=== PATIENT | female | born 1960 | race Caucasian/White ===

== ENCOUNTER 2023-07-22 13:17 | Emergency (ER) | payer BC, SELFPAY ==
[2023-07-22 13:34] VITALS: BP 126/83; PULSE 81; RESP 18; TEMP 36.8; O2SAT 94; BMI 33.7
--- NOTE | 2023-07-22 16:31 | ED.GENADULT ---
HPI - General Adult General Date Seen: 07/22/23 Chief complaint: Extremity Pain/Injury, Lower Stated complaint: L foot swollen Time Seen by Provider: 07/22/23 16:31 History of Present Illness HPI narrative: 62-year-old female with a history of rheumatoid arthritis, autoimmune disease, but no history of DVT or PE, who presents to the ER today for redness and swelling of her left foot as well as swelling and pain involving her left renner, calf, and popliteal fossa. She was helping her mother, who lives with her and is on hospice, get into her bed last week. Sounds like she bent over awkwardly and injured her back. She has been having some pain in her midback since then and some radiation of pain down her left leg. It sounds like she has pre-existing back problems and is actually set up to start physical therapy for her back this coming , in 3 days. Around that same time, about 7 or 8 days ago, she started developed redness and swelling of her left foot. It feels warm to the touch. Since then she has also developed swelling without redness affecting her left ankle, renner, calf, and behind her knee. She has had some pain and swab discomfort in her left calf. No fevers or chills. She recalls that she had some swollen joints in her wrists few months ago that required steroid shots by her ear pull machine operator (who she sees through [facility]). She has also apparently had a half of a a lab workup through her ear pull machine operator that showed lower uric acid but she is waiting on some of the other test results. With the increasing pain and swelling in her left lower extremity she is worried about possibly a DVT. She came to the ER to get an ultrasound. Related Data Home Medications Medication Instructions Recorded Confirmed ibuprofen .ROUTE 07/22/23 Previous Rx's Medication Instructions Recorded cephalexin 500 mg capsule 500 mg PO QID #20 caps 07/22/23 Allergies Allergy/AdvReac Type Severity Reaction Status Date / Time bee pollen Allergy Severe Anaphylaxis Verified 07/22/23 13:41 Latex, Natural Rubber Allergy Severe Anaphylaxis Verified 07/22/23 13:41 Penicillins Allergy Mild Rash Verified 07/22/23 13:41 [facility] PFS Social History Smoking Status: Never smoker Do you use any of these nicotine containing products: None Second hand tobacco smoke exposure: No How often do you have a drink containing alcohol: 4 or more times a week How many standard drinks containing alcohol do you have on a typical day: 1 or 2 AUDIT-C Alcohol total score: 4 Non-prescribed substance use: marijuana (any form) Exam Narrative: Exam Narrative: Constitutional: Appears well-developed and well-nourished. Alert. Conversant and polite. Non toxic. HENT: Head: Atraumatic. Nose: Nose normal. Mouth/Throat: Oral mucosa is clear and moist. no trismus. Pharynx normal. Tonsils symmetric. No tonsillar enlargement, erythema, or exudate. Eyes: Conjunctivae normal. EOM normal. Pupils equal, round, and reactive to light. No scleral icterus. Neck: Normal range of motion. Neck supple. No tracheal deviation present. Cardiovascular: Normal rate, regular rhythm. No gallop. No friction rub. No murmur heard. Symmetric PT artery pulses Pulmonary/Chest: Effort normal. No stridor. No respiratory distress. No wheezes. No rales. No rhonchi . No tenderness. Abdominal: Soft.No distension. No mass. No tenderness. No rebound. No guarding. Musculoskeletal: RUE: Normal range of motion. No tenderness. No deformity LUE: Normal range of motion. No tenderness. No deformity RLE: Normal range of motion. No edema. No tenderness. No deformity LLE: Normal range of motion her hip and knee. Healed anterior knee incision from recent total knee replacement (done last August) incision looks good. There is no redness or warmth or swelling of the knee joint. No palpable effusion. She has mild tenderness in the popliteal fossa. She has edema affecting her calf, renner, ankle. She does have redness of the medial aspect of her foot and swelling there. No redness of the renner or calf. No ascending lymphangitis. No bony tenderness of her foot. Normal range of motion in the MTP, and IP joints of all of her toes. Neurological: Alert and oriented to person, place, and time. Normal strength. CN II-VII intact. No sensory deficit. GCS eye subscore is 4. GCS verbal subscore is 5. GCS motor subscore is 6. Normal coordination Skin: Skin is warm and dry. No rash noted. No pallor. Normal capillary refill. Psychiatric: Normal mood. Normal affect. Const: Vital Signs, click to edit/add: Vital Signs - 24 hr 07/22/23 13:34 Temperature 98.3 F Pulse Rate [Pulse Oximeter] 81 Respiratory Rate 18 Blood Pressure [Ri ght Upper Arm] 126/83 Pulse Oximetry 94 Oxygen Delivery Me thod Room Air Course Vital Signs Vital signs: Initial Vital Signs Temperature 98.3 F 07/22/23 13:34 Temperature Source Temporal Artery Scan 07/22/23 13:34 Pulse Rate 81 07/22/23 13:34 Respiratory Rate 18 07/22/23 13:34 Blood Pressure 126/83 07/22/23 13:34 Blood Pressure Mean 97 07/22/23 13:34 Blood Pressure Position Sitting 07/22/23 13:34 Pulse Oximetry 94 07/22/23 13:34 Oxygen Delivery Method Room Air 07/22/23 13:34 Vital Signs Temperature 98.3 F 07/22/23 13:34 Pulse Rate 81 07/22/23 13:34 Respiratory Rate 18 07/22/23 13:34 Blood Pressure 126/83 07/22/23 13:34 Pulse Oximetry 94 07/22/23 13:34 Oxygen Delivery Method Room Air 07/22/23 13:34 Temperature 98.3 F 07/22/23 13:34 Pulse Rate 81 07/22/23 13:34 Respiratory Rate 18 07/22/23 13:34 Blood Pressure 126/83 07/22/23 13:34 Pulse Oximetry 94 07/22/23 13:34 Oxygen Delivery Method Room Air 07/22/23 13:34 Medical Decision Making MDM Narrative Medical decision making narrative: This is a pleasant 62-year-old female with a history of rheumatoid arthritis presenting to the ER today for redness and swelling affecting the medial aspect of her right foot in particular around the 1st MTP joint but also on the dorsal medial foot as well as swelling without redness affecting her left calf and left posterior knee. Initial concern with the left lower extremity swelling would be possible DVT. Ultrasound is obtained and preliminary report is normal. Formal ultrasound report pending at the time of this dictation. there is no symptoms of PE for this patient. Differential for the swelling and redness especially around the 1st MTP joint in the foot would be possible gout. Patient doubts that it is gout given absence of significant pain there and she says she recently had lab sister her ear pull machine operator that showed a low uric acid level. Discussed that gout can still flare even despite low serum levels. Close however doubt gout since the redness is a little bit more diffuse of the dorsum of the foot and is not centered over the 1st MTP joint only. Differential would also include possible cellulitis. At this point she is not febrile. I do not think laboratory workup would be helpful here since white count may be normal or elevated in the setting of cellulitis. Will try her on empiric course of cephalexin. She will follow-up with primary care within the next 3-5 days for recheck. Get follow-up ultrasound if swelling still present and not improving to rule out possibility for occult DVT. Precautions for return to the ER reviewed Discharge Plan Discharge Clinical Impression: Edema of left lower extremity, Cellulitis of foot, left Patient Disposition: Home, Self-Care Condition: Stable Instructions: Cellulitis (ED), Leg Edema (ED) Additional Instructions: As we discussed, please follow-up with her doctor to get a repeat ultrasound of the swelling in your leg is not getting better within the next 5-7 days. If you have increasing redness or worsening pain in your foot or if you develop any fever, or if you develop chest pain or trouble breathing, please see your doctor immediately or come back to the ER right away to be rechecked. Prescriptions: New cephalexin 500 mg capsule 500 mg PO QID Qty: 20 0RF No Action ibuprofen [Advil Liqui-Gel] .ROUTE Follow Up/Referrals: Provider,Not a Local [Primary Care Provider] - Stand Alone Forms: MyHealth Info Instructions
--- NOTE | 2023-07-22 16:47 | CRLHL7_ITS ---
For Patients: As a result of the Century Cures Act, medical imaging exams and procedure reports are released immediately into your electronic medical record. You may view this report before your referring provider. If you have questions, please contact your health care provider. INDICATION: Leg pain and swelling. TECHNIQUE: Ultrasound venous duplex lower left extremity. Compression venous exam was performed using klein-scale, color Doppler, and spectral Doppler analysis. COMPARISON: None. FINDINGS: Deep veins: Sonographic imaging demonstrates the left common femoral, deep femoral, superficial femoral, popliteal, posterior tibial and the contralateral right common femoral veins to be fully compressible with normal color Doppler blood flow. Superficial veins: Greater saphenous vein is fully compressible. No popliteal cyst. IMPRESSION: Normal left lower extremity venous ultrasound, no sign of deep venous thrombosis. Dictated by Devin Mccracken MD @ 07/22/2023 6:15:38 PM (Electronically Signed)
--- OUTSIDE RECORDS SUMMARY | 2023-07-22 17:04 | XMS_ITS | Clinical Summary ---
Author Name Unknown Organization [place] Address [facility] [place] [address] Care Team Providers Care Editor Dictionary Name Role Phone Kelly Medina PA-C Unavailable Kelly Medina PA-C Primary Care Pr ovider Allergies Active Allergy Reactions Criticality Noted Date Comments Bees 06/28/2005 Codeine Low 08/08/2022 Makes me hyper Contrast Dye 09/03/2002 Coma. Pt is ok with isovue 370 (ct contrast dye) 08/08/13. Iodinated Contrast Media Anaphylaxis High 08/08/2022 Iodine Anaphylaxis High 09/03/2002 anaphylaxis Latex Anaphylaxis High 09/23/2002 Malt Hives 04/23/2014 Penicillins Rash Low 09/03/2002 rash Estradiol Rash Low 04/16/2018 Medications Medication Sig Dispensed Refills Start Date End Date Status VITAMIN D, CHOLECALCIFEROL, PO Take 400 Units by mouth daily 0 Active Magnesium Chloride (MAGNESIUM DR PO) Take 450 mg by mouth 2 times daily 0 Active albuterol (PROAIR HFA/PROVENTIL HFA/VENTOLIN HFA) 108 (90 Base) MCG/ACT inhalerIndications:I ntermittent asthma, uncomplicated Inhale 1-2 puffs into the lungs every 4 hours as needed for shortness of breath / dyspnea 16 g 1 12/21/2020 Active multivitamin w/minerals (THERA-VIT-M) tablet Take 1 tablet by mouth daily 0 Active aspirin (ASA) 325 MG EC tabletIndications:S/ P TKR (total knee replacement), left Take 1 tablet (325 mg) by mouth daily 30 tablet 0 09/03/2022 Active bisacodyl (DULCOLAX) 5 MG EC tabletIndications:Sp ecial screening for malignant neoplasms, colon Take 2 tablets at 3 pm the day before your procedure. If your procedure is before 11 am, take 2 additional tablets at 11 pm. If your procedure is after 11 am, take 2 additional tablets at 6 am. For additional instructions refer to your colonoscopy prep instructions. 4 tablet 0 06/06/2023 Active polyethylene glycol (GOLYTELY) 236 g suspensionIndication s:Special screening for malignant neoplasms, colon The night before the exam at 6 pm drink an 8-ounce glass every 15 minutes until the jug is half empty. If you arrive before 11 AM: Drink the other half of the Golytely jug at 11 PM night before procedure. If you arrive after 11 AM: Drink the other half of the Golytely jug at 6 AM day of procedure. For additional instructions refer to your colonoscopy prep instructions. 4000 mL 0 06/06/2023 Active PREDNISONE, JANICE, PO Take 10 mg by mouth daily Prednisone dose pack 0 Active Active Problems Patient Care Coordination No te Formatting of this note migh t be different from the original. [email or web address] Problem Noted Date Diagnosed Date Anxiety 09/27/2017 Autoimmune disease (H24) 09/27/2017 Hip pain, left 09/13/2015 Degenerative arthritis of hip 05/18/2014 Abdominal pain, unspecified abdominal location 0 12/07/2010 Overview: Problem list name updated by automated process. 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 Provider to review Autoimmune disease, not elsewhere classified Overview: sees dr mast at [facility] Problem list name updated by automated process. Provider to review and confirm Resolved Problems Problem Noted Date Diagnosed Date Resolved Date Morbid obesity 12/05/2017 12/03/2018 Left hip pain 09/20/2015 10/05/2015 Aftercare following hip join t replacement surgery 09/20/2015 10/05/2015 Thoracic or lumbosacral neur itis or radiculitis, unspecified 12/09/2013 04/19/2014 Cervical pain 03/19/2012 05/06/2012 Lumbar pain 03/19/2012 05/06/2012 Mild intermittent asthma Encounters Date Type Department Care Team Description 06/18/2023 12:00 PM ACADEMIC DEAN - 06/18/2023 12:30 PM ACADEMIC DEAN Surgery [facility] [address] [place] [address] Melba Houser MD Colonoscopy (FV) 06/18/2023 10:57 AM ACADEMIC DEAN - 06/18/2023 1:05 PM ACADEMIC DEAN Hospital Encounter [facility] [address] [place] [address] Melba Houser MD Special screening for malignant neoplasms, colon (Primary Dx) Discharge Disposition: Home or Self Care 06/18/2023 Travel 04/22/2023 [facility] Medical Advice [address] [phone] [facility] from Last 3 Months Immunizations Name Administration Dates Next Due COVID-19 MONOVALENT 12+ (Pfizer) 07/13/2021,10/16,10/18/2020 DTaP, Unspecified 03/20/2012 Influenza (H1N1) 05/20/2009 Influenza (IIV3) PF 04/17/2013, 3,03/20/2012,2010,03/30/2010 Influenza Vaccine, 6+MO IM (QUADRIVALENT W/PRESERVATIVES) 03/21/2021 TD,PF 7+ (Tenivac) 02/16/2004 TDAP (Adacel,Boostrix) 04/17/2013,03/20/2012 TDAP Vaccine (Adacel) 04/16/2018 Zoster recombinant adjuvante d (SHINGRIX) 03/25/2019,12/03/2018 Family History Medical History Relation Comments Family History Negative Brother 3 2 brothe rs healthy Cancer Father Hypertension Father Breast Cancer Maternal Aunt Cancer - colorectal Maternal Grandfather Breast Cancer Maternal Grandmother Colon Polyps Mother Family History Negative Mother Cancer Paternal Grandfather Cancer Paternal Grandmother Relation Status Comments Brother 1 Alive Brother 2 Alive Brother 3 Father Maternal Aunt Maternal Grandfather Maternal Grandmother Mother Alive Paternal Grandfather Paternal Grandmother Social History Tobacco Use Types Packs/Day Years Used Date Smoking Tobacco: Never Smokeless Tobacco: Never Tobacco Cessation:Counseling Given: Not Answered Alcohol Use Standard Drinks/Week Comments Yes 0 (1 standard drink = 0.6 oz pur e alcohol) 4 weekends Social Connection and Isolat ion Panel [NHANES] Answer Date Recorded In a typical week, how many times do you talk on the phone with family, friends, or neighbors? More than three times a week 08/24/2022 Frequency of Social Gatherin gs with Friends and Family Not on file 08/24/2022 How often do you attend chur ch or yazidism services? More than 4 times per year 08/24/2022 Do you belong to any clubs o r organizations such as faith groups, unions, fraternal or athletic groups, or school groups? Yes 08/24/2022 Attends Club or Organization Meetings Not on yasemin e 08/24/2022 Are you , , di vorced, , never , or living with a partner? 08/24/2022 AUDIT-C Answer Date Recorded Q1: How often do you have a drink containing alc ohol? 2-3 times a week 08/24/2022 Q2: How many drinks containi ng alcohol do you have on a typical day when you are drinking? 1 or 2 08/24/2022 Q3: How often do you have si x or more drinks on one occasion? Never 08/24/2022 Overall Financial Resource Strain (CARDIA) Answe r Date Recorded How hard is it for you to pa y for the very basics like food, housing, medical care, and heating? Not hard at all 08/24/2022 PHQ-2 Answer Date Recorded PHQ-2 Score 0 01/17/2023 [facility] - Occupational Stress Questionnaire Answer Date Recorded Do you feel stress - tense, restless, nervous, or anxious, or unable to sleep at night because your mind is troubled all the time - these days? Not at all 08/24/2022 Exercise Vital Sign Answer Date Recorde d On average, how many days pe r week do you engage in moderate to strenuous exercise (like a brisk walk)? 0 days 08/24/2022 On average, how many minutes do you engage in exercise at this level? 0 min 08/24/2022 Hunger Vital Sign Answer Date Recorded Within the past 12 months, y ou worried that your food would run out before you got the money to buy more. Never true 08/25/19 23 Within the past 12 months, t he food you bought just didn't last and you didn't have money to get more. Never true 08/24/2022 PRAPARE - Transportation Answer Date Re corded In the past 12 months, has l ack of transportation kept you from medical appointments or from getting medications? No 08/15 In the past 12 months, has l ack of transportation kept you from meetings, work, or from getting things needed for daily living? No 08/24/2022 Housing Stability Vital Sign Answer Yonathan e Recorded In the last 12 months, was t here a time when you were not able to pay the mortgage or rent on time? No 08/24/2022 In the last 12 months, how many places have you lived? 1 08/24/2022 In the last 12 months, was t here a time when you did not have a steady place to sleep or slept in a long-term (including now)? No 08/24/2022 Adolescent Education Answer Date Record ed Getting School Help Needed Not on file 03/08 Sex and Gender Information Value Date Recorded Sex Assigned at Not on file Gender Identity Not on file Sexual Orientation Not on file Last Filed Vital Signs Vital Sign Reading Time Taken Comments Blood Pressure 116/68 06/18/2023 12:50 PM ACADEMIC DEAN Pulse 63 06/18/2023 12:50 PM ACADEMIC DEAN Temperature 36.4 ??C (97.5 ??F) 06/18/2023 11:[address] Respiratory Rate 16 06/18/2023 12:50 PM ACADEMIC DEAN Oxygen Saturation 95% 06/18/2023 12:50 PM ACADEMIC DEAN Inhaled Oxygen Concentration - - Weight 86.2 kg (190 lb) 06/18/2023 11:15 AM ACADEMIC DEAN Height 158.8 cm (5' 2.5) 06/18/2023 11:15 AM CS T Body Mass Index 34.2 06/18/2023 11:15 AM ACADEMIC DEAN Plan of Treatment Upcoming Encounters Date Type Department Care Team (Late st Contact Info) Description 2023 1:30 PM ACADEMIC DEAN Office Visit [facility] [address] [place] [address] Anamaria Nevarez MD [address] [place] [address] Health Maintenance Due Date Last Done Comments CT COLONOGRAPHY 1960 FIT 1960 FLEX SIG 1960 sDNA (Cologuard) 1960 ASTHMA ACTION PLAN 07/10/2014 07/10/2013, 0 09/15/2012, 03/13/2012, Additional history exists YEARLY PREVENTIVE VISIT 07/13/2020 07/13/19 20, 03/17/2018, 09/17/2016, Additional history exists RSV VACCINE ( & 60+) (1 - 1-dose 60+ series) 2022 ADVANCE CARE PLANNING 12/05/2022 12/05/2017 COVID-19 Vaccine ( season) 2023 07/13/2021, 11/08/2020, 10/18/2020 INFLUENZA VACCINE (#1) 2023 , 03/17/2018 (Declined), 04/17/2013, Additional history exists ASTHMA CONTROL TEST 02/24/2023 08/24/2022, 12/05/2021, 12/21/2020, Additional history exists PHQ-2 (once per calendar year) 2023 01/17/2023, 08/24/2022, 12/05/2021, Additional history exists ANNUAL REVIEW OF HM ORDERS 01/18/202401/17, 12/05/2021, 12/21/2020 MAMMO SCREENING 02/07/2024 02/06/2023, 0 01/2022, 07/23/2019, Additional history exists GLUCOSE 01/17/2026 01/17/2023, 08/16, 09/04/2022, Additional history exists LIPID 01/18/2028 01/17/2023, 10/2016, 09/15/2012, Additional history exists DTAP/TDAP/TD IMMUNIZATION (5 - Td or Tdap) 04/16/2028 04/16/2018, 04/17/2013, 03/20/2012, Additional history exists COLONOSCOPY 06/18/2028 06/18/2023, 07/2023, 10/01/2017, Additional history exists COLORECTAL CANCER SCREENING 06/18/2028 PAP Discontinued 09/15/2012, 11/16, 02/03/2007, Additional history exists ZOSTER IMMUNIZATION Completed 03/25/2019, 9 HEPATITIS C SCREENING Completed 01/17/2023 HIV SCREENING Discontinued HPV IMMUNIZATION Aged Out No longer e ligible based on patient's age to complete this topic IPV IMMUNIZATION Aged Out No longer e ligible based on patient's age to complete this topic MENINGITIS IMMUNIZATION Aged Out No l onger eligible based on patient's age to complete this topic Pneumococcal Vaccine: Pediatrics (0 to 5 Years) and At-Risk Patients (6 to 64 Years) Aged Out No longer eligible based on patient's age to complete this topic RSV MONOCLONAL ANTIBODY Aged Out No l onger eligible based on patient's age to complete this topic Medical Devices Implanted Type Area Dials Supervisor Device Identifier Shelf Expiration Date Model / Serial / Lot Bone Cement Simplex Full Dose 6191-1-001 - [id number] Implanted:Qt y: 1 on 09/03/2022 by Darshan Young MD at [facility] Cement, Bone Left: Knee [employer] 11/14/2024 6191-1-001 / / [id number] Insert Tibial Asf Cr 11mm Ve L 6-7 - [id number] Implanted:Qt y: 1 on 09/03/2022 by Darshan Young MD at [facility] Total Joint Componen t/Insert Left: Knee [employer] [id number] 11/17/2025 [id number] / / [id number] Accolade Ii 132deg Neck Angle Hip Stem Implanted:Qt y: 1 on 05/18/2014 by Bobby Tapia MD at [facility] Left: Hip [employer] 09/14/2017 [id number] / / [id number] Imp Head Femoral Strk Biolox Delta Ceramic 36mm +2.5mm Implanted:Qt y: 1 on 09/13/2015 by Bobby Tapia MD at [facility] Left: Hip [employer] 07/10/2020 [id number] / / [id number] Explanted Type Area Dials Supervisor Device Identifier Shelf Expiration Date Model / Serial / Lot Imp Scr Bone Strk Torx 6.5x20mm Can [id number] Implanted:Qty: 1 on 05/18/2014 by Bobby Tapia MD at [facility] Explanted:Qty: 1 on 09/13/2015 at [facility] Left: Hip [employer] 02/14/[id number] / / [id number] Procedures Procedure Name Priority Date/Time Associated Diagnosis Comments COLONOSCOPY 06/18/2023 11:33 AM ACADEMIC DEAN Special screening for malignant neoplasms, colon Special Needs Standard [employer] e-scribed to [address] 06/06 . COLONOSCOPY Routine 06/18/2023 11:20 AM ACADEMIC DEAN from Last 3 Months Results * COLONOSCOPY (06/18/2023 11:20 AM ACADEMIC DEAN) COLONOSCOPY [facility] Patient Name: Nidia Mtz ? Procedure Date: 06/18/2023 11:20 AM ? Date of : 1960 ?Admit Type: Outpatient Age: 62 ? Gender: Female Attending MD: MELBA HOUSER MD, ??Total Sedation Time: 21_minutes continuous bedside 1:1 Instrument Name: 225 - Adult Colonoscope Procedure: ?Colonoscopy Indications: ?High risk colon cancer surveillance: Personal ?history of colonic polyps Providers: ?MELBA HOUSER MD (Doctor) Referring MD: ? RON LOPEZ (Referring MD) Medicines: ?Midazolam 3 mg IV, Fentanyl 150 micrograms IV Complications: ?No immediate complications. Procedure: ?Pre-Anesthesia Assessment: ?- Prior to the procedure, a History and Physical ?was performed, and patient medications and ?allergies were reviewed. The patient is competent. ?The risks and benefits of the procedure and the ?sedation options and risks were discussed with the ?patient. All questions were answered and informed ?consent was obtained. Patient identification and ?proposed procedure were verified by the physician ?in the procedure room. Mental Status Examination: ?alert and oriented. Airway Examination: normal ?oropharyngeal airway and neck mobility. Respiratory ?Examination: clear to auscultation. CV Examination: ?normal. Prophylactic Antibiotics: The patient does ?not require prophylactic antibiotics. Prior ?Anticoagulants: The patient has taken no ?anticoagulant or antiplatelet agents. ASA Grade ?Assessment: II - A patient with mild systemic ?disease. After reviewing the risks and benefits, ?the patient was deemed in satisfactory condition to ?undergo the procedure. The anesthesia plan was to ?use moderate sedation / analgesia (conscious ?sedation). Immediately prior to administration of ?medications, the patient was re-assessed for ?adequacy to receive sedatives. The heart rate, ?respiratory rate, oxygen saturations, blood ?pressure, adequacy of pulmonary ventilation, and ?response to care were monitored throughout the ?procedure. The physical status of the patient was ?re-assessed after the procedure. ?After obtaining informed consent, the colonoscope ?was passed under direct vision. Throughout the ?procedure, the patient's blood pressure, pulse, and ?oxygen saturations were monitored continuously. The ?[employer] Adult Colonoscope, Model # [id number], ?Censitrac # [id number] was introduced through the ?anus and advanced to the cecum, identified by ?appendiceal orifice and ileocecal valve. The ?colonoscopy was performed without difficulty. The ?patient tolerated the procedure well. The quality ?of the bowel preparation was good. The ileocecal ?valve, appendiceal orifice, and rectum were ?photographed. ? Findings: ? Hemorrhoids were found on perianal exam. ? The exam was otherwise without abnormality on direct and retroflexion ? views. ? Impression: ? - Hemorrhoids found on perianal exam. ?- The examination was otherwise normal on direct ?and retroflexion views. ?- No specimens collected. Recommendation: ? - Repeat colonoscopy in 5 years for surveillance. ?- Refer to a colo-rectal surgeon at the next ?available appointment. ? Procedure Code(s): ? --- Professional --- ? G0105, Colorectal cancer screening; colonoscopy on individual at high ? risk CPT copyright 2021 [employer]. All rights reserved. The codes documented in this report are preliminary and upon medical records field technician review may be revised to meet current compliance requirements. Electronically signed by Melba Houser MD __ MELBA HOUSER MD 06/18/2023 12:22:47 PM I was physically present for the entire viewing portion of the exam. MELBA HOUSER MD Number of Addenda: 0 Note Initiated On: 06/18/2023 11:20 AM MRN: ?[id number] Procedure Date: ? 06/18/2023 11:20:59 AM Scope Withdrawal Time: 0 hours 6 minutes 21 seconds Total Procedure Duration: 0 hours 20 minutes 29 seconds Estimated Blood Loss: ? Scope In: 11:56:07 AM Scope Out: 12:16:36 PM RADIOLOGY RESULTS 06/18/2023 11:2 0 AM ACADEMIC DEAN Kelly GOMEZ ES RADIOLOGY RESULTS from Last 3 Months Advance Directives For more information, please contact: [phone] Latest Code Status on File Code Status Date Activated Date Inactivated Comments Full Code 09/03/2022 3:55 PM 09/05/2022 12:40 PM All basic and advanced life-sustaining interventions are performed as appropriate Question Answer Comments Code status determined by: Unable to discuss and no AD/POLST on file; continue PREVIOUSLY ORDERED code status Code Status History Code Status Date Activated Date Inactivated Comments Full Code 09/13/2015 7:04 PM 09/16/2015 2:43 PM Full Code 05/18/2014 8:48 PM 05/21/2014 5:50 PM Care Teams Editor Dictionary Relationship Specialty Start Date End Date Kelly Medina PA-C [address] [place] [address] PCP - General Family Medicine 08/07/22 Kelly Medina PA-C [address] [place] [address] Assigned PCP 06/30/22
--- OUTSIDE RECORDS SUMMARY | 2023-07-22 17:04 | XMS_ITS | Encounter Summary ---
Author Name Unknown Organization [place] Address [facility] [place] [address] Care Team Providers Care Laminating Machine Operator Helper Name Role Phone Tevin Marshall PA-C Unavailable [phone] Kelly Medina PA-C Unavailable Kelly Medina PA-C Primary Care Pr ovider Encounter Details Date Type Department Care Team (Late st Contact Info) Description 04/22/2023 [facility] Medical Advice [address] [address] [facility] Social History Tobacco Use Types Packs/Day Years Used Date Smoking Tobacco: Never Smokeless Tobacco: Never Alcohol Use Standard Drinks/Week Comments Yes 0 [...] often do you attend chur ch or pentecostal services? More than 4 times per year 08/24/2022 Do you belong to any clubs o r organizations such as shinto groups, unions, fraternal or athletic groups, or [...] Answer Date Recorded PHQ-2 Score 0 01/17/2023 [facility] - Occupational Stress [...] place to sleep or slept in a usp (including now)? No 08/24/2022 Adolescent Education Answer Date Record ed Getting School Help Needed Not on file 03/08 Sex and Gender Information Value Date Recorded Sex Assigned at Not on file Gender Identity Not on file Sexual Orientation Not on file documented as of this encounter Plan of Treatment Upcoming Encounters Date Type Department Care Team (Late st Contact Info) Description 2023 1:30 PM INSPECTOR SUBASSEMBLIES Office Visit [facility] [address] [place] [phone] Anamaria Nevarez MD [address], [facility] [address] [place] [address] documented as of this encounter Visit Diagnoses Not on filedocumented in this encounter Additional Health Concerns Assessment Noted Time PHQ-9 Depression Total Score: 4 12/04/19 19 3:50 PM CDT documented as of this encounter Care Teams Laminating Machine Operator Helper Relationship Specialty Start Date End Date Kelly Medina PA-C [address] [place] [address] PCP - General Family Medicine 08/07/22 Tevin Marshall PA-C [address] [facility] [address] [place] [address] Assigned Musculoskeletal Provider 12/16/21 07/10/23 Kelly Medina PA-C [address] [place] [address] Assigned PCP 06/30/22 documented as of this encounter
--- OUTSIDE RECORDS SUMMARY | 2023-07-22 17:04 | XMS_ITS | Encounter Summary ---
Author Name Unknown Organization [place] Address [address] [facility] [place] [address] Care Team Providers Care Creel Operator Name Role Phone Tevin Marshall PA-C Unavailable [phone] Kelly Medina PA-C Unavailable Kelly Medina PA-C Primary Care Pr ovider Reason for Visit * Auth/Cert (Routine) Specialty Diagnoses / Procedures Referred By Mando johnson Referred To Contact Gastroenterology Diagnoses Special screening for malignant neoplasms, colon Special screening for malignant neoplasms, colon [Z12.11] Procedures CA COLONOSCOPY W/WO BRUSH/WASH Colonoscopy (FV) Endoscopy [address] [place] [address] Referral ID Status Reason Start Date Expiration Date Visits Re quested Visits Authorized [id number] 1 1 Encounter Details Date Type Department Care Team (Latest Contact Info) Description 06/18/2023 10:57 AM DAIRY WORKER - 06/18/2023 1:05 PM DAIRY WORKER Hospital Encounter [facility] [place] [address] [place] [address] Melba Houser MD [facility] GASTROINTESTINAL [id number] [place] [address] Special screening for malignant neoplasms, colon (Primary Dx) Discharge Disposition: Home or Self Care Social History Tobacco Use Types Packs/Day Years [...] often do you attend chur ch or scientologist services? More than 4 times per year [...] Answer Date Recorded PHQ-2 Score 0 01/17/2023 [facility] - Occupational Stress [...] place to sleep or slept in a penitentiary (including now)? No 08/24/2022 Adolescent Education Answer Date Record ed Getting School Help Needed Not on file 03/08 Sex and Gender Information Value Date Recorded Sex Assigned at Not on file Gender Identity Not on file Sexual Orientation Not on file COVID-19 Exposure Response Date Recorded In the last 10 days, have yo u been in contact with someone who was confirmed or suspected to have Coronavirus/COVID-19? No / Unsure 03/20/2023 9:36 AM CDT documented as of this encounter Last Filed Vital Signs Vital Sign Reading Time Taken Comments Blood Pressure 116/68 06/18/2023 12:50 PM DAIRY WORKER Pulse 63 06/18/2023 12:50 PM DAIRY WORKER Temperature 36.4 ??C (97.5 ??F) 06/18/2023 11:[address] Respiratory Rate 16 06/18/2023 12:50 PM DAIRY WORKER Oxygen Saturation 95% 06/18/2023 12:50 PM DAIRY WORKER Inhaled Oxygen Concentration - - Weight 86.2 kg (190 lb) 06/18/2023 11:15 AM DAIRY WORKER Height 158.8 cm (5' 2.5) 06/18/2023 11:15 AM CS T Body Mass Index 34.2 06/18/2023 11:15 AM DAIRY WORKER documented in this encounter Discharge Instructions * Discharge Instructions* Jl Santos RN - 06/18/2023 1:04 PM DAIRY WORKER The patient has received a copy of the Provation report the doctor has written and discharge instructions have been discussed with the patient and responsible adult. All questions were addressed and answered prior to patient discharge. Y WORKER documented in this encounter Medications at Time of Discharge Medication Sig Dispensed Refills Start Date End Date albuterol (PROAIR HFA/PROVENTIL HFA/VENTOLIN HFA) 108 (90 Base) MCG/ACT inhalerIndications:Inte rmittent asthma, uncomplicated Inhale 1-2 puffs into the lungs every 4 hours as needed for shortness of breath / dyspnea 16 g 1 12/21/2020 aspirin (ASA) 325 MG EC tabletIndications:S/P TKR (total knee replacement), left Take 1 tablet (325 mg) by mouth daily 30 tablet 0 09/03/2022 bisacodyl (DULCOLAX) 5 MG EC tabletIndications:Speci al screening for malignant neoplasms, colon Take 2 tablets at 3 pm the day before your procedure. If your procedure is before 11 am, take 2 additional tablets at 11 pm. If your procedure is after 11 am, take 2 additional tablets at 6 am. For additional instructions refer to your colonoscopy prep instructions. 4 tablet 0 06/06/2023 Magnesium Chloride (MAGNESIUM DR PO) Take 450 mg by mouth 2 times daily 0 multivitamin w/minerals (THERA-VIT-M) tablet Take 1 tablet by mouth daily 0 polyethylene glycol (GOLYTELY) 236 g suspensionIndications:S pecial screening for malignant neoplasms, colon The night [...] colonoscopy prep instructions. 4000 mL 0 06/06/2023 PREDNISONE, JANICE, PO Take 10 mg by mouth daily Prednisone dose pack 0 VITAMIN D, CHOLECALCIFEROL, PO Take 400 Units by mouth daily 0 documented as of this encounter H&P Notes * Melba Houser MD - 06/18/2023 11:51 AM CST Pre-Endoscopy History and Physical Nidia Mtz Date of : 1960 Age: [age] year old Date of Procedure: 06/18/2023 Primary care provider: Kelly Medina Type of Endoscopy: Colonoscopy with possible biopsy, possible polypectomy Reason for Procedure: polyp Type of Anesthesia Anticipated: Conscious Sedation HPI: Nidia is a 62 year old female who will be undergoing the above procedure. A history and physical has been performed. The patient's medications and allergies have been reviewed. The risks and benefits of the procedure and the sedation options and risks were discussed with the patient. All questions were answered and informed consent was obtained. She denies a personal or family history of anesthesia complications or bleeding disorders. 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) Temporomandibular joint disorder Autoimmune disease, not elsewhere classified Intermittent asthma Stiff person syndrome CARDIOVASCULAR SCREENING; LDL GOAL LESS THAN 160 Pulmonary nodule, left Abdominal pain, unspecified abdominal location Degenerative arthritis of hip Hip pain, left Anxiety Autoimmune disease (H24) Past Medical History: Diagnosis Date Arthritis Autoimmune disease NEC sees dr mast [facility] Autoimmune disease, not elsewhere classified Chronic infection MRSA Complication of anesthesia Blood pressure and sats drop (ended up in ICU postop) Fibromyalgia Mild intermittent asthma Numbness and tingling bilateral hands and feet Temporomandibular joint disorders, unspecified not had issues for a while now-02/03/07 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 XR FOOT SURGERY JOSE RIGHT [facility] NONSPECIFIC PROCEDURE 12/07/1997 excision of neuroma 2nd toe (R) [facility] NONSPECIFIC PROCEDURE neck injury [facility] NONSPECIFIC PROCEDURE left knee surgery ZZ[facility] NONSPECIFIC PROCEDURE tubal ligation Social History Tobacco Use Smoking status: Never Smokeless tobacco: Never Substance Use Topics Alcohol use: Yes Comment: 4 weekends Family History Problem Relation Age of Onset Family History Negative Mother Colon Polyps Mother Hypertension Father Cancer Father Breast Cancer Maternal Grandmother Cancer - colorectal Maternal Grandfather Cancer Paternal Grandmother Cancer Paternal Grandfather Family History Negative Brother 2 brothers healthy Breast Cancer Maternal Aunt Prior to Admission medications Medication Sig Start Date End Date Taking? Authorizing Provider albuterol (PROAIR HFA/PROVENTIL HFA/VENTOLIN HFA) 108 (90 Base) MCG/ACT inhaler Inhale 1-2 puffs into the lungs every 4 hours as needed for shortness of breath / dyspnea 12/21/20 Yes Elton Harmon PA-C aspirin (ASA) 325 MG EC tablet Take 1 tablet (325 mg) by mouth daily 09/03/22 Yes Jeaneth Craft PA-C bisacodyl (DULCOLAX) 5 MG EC tablet Take 2 tablets at 3 pm the day before your procedure. If your procedure is before 11 am, take 2 additional tablets at 11 pm. If your procedure is after 11 am, take2 additional tablets at 6 am. For additional instructions refer to your colonoscopy prep instructions. 06/06/23 Yes Melba Houser MD Magnesium Chloride (MAGNESIUM DR PO) Take 450 mg by mouth 2 times daily Yes Reported, Patient multivitamin w/minerals (THERA-VIT-M) tablet Take 1 tablet by mouth daily Yes Reported, Patient polyethylene glycol (GOLYTELY) 236 g suspension The night before the exam at 6 pm drink an 8-ounce glass every 15 minutes until the jug is half empty. If you arrive before 11 AM: Drink the other halfof the Golytely jug at 11 PM night before procedure. If you arrive after 11 AM: Drink the other half of the Golytely jug at 6 AM day of procedure. For additional instructions refer to your colonoscopy prep instructions. 06/06/23 Yes Melba Houser MD PREDNISONE, JANICE, PO Take 10 mg by mouth daily Prednisone dose pack Yes Reported, Patient VITAMIN D, CHOLECALCIFEROL, PO Take 400 Units by mouth daily Yes Reported, Patient Allergies Allergen Reactions Iodinated Contrast Media [Iodinated Contrast Media] Anaphylaxis Iodine Anaphylaxis anaphylaxis Latex Anaphylaxis Bees Contrast Dye Coma. Pt is ok with isovue 370 (ct contrast dye) 08/08/13. Malt Hives Codeine Makes me hyper Penicillins Rash rash Yuvafem [Estradiol] Rash REVIEW OF SYSTEMS: 5 point ROS negative except as noted above in HPI, including Gen., Resp., CV, GI & system review. PHYSICAL EXAM: BP 110/68 Pulse 66 Temp 97.5 ??F (36.4 ??C) (Temporal) Resp 16 Ht 1.588 m (5' 2.5) Wt 86.2 kg (190 lb) SpO2 95% BMI 34.20 kg/m?? Estimated body mass index is 34.2 kg/m?? as calculated from the following: Height as of this encounter: 1.588 m (5' 2.5). Weight as of this encounter: 86.2 kg (190 lb). GENERAL APPEARANCE: alert, and oriented MENTAL STATUS: alert AIRWAY EXAM: Mallampatti Class I (visualization of the soft palate, fauces, uvula, anterior and posterior pillars) RESP: lungs clear to auscultation - no rales, rhonchi or wheezes CV: regular rates and rhythm DIAGNOSTICS: Not indicated IMPRESSION ASA Class 2 - Mild systemic disease PLAN: Plan for Colonoscopy with possible biopsy, possible polypectomy. We discussed the risks, benefits and alternatives and the patient wished to proceed. The above has been forwarded to the consulting provider. Signed Electronically by: Melba Houser MD June 18, 2023 Y WORKER documented in this encounter Plan of Treatment Upcoming Encounters Date Type Department Care Team (Late st Contact Info) Description 2023 1:30 PM DAIRY WORKER Office Visit [facility] [address] [place] [address] Anamaria Nevarez MD [address] [place] [address] documented as of this encounter Procedures Procedure Name Priority Date/Time Associated Diagnosis Comments COLONOSCOPY 06/18/2023 11:33 AM DAIRY WORKER Special screening for malignant neoplasms, colon Special Needs Standard [facility] [address] 06/06 . COLONOSCOPY Routine 06/18/2023 11:20 AM DAIRY WORKER documented in this encounter Results * COLONOSCOPY (06/18/2023 11:20 AM DAIRY WORKER) COLONOSCOPY [facility] Patient Name: Nidia Mtz ? Procedure [...] and ?oxygen saturations were monitored continuously. The ?Olympus Adult Colonoscope, Model # CF-HP373Y, ?Censitrac # [id number] was introduced through the ?anus and advanced [...] at high ? risk CPT copyright 2021 [employer]. All rights reserved. The codes documented in this report are preliminary and upon powder compounder review may be revised to meet current compliance requirements. Electronically signed by Melba Houser MD __ MELBA HOUSER MD 06/18/2023 12:22:47 PM I was physically present for the entire viewing portion of the exam. MELBA HOUSER MD Number of Addenda: 0 Note Initiated On: 06/18/2023 11:20 AM MRN: ?[id number] Procedure Date: ? 06/18/2023 11:20:59 AM Scope Withdrawal Time: 0 hours 6 minutes 21 seconds Total Procedure Duration: 0 hours 20 minutes 29 seconds Estimated Blood Loss: ? Scope In: 11:56:07 AM Scope Out: 12:16:36 PM RADIOLOGY RESULTS 06/18/2023 11:2 0 AM DAIRY WORKER Kelly Medina PA-C PROCEDUR ES RADIOLOGY RESULTS documented in this encounter Visit Diagnoses Diagnosis Special screening for malignant neoplasms, colon- Primary documented in this encounter Administered Medications Inactive Administered Medications - up to 3 most recent administrations Medication Order MAR Action Action Date Dose Rate Site atropine injection 1 mg 1 mg, Intravenous, ONCE PRN, other, Bradycardia, Starting on Sat06/18/23 at 1150, For 1 dose, Intra-procedure benzocaine 20% (HURRICAINE/TOPEX) 20 % spray 0.5 mL 0.5 mL (1 spray), Mouth/Throat, ONCE PRN, sore throat, Starting on Sat06/18/23 at 1150, For 1 dose, [place] throat with 1 spray 5 minutes prior to procedure., Intra-procedure diphenhydrAMINE (BENADRYL) injection 25-50 mg 25-50 mg, Intravenous, ONCE PRN, other, for sedations, dose per provider direction., Administer over 1-2 Minutes, Starting on Sat06/18/23 at 1150, For 1 dose, Protect from light., Intra-procedure EPINEPHrine (Anaphylaxis) (ADRENALIN) injection (vial) 0.1 mg 0.1 mg, Submucosal, ONCE PRN, bleeding, Starting on Sat06/18/23 at 1150, For 1 dose, RN to dilute 1 mL (1 mg) of EPINEPHrine with 9 mL of 0.9% sodium chloride to equal a 0.1 mg/mL concentration. Inject 1 mL (0.1 mg) into submucosa via a sclerotherapy injection needle. Not for direct undiluted intravenous injection (1mg/ml = 1:1000). Protect from light., Intra-procedure fentaNYL (PF) (SUBLIMAZE) injection 50-100 mcg 50-100 mcg, Intravenous, EVERY 5 MIN PRN, severe pain, If inadequate response may repeat every 3 min PRN severe pain; when verbally requested by provider., Starting on Sat06/18/23 at 1150, Doses can be exceeded under direct oversight of patient by physician., Intra-procedure $Given 06/18/2023 12:02 PM DAIRY WORKER 50 mcg $Given 06/18/2023 11:58 AM DAIRY WORKER 50 mcg $Given 06/18/2023 11:55 AM DAIRY WORKER 50 mcg flumazenil (ROMAZICON) injection 0.2 mg 0.2 mg, Intravenous, EVERY 1 MIN PRN, benzodiazepine reversal, If inadequate response after 45 seconds, may repeat 0.2 mg IV every 1 minute PRN over sedation., Administer over 1 Minutes, Starting on Sat06/18/23 at 1150, Give over 15 seconds. Maximum total dose of 1 mg. Continue monitoring until discharge criteria met for a minimum of 2 hours. Irritant. Use with caution in patients on benzodiazepine therapy., Intra-procedure flumazenil (ROMAZICON) injection 0.2 mg 0.2 mg, Intravenous, EVERY 1 MIN PRN, benzodiazepine reversal, over sedation, Administer over 1 Minutes, Starting on Sat06/18/23 at 1303, For 12 hours, Give over 15 seconds. If inadequate response after 45 seconds, may repeat up to a MAX total dose of 1 mg. Continue monitoring until discharge criteria are met for a minimum of 2 hours Irritant. Use with caution in patients on benzodiazepine therapy. glucagon injection 0.5 mg 0.5 mg, Intravenous, ONCE PRN, other, gi motility, Starting on Sat06/18/23 at 1150, For 1 dose, Intra-procedure lidocaine (LMX4) cream Topical, EVERY 1 HOUR PRN, pain, with VAD insertion, Starting on Sat06/18/23 at 1213, Apply at least 30 minutes prior to VAD insertion in divided doses as needed for size of site for insertion. MAX Dose: 2.5 g (?? of 5 g tube) Do NOT give if patient has a history of allergy to any local anesthetic or any dennis product. Do NOT use both lidocaine intradermal/subcutaneous injection and the lidocaine cream on the same site., Pre-procedure lidocaine 1 % 0.1-1 mL 0.1-1 mL, Other, EVERY 1 HOUR PRN, mild pain with VAD insertion, Starting on Sat06/18/23 at 1213, MAX dose 1 mL subcutaneous OR intradermal along the side of the vein in divided doses as needed for VAD insertion. Do NOT give if patient has a history of allergy to any local anesthetic or any dennis product. Do NOT use both lidocaine intradermal/subcutaneous injection and the lidocaine cream on the same site., Pre-procedure midazolam (VERSED) injection 0.5-2 mg 0.5-2 mg, Intravenous, EVERY 4 MIN PRN, sedation, If inadequate response may repeat every 4 minutes PRN sedation until desired response; when verbally requested by provider., Starting on Sat06/18/23 at 1150, Doses can be exceeded under direct oversight of patient by physician. This drug may cause significant respiratory depression. Monitor respiratory status and vital signs carefully for 1 hour after each dose., Intra-procedure $Given 06/18/2023 12:0 2 PM DAIRY WORKER 1 mg $Given 06/18/2023 11:58 AM DAIRY WORKER 1 mg $Given 06/18/2023 11:55 AM DAIRY WORKER 1 mg naloxone (NARCAN) injection 0.2 mg 0.2 mg, Intravenous, EVERY 2 MIN PRN, opioid reversal, Starting on Sat06/18/23 at 1150, Administer intravenous route when available and notify provider when administered. For unintended sedation or respiratory depression if all of the below criteria are met: ~ respiratory rate LESS than or EQUAL to 8. ~SaO2 less than 92% and or/end-tidal CO2 is greater than 50. ~ the patient is receiving an opioid, has unintended sedations assessed as RASS (-3), and is currently not on mechanical ventilation. RASS scale moderate (-3) is movement or eye opening to voice but no eye contact. Patient Monitoring Once the patient has demonstrated a response to the naloxone, continue to monitor respiratory rate, depth, oxygen saturation and end-tidal CO2 (if available) every 15 minutes x 2, then every 30 minutes x 2, then every 1 hour x 1 after each naloxone dose. Consider transfer to ICU if patient respiratory parameters have not improved after 4 naloxone doses., Intra-procedure naloxone (NARCAN) injection 0.2 mg 0.2 mg, Intramuscular, EVERY 2 MIN PRN, opioid reversal, Starting on Sat06/18/23 at 1150, Administer intramuscular if an intravenous route is not available and notify provider when administered. For unintended sedation or respiratory depression if all of the below criteria are met: ~ respiratory rate LESS than or EQUAL to 8. ~SaO2 less than 92% and or/end-tidal CO2 is greater than 50. ~ the patient is receiving an opioid, has unintended sedations assessed as RASS (-3), and is currently not on mechanical ventilation. RASS scale moderate (-3) is movement or eye opening to voice but no eye contact. Patient Monitoring Once the patient has demonstrated a response to the naloxone, continue to monitor respiratory rate, depth, oxygen saturation and end-tidal CO2 (if available) every 15 minutes x 2, then every 30 minutes x 2, then every 1 hour x 1 after each naloxone dose. Consider transfer to ICU if patient respiratory parameters have not improved after 4 naloxone doses., Intra-procedure naloxone (NARCAN) injection 0.4 mg 0.4 mg, Intravenous, EVERY 2 MIN PRN, opioid reversal, Starting on Sat06/18/23 at 1150, Administer intravenous route when available and notify provider when administered. For unintended sedation or respiratory depression if all of the below criteria are met: ~ respiratory rate LESS than or EQUAL to 8. ~ SaO2 less than 92% and or/end-tidal CO2 is greater than 50. ~ the patient is receiving an opioid, has unintended sedation assessed as RASS (-4) or (-5) and patient is currently not on mechanical ventilation. RASS scale (-4) is deep sedation with no response to voice but movement or eye opening to physical stimulation. RASS scale (-5) is unarousable. Patient Monitoring Once the patient has demonstrated a response to the naloxone, continue to monitor respiratory rate, depth, oxygen saturation and end-tidal CO2 (if available) every 15 minutes x 2, then every 30 minutes x 2, then every 1 hour x 1 after each naloxone dose. Consider transfer to ICU if patient respiratory parameters have not improved after 4 naloxone doses., Intra-procedure naloxone (NARCAN) injection 0.4 mg 0.4 mg, Intramuscular, EVERY 2 MIN PRN, opioid reversal, Starting on Sat06/18/23 at 1150, Administer intramuscular if an intravenous route is not available and notify provider when administered. For unintended sedation or respiratory depression if all of the below criteria are met: ~ respiratory rate LESS than or EQUAL to 8. ~ SaO2 less than 92% and or/end-tidal CO2 is greater than 50. ~ the patient is receiving an opioid, has unintended sedation assessed as RASS (-4) or (-5) and patient is currently not on mechanical ventilation. RASS scale (-4) is deep sedation with no response to voice but movement or eye opening to physical stimulation. RASS scale (-5) is unarousable. Patient Monitoring Once the patient has demonstrated a response to the naloxone, continue to monitor respiratory rate, depth, oxygen saturation and end-tidal CO2 (if available) every 15 minutes x 2, then every 30 minutes x 2, then every 1 hour x 1 after each naloxone dose. Consider transfer to ICU if patient respiratory parameters have not improved after 4 naloxone doses., Intra-procedure ondansetron (ZOFRAN ODT) ODT tab 4 mg 4 mg, Oral, EVERY 6 HOURS PRN, nausea, vomiting, Starting on Sat06/18/23 at 1303, This is Step 1 of nausea and vomiting management. If nausea not resolved in 15 minutes, go to Step 2 prochlorperazine (COMPAZINE). Do not push through foil backing. Peel back foil and gently remove. Place on tongue immediately. Administration with liquid unnecessary With dry hands, peel back foil backing and gently remove tablet. Do not push oral disintegrating tablet through foil backing. Administer immediately on tongue and oral disintegrating tablet dissolves in seconds, then swallow with saliva. Liquid not required. ondansetron (ZOFRAN) injection 4 mg 4 mg, Intravenous, ONCE PRN, nausea, vomiting, Administer over 2-5 Minutes, Starting on Sat06/18/23 at 1213, For 1 dose, Give in ENDO pre procedure prep area. Irritant., Pre-procedure $Given 06/18/2023 11:33 AM DAIRY WORKER 4 mg ondansetron (ZOFRAN) injection 4 mg 4 mg, Intravenous, EVERY 6 HOURS PRN, nausea, vomiting, Administer over 2-5 Minutes, Starting on Sat06/18/23 at 1303, This is Step 1 of nausea and vomiting management. If nausea not resolved in 15 minutes, go to Step 2 prochlorperazine (COMPAZINE). Irritant. simethicone (MYLICON) suspension 133 mg 133 mg, Oral, ONCE PRN, other, gas bubbles, Starting on Sat06/18/23 at 1150, For 1 dose, Give via endoscope, Intra-procedure sodium chloride (PF) 0.9% PF flush 3 mL 3 mL, Intracatheter, EVERY 8 HOURS, First dose on Sat06/18/23 at 1230, to lock peripheral IV dormant line, Pre-procedure sodium chloride (PF) 0.9% PF flush 3 mL 3 mL, Intracatheter, EVERY 1 MIN PRN, line flush, other, to ensure patency or to lock dormant line, Starting on Sat06/18/23 at 1213, Pre-procedure sodium chloride (PF) 0.9% PF flush 3 mL 3 mL, Intravenous, EVERY 1 MIN PRN, line flush, Starting on Sat06/18/23 at 1150, Indications: for Peripheral IV flush post IV meds, Intra-procedure sodium chloride 0.9% BOLUS 500 mL Intravenous, 500 mL, ONCE PRN, at 500 mL/hr, Administer over 1 Hours, other, hypotension, Starting on Sat06/18/23 at 1150, For 1 dose, Intra-procedure $New Bag 06/18/2023 11:33 AM DAIRY WORKER 500 mLs 500 mL/hr documented in this encounter Active and Recently Administered Medications Times are shown in DAIRY WORKER. Scheduled Medication Order 06/16/2023 06/17/2023 06/18/2023 sodium chloride (PF) 0.9% PF flush 3 mL 3 mL, Intracatheter, EVERY 8 HOURS, First dose on Sat06/18/23 at 1230, to lock peripheral IV dormant line, Pre-procedure 1230 (Canceled Entry - Provider: Orders Generic Provider - Comment: Automatically canceled at discontinue of medication order) PRN Medication Order 06/16/2023 06/17/2023 06/18/2023 atropine injection 1 mg 1 mg, Intravenous, ONCE PRN, other, Bradycardia, Starting on Sat06/18/23 at 1150, For 1 dose, Intra-procedure benzocaine 20% (HURRICAINE/TOPEX) 20 % spray 0.5 mL 0.5 mL (1 spray), Mouth/Throat, ONCE PRN, sore throat, Starting on Sat06/18/23 at 1150, For 1 dose, [place] throat with 1 spray 5 minutes prior to procedure., Intra-procedure diphenhydrAMINE (BENADRYL) injection 25-50 mg 25-50 mg, Intravenous, ONCE PRN, other, for sedations, dose per provider direction., Administer over 1-2 Minutes, Starting on Sat06/18/23 at 1150, For 1 dose, Protect from light., Intra-procedure EPINEPHrine (Anaphylaxis) (ADRENALIN) injection (vial) 0.1 mg 0.1 mg, Submucosal, ONCE PRN, bleeding, Starting on Sat06/18/23 at 1150, For 1 dose, RN to dilute 1 mL (1 mg) of EPINEPHrine with 9 mL of 0.9% sodium chloride to equal a 0.1 mg/mL concentration. Inject 1 mL (0.1 mg) into submucosa via a sclerotherapy injection needle. Not for direct undiluted intravenous injection (1mg/ml = 1:1000). Protect from light., Intra-procedure fentaNYL (PF) (SUBLIMAZE) injection 50-100 mcg 50-100 mcg, Intravenous, EVERY 5 MIN PRN, severe pain, If inadequate response may repeat every 3 min PRN severe pain; when verbally requested by provider., Starting on Sat06/18/23 at 1150, Doses can be exceeded under direct oversight of patient by physician., Intra-procedure 1155 ($Given - Provi lokesh: Danni Jacobs RN)1158 ($Given - Provider: Danni Jacobs RN)1202 ($Given - Provider: Danni Jacobs RN) flumazenil (ROMAZICON) injection 0.2 mg 0.2 mg, Intravenous, EVERY 1 MIN PRN, benzodiazepine reversal, If inadequate response after 45 seconds, may repeat 0.2 mg IV every 1 minute PRN over sedation., Administer over 1 Minutes, Starting on Sat06/18/23 at 1150, Give over 15 seconds. Maximum total dose of 1 mg. Continue monitoring until discharge criteria met for a minimum of 2 hours. Irritant. Use with caution in patients on benzodiazepine therapy., Intra-procedure flumazenil (ROMAZICON) injection 0.2 mg 0.2 mg, Intravenous, EVERY 1 MIN PRN, benzodiazepine reversal, over sedation, Administer over 1 Minutes, Starting on Sat06/18/23 at 1303, For 12 hours, Give over 15 seconds. If inadequate response after 45 seconds, may repeat up to a MAX total dose of 1 mg. Continue monitoring until discharge criteria are met for a minimum of 2 hours Irritant. Use with caution in patients on benzodiazepine therapy. glucagon injection 0.5 mg 0.5 mg, Intravenous, ONCE PRN, other, gi motility, Starting on Sat06/18/23 at 1150, For 1 dose, Intra-procedure lidocaine (LMX4) cream Topical, EVERY 1 HOUR PRN, pain, with VAD insertion, Starting on Sat06/18/23 at 1213, Apply at least 30 minutes prior to VAD insertion in divided doses as needed for size of site for insertion. MAX Dose: 2.5 g (?? of 5 g tube) Do NOT give if patient has a history of allergy to any local anesthetic or any dennis product. Do NOT use both lidocaine intradermal/subcutaneous injection and the lidocaine cream on the same site., Pre-procedure lidocaine 1 % 0.1-1 mL 0.1-1 mL, Other, EVERY 1 HOUR PRN, mild pain with VAD insertion, Starting on Sat06/18/23 at 1213, MAX dose 1 mL subcutaneous OR intradermal along the side of the vein in divided doses as needed for VAD insertion. Do NOT give if patient has a history of allergy to any local anesthetic or any dennis product. Do NOT use both lidocaine intradermal/subcutaneous injection and the lidocaine cream on the same site., Pre-procedure midazolam (VERSED) injection 0.5-2 mg 0.5-2 mg, Intravenous, EVERY 4 MIN PRN, sedation, If inadequate response may repeat every 4 minutes PRN sedation until desired response; when verbally requested by provider., Starting on Sat06/18/23 at 1150, Doses can be exceeded under direct oversight of patient by physician. This drug may cause significant respiratory depression. Monitor respiratory status and vital signs carefully for 1 hour after each dose., Intra-procedure 1155 ($Given - Provi lokesh: Danni Jacobs RN)1158 ($Given - Provider: Danni Jacobs RN)1202 ($Given - Provider: Danni Jacobs RN) naloxone (NARCAN) injection 0.2 mg(Linked Group 1) 0.2 mg, Intravenous, EVERY 2 MIN PRN, opioid reversal, Starting on Sat06/18/23 at 1150, Administer intravenous route when available and notify provider when administered. For unintended sedation or respiratory depression if all of the below criteria are met: ~ respiratory rate LESS than or EQUAL to 8. ~SaO2 less than 92% and or/end-tidal CO2 is greater than 50. ~ the patient is receiving an opioid, has unintended sedations assessed as RASS (-3), and is currently not on mechanical ventilation. RASS scale moderate (-3) is movement or eye opening to voice but no eye contact. Patient Monitoring Once the patient has demonstrated a response to the naloxone, continue to monitor respiratory rate, depth, oxygen saturation and end-tidal CO2 (if available) every 15 minutes x 2, then every 30 minutes x 2, then every 1 hour x 1 after each naloxone dose. Consider transfer to ICU if patient respiratory parameters have not improved after 4 naloxone doses., Intra-procedure naloxone (NARCAN) injection 0.2 mg(Linked Group 1) 0.2 mg, Intramuscular, EVERY 2 MIN PRN, opioid reversal, Starting on Sat06/18/23 at 1150, Administer intramuscular if an intravenous route is not available and notify provider when administered. For unintended sedation or respiratory depression if all of the below criteria are met: ~ respiratory rate LESS than or EQUAL to 8. ~SaO2 less than 92% and or/end-tidal CO2 is greater than 50. ~ the patient is receiving an opioid, has unintended sedations assessed as RASS (-3), and is currently not on mechanical ventilation. RASS scale moderate (-3) is movement or eye opening to voice but no eye contact. Patient Monitoring Once the patient has demonstrated a response to the naloxone, continue to monitor respiratory rate, depth, oxygen saturation and end-tidal CO2 (if available) every 15 minutes x 2, then every 30 minutes x 2, then every 1 hour x 1 after each naloxone dose. Consider transfer to ICU if patient respiratory parameters have not improved after 4 naloxone doses., Intra-procedure naloxone (NARCAN) injection 0.4 mg(Linked Group 1) 0.4 mg, Intravenous, EVERY 2 MIN PRN, opioid reversal, Starting on Sat06/18/23 at 1150, Administer intravenous route when available and notify provider when administered. For unintended sedation or respiratory depression if all of the below criteria are met: ~ respiratory rate LESS than or EQUAL to 8. ~ SaO2 less than 92% and or/end-tidal CO2 is greater than 50. ~ the patient is receiving an opioid, has unintended sedation assessed as RASS (-4) or (-5) and patient is currently not on mechanical ventilation. RASS scale (-4) is deep sedation with no response to voice but movement or eye opening to physical stimulation. RASS scale (-5) is unarousable. Patient Monitoring Once the patient has demonstrated a response to the naloxone, continue to monitor respiratory rate, depth, oxygen saturation and end-tidal CO2 (if available) every 15 minutes x 2, then every 30 minutes x 2, then every 1 hour x 1 after each naloxone dose. Consider transfer to ICU if patient respiratory parameters have not improved after 4 naloxone doses., Intra-procedure naloxone (NARCAN) injection 0.4 mg(Linked Group 1) 0.4 mg, Intramuscular, EVERY 2 MIN PRN, opioid reversal, Starting on Sat06/18/23 at 1150, Administer intramuscular if an intravenous route is not available and notify provider when administered. For unintended sedation or respiratory depression if all of the below criteria are met: ~ respiratory rate LESS than or EQUAL to 8. ~ SaO2 less than 92% and or/end-tidal CO2 is greater than 50. ~ the patient is receiving an opioid, has unintended sedation assessed as RASS (-4) or (-5) and patient is currently not on mechanical ventilation. RASS scale (-4) is deep sedation with no response to voice but movement or eye opening to physical stimulation. RASS scale (-5) is unarousable. Patient Monitoring Once the patient has demonstrated a response to the naloxone, continue to monitor respiratory rate, depth, oxygen saturation and end-tidal CO2 (if available) every 15 minutes x 2, then every 30 minutes x 2, then every 1 hour x 1 after each naloxone dose. Consider transfer to ICU if patient respiratory parameters have not improved after 4 naloxone doses., Intra-procedure ondansetron (ZOFRAN ODT) ODT tab 4 mg(Linked Group 2) 4 mg, Oral, EVERY 6 HOURS PRN, nausea, vomiting, Starting on Sat06/18/23 at 1303, This is Step 1 of nausea and vomiting management. If nausea not resolved in 15 minutes, go to Step 2 prochlorperazine (COMPAZINE). Do not push through foil backing. Peel back foil and gently remove. Place on tongue immediately. Administration with liquid unnecessary With dry hands, peel back foil backing and gently remove tablet. Do not push oral disintegrating tablet through foil backing. Administer immediately on tongue and oral disintegrating tablet dissolves in seconds, then swallow with saliva. Liquid not required. ondansetron (ZOFRAN) injection 4 mg (COMPLETED) 4 mg, Intravenous, ONCE PRN, nausea, vomiting, Administer over 2-5 Minutes, Starting on Sat06/18/23 at 1213, For 1 dose, Give in ENDO pre procedure prep area. Irritant., Pre-procedure 1133 ($Given - Provi lokesh: Danni Jacobs RN - Comment: given at 1133) ondansetron (ZOFRAN) injection 4 mg(Linked Group 2) 4 mg, Intravenous, EVERY 6 HOURS PRN, nausea, vomiting, Administer over 2-5 Minutes, Starting on Sat06/18/23 at 1303, This is Step 1 of nausea and vomiting management. If nausea not resolved in 15 minutes, go to Step 2 prochlorperazine (COMPAZINE). Irritant. simethicone (MYLICON) suspension 133 mg 133 mg, Oral, ONCE PRN, other, gas bubbles, Starting on Sat06/18/23 at 1150, For 1 dose, Give via endoscope, Intra-procedure sodium chloride (PF) 0.9% PF flush 3 mL 3 mL, Intracatheter, EVERY 1 MIN PRN, line flush, other, to ensure patency or to lock dormant line, Starting on Sat06/18/23 at 1213, Pre-procedure sodium chloride (PF) 0.9% PF flush 3 mL 3 mL, Intravenous, EVERY 1 MIN PRN, line flush, Starting on Sat06/18/23 at 1150, Indications: for Peripheral IV flush post IV meds, Intra-procedure sodium chloride 0.9% BOLUS 500 mL (COMPLETED) Intravenous, 500 mL, ONCE PRN, at 500 mL/hr, Administer over 1 Hours, other, hypotension, Starting on Sat06/18/23 at 1150, For 1 dose, Intra-procedure 1133 ($New Bag - Pro vider: Danni Jacobs RN)1300 (Stopped - Provider: Jl Santos RN) Linked Groups Order Group 1: naloxone (NARCAN) injection 0.2 mgJump to med 0.2 mg, Intravenous, EVERY 2 MIN PRN, opioid reversal, Starting on Sat06/18/23 at 1150, Administer intravenous route when available and notify provider when administered. For unintended sedation or respiratory depression if all of the below criteria are met: ~ respiratory rate LESS than or EQUAL to 8. ~SaO2 less than 92% and or/end-tidal CO2 is greater than 50. ~ the patient is receiving an opioid, has unintended sedations assessed as RASS (-3), and is currently not on mechanical ventilation. RASS scale moderate (-3) is movement or eye opening to voice but no eye contact. Patient Monitoring Once the patient has demonstrated a response to the naloxone, continue to monitor respiratory rate, depth, oxygen saturation and end-tidal CO2 (if available) every 15 minutes x 2, then every 30 minutes x 2, then every 1 hour x 1 after each naloxone dose. Consider transfer to ICU if patient respiratory parameters have not improved after 4 naloxone doses., Intra- procedure Or naloxone (NARCAN) injection 0.4 mgJump to med 0.4 mg, Intravenous, EVERY 2 MIN PRN, opioid reversal, Starting on Sat06/18/23 at 1150, Administer intravenous route when available and notify provider when administered. For unintended sedation or respiratory depression if all of the below criteria are met: ~ respiratory rate LESS than or EQUAL to 8. ~ SaO2 less than 92% and or/end-tidal CO2 is greater than 50. ~ the patient is receiving an opioid, has unintended sedation assessed as RASS (-4) or (-5) and patient is currently not on mechanical ventilation. RASS scale (-4) is deep sedation with no response to voice but movement or eye opening to physical stimulation. RASS scale (-5) is unarousable. Patient Monitoring Once the patient has demonstrated a response to the naloxone, continue to monitor respiratory rate, depth, oxygen saturation and end-tidal CO2 (if available) every 15 minutes x 2, then every 30 minutes x 2, then every 1 hour x 1 after each naloxone dose. Consider transfer to ICU if patient respiratory parameters have not improved after 4 naloxone doses., Intra-procedure Or naloxone (NARCAN) injection 0.2 mgJump to med 0.2 mg, Intramuscular, EVERY 2 MIN PRN, opioid reversal, Starting on Sat06/18/23 at 1150, Administer intramuscular if an intravenous route is not available and notify provider when administered. For unintended sedation or respiratory depression if all of the below criteria are met: ~ respiratory rate LESS than or EQUAL to 8. ~SaO2 less than 92% and or/end-tidal CO2 is greater than 50. ~ the patient is receiving an opioid, has unintended sedations assessed as RASS (-3), and is currently not on mechanical ventilation. RASS scale moderate (-3) is movement or eye opening to voice but no eye contact. Patient Monitoring Once the patient has demonstrated a response to the naloxone, continue to monitor respiratory rate, depth, oxygen saturation and end-tidal CO2 (if available) every 15 minutes x 2, then every 30 minutes x 2, then every 1 hour x 1 after each naloxone dose. Consider transfer to ICU if patient respiratory parameters have not improved after 4 naloxone doses., Intra- procedure Or naloxone (NARCAN) injection 0.4 mgJump to med 0.4 mg, Intramuscular, EVERY 2 MIN PRN, opioid reversal, Starting on Sat06/18/23 at 1150, Administer intramuscular if an intravenous route is not available and notify provider when administered. For unintended sedation or respiratory depression if all of the below criteria are met: ~ respiratory rate LESS than or EQUAL to 8. ~ SaO2 less than 92% and or/end-tidal CO2 is greater than 50. ~ the patient is receiving an opioid, has unintended sedation assessed as RASS (-4) or (-5) and patient is currently not on mechanical ventilation. RASS scale (-4) is deep sedation with no response to voice but movement or eye opening to physical stimulation. RASS scale (-5) is unarousable. Patient Monitoring Once the patient has demonstrated a response to the naloxone, continue to monitor respiratory rate, depth, oxygen saturation and end-tidal CO2 (if available) every 15 minutes x 2, then every 30 minutes x 2, then every 1 hour x 1 after each naloxone dose. Consider transfer to ICU if patient respiratory parameters have not improved after 4 naloxone doses., Intra- procedure Group 2: ondansetron (ZOFRAN ODT) ODT tab 4 mgJump to med 4 mg, Oral, EVERY 6 HOURS PRN, nausea, vomiting, Starting on Sat06/18/23 at 1303, This is Step 1 of nausea and vomiting management. If nausea not resolved in 15 minutes, go to Step 2 prochlorperazine (COMPAZINE). Do not push through foil backing. Peel back foil and gently remove. Place on tongue immediately. Administration with liquid unnecessary With dry hands, peel back foil backing and gently remove tablet. Do not push oral disintegrating tablet through foil backing. Administer immediately on tongue and oral disintegrating tablet dissolves in seconds, then swallow with saliva. Liquid not required. Or ondansetron (ZOFRAN) injection 4 mgJump to med 4 mg, Intravenous, EVERY 6 HOURS PRN, nausea, vomiting, Administer over 2-5 Minutes, Starting on Sat06/18/23 at 1303, This is Step 1 of nausea and vomiting management. If nausea not resolved in 15 minutes, go to Step 2 prochlorperazine (COMPAZINE). Irritant. documented in this encounter Additional Health Concerns Assessment Noted Time PHQ-9 Depression Total Score: 4 12/04/19 19 3:50 PM CDT documented as of this encounter Care Teams Creel Operator Relationship Specialty Start Date End Date Kelly Medina PA-C [address] [place] [address] PCP - General Family Medicine 08/07/22 Tevin Marshall PA-C [address] [address] Assigned Musculoskeletal Provider 12/16/21 07/10/23 Kelyl Medina PA-C [address] [place] [address] Assigned PCP 06/30/22 documented as of this encounter
--- OUTSIDE RECORDS SUMMARY | 2023-07-22 17:04 | XMS_ITS | Encounter Summary ---
Author Name Unknown Organization [place] Address [address] [facility] [place] [address] Care Team Providers Care Veneer Glue Spreader Name Role Phone Tevin Marshall PA-C Unavailable [phone] Kelly Medina PA-C Unavailable Kelly Medina PA-C Primary Care Pr ovider Reason for Visit * Auth/Cert (Routine) Specialty Diagnoses / Procedures Referred By Mando johnson Referred To Contact Gastroenterology Diagnoses Special screening for malignant neoplasms, colon Special screening for malignant neoplasms, colon [Z12.11] Procedures OR COLONOSCOPY W/WO BRUSH/WASH Colonoscopy ([facility]) Endoscopy [address] [place] [address] Referral ID Status Reason Start Date Expiration Date Visits Re quested Visits Authorized [id number] 1 1 Encounter Details Date Type Department Care Team (Late st Contact Info) Description 06/18/2023 12:00 PM MACHINE OPERATOR FARMWORKER - 06/18/2023 12:30 PM MACHINE OPERATOR FARMWORKER Surgery [facility] Endoscopy [place] [address] [place] [address] Melba Houser MD [facility] [address] [address], [place] [address] Colonoscopy ([facility]) Surgery Details Date/Time Status Location OR Service Patient Class Case Class Case Type Trauma Case? 06/18/23 12:00 PM Posted GI GI B Gastroenterology Outpatient Elective Panel 1 Procedure LRB Anes Op Region Wound Class Comments Colonoscopy ([facility]) N/A Moderate Sedation Rectum I I-Clean Contaminated History of Polyps Surgeon Surgeon Role Service Panel Melba Houser MD Primary Gastroenterology 1 Special Needs Standard golytely e-scribed to [facility] [address] [facility] 06/06 ML. documented in this encounter Social History Tobacco Use Types Packs/Day Years [...] often do you attend chur ch or evangelical services? More than 4 times per year 08/24/2022 Do you belong to any clubs o r organizations such as confucianist groups, unions, fraternal or athletic groups, or [...] Answer Date Recorded PHQ-2 Score 0 01/17/2023 [employer] - Occupational Stress [...] place to sleep or slept in a care home (including now)? No 08/24/2022 Adolescent Education Answer [...] Sign Reading Time Taken Comments Blood Pressure 100/64 06/18/2023 12:30 PM MACHINE OPERATOR FARMWORKER Pulse 61 06/18/2023 12:30 PM MACHINE OPERATOR FARMWORKER Temperature 36.4 ??C (97.5 ??F) 06/18/2023 11:[address] Respiratory Rate 16 06/18/2023 12:30 PM MACHINE OPERATOR FARMWORKER Oxygen Saturation 93% 06/18/2023 12:30 PM MACHINE OPERATOR FARMWORKER Inhaled Oxygen Concentration - - Weight 86.2 kg (190 lb) 06/18/2023 11:15 AM MACHINE OPERATOR FARMWORKER Height 158.8 cm (5' 2.5) 06/18/2023 11:15 AM CS T Body Mass Index 34.2 06/18/2023 11:15 AM MACHINE OPERATOR FARMWORKER documented in this encounter Discharge Instructions * Discharge Instructions* Jl Santos RN - 06/18/2023 1:04 PM MACHINE OPERATOR FARMWORKER The patient has received a copy of the Provation report the doctor has written and discharge instructions have been discussed with the patient and responsible adult. All questions were addressed and answered prior to patient discharge. INE OPERATOR FARMWORKER documented in this encounter Medications at Time [...] Autoimmune disease NEC [facility] Autoimmune disease, not elsewhere [...] [facility] OR CARPAL TUNNEL RELEASE RT/LT Bilateral 2015 COLONOSCOPY 11/14/[address] Disla [facility] COLONOSCOPY N/A 10/01/2017 Procedure: COMBINED COLONOSCOPY, SINGLE OR MULTIPLE BIOPSY/POLYPECTOMY BY BIOPSY; COLONOSCOPY with random rectum bxs; Surgeon: Danika Blum MD; Location: [facility] EXTRACAPSULAR CATARACT EXTRATION WITH INTRAOCULAR LENS IMPLANT bilaterally HRW VEIN STRIPPER Bilateral HYSTERECTOMY, PAP NO LONGER INDICATED 2001 HYSTERECTOMY, VAGINAL left hip replaced x2 ORTHOPEDIC SURGERY left shoulder surgery VASCULAR SURGERY 2013 had some mineral resources inspector work done XR FOOT SURGERY JOSE RIGHT [...] by: Melba Houser MD June 18, 2023 INE OPERATOR FARMWORKER documented in this encounter Plan of Treatment Upcoming Encounters Date Type Department Care Team (Late st Contact Info) Description 2023 1:30 PM MACHINE OPERATOR FARMWORKER Office Visit [place] [address] [place] [address] Anamaria Nevarez MD [address] [facility], [address] [address] documented as of this encounter Procedures Procedure Name Priority Date/Time Associated Diagnosis Comments COLONOSCOPY 06/18/2023 11:33 AM MACHINE OPERATOR FARMWORKER Special screening for malignant neoplasms, colon Special Needs Standard [facility] e-scribed to [address] 06/06 . COLONOSCOPY Routine 06/18/2023 11:20 AM MACHINE OPERATOR FARMWORKER documented in this encounter Results * COLONOSCOPY (06/18/2023 11:20 AM MACHINE OPERATOR FARMWORKER) COLONOSCOPY [facility] Patient Name: Nidia Warnerashligeorge ? Procedure Date: 06/18/2023 11:20 AM ? [...] and ?oxygen saturations were monitored continuously. The ?Palm Adult Colonoscope, Model # CF-RZ807S, ?Censitrac # [id number] was introduced through the ?anus and advanced [...] individual at high ? risk CPT copyright 2022 [employer]. All rights reserved. The codes documented in this report are preliminary and upon flight engineer review may be revised to meet current compliance requirements. Electronically signed by Melba Houser MD __ MELBA HOUSER MD 06/18/2023 12:22:47 PM I was physically present for the entire viewing portion of the exam. MELBA HOUSER MD Number of Addenda: 0 Note Initiated On: 06/18/2023 11:20 AM MRN: ?[id number] Procedure Date: ? 06/18/2023 11:20:59 AM Scope Withdrawal Time: 0 hours 6 minutes 21 seconds Total Procedure Duration: 0 hours 20 minutes 29 seconds Estimated Blood Loss: ? Scope In: 11:56:07 AM Scope Out: 12:16:36 PM RADIOLOGY RESULTS 06/18/2023 11:2 0 AM MACHINE OPERATOR FARMWORKER Kelly GOMEZ ES RADIOLOGY RESULTS documented in this encounter Visit Diagnoses Diagnosis Special screening for malignant neoplasms, colon- Primary Special screening for malignant neoplasms, colon documented in this encounter Administered Medications Inactive [...] on Sat06/18/23 at 1150, For 1 dose, [place] throat with 1 spray 5 minutes prior [...] by physician., Intra-procedure $Given 06/18/2023 12:02 PM MACHINE OPERATOR FARMWORKER 50 mcg $Given 06/18/2023 11:58 AM MACHINE OPERATOR FARMWORKER 50 mcg $Given 06/18/2023 11:55 AM MACHINE OPERATOR FARMWORKER 50 mcg flumazenil (ROMAZICON) injection 0.2 mg [...] dose., Intra-procedure $Given 06/18/2023 12:0 2 PM MACHINE OPERATOR FARMWORKER 1 mg $Given 06/18/2023 11:58 AM MACHINE OPERATOR FARMWORKER 1 mg $Given 06/18/2023 11:55 AM MACHINE OPERATOR FARMWORKER 1 mg naloxone (NARCAN) injection 0.2 mg [...] area. Irritant., Pre-procedure $Given 06/18/2023 11:33 AM MACHINE OPERATOR FARMWORKER 4 mg ondansetron (ZOFRAN) injection 4 mg [...] dose, Intra-procedure $New Bag 06/18/2023 11:33 AM MACHINE OPERATOR FARMWORKER 500 mLs 500 mL/hr documented in this encounter Active and Recently Administered Medications Times are shown in MACHINE OPERATOR FARMWORKER. Scheduled Medication Order 06/16/2023 06/17/2023 06/18/2023 sodium [...] on Sat06/18/23 at 1150, For 1 dose, [place] throat with 1 spray 5 minutes prior [...] documented as of this encounter Care Teams Veneer Glue Spreader Relationship Specialty Start Date End Date Kelly Medina PA-C [address] [place] [address] PCP - General Family Medicine 08/07/22 Tevin Marshall PA-C [address] [address] Assigned Musculoskeletal Provider 12/16/21 07/10/23 Kelly Medina PA-C [address] [place] [address] Assigned PCP 06/30/22 documented as of this encounter
--- OUTSIDE RECORDS SUMMARY | 2023-07-22 17:04 | XMS_ITS | Encounter Summary ---
Author Name Unknown Organization [place] Address Critical access hospital0 [facility] [place] [address] Care Team Providers Care Wire Frame Maker Name Role Phone Tevin Marshall PA-C Unavailable [phone] Kelly Medina PA-C Unavailable Kelly Medina PA-C Primary Care Pr ovider Reason for Visit * Reason Onset Date Comments Procedure 03/28/2023 Colonoscopy 03/28/2023 Encounter Details Date Type Department Care Team (Late st Contact Info) Description 03/28/2023 Telephone [facility] [address] 4th [place] [address] Jeaneth Real Procedure; Colonoscopy Social History Tobacco Use Types Packs/Day Years [...] file 08/24/2022 How often do you attend [facility] ch or oriental orthodox services? More than 4 times per year 08/24/2022 Do you belong to any clubs o r organizations such as oriental orthodox groups, unions, fraternal or athletic groups, or [...] Answer Date Recorded PHQ-2 Score 0 01/17/2023 [facility] of Occupat ional [facility] - Occupational Stress Questionnaire Answer Date [...] place to sleep or slept in a intermediate (including now)? No 08/24/2022 Adolescent Education Answer [...] AM CDT documented as of this encounter Miscellaneous Notes * Telephone Encounter - iMrta Waller - 05/28/2023 1:29 PM CST Images from the original note were not included. Sia Bejarano, RN P Endoscopy Scheduling Pool On 06/18 there are 3 patients that are scheduled with Dr. Gruber in the later morning. She is on vacation we were now told. Can you change them to Dr Tse? I moved them into his room and made spacefor them. I just need the Dr changed. Email me at if there are any issues. Thanks! Sia Bejarano Interim Endo Engine Repairer [place] CHANGED TO [place]RINA PER BARGE PILOT. OR TECHNICAL ARCHITECT * Telephone Encounter - Jeaneth Real - 03/28/2023 11:33 AM CDT Endoscopy Scheduling Screen Have you had a positive Covid test in the last 14 days? No Are you active on MyChart? No What insurance is in the chart? Other: BCBS Ordering/Referring Provider: LORIE (If ordering provider performs procedure, schedule with ordering provider unless otherwise instructed. ) BMI: Estimated body mass index is 34.2 kg/m?? as calculated from the following: Height as of 01/17/23: 1.588 m (5' 2.5). Weight as of 03/20/23: 86.2 kg (190 lb). Sedation Ordered moderate sedation. If patient BMI > 50 do not schedule in [facility]. If patient BMI > 45 do not schedule at [facility]. Are you taking methadone or Suboxone? No Are you taking any prescription medications for pain 3 or more times per week? No Do you have a history of malignant hyperthermia or adverse reaction to anesthesia? No (Females) Are you currently ? Have you been diagnosed or told you have pulmonary hypertension? No Do you have an LVAD? No Have you been told you have moderate to severe sleep apnea? No Have you been told you have COPD, asthma, or any other lung disease? Yes What breathing problems do you have? Asthma Do you use home oxygen? No Have your breathing problems required an ED visit or hospitalization in the last year? No Do you have any heart conditions? No Have you ever had an organ transplant? No Have you ever had or are you awaiting a heart or lung transplant? No Have you had a stroke or transient ischemic attack (TIA aka mini stroke in the last 6 months? No Have you been diagnosed with or been told you have cirrhosis of the liver? No Are you currently on dialysis? No Do you need assistance transferring? No BMI: Estimated body mass index is 34.2 kg/m?? as calculated from the following: Height as of 01/17/23: 1.588 m (5' 2.5). Weight as of 03/20/23: 86.2 kg (190 lb). Is patients BMI > 40 and scheduling location [facility]? No Do you take an injectable medication for weight loss or diabetes (excluding insulin)? No Do you take the medication Naltrexone? No Do you take blood thinners? No Prep Are you currently on dialysis or do you have chronic kidney disease? No Do you have a diagnosis of diabetes? No Do you have a diagnosis of cystic fibrosis (CF)? No On a regular basis do you go 3 -5 days between bowel movements? No BMI > 40? No [facility] [place] [facility] [place] [facility] [address] [facility] [address] [facility] [address] Final Scheduling Details Colonoscopy prep sent? Standard Golytely - PER REFERRAL Procedure scheduled Colonoscopy Surgeon: ALICIA Date of procedure: 06/18/23 Pre-OP / PAC: No - Not required for this site. Location [facility] - Patient preference. Sedation Moderate Sedation - Per order. Patient Reminders: You will receive a call from a Nurse to review instructions and health history. This assessment must be completed prior to your procedure. Failure to complete the Nurse assessment may result in the procedure being cancelled. On the day of your procedure, please designate an adult(s) who can drive you home stay with you forthe next 24 hours. The medicines used in the exam will make you sleepy. You will not be able to drive. You cannot take public transportation, ride share services, or non-medical taxi service without a responsible caregiver. Medical transport services are allowed with the requirement that a responsiblecaregiver will receive you at your destination. We require that drivers and caregivers are confirmed prior to your procedure. documented in this encounter Plan of Treatment Upcoming Encounters Date Type Department Care Team (Late st Contact Info) Description 2023 1:30 PM SENIOR TECHNICAL ARCHITECT Office Visit [facility] [address] [place] [address] Anamaria Nevarez MD [address], [facility] [address] [place] [address] documented as of this encounter Visit Diagnoses Not on filedocumented in this encounter Additional Health Concerns Assessment Noted Time PHQ-9 Depression Total Score: 4 12/04/19 19 3:50 PM CDT documented as of this encounter Care Teams Wire Frame Maker Relationship Specialty Start Date End Date Kelly Medina PA-C [address] [place] [address] PCP - General Family Medicine 08/07/22 Tevin Marshall PA-C [address] [place] [address] [place] [address] Assigned Musculoskeletal Provider 12/16/21 07/10/23 Kelly Medina PA-C [address] [place] [address] Assigned PCP 06/30/22 documented as of this encounter
--- OUTSIDE RECORDS SUMMARY | 2023-07-22 17:04 | XMS_ITS | Referral Summary ---
Author Name Unknown Organization [place] Address [address] [place] [address] Care Team Providers Care Wet Process Miller Head Name Role Phone Kelly Medina PA-C Unavailable Kelly Medina PA-C Primary Care Pr ovider Encounters Date Type Department Care Team Description 06/18/2023 Travel 06/18/2023 12:00 PM HUMAN RESOURCE OFFICER - 06/18/2023 12:30 PM HUMAN RESOURCE OFFICER Surgery [facility] [place] [address] [place] [address] Melba Houser MD Colonoscopy (FV) 06/18/2023 10:57 AM HUMAN RESOURCE OFFICER - 06/18/2023 1:05 PM HUMAN RESOURCE OFFICER Hospital Encounter [facility] [place] [address] [place] [address] Melba Houser MD Special screening for malignant neoplasms, colon (Primary Dx) Discharge Disposition: Home or Self Care 04/22/2023 MyC Medical Advice [address] [address] [facility] from Last 3 Months Allergies Active Allergy Reactions Criticality Noted Date [...] migh t be different from the original. [email or web address] Problem Noted Date Diagnosed Date Anxiety 09/27/2017 [...] elsewhere classified Overview: [facility] Problem list name updated by automated process. Provider to review and confirm Resolved Problems Problem Noted Date Diagnosed Date Resolved Date Morbid obesity 12/05/2017 12/03/2018 Left hip pain 09/20/2015 10/05/2015 Aftercare following hip join t replacement surgery 09/20/2015 10/05/2015 Thoracic or lumbosacral neur itis or radiculitis, unspecified 12/09/2013 04/19/2014 Cervical pain 03/19/2012 05/06/2012 Lumbar pain 03/19/2012 05/06/2012 Mild intermittent asthma Immunizations Name Administration Dates Next Due COVID-19 MONOVALENT 12+ (Pfizer) 07/13/2021,10/16,10/18/2020 DTaP, Unspecified 03/20/2012 Influenza (H1N1) 05/20/2009 Influenza (IIV3) PF 04/17/2013, 3,03/20/2012,2010,03/30/2010 Influenza Vaccine, 6+MO IM (QUADRIVALENT W/PRESERVATIVES) 03/21/2021 TD,PF 7+ (Tenivac) 02/16/2004 TDAP (Adacel,Boostrix) 04/17/2013,03/20/2012 TDAP Vaccine (Adacel) 04/16/2018 Zoster recombinant adjuvante d (SHINGRIX) 03/25/2019,12/03/2018 Social History Tobacco Use Types Packs/Day Years [...] 08/24/2022 How often do you attend chur or judaism services? More than 4 times per year 08/24/2022 Do you belong to any clubs o r organizations such as christianity groups, unions, fraternal or athletic groups, or [...] Answer Date Recorded PHQ-2 Score 0 01/17/2023 [facility] of Occupat ional Health - Occupational Stress [...] place to sleep or slept in a senior care (including now)? No 08/24/2022 Adolescent Education Answer Date Record ed Getting School Help Needed Not on file 03/08 Sex and Gender Information Value Date Recorded Sex Assigned at Not on file Gender Identity Not on file Sexual Orientation Not on file Last Filed Vital Signs Vital Sign Reading Time Taken Comments Blood Pressure 116/68 06/18/2023 12:50 PM HUMAN RESOURCE OFFICER Pulse 63 06/18/2023 12:50 PM HUMAN RESOURCE OFFICER Temperature 36.4 ??C (97.5 ??F) 06/18/2023 11:[address] Respiratory Rate 16 06/18/2023 12:50 PM HUMAN RESOURCE OFFICER Oxygen Saturation 95% 06/18/2023 12:50 PM HUMAN RESOURCE OFFICER Inhaled Oxygen Concentration - - Weight 86.2 kg (190 lb) 06/18/2023 11:15 AM HUMAN RESOURCE OFFICER Height 158.8 cm (5' 2.5) 06/18/2023 11:15 AM CS T Body Mass Index 34.2 06/18/2023 11:15 AM HUMAN RESOURCE OFFICER Plan of Treatment Upcoming Encounters Date Type Department Care Team (Late st Contact Info) Description 2023 1:30 PM HUMAN RESOURCE OFFICER Office Visit [facility] [address] [place] [address] Anamaria Nevarez MD [address], [facility] [address] [place] [address] Medical Devices Implanted Type Area Termite Exterminator Device Identifier Shelf Expiration Date Model / Serial / Lot Bone Cement Simplex Full Dose 6191-1-001 - [id number] Implanted:Qt y: 1 on 09/03/2022 by Darshan Young MD at [facility] Cement, Bone Left: Knee [employer] 11/14/2024 [id number] / / [id number] Insert Tibial Asf Cr 11mm Ve L 6-7 - [id number] Implanted:Qt y: 1 on 09/03/2022 by Darshan Young MD at [facility] Total Joint Componen t/Insert Left: Knee [employer] [id number] 11/17/2025 [id number] / / [id number] Accolade Ii 132deg Neck Angle Hip Stem Implanted:Qt y: 1 on 05/18/2014 by Bobby Tapia MD at [facility] Left: Hip [employer] 09/14/2017 [id number] / / [id number] Imp Head Femoral Strk Biolox Delta Ceramic 36mm +2.5mm Implanted:Qt y: 1 on 09/13/2015 by Bobby Tapia MD at [facility] Left: Hip [employer] 07/10/2020 [id number] / / [id number] Explanted Type Area Termite Exterminator Device Identifier Shelf Expiration Date Model / Serial / Lot Imp Scr Bone Strk Torx 6.5x20mm Can [id number] Implanted:Qty: 1 on 05/18/2014 by Bobby Tapia MD at [facility] Explanted:Qty: 1 on 09/13/2015 at [facility] Left: Hip [employer] 02/14/2019 [id number] / / [id number] Procedures Procedure Name Priority Date/Time Associated Diagnosis Comments COLONOSCOPY 06/18/2023 11:33 AM HUMAN RESOURCE OFFICER Special screening for malignant neoplasms, colon Special Needs Standard [facility] e-scribed to [facility] Jannette [place] J[place], [address] 06/06 . COLONOSCOPY Routine 06/18/2023 11:20 AM HUMAN RESOURCE OFFICER from Last 3 Months Results * COLONOSCOPY (06/18/2023 11:20 AM HUMAN RESOURCE OFFICER) COLONOSCOPY [facility] Patient Name: Nidia Mtz ? Procedure Date: [...] continuously. The ?Olympus Adult Colonoscope, Model # CF-YM477L, ?[facility] # [id number] was introduced through the ?anus and advanced [...] at high ? risk CPT copyright 2021 [employer]. All rights reserved. The codes documented in this report are preliminary and upon data coder operator review may be revised to meet current compliance requirements. Electronically signed by Melba Houser MD __ MELBA HOUSER MD 06/18/2023 12:22:47 PM I was physically present for the entire viewing portion of the exam. MELBA HOUSER MD Number of Addenda: 0 Note Initiated On: 06/18/2023 11:20 AM MRN: ?[id number] Procedure Date: ? 06/18/2023 11:20:59 AM Scope Withdrawal Time: 0 hours 6 minutes 21 seconds Total Procedure Duration: 0 hours 20 minutes 29 seconds Estimated Blood Loss: ? Scope In: 11:56:07 AM Scope Out: 12:16:36 PM RADIOLOGY RESULTS 06/18/2023 11:2 0 AM HUMAN RESOURCE OFFICER Kelly KRAUSE RADIOLOGY RESULTS from Last 3 Months Advance Directives For more information, please contact: [phone] Latest Code Status on File Code Status [...] 8:48 PM 05/21/2014 5:50 PM Care Teams Wet Process Miller Head Relationship Specialty Start Date End Date Kelly Medina PA-C [address] [place] [address] PCP - General Family Medicine 08/07/22 Kelly Medina PA-C [address] [place] [address] Assigned PCP 06/30/22
--- OUTSIDE RECORDS SUMMARY | 2023-07-22 17:04 | XMS_ITS | Encounter Summary ---
Author Name Unknown Organization [place] Address [facility] [place] [address] Care Team Providers Care Dispatch Coordinator Name Role Phone Tevin Marshall PA-C Unavailable [phone] Kelly Medina PA-C Unavailable Kelly Medina PA-C Primary Care Pr ovider Encounter Details Date Type Department Care Team (Latest Contact Info) Description 06/18/2023 Travel Social History Tobacco Use Types Packs/Day Years [...] often do you attend chur ch or muslim services? More than 4 times per year 08/24/2022 Do you belong to any clubs o r organizations such as yarsani groups, unions, fraternal or athletic groups, or [...] Answer Date Recorded PHQ-2 Score 0 01/17/2023 [facility] of Occupat ional [facility] - Occupational Stress Questionnaire Answer Date Recorded [...] place to sleep or slept in a mcfp (including now)? No 08/24/2022 Adolescent Education Answer [...] st Contact Info) Description 2023 1:30 PM HOSPICE SOCIAL WORKER Office Visit [facility] [address] [place] [address] Anamaria Nevarez MD [address], [facility] [address] [place] [address] documented as of this encounter Visit Diagnoses Not on filedocumented in this encounter Additional Health Concerns Assessment Noted Time PHQ-9 Depression Total Score: 4 12/04/19 19 3:50 PM CDT documented as of this encounter Care Teams Dispatch Coordinator Relationship Specialty Start Date End Date Kelly Medina PA-C [address] [place] [address] PCP - General Family Medicine 08/07/22 Tevin Marshall PA-C [address] [facility] [address] [address] Assigned Musculoskeletal Provider 12/16/21 07/10/23 Kelly Medina PA-C [address] [place] [address] Assigned PCP 06/30/22 documented as of this encounter
--- OUTSIDE RECORDS SUMMARY | 2023-07-22 17:05 | XMS_ITS | Encounter Summary ---
Author Name Unknown Organization [place] Address [address] [facility] [place] [address] Care Team Providers Care Licensed Funeral Director And Embalmer Name Role Phone Tevin Marshall PA-C Unavailable [phone] Kelly Medina PA-C Unavailable Kelly Medina PA-C Primary Care Pr ovider Reason for Visit * Reason Comments Sick possible sinus infec tion, fever, cough, bodyaches, right eye pain x 2 days , much urination last night -- taking Tylenol and Benedryl -- NEG home covid test yesterday Encounter Details Date Type Department Care Team (Late st Contact Info) Description 03/20/2023 10:00 AM CDT Office Visit [facility] [place] [address] [place] [address] Renae Shore MD [facility] [place] [address] Acute cough (Primary Dx) Social History Tobacco Use Types Packs/Day Years [...] often do you attend chur ch or uatsdin services? More than 4 times per year 08/24/2022 Do you belong to any clubs o r organizations such as spiritism groups, unions, fraternal or athletic groups, or [...] Answer Date Recorded PHQ-2 Score 0 01/17/2023 [facility] of Occupat ional Health - Occupational Stress [...] Sign Reading Time Taken Comments Blood Pressure 118/72 03/20/2023 10:00 AM CDT Pulse 99 03/20/2023 10:00 AM CDT Temperature 37.5 ??C (99.5 ??F) 03/20/2023 10:00 AM C DT Respiratory Rate 14 03/20/2023 10:00 AM CDT Oxygen Saturation 96% 03/20/2023 10:00 AM CDT Inhaled Oxygen Concentration - - Weight 86.2 kg (190 lb) 03/20/2023 10:00 AM CDT Height - - Body Mass Index 34.2 01/17/2023 1:23 PM CDT documented in this encounter Patient Instructions * Patient Instructions* Renae Shore MD - 03/20/2023 10:00 AM CDT Ibuprofen 600 mg three times per day for the next few days as needed. Continue Mucinex. Be sure to drink plenty of fluids to help this medicine work most efficiently. Use [employer] perles 1-2 pills at a time up to three times per day to reduce cough. Use Chloraseptic spray as a gargle to help with the sore throat. documented in this encounter Progress Notes * Renae Shore MD - 03/20/2023 10:00 AM CDT ASSESSMENT: ICD-10-CM 1. Acute cough R05.1 Symptomatic COVID-19 Virus (Coronavirus) by PCR Nose benzonatate (TESSALON) 100 MG capsule Strongly suspect COVID despite negative home test yesterday given acute cough in setting of fever, body aches, and nasal congestion for three days. COVID PCR pending. Normal lung exam today is reassuring for absence of pneumonia. PLAN: Patient Instructions Ibuprofen 600 mg three times per day for the next few days as needed. Continue Mucinex. Be sure to drink plenty of fluids to help this medicine work most efficiently. Use Tessalon perles 1-2 pills at a time up to three times per day to reduce cough. Use Chloraseptic spray as a gargle to help with the sore throat. SUBJECTIVE: Nidia Mtz is a 62 year old female who presents to urgent care with fever, cough, body aches, and nasal congestion that started on Saturday. Fever has been as high as 103. She has tried taking Tylenol, Mucinex, and Benadryl with no improvement in symptoms. Negative home COVID test yesterday. OBJECTIVE: BP 118/72 (BP Location: Right arm, Patient Position: Chair, Cuff Size: Adult Regular) Pulse 99 Temp 99.5 ??F (37.5 ??C) (Oral) Resp 14 Wt 86.2 kg (190 lb) SpO2 96% BMI 34.20 kg/m?? Physical Exam HENT: Right Ear: Tympanic membrane normal. Left Ear: Tympanic membrane normal. Nose: Congestion and rhinorrhea present. Right Sinus: Maxillary sinus tenderness and frontal sinus tenderness present. Left Sinus: Maxillary sinus tenderness and frontal sinus tenderness present. Mouth/Throat: Pharynx: Posterior oropharyngeal erythema present. Cardiovascular: Rate and Rhythm: Normal rate and regular rhythm. Pulmonary: Effort: Pulmonary effort is normal. Breath sounds: Normal breath sounds. Lymphadenopathy: Cervical: No cervical adenopathy. Neurological: Mental Status: She is alert. documented in this encounter Plan of Treatment Upcoming Encounters Date Type Department Care Team (Late st Contact Info) Description 2023 1:30 PM BOOK CANVASSER Office [facility] [address] [place] [address] Anamaria Nevarez MD [address] [place] [address] documented as of this encounter Procedures Procedure Name Priority Date/Time Associated Diagnosis Comments COVID-19 VIRUS (CORONAVIRUS) BY PCR Routine 03/20/2023 10:05 AM CDT Acute cough documented in this encounter Results * Symptomatic COVID-19 Virus (Coronavirus) by PCR Nose (03/20/2023 10:05 AM CDT) SARS CoV2 PCR Negative Negative 03/20/2023 8:43 PM CDT [facility] Comment:NEGATIVE: SARS-CoV-2 (COVID-19) RNA not detected, presumed negative. Swab NASAL STRUCTURE / Unknown Non-blood Collection / Unknown 03/20/2023 10:05 AM CDT 03/20/2023 10:12 AM CDT Narrative [facility] - 03/20/2023 8:43 PM CDT Testing was performed using the Xpert Xpress SARS-CoV-2 Assay on the [employer]. Additional information about this Emergency Use Authorization (EUA) assay can be found via the Lab Guide. This test should be ordered for the detection of SARS-CoV-2 in individuals who meet SARS-CoV-2 clinical and/or epidemiological criteria as well as from individuals without symptoms or other reasons to suspect COVID-19. Test performance for asymptomatic patients has only been established in anterior nasal swab specimens. This test is for in vitro diagnostic use under the FDA EUA for laboratories certified under CLIA to perform high complexity testing. This test has not been FDA cleared or approved. A negative result does not rule out the presence of PCR inhibitors in the specimen or target RNA concentration below the limit of detection for the assay. The possibility of a false negative should be considered if the patient's recent exposure or clinical presentation suggests COVID-19. This test was validated by [employer]. These Laboratories are certified under the Clinical Laboratory Improvement Amendments (CLIA) as qualified to perform high complexity testing. Renae Shore MD LAB - MICRO GENERAL ORDERABLES [facility] [employer] [facility] Lab [address] [facility], [address] [place] [address], [facility] [phone] documented in this encounter Visit Diagnoses Diagnosis Acute cough- Primary documented in this encounter Additional Health Concerns Infection Onset Date Last Indicated Resolved Time Rule Out COVID-19 03/20/2023 03/20/2023 03/20/2023 8:43 PM CDT Assessment Noted Time PHQ-9 Depression Total Score: 4 12/04/19 19 3:50 PM CDT documented as of this encounter Care Teams Licensed Funeral Director And Embalmer Relationship Specialty Start Date End Date Kelly Medina PA-C [address] [place] [address] PCP - General Family Medicine 08/07/22 Tevin Marshall PA-C [address] [address] Assigned Musculoskeletal Provider 12/16/21 07/10/23 Kelly Medina PA-C [address] [place] [address] Assigned PCP 06/30/22 documented as of this encounter
--- OUTSIDE RECORDS SUMMARY | 2023-07-22 17:05 | XMS_ITS | Encounter Summary ---
Author Name Unknown Organization [place] Address [facility]0 [facility] [place] [address] Care Team Providers Care Control Room Operator Name Role Phone Tevin Marshall PA-C Unavailable [phone] Kelly Medina PA-C Unavailable Kelly Medina PA-C Primary Care Pr ovider Encounter Details Date Type Department Care Team (Latest Contact Info) Description 01/17/2023 Travel Social History Tobacco Use Types Packs/Day [...] often do you attend chur ch or mandaeism services? More than 4 times per year 08/24/2022 Do you belong to any clubs o r organizations such as catholic groups, unions, fraternal or athletic groups, or [...] Answer Date Recorded PHQ-2 Score 0 01/17/2023 [facility] Occupat [facility] - Occupational Stress Questionnaire Answer Date Recorded [...] place to sleep or slept in a longterm (including now)? No 08/24/2022 Sex and Gender Information Value Date Recorded Sex Assigned at Not on file Gender Identity Not on file Sexual Orientation Not on file COVID-19 Exposure Response Date Recorded In the last 10 days, have yo u been in contact with someone who was confirmed or suspected to have Coronavirus/COVID-19? No / Unsure 01/17/2023 1:10 PM CDT documented as of this encounter Plan of Treatment Upcoming Encounters Date Type Department Care Team (Late st Contact Info) Description 2023 1:30 PM CREW LEADER/CONTROL ROOM OPERATOR Office Visit [facility] [address] [place] [phone] Anamaria Nevarez MD [address], [facility] [address] [place] [address] documented as of this encounter Visit Diagnoses Not on filedocumented in this encounter Additional Health Concerns Assessment Noted Time PHQ-9 Depression Total Score: 4 12/04/19 19 3:50 PM CDT documented as of this encounter Care Teams Control Room Operator Relationship Specialty Start Date End Date Kelly Medina PA-C [address] [place] [address] PCP - General Family Medicine 08/07/22 Tevin Marshall PA-C [address] [facility] [address] [place] [address] Assigned Musculoskeletal Provider 12/16/21 07/10/23 Kelly Medina PA-C [address] [place] [address] Assigned PCP 06/30/22 documented as of this encounter
--- OUTSIDE RECORDS SUMMARY | 2023-07-22 17:05 | XMS_ITS | Encounter Summary ---
Author Name Unknown Organization [place] Address [facility]0 [facility] [place] [address] Care Team Providers Care Manager Pest Name Role Phone Tevin Marshall PA-C Unavailable [phone] Kelly Medina PA-C Unavailable Kelly Medina PA-C Primary Care Pr ovider Encounter Details Date Type Department Care Team (Latest Contact Info) Description 09/03/2022 Travel Social History Tobacco Use Types Packs/Day [...] any clubs o r organizations such as gnosticist groups, unions, fraternal or athletic groups, or [...] PHQ-2 Answer Date Recorded PHQ-2 Score 0 08/24/2022 [facility] Occupat ional Health - Occupational [...] place to sleep or slept in a detention (including now)? No 08/24/2022 Sex and Gender Information Value Date Recorded Sex Assigned at Not on file Gender Identity Not on file Sexual Orientation Not on file COVID-19 Exposure Response Date Recorded In the last 10 days, have yo u been in contact with someone who was confirmed or suspected to have Coronavirus/COVID-19? No / Unsure 09/03/2022 6:14 AM CDT documented as of this encounter Plan of Treatment Upcoming Encounters Date Type Department Care Team (Late st Contact Info) Description 2023 1:30 PM BLACK AND WHITE PRINTER OPERATOR Office Visit [facility] [address] [place] [phone] Anamaria Nevarez MD [address], [facility] [address] [place] [address] documented as of this encounter Visit Diagnoses Not on filedocumented in this encounter Additional Health Concerns Infection Onset Date Last Indicated Resolved Time MRSA-Contact Isolation Comment:Nares+, 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 Two negative nares PCRs on 09/05/2015 and 08/24/2022. MRSA banner removed. 04/29/2014 04/29/201408/16 9:07 AM CDT Assessment Noted Time PHQ-9 Depression Total Score: 4 12/04/19 19 3:50 PM CDT documented as of this encounter Care Teams Manager Pest Relationship Specialty Start Date End Date Kelly Medina PA-C [address] [place] [address] PCP - General Family Medicine 08/07/22 Tevin Marshall PA-C [address] [address] Assigned Musculoskeletal Provider 12/16/21 07/10/23 Kelly Medina PA-C [address] [place] [address] Assigned PCP 06/30/22 documented as of this encounter
--- OUTSIDE RECORDS SUMMARY | 2023-07-22 17:05 | XMS_ITS | Encounter Summary ---
Author Name Unknown Organization [place] Address [facility]0 [facility] [place] [address] Care Team Providers Care Art Psychotherapist Or Therapist Name Role Phone Tevin Marshall PA-C Unavailable [phone] Kelly Medina PA-C Unavailable Kelly Medina PA-C Primary Care Pr ovider Encounter Details Date Type Department Care Team (Latest Contact Info) Description 03/20/2023 Travel Social History Tobacco Use Types Packs/Day [...] often do you attend chur ch or sikhism services? More than 4 times per year 08/24/2022 Do you belong to any clubs o r organizations such as druze groups, unions, fraternal or athletic groups, or [...] Answer Date Recorded PHQ-2 Score 0 01/17/2023 [facility] Occupat ional [facility] - Occupational Stress Questionnaire Answer Date Recorded [...] place to sleep or slept in a half-way (including now)? No 08/24/2022 Adolescent Education Answer [...] st Contact Info) Description 2023 1:30 PM CHANNEL CEMENTER INSOLE MACHINE Office Visit [facility] [address] [place] [phone] Anamaria Nevarez MD [address] [facility] [address] [place] [address] documented as of this encounter Visit Diagnoses Not on filedocumented in this encounter Additional Health Concerns Infection Onset Date Last Indicated Resolved Time Rule Out COVID-19 03/20/2023 03/20/2023 03/20/2023 8:43 PM CDT Assessment Noted Time PHQ-9 Depression Total Score: 4 12/04/19 19 3:50 PM CDT documented as of this encounter Care Teams Art Psychotherapist Or Therapist Relationship Specialty Start Date End Date Kelly Medina PA-C [address] [place] [address] PCP - General Family Medicine 08/07/22 Tevin Marshall PA-C [address] [address] Assigned Musculoskeletal Provider 12/16/21 07/10/23 Kelly Medina PA-C [address] [place] [address] Assigned PCP 06/30/22 documented as of this encounter
--- OUTSIDE RECORDS SUMMARY | 2023-07-22 17:05 | XMS_ITS | Encounter Summary ---
Author Name Unknown Organization [place] Address [facility] [place] [address] Care Team Providers Care Hydrochloric Area Supervisor Name Role Phone Tevin Marshall PA-C Unavailable [phone] Kelly Medina PA-C Unavailable Kelly Medina PA-C Primary Care Pr ovider Reason for Referral * Diagnostic Imaging Mammo (Routine) - Pending Review Specialty Diagnoses / Procedures Referred By Mando johnson Referred To Contact Radiology. Diagnoses Visit for screening mammogram Procedures MA Screen Bilateral w/Tay MA SCREENING DIGITAL BILAT - Future (s+30) Kelly Medina PA-C [address] [place] [address] Referral ID Status Reason Start Date Expiration Date V isits Requested Visits Authorized [id number] Pending Review 01/17/2023 01/17/2024 1 1 Reason for Visit * Reason Comments Musculoskeletal Problem Encounter Details Date Type Department Care Team (Late st Contact Info) Description 01/17/2023 1:30 PM CDT Office Visit [facility] [id number] [place] [phone] Kelly Medina PA-C [address] [place] [address] Need for hepatitis C screening test (Primary Dx); Visit for screening mammogram; Multiple joint pain; Autoimmune disease (H); Morbid obesity (H) Social History Tobacco Use Types Packs/Day Years [...] How often do you attend chur or roman catholic services? More than 4 times per year 08/24/2022 Do you belong to any clubs o r organizations such as mu-ism groups, unions, fraternal or athletic groups, or [...] Answer Date Recorded PHQ-2 Score 0 01/17/2023 [facility] of Occupat ional Health - Occupational Stress [...] in a penitentiary (including now)? No 08/24/2022 Sex and Gender [...] PM CDT documented as of this encounter Last Filed Vital Signs Vital Sign Reading Time Taken Comments Blood Pressure 124/78 01/17/2023 1:23 PM CDT Pulse 86 01/17/2023 1:23 PM CDT Temperature 37.2 ??C (98.9 ??F) 01/17/2023 1:23 PM CD T Respiratory Rate 16 01/17/2023 1:23 PM CDT Oxygen Saturation 97% 01/17/2023 1:23 PM CDT Inhaled Oxygen Concentration - - Weight 86.5 kg (190 lb 11.2 oz) 01/17/2023 1:23 PM CDT Height 158.8 cm (5' 2.5) 01/17/2023 1:23 PM CDT Body Mass Index 34.32 01/17/2023 1:23 PM CDT documented in this encounter Progress Notes * Kelly Medina PA-C - 01/17/2023 1:30 PM CDT Assessment & Plan Need for hepatitis C screening test - Hepatitis C Screen Reflex to HCV RNA Quant and Genotype Visit for screening mammogram - MA SCREENING DIGITAL BILAT - Future (s+30) Multiple joint pain will get labs and determine plan. Nidia states she has a rheumatoid arthritis diagnosis when she wasyounger but has not seen rheumatology and tried medications. Will get the following autoimmune labsand determine plan - Lipid panel reflex to direct LDL Non-fasting - Uric acid - SSB La KATHY Antibody IgG - SSA Ro KATHY Antibody IgG - Anti Nuclear Miriam IgG by IFA with Reflex - CRP inflammation - Rheumatoid factor - Erythrocyte sedimentation rate auto - Comprehensive metabolic panel - CBC with platelets - Cyclic Citrullinated Peptide Antibody IgG - predniSONE (DELTASONE) 20 MG tablet; Take 2 tablets (40 mg) by mouth daily for 5 days BMI: Estimated body mass index is 34.32 kg/m?? as calculated from the following: Height as of this encounter: 1.588 m (5' 2.5). Weight as of this encounter: 86.5 kg (190 lb 11.2 oz). Kelly Medina PA-C [facility] Shilpi Jacob is a 62 year old, presenting for the following health issues: Musculoskeletal Problem 01/17/2023 1:15 PM Additional Questions Roomed by Catrachita Jacob states she woke up with a low grade fever and swollen and painful wrists and ankles last weekend. Had some left over prednisone and took that and symptosm are slightly better. Also has pain over flank area on left. Also left knee is swollen ab=nd she Denies fever, sore throat, cough , SOB, headache, chest pain, stomach pain, bowel or bladder changes. Jose Luis states that she was diagnosed with RA when younger but does not see a credit review officer and is nottreated for it. Chart review shows autoimmune labs done in 2010 that was negative for RA History of Present Illness Reason for visit: My joints hurt and swollen Symptom onset: 3-7 days ago She eats 2-3 servings of fruits and vegetables daily.She consumes 0 sweetened beverage(s) daily.Sheexercises with enough effort to increase her heart rate 20 to 29 minutes per day. She exercises with enough effort to increase her heart rate 3 or less days per week. She is taking medications regularly. Pain in hand joints, elbows, shoulders unable to turn neck Some edema at joint site Review of Systems Constitutional, HEENT, cardiovascular, pulmonary, GI, , musculoskeletal, neuro, skin, endocrine and psych systems are negative, except as otherwise noted. Objective BP 124/78 Pulse 86 Temp 98.9 ??F (37.2 ??C) (Tympanic) Resp 16 Ht 1.588 m (5' 2.5) Wt 86.5 kg (190 lb 11.2 oz) SpO2 97% BMI 34.32 kg/m?? Body mass index is 34.32 kg/m??. Physical Exam GENERAL: healthy, alert and no distress HENT: ear canals and TM's normal, nose and mouth without ulcers or lesions RESP: lungs clear to auscultation - no rales, rhonchi or wheezes CV: regular rate and rhythm, normal S1 S2, no S3 or S4, no murmur, click or rub, no peripheral edema and peripheral pulses strong MS: no gross musculoskeletal defects noted, no edema SKIN: no suspicious lesions or rashes documented in this encounter Plan of Treatment Upcoming Encounters Date Type Department Care Team (Late st Contact Info) Description 2023 1:30 PM SUPERVISOR TYPESETTING Office Visit [facility] [address] [place] [phone] Anamaria Nevarez MD [address], [address] [place] [address] documented as of this encounter Procedures Procedure Name Priority Date/Time Associated Diagnosis Comments MA SCREENING BILATERAL W/ TAY Routine 02/06/2023 3:04 PM CDT Visit for screening mammogram SSB LA KATHY ANTIBODY IGG Routine 01/17/2023 2:01 PM CDT Multiple joint pain SSA RO KATHY ANTIBODY IGG Routine 01/17/2023 2:01 PM CDT Multiple joint pain HEPATITIS C SCREEN REFLEX TO HCV RNA QUANT AND GENOTYPE Routine 01/17/2023 2:01 PM CDT Need for hepatitis C screening test CYCLIC CITRULLINATED PEPTIDE ANTIBODY IGG Routine 01/17/2023 2:01 PM CDT Multiple joint pain ANTI NUCLEAR MIRIAM IGG BY IFA WITH REFLEX Routine 01/17/2023 2:01 PM CDT Multiple joint pain URIC ACID Routine 01/17/2023 2:01 PM CDT Multiple joint pain RHEUMATOID FACTOR Routine 01/17/2023 2:0 1 PM CDT Multiple joint pain LIPID REFLEX TO DIRECT LDL PANEL Routine 01/17/2023 2:01 PM CDT Multiple joint pain ERYTHROCYTE SEDIMENTATION RATE AUTO Routine 01/17/2023 2:01 PM CDT Multiple joint pain CRP INFLAMMATION Routine 01/17/2023 2:01 PM CDT Multiple joint pain COMPREHENSIVE METABOLIC PANEL Routine 01/17/2023 2:01 PM CDT Multiple joint pain CBC WITH PLATELETS Routine 01/17/2023 2: 01 PM CDT Multiple joint pain documented in this encounter Results * MA Screen Bilateral w/Tay (02/06/2023 3:04 PM CDT) Anatomical Region Laterality Modality Breast Bilateral Mammography Impressions 02/07/2023 11:42 AM CDT IMPRESSION: ACR BI-RADS Category 1: Negative RECOMMENDED FOLLOW-UP: Annual routine screening mammogram The results and recommendations of this examination will be communicated to the patient. Stephan Head MD Narrative 02/07/2023 11:42 AM CDT BILATERAL FULL FIELD DIGITAL SCREENING MAMMOGRAM WITH TOMOSYNTHESIS Performed on: 02/06/23 Compared to: 12/22/2021, 07/23/2019, and 07/11/2018 Technique: ??This study was evaluated with the assistance of Computer-Aided Detection. ??Breast Tomosynthesis was used in interpretation. Findings: The breasts have scattered areas of fibroglandular density. ?? There is no radiographic evidence of malignancy. Kelly Medina PA-C IMG MAMM OGRAPHY ORDERABLES * Cyclic Citrullinated Peptide Antibody IgG (01/17/2023 2:01 PM CDT) Cyclic Citrullinated Peptide Antibody IgG 1.1 <7.0 U/mL 01/18/2023 1:40 PM CDT [facility] C[facility]/PROT/END O Comment:Negative Blood BLOOD SPECIMEN / Unknown Venipuncture / Unknown 01/17/2023 2:01 PM CDT 01/17/2023 2:01 PM CDT Kelly Medina PA-C LAB - BL OOD ORDERABLES [facility] C[facility]/PROT/ENDO [facility] Core/Prot/Endo [address] [facility] [address], [address] [phone] * CBC with platelets (01/17/2023 2:01 PM CDT) WBC Count 6.8 4.0 - 11.0 10e3/uL 01/17/2023 2:03 PM CDT [facility] RBC Count 4.62 3.80 - 5.20 10e6/uL 01/17/2023 2:03 PM CDT [facility] Hemoglobin 13.6 11.7 - 15.7 g/dL 01/17/2023 2:03 PM CDT [facility] Hematocrit 42.3 35.0 - 47.0 % 01/17/2023 2:03 PM CDT [facility] MCV 92 78 - 100 fL 01/17/2023 2:03 PM CDT [facility] MCH 29.4 26.5 - 33.0 pg 01/17/2023 2:03 PM CDT [facility] MCHC 32.2 31.5 - 36.5 g/dL 01/17/2023 2:03 PM CDT [facility] RDW 13.6 10.0 - 15.0 % 01/17/2023 2:03 PM CDT [facility] Platelet Count 270 150 - 450 10e3/uL 01/17/2023 2:03 PM CDT [facility] Blood BLOOD SPECIMEN / Unknown Venipuncture / Unknown 01/17/2023 2:01 PM CDT 01/17/2023 2:01 PM CDT Kelly Medina PA-C LAB - BL OOD ORDERABLES [facility] [address] [facility] (no room number, 1st floor of clinic) [place] [address] [phone] * (ABNORMAL) Comprehensive metabolic panel (01/17/2023 2:01 PM CDT) Sodium 139 136 - 145 mmol/L 01/17/2023 5:56 PM CDT [facility] Potassium 4.0 3.4 - 5.3 mmol/L 01/17/2023 5:56 PM CDT [facility] Chloride 101 98 - 107 mmol/L 01/17/2023 5:56 PM CDT [facility] Carbon Dioxide (CO2) 28 22 - 29 mmol/L 01/17/2023 5:56 PM CDT [facility] Anion Gap 10 7 - 15 mmol/L 01/17/2023 5:56 PM CDT [facility] Urea Nitrogen 19.8 8.0 - 23.0 mg/dL 01/17/2023 5:56 PM CDT [facility] Creatinine 0.54 0.51 - 0.95 mg/dL 01/17/2023 5:56 PM CDT [facility] Calcium 9.7 8.8 - 10.2 mg/dL 01/17/2023 5:56 PM CDT [facility] Glucose 128(H) 70 - 99 mg/dL 01/17/2023 5:56 PM CDT [facility] Alkaline Phosphatase 61 35 - 104 U/L 01/17/2023 5:56 PM CDT [facility] AST 26 0 - 45 U/L 01/17/2023 5:56 PM CDT [facility] Comment:Reference intervals for this test were updated on 11/26/2022 to more accurately reflect our healthy population. There may be differences in the flagging of prior results with similar values performed with this method. Interpretation of those prior results can be made in the context of the updated reference intervals. ALT 18 0 - 50 U/L 01/17/2023 5:56 PM CDT [facility] Comment:Reference intervals for this test were updated on 11/26/2022 to more accurately reflect our healthy population. There may be differences in the flagging of prior results with similar values performed with this method. Interpretation of those prior results can be made in the context of the updated reference intervals. Protein Total 7.3 6.4 - 8.3 g/dL 01/17/2023 5:56 PM CDT [facility] Albumin 4.6 3.5 - 5.2 g/dL 01/17/2023 5:56 PM CDT [facility] Bilirubin Total 0.2 <=1.2 mg/dL 01/17/2023 5:56 PM CDT [facility] GFR Estimate >90 >60 mL/min/1. 73m2 01/17/2023 5:56 PM CDT [facility] Blood BLOOD SPECIMEN / Unknown Venipuncture / Unknown 01/17/2023 2:01 PM CDT 01/17/2023 2:01 PM CDT Kelly Medina PA-C LAB - BL OOD ORDERABLES [facility] [address] [facility] [place] [address], [facility] [phone] * Erythrocyte sedimentation rate auto (01/17/2023 2:01 PM CDT) Pathologist [facility] Erythrocyte Sedimentation Rate 9 0 - 30 mm/hr 01/17/2023 2:37 PM CDT [facility] Blood BLOOD SPECIMEN / Unknown Venipuncture / Unknown 01/17/2023 2:01 PM CDT 01/17/2023 2:01 PM CDT Kelly Medina PA-C LAB - BL OOD ORDERABLES [facility] [address] [facility] (no room number, 1st floor of clinic) [place] [address], [facility] [phone] * Rheumatoid factor (01/17/2023 2:01 PM CDT) Pathologist [facility] Rheumatoid Factor 6 <12 IU/mL 01/18/2023 11:44 AM CDT SPECIALTY CORE/PROT/ENDO Blood BLOOD SPECIMEN / Unknown Venipuncture / Unknown 01/17/2023 2:01 PM CDT 01/17/2023 2:01 PM CDT Kelly Medina PA-C LAB - BL OOD ORDERABLES [facility]/PROT/ENDO Specialty Core/Prot/Endo [address] [facility], [address] [place] [address], [facility] [phone] * CRP inflammation (01/17/2023 2:01 PM CDT) Pathologist [facility] CRP Inflammation <3.00 <5.00 mg/L 01/18/20 5:56 PM CDT [facility] Blood BLOOD SPECIMEN / Unknown Venipuncture / Unknown 01/17/2023 2:01 PM CDT 01/17/2023 2:01 PM CDT Kelly Medina PA-C LAB - BL OOD ORDERABLES [facility] [address] [facility] [address], [address] [place] [address], [facility] [phone] * Anti Nuclear Miriam IgG by IFA with Reflex (01/17/2023 2:01 PM CDT) Pathologist [facility] KARIS interpretation Negative Negative 2022 12:13 PM CDT [facility]/PROT/EN DO Comment: Negative: ?<1:40 Borderline Positive: ?? 1:40 - 1:80 Positive: ?>1:80 Blood BLOOD SPECIMEN / Unknown Venipuncture / Unknown 01/17/2023 2:01 PM CDT 01/17/2023 2:01 PM CDT Kelly Medina PA-C LAB - BL OOD ORDERABLES [facility] CORE/PROT/ENDO Specialty Core/Prot/Endo [address] [facility] [address] [facility], [address] [place] [address], [facility] [phone] * SSA Ro KATHY Antibody IgG (01/17/2023 2:01 PM CDT) Pathologist [facility] SSA Miriam IgG Instrument Value 0.7 <7.0 U/mL 01/18/2023 1:40 PM CDT [facility]PROT/END O SSA (Ro) Antibody IgG Negative Negative 01/18/2023 1:40 PM CDT [facility]PROT/END O Blood BLOOD SPECIMEN / Unknown Venipuncture / Unknown 01/17/2023 2:01 PM CDT 01/17/2023 2:01 PM CDT Kelly Medina PA-C LAB - BL OOD ORDERABLES [facility] SPECIAL[facility] CORE/PROT/ENDO UM Specialty Core/Prot/Endo [address] [facility] [address], [address] [address], [facility] [phone] * SSB La KATHY Antibody IgG (01/17/2023 2:01 PM CDT) Pathologist [facility] SSB Miriam IgG Instrument Value <0.6 <7.0 U/mL 01/18/2023 1:40 PM CDT [facility] CORE/PROT/END O SSB (La) Antibody IgG Negative Negative 01/18/2023 1:40 PM CDT SPECIALTY CORE/PROT/END O Blood BLOOD SPECIMEN / Unknown Venipuncture / Unknown 01/17/2023 2:01 PM CDT 01/17/2023 2:01 PM CDT Kelly Medina PA-C LAB - BL OOD ORDERABLES [facility] SPECIALTY CORE/PROT/ENDO Specialty Core/Prot/Endo [address] [facility] [address] [facility], [address] [address], [facility] [phone] * Uric acid (01/17/2023 2:01 PM CDT) [facility] Uric Acid 3.2 2.4 - 5.7 mg/dL 01/17/2023 5:56 PM CDT [facility] Blood BLOOD SPECIMEN / Unknown Venipuncture / Unknown 01/17/2023 2:01 PM CDT 01/17/2023 2:01 PM CDT Kelly Medina PA-C LAB - BL OOD ORDERABLES [facility] [address] [facility] [address], [address] [address], [facility] [phone] * (ABNORMAL) Lipid panel reflex to direct LDL Non-fasting (01/17/2023 2:01 PM CDT) Cholesterol 249(H) <200 mg/dL 01/17/2023 5:56 PM CDT [facility] Triglycerides 72 <150 mg/dL 01/17/2023 5:56 PM CDT [facility] Direct Measure HDL 98 >=50 mg/dL 01/17/2023 5:56 PM CDT [facility] LDL Cholesterol Calculated 137(H) <=100 mg/dL 01/17/2023 5:56 PM CDT [facility] Non HDL Cholesterol 151(H) <130 mg/dL 01/17/2023 5:56 PM CDT [facility] Blood BLOOD SPECIMEN / Unknown Venipuncture / Unknown 01/17/2023 2:01 PM CDT 01/17/2023 2:01 PM CDT Narrative [facility] - 01/17/2023 5:56 PM CDT Cholesterol Desirable: ??<200 mg/dL Triglycerides Normal: ??Less than 150 mg/dL Borderline High: ??150-199 mg/dL High: ??200-499 mg/dL Very High: ??Greater than or equal to 500 mg/dL Direct Measure HDL Female: ??Greater than or equal to 50 mg/dL Male: ??Greater than or equal to 40 mg/dL LDL Cholesterol Desirable: ??<100mg/dL Above Desirable: ??100-129 mg/dL Borderline High: ??130-159 mg/dL High: ??160-189 mg/dL Very High: ??>= 190 mg/dL Non HDL Cholesterol Desirable: ??130 mg/dL Above Desirable: ??130-159 mg/dL Borderline High: ??160-189 mg/dL High: ??190-219 mg/dL Very High: ??Greater than or equal to 220 mg/dL Kelly Medina PA-C LAB - BL OOD ORDERABLES [facility] [address] [facility] [address] [facility], [address] [address], [facility] [phone] * Hepatitis C Screen Reflex to HCV RNA Quant and Genotype (01/17/2023 2:01 PM CDT) Hepatitis C Antibody Nonreactive Nonreactive 01/18/2023 9:51 AM CDT [facility] CORE/PROT/EN DO Blood BLOOD SPECIMEN / Unknown Venipuncture / Unknown 01/17/2023 2:01 PM CDT 01/17/2023 2:01 PM CDT Narrative SPECIALTY CORE/PROT/ENDO - 01/18/2023 9:51 AM CDT Assay performance characteristics have not been established for newborns, infants, and children. Kelly Medina PA-C LAB - BL OOD ORDERABLES [facility] CORE/PROT/ENDO Specialty Core/Prot/Endo [address] [facility], [address] [phone] documented in this encounter Visit Diagnoses Diagnosis Need for hepatitis C screening test- Primary Special screening examination for other specified viral diseases Visit for screening mammogram Other screening mammogram Multiple joint pain Pain in joint, multiple sites Autoimmune disease (H24) Autoimmune disease, not elsewhere classified Morbid obesity (H) Morbid obesity documented in this encounter Additional Health Concerns Assessment Noted Time PHQ-9 Depression Total Score: 4 12/04/19 19 3:50 PM CDT documented as of this encounter Care Teams Hydrochloric Area Supervisor Relationship Specialty Start Date End Date Kelly Medina PA-C [address] [place] [address] PCP - General Family Medicine 08/07/22 Tevin Marshall PA-C [address] [address] Assigned Musculoskeletal Provider 12/16/21 07/10/23 Kelly Medina PA-C [address] [place] [address] Assigned PCP 06/30/22 documented as of this encounter
--- OUTSIDE RECORDS SUMMARY | 2023-07-22 17:05 | XMS_ITS | Encounter Summary ---
Author Name Unknown Organization [place] Address [facility] [place] [address] Care Team Providers Care Laceworker Name Role Phone Tevin [place] PA-C Unavailable [phone] Kelly Medina PA-C Unavailable Kelly Medina PA-C Primary Care Pr ovider Encounter Details Date Type Department Care Team (Latest Contact Info) Description 02/06/2023 Travel Social History Tobacco Use Types Packs/Day [...] often do you attend chur ch or christian services? More than 4 times per year 08/24/2022 Do you belong to any clubs o r organizations such as jain groups, unions, fraternal or athletic groups, or [...] Answer Date Recorded PHQ-2 Score 0 01/17/2023 [facility] of Occupat ional [facility] - Occupational Stress Questionnaire Answer Date Recorded [...] place to sleep or slept in a fci (including now)? No 08/24/2022 Sex and Gender Information Value Date Recorded Sex Assigned at Not on file Gender Identity Not on file Sexual Orientation Not on file COVID-19 Exposure Response Date Recorded In the last 10 days, have yo u been in contact with someone who was confirmed or suspected to have Coronavirus/COVID-19? No / Unsure 02/06/2023 2:26 PM CDT documented as of this encounter Plan of Treatment Upcoming Encounters Date Type Department Care Team (Late st Contact Info) Description 2023 1:30 PM ACCOUNTING TUTOR Office Visit [facility] [address] [place] [phone] Anamaria Nevarez MD [address], [email or web address] [address] [place] [address] documented as of this encounter Visit Diagnoses Not on filedocumented in this encounter Additional Health Concerns Assessment Noted Time PHQ-9 Depression Total Score: 4 12/04/19 19 3:50 PM CDT documented as of this encounter Care Teams Laceworker Relationship Specialty Start Date End Date Kelly Medina PA-C [address] [place] [address] PCP - General Family Medicine 08/07/22 Tevin [place] PA-C [address] [facility] [address] [place] [address] Assigned Musculoskeletal Provider 12/16/21 07/10/23 Kelly Medina PA-C [address] [place] [address] Assigned PCP 06/30/22 documented as of this encounter
--- OUTSIDE RECORDS SUMMARY | 2023-07-22 17:05 | XMS_ITS | Encounter Summary ---
Author Name Unknown Organization [place] Address [address] [facility] [place] [address] Care Team Providers [employer] Name Role Phone Tevin Marshall PA-C Unavailable [phone] Kelly Medina PA-C Unavailable Kelly Medina PA-C Primary Care Pr ovider Reason for Visit * Auth/Cert (Routine) Specialty Diagnoses / Procedures Referred By Mando jonhson Referred To Contact Surgery Diagnoses Osteoarthritis Osteoarthritis [M19.90] Procedures ND TOTAL KNEE ARTHROPLASTY Left total knee arthroplasty(Spinal with adductor canal block) Periop Services [address] [place] [address] Referral ID Status Reason Start Date Expiration Date Visits Re quested Visits Authorized [id number] 1 1 Encounter Details Date Type Department Care Team (Latest Contact Info) Description 09/03/2022 6:15 AM CDT - 09/05/2022 10:40 AM CDT Hospital Encounter M [facility] Orth[facility] Spine [address] [place] [address] Darshan Young MD [facility] [address] [place] [address] S/P TKR (total knee replacement), left (Primary Dx) Discharge Disposition: Home or Self [...] often do you attend chur ch or baptist services? More than 4 times per year 08/24/2022 Do you belong to any clubs o r organizations such as hoahaoism groups, unions, fraternal or athletic groups, or [...] Answer Date Recorded PHQ-2 Score 0 08/24/2022 [facility] - Occupational [...] place to sleep or slept in a jail (including now)? No 08/24/2022 Sex and Gender [...] Sign Reading Time Taken Comments Blood Pressure 110/42 09/05/2022 7:31 AM CDT Pulse 89 09/05/2022 7:31 AM CDT Temperature 37.4 ??C (99.3 ??F) 09/05/2022 7:31 AM CD T Respiratory Rate 17 09/05/2022 7:31 AM CDT Oxygen Saturation 95% 09/05/2022 7:31 AM CDT Inhaled Oxygen Concentration - - Weight 85 kg (187 lb 4.8 oz) 09/03/2022 6:36 AM CDT Height 158.1 cm (5' 2.25) 09/03/2022 6:36 AM CD T Body Mass Index 33.98 09/03/2022 6:36 AM CDT documented in this encounter Medications at Time of Discharge Medication Sig Dispensed Refills Start Date End Date albuterol (PROAIR HFA/PROVENTIL HFA/VENTOLIN HFA) 108 (90 Base) MCG/ACT inhalerIndications:Int ermittent asthma, uncomplicated Inhale 1-2 puffs into the lungs every 4 hours as needed for shortness of breath / dyspnea 16 g 1 12/21/2020 aspirin (ASA) 325 MG EC tabletIndications:S/P TKR (total knee replacement), left Take 1 tablet (325 mg) by mouth daily 30 tablet 0 09/03/2022 Magnesium Chloride (MAGNESIUM DR PO) Take 450 mg by mouth 2 times daily 0 multivitamin w/minerals (THERA-VIT-M) tablet Take 1 tablet by mouth daily 0 VITAMIN D, CHOLECALCIFEROL, PO Take 400 Units by mouth daily 0 methocarbamol (ROBAXIN) 500 MG tabletIndications:S/P TKR (total knee replacement), left Take 1 tablet (500 mg) by mouth 4 times daily for 30 days 120 tablet 0 09/05/2022 10/05/2022 calcium carbonate (OS-ALISON 500 MG SAXMAN. CA) 500 MG tablet Take 500 mg by mouth 2 times daily. 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 Do not apply to face. 60 g 11 07/13/2019 06/11/2023 EPINEPHrine (EPIPEN 2-JANICE) 0.3 MG/0.3ML injection 2-packIndications:Bee allergy status Inject 0.3 mLs (0.3 mg) into the muscle as needed for anaphylaxis 0.6 mL 3 12/21/2020 01/17/2023 HYDROmorphone (DILAUDID) 2 MG tabletIndications:S/P TKR (total knee replacement), left Take 1-2 tablets (2-4 mg) by mouth every 4 hours as needed for moderate to severe pain or severe pain (7-10) 25 tablet 0 09/03/2022 01/17/2023 hydrOXYzine (ATARAX) 25 MG tabletIndications:S/P TKR (total knee replacement), left Take 1 tablet (25 mg) by mouth every 6 hours as needed for itching or anxiety (with pain, moderate pain) 30 tablet 0 09/03/2022 01/17/2023 polyethylene glycol (MIRALAX) 17 g packetIndications:S/P TKR (total knee replacement), left Take 17 g by mouth daily 10 packet 0 09/03/2022 01/17/2023 senna-docusate (SENOKOT-S/PERICOLACE) 8.6-50 MG tabletIndications:S/P TKR (total knee replacement), left Take 1-2 tablets by mouth 2 times daily Take while on oral narcotics to prevent or treat constipation. 30 tablet 0 09/03/2022 01/17/2023 documented as of this encounter Progress Notes * Jeaneth Craft PA-C - 09/05/2022 9:30 AM CDT Orthopedic Surgery 09/05/2022 POD 2 S: Patient voices no unexpected ortho complaints today. Denies chest pain or shortness of breath. Reports that she is much better today. Did get NICE, Ice machine. This is has been helpful. Ready to go home today. O: Blood pressure 110/42, pulse 89, temperature 99.3 ??F (37.4 ??C), temperature source Temporal, resp. rate 17, height 1.581 m (5' 2.25), weight 85 kg (187 lb 4.8 oz), SpO2 95 %, not currently . Lab Results Component Value Date HGB 11.2 09/05/2022 HGB 13.9 03/25/2019 Lab Results Component Value Date INR 0.96 03/25/2019 I/O last 3 completed shifts: In: 760 [P.O.:760] Out: - Distal extremity CMSI bilaterally. Calves are negative bilaterally, both soft and nontender. The dressing is C/D/I. A: Ms. Mtz is doing well status post Procedure(s): Left total knee arthroplasty. P: Continue physical therapy. Continue DVT pphx with ASA due to high mobility and low risk factors for DVT. Anticipate discharge to home today with . Will add Methocarbamol to discharge meds. Jeaneth Craft PA-C [phone] * Jeaneth Craft PA-C - 09/04/2022 5:02 PM CDT Ortho: Was Notified of pain control issues. Please remove duran and cast padding for more direct ability to Ice. Added Methocarbomal as option. I will see again in the am. Jeaneth Craft PA-C [phone] * Francesca Chauhan OTR - 09/04/2022 11:36 AM CDT 09/04/22 1000 Appointment Info Signing Clinician's Name / Credentials (OT) Francesca Chauhan, OTR/L Living Environment People in Home spouse Current Living Arrangements house Home Accessibility stairs to enter home Number of Stairs, Main Entrance 3 Stair Railings, Main Entrance railings safe and in good condition Number of Stairs, Within Home, Primary none Stair Railings, Within Home, Primary none Transportation Anticipated family or friend will provide Living Environment Comments walk in shower with shower chair and grab bars; toilet riser on toilet and grab bar next to toilet. Self-Care Usual Activity Tolerance good Current Activity Tolerance moderate Fall history within last six months yes Number of times patient has fallen within last six months 4 Activity/Exercise/Self-Care Comment Pt is indep with ADLs and IADLs at baseline General Information Onset of Illness/Injury or Date of Surgery 09/03/22 Referring Physician Jeaneth Craft PA-C Patient/Family Therapy Goal Statement (OT) decrease pain Additional Occupational Profile Info/Pertinent History of Current Problem LTKA POD #1 Left Lower Extremity (Weight-bearing Status) weight-bearing as tolerated (WBAT) General Observations and Info Pt has had prior hip surgery so she has AE at home for dressing Cognitive Status Examination Cognitive Status Comments no cog impairment noted Pain Assessment Patient Currently in Pain Yes, see Vital Sign flowsheet (03/26) Bed Mobility Bed Mobility supine-sit;sit-supine Supine-Sit [place] (Bed Mobility) supervision Sit-Supine [place] (Bed Mobility) moderate assist (50% patient effort) Transfers Transfers toilet transfer;sit-stand transfer;bed-chair transfer Transfer Skill: Bed to Chair/Chair to Bed Bed-Chair [place] (Transfers) minimum assist (75% patient effort) Sit-Stand Transfer Sit-Stand [place] (Transfers) contact guard Toilet Transfer [place] Level (Toilet Transfer) contact guard Activities of Daily Living BADL Assessment/Intervention toileting Toileting [place] Level (Toileting) supervision Clinical Impression Criteria for Skilled Therapeutic Interventions Met (OT) Yes, treatment indicated OT Diagnosis LTKA OT Problem List-Impairments impacting ADL activity tolerance impaired;pain;flexibility Assessment of Occupational Performance 5 or more Performance Deficits Identified Performance Deficits dressing, toileting, showering, functional mobility, and IADLs Planned Therapy Interventions (OT) ADL retraining;IADL retraining;transfer training Clinical Decision Making Complexity (OT) low complexity Risk & Benefits of therapy have been explained evaluation/treatment results reviewed;care plan/treatment goals reviewed;risks/benefits reviewed;current/potential barriers reviewed;participants voiced agreement with care plan;participants included;patient;spouse/significant other Clinical Impression Comments At this time, pt's pain is biggest barrier as it's limiting her participation with therapy and requiring increased assist. Pt also notes dizziness. BP monitored, check vitals sheet OT Total Evaluation Time OT Eval, Low Complexity Minutes (25434) 10 OT Goals Therapy Frequency (OT) Daily OT Predicted Duration/Target Date for Goal Attainment 09/05/22 OT Goals Upper Body Dressing;Lower Body Dressing;Hygiene/Grooming OT: Hygiene/Grooming supervision/stand-by assist OT: Upper Body Dressing Supervision/stand-by assist OT: Lower Body Dressing Supervision/stand-by assist Interventions Interventions Quick Adds Self-Care/Home Management Self-Care/Home Management Self-Care/Home Mgmt/ADL, Compensatory, Meal Prep Minutes (67290) 76 Treatment Detail/Skilled Intervention Upon arrival, pt is SBA with bed mobility from supine to sit.Pt is SBA with ambulation in room with 2ww. Pt is SBA with toileting. As she is toileting, pt notesshe is having increased pain. As she starts ambulating back into room, pt reports she needs to sit due to increased pain and lightheadeness. Pt rests and reports she would like to try to stand to getback to bed. Pt stands with min A x1 and 2ww and needs to instantly sit due to pain. Pt reports shedoes not feel she can transfer back to bed. OT and pt's move pt's chair next to bed so pt can perform pivot transfer. Pt is CGA with pivot tranfser to EOB. Pt is mod A with bed mobility from sit to supine with help to bring LE into bed. Pt continues to have lightheadedness; pt's BP taken (see vital sheet) and nursing notified. Pt is left in room with call light in reach and bed alarm on. Due to increased pain and BP, OT session ended at this time. Pt and concerned with pt's ability to d/c home due to pain and low BP. Pt would like OT to come back tomorrow if able. OT Discharge Planning OT Plan TB dressing; grooming/hygiene OT Discharge Recommendation (DC Rec) (defer to ortho) OT Rationale for DC Rec Anticipate once pt's pain is managed and lightheadedness resolves, pt will be able to d/c home safely with assist of and use of AE. OT Brief overview of current status SBA toileting; min A STS; mod A bed mobility; limited session due to increased pain and low BP Total Session Time Timed Code Treatment Minutes 28 Total Session Time (sum of timed and untimed services) 38 [facility] OUTPATIENT OCCUPATIONAL THERAPY EVALUATION PLAN OF TREATMENT FOR OUTPATIENT REHABILITATION (COMPLETE FOR INITIAL CLAIMS ONLY) Patient's Last Name, First Name, M.I. Date of : 1960 Nidia Mtz Provider's Name [facility] Onset Date: 09/03/22 Start of Care Date: Type: ___PT _X_OT ___SLP Medical Diagnosis: OT Diagnosis: LTKA Visits from SOC: 1 See note for plan of treatment, functional goals and certification details I CERTIFY THE NEED FOR THESE SERVICES FURNISHED UNDER THIS PLAN OF TREATMENT AND WHILE UNDER MY CARE (Physician co-signature of this document indicates review and certification of the therapy plan). Associated attestation - Jeaneth Craft PA-C - 09/10/2022 8:24 AM CDT Agree with and attest to above note. Jeaneth Craft PA-C [phone] * Jeaneth Craft PA-C - 09/04/2022 6:27 AM CDT Orthopedic Surgery 09/04/2022 POD 1 S: Patient voices no unexpected ortho complaints today. Denies chest pain or shortness of breath. Was already up in chair and had walked to bathroom at 6 am. O: Blood pressure 118/47, pulse 56, temperature 97.3 ??F (36.3 ??C), temperature source Temporal, resp. rate 14, height 1.581 m (5' 2.25), weight 85 kg (187 lb 4.8 oz), SpO2 95 %, not currently . Lab Results Component Value Date HGB 13.8 08/24/2022 HGB 13.9 03/25/2019 Lab Results Component Value Date INR 0.96 03/25/2019 I/O last 3 completed shifts: In: 2160 [P.O.:160; I.V.:2000] Out: 600 [Urine:550; Blood:50] Distal extremity CMSI bilaterally. Calves are negative bilaterally, both soft and nontender. The dressing is C/D/I. A: Ms. Mtz is doing well status post Procedure(s): Left total knee arthroplasty(Spinal with adductor canal block). P: Continue physical therapy. Continue DVT pphx with ASA due to high mobility and low risk factors for DVT. Anticipate discharge to today with . Has outpatient PT set up. Wants an Ice machine for home. Will have office print referral to filler picker for insurance reimbursement. Noted taking PO dilaudid and rx written. Jeaneth Craft PA-C [phone] * Brigitte Fernández, PT - 09/03/2022 6:19 PM CDT 09/03/22 1700 Appointment Info Signing Clinician's Name / Credentials (PT) Rita Amin, SPT Student Supervision Direct supervision provided Quick Adds Quick Adds Certification Living Environment People in Home spouse Current Living Arrangements house Home Accessibility stairs to enter home Number of Stairs, Main Entrance 3 Stair Railings, Main Entrance railings safe and in good condition Living Environment Comments Pt lives in [facility] home with 3 JC with and parents. is able to provide assist if needed. Daughter is also able to provide support when needed. Self-Care Usual Activity Tolerance good Current Activity Tolerance moderate Equipment Currently Used at Home none (Has 2WW at home) Fall history within last six months yes Number of times patient has fallen within last six months 4 Activity/Exercise/Self-Care Comment Bathroom with shower chair, grab bars near toilet and shower. IND with all cares previously. General Information Onset of Illness/Injury or Date of Surgery 09/03/22 Referring Physician Jeaneth Craft PA-C Patient/Family Therapy Goals Statement (PT) return home and PLOF Pertinent History of Current Problem (include personal factors and/or comorbidities that impact thePOC) 62 yo female s/p L TKA 09/03/2022 Existing Precautions/Restrictions fall Weight-Bearing Status - LLE weight-bearing as tolerated Cognition Affect/Mental Status (Cognition) WFL Orientation Status (Cognition) oriented x 4 Follows Commands (Cognition) WFL Pain Assessment Patient Currently in Pain Yes, see Vital Sign flowsheet (11/24 in L LE) Integumentary/Edema Integumentary/Edema Comments DURAN wrap on L LE Posture Posture Forward head position;Protracted shoulders Range of Motion (ROM) Range of Motion ROM deficits secondary to surgical procedure ROM Comment L knee flexion limited secondary to surgery. Strength (Manual Muscle Testing) Strength (Manual Muscle Testing) Able to perform R SLR Strength Comments L SLR unable to complete. Bed Mobility Comment, (Bed Mobility) modIND supine to sit. Transfers Comment, (Transfers) SBAx1 STS with 2WW Gait/Stairs (Locomotion) [place] Level (Gait) supervision Assistive Device (Gait) walker, front-wheeled Distance in Feet 5' Distance in Feet (Gait) 5+95 Comment, (Gait/Stairs) SBAx1 ambulation with 2WW and stairs Balance Balance Comments impaired dynamic balance Sensory Examination Sensory Perception patient reports no sensory changes Coordination Coordination no deficits were identified Muscle Tone Muscle Tone no deficits were identified Clinical Impression Criteria for Skilled Therapeutic Intervention Yes, treatment indicated PT Diagnosis (PT) impaired functional mobility Influenced by the following impairments weakness, pain, WB restriction Functional limitations due to impairments Impaired bed mobility, transfers, ambulation, stairs Clinical Presentation (PT Evaluation Complexity) Stable/Uncomplicated Clinical Presentation Rationale clincial rationle, social support, PMHx Clinical Decision Making (Complexity) low complexity Planned Therapy Interventions (PT) balance training;bed mobility training;gait training;home exercise program;patient/family education;stair training;strengthening;transfer training;progressive activi ty/exercise;cryotherapy;postural re-education;neuromuscular re-education;ROM (range of motion);stretching Anticipated Equipment Needs at Discharge (PT) (pt has all DME at home) Risk & Benefits of therapy have been explained evaluation/treatment results reviewed;care plan/treatment goals reviewed;risks/benefits reviewed;current/potential barriers reviewed;patient;daughter PT Total Evaluation Time PT Eval, Low Complexity Minutes (08213) 10 Plan of Care Review Plan of Care Reviewed With patient Therapy Certification Start of care date 09/03/22 Certification date from 09/03/22 Certification date to 09/04/22 Medical Diagnosis s/p L TKA Physical Therapy Goals PT Frequency Daily PT Predicted Duration/Target Date for Goal Attainment 09/04/22 PT Goals Bed Mobility;Transfers;Gait;Stairs PT: Bed Mobility Modified independent;Supine to/from sit;Rolling PT: Transfers Supervision/stand-by assist;Sit to/from stand;Bed to/from chair;Assistive device PT: Gait Supervision/stand-by assist;Assistive device;100 feet PT: Stairs Supervision/stand-by assist;3 stairs Interventions Interventions Quick Adds Gait Training;Therapeutic Activity Therapeutic Activity Therapeutic Activities: dynamic activities to improve functional performance Minutes (46693) 15 Symptoms Noted During/After Treatment Increased pain Treatment Detail/Skilled Intervention Greeted in supine, daughter entered at beginning of session. Pt modIND with bed mobility supine to sit with HOB elevated and bed rails. SBA STS 2WW with VC for safe hand placement. VC for safe hand placement for stand to sit into recliner. Able to review supineLE exercieses in handout (AP, QS, HS, GS and SLR). Able to demo all exept SLR due to pain. Discussed progression of rehab with patient and daughter. Pt was left seated in reclincer with chair alarm, call light and all needs within reach. Gait Training Gait Training Minutes (72125) 20 Symptoms Noted During/After Treatment (Gait Training) increased pain Treatment Detail/Skilled Intervention Ambulated ~100' today with SBA and 2WW. Demoed step to gait patterning, but was able to slighly improve to step through with VC. VC for erect standing posture and slight shoulder relaxation. Pt able to navigate 4 steps with bilateral railings using step to patterning. VC for proper sequencing. [place] Level (Gait Training) stand-by assist Physical Assistance Level (Gait Training) supervision Weight Bearing (Gait Training) weight-bearing as tolerated Assistive Device (Gait Training) rolling walker PT Discharge Planning PT Plan review exercies, stairs and increase ambulation distance PT Discharge Recommendation (DC Rec) (defer to ortho) PT Rationale for DC Rec Pt below functional mobility baseline. Lives in [facility] with 3 JC with and other family members. is able to provide assist as needed. Pt currently SBA with mobility and would be appropriate to dc home with assist and OP PT. will bring walker from home tomorrow morning. PT Brief overview of current status SBA with ambulation 2WW and stairs. Total Session Time Timed Code Treatment Minutes 35 Total Session Time (sum of timed and untimed services) 45 [facility] OUTPATIENT PHYSICAL THERAPY EVALUATION PLAN OF TREATMENT FOR OUTPATIENT REHABILITATION (COMPLETE FOR INITIAL CLAIMS ONLY) Patient's Last Name, First Name, M.I. Date of : 1960 Nidia Mtz Provider's Name [facility] Onset Date: 09/03/22 Start of Care Date: 09/03/22 Type: _X_PT ___OT ___SLP Medical Diagnosis: s/p L TKA PT Diagnosis: impaired functional mobility Visits from SOC: 1 See note for plan of treatment, functional goals and certification details I CERTIFY THE NEED FOR THESE SERVICES FURNISHED UNDER THIS PLAN OF TREATMENT AND WHILE UNDER MY CARE (Physician co-signature of this document indicates review and certification of the therapy plan). Associated attestation - Jeaneth Craft PA-C - 09/10/2022 8:23 AM CDT Agree with and attest to above note. Jeaneth Craft PA-C [phone] * Luciana Bustamante RN - 09/03/2022 12:51 PM CDT Pt's Bp's labile, SBP 80's-90's - otherwise patient meets criteria to transfer to her room. Patientstated her normal blood pressures are mid 90's/60's at her baseline. Discussed with [facility]- hakan for patient to transfer to room. Luciana Bustamante RN on 09/03/2022 at 12:52 PM * Luciana Bustamante RN - 09/03/2022 12:47 PM CDT Patient came out of OR with an extravasated IV in her L wrist - vancomycin had been running. Followed protocol for extravasation, and nursing forming and assembling supervisor came to take pictures. Edema/redness outlined.Within 2 hours, edema and redness had lessened (see flowsheet documentation). Will continue to monitor. Luciana Bustamante RN on 09/03/2022 at 12:49 PM * Aria Goodson Infection Prevention - 09/03/2022 9:07 AM CDTSummary: MRSA status Patient had a positive MRSA in 2013, but has had 2 subsequent negatives on 09/05/2015 and 08/24/2022.Per [facility] policy, MRSA banner removed. .09/03/2022 .Aria E Hamzah, Infection Prevention * Anne-Marie Hassan, RN - 09/03/2022 8:42 AM CDT Attempted to print Pre-block ECG strip from [facility]. Printer did not print off strip prior to block starting. Anne-Marie Hassan RN on 09/03/2022 at 8:43 AM * Romeo Hutchins - 09/03/2022 8:01 AM CDT [facility] Progress Note RH Pre-Op Saw pt Nidia Mtz per her request for machine preservative filler support before her procedure. Her spouse Sridhar was present. Nidia acknowledged feeling anxious about her surgery. She named Sridhar, her daughter, and her goddaughter as being core to her local support network. Nidia is affiliated with [employer] in [place] and asked me to contact her track surfacing machine operator. She welcomed prayer. Plan: Informed pt and her spouse how they can request further machine preservative filler support once pt is admitted to the floor. This author and other chaplains remain available per pt/family request. Romeo Hutchins M.Div., [facility] Staff Patient Care Director [facility] routine referrals *[phone] [facility] available 07/01 for emergent requests/referrals, either by paging the on-call machine preservative filler or by entering an ANGEL/STAT consult in [facility] (this will also page the on-call machine preservative filler). documented in this encounter Consult Notes * Gissel Garcia PA-C - 09/04/2022 11:58 AM CDT Patient discussed with nurse, did not charge. Medication reviewed. [employer] Voltaren gel ordered for pain. Otherwise doing well with plans to going home later today. No continue medical management needed from internal medicine team Please call us if new needs arise. * Allyssa Cedeno LGSW - 09/04/2022 8:29 AM CDTAssociated Order(s): CARE MANAGEMENT / SOCIAL WORK IP CONSULT Care Management Discharge Note Discharge Date: 09/04/2022 Discharge Disposition: Home with assist and OP PT Private pay costs discussed: Not applicable Education Provided on the Discharge Plan: Persons Notified of Discharge Plans: Patient/Family in Agreement with the Plan: yes Handoff Referral Completed: No Additional Information: SW consulted for discharge planning. Per chart review, pt currently SBA with mobility and would be appropriate to discharge home with assist and OP PT. No SW needs identified. Please notify SW if needs arise. NEEL Rivera LGSW Inpatient Care Coordination Ortho/Spine Unit [phone] Allyssa Cedeno LGSW documented in this encounter Miscellaneous Notes * Plan of Care - Francesca Chauhan OTR - 09/05/2022 10:40 AM CDT Occupational Therapy Discharge Summary Reason for therapy discharge: Discharged to home. Progress towards therapy goal(s). See goals on Care Plan in Epic electronic health record for goal details. Goals not met. Barriers to achieving goals: discharge from facility. Therapy recommendation(s): No further therapy is recommended. Recommend assist from spouse with ADLs and IADLs as needed. * Plan of Care - Bubba Villar RN - 09/05/2022 6:03 AM CDT Patient vital signs are at baseline: Yes Patient able to ambulate as they were prior to admission or with assist devices provided by therapies during their stay: Yes Patient MUST void prior to discharge: Yes Patient able to tolerate oral intake: Yes- still having moderate to severe pain, but not giving IV pain medications Pain has adequate pain control using Oral analgesics: Yes Does patient have an identified swimming coach or instructor: Yes Has goal D/C date and time been discussed with patient: Yes Pt having moderate to severe pain in LLE. Pain controlled better this evening- only gave Atarax PRNx2 and scheduled Tylenol. Pt reported nausea- PRN Zofran given, along with TUMS for stomach ache. Ortho team will see patient in the morning to assess the pain regimen and potential discharge today. * Plan of Care - Lena Hammond RN - 09/04/2022 8:50 PM CDT Goal Outcome Evaluation: Plan of Care Reviewed With: patient 3pm-11pm RN Patient VS are at baseline: Yews Patient able to ambulate as they were prior to admission or with assist devices provided by therapyduring their stay: Yes using a walker and gait belt. Patient must void prior to discharge: Yes Patient able to tolerate oral intake: Yes Patient has adequate pain control using oral analgesics: No Patient still rating pain at 8 or more even after dilaudid and muscle relaxer. CMS intact, dressingCDI. Plan is to discharge home tomorrow. * Plan of Care - Jessica Priest RN - 09/04/2022 2:18 PM CDT Goal Outcome Evaluation: Plan of Care Reviewed With: patient, spouse, child Overall Patient Progress: no changeOverall Patient Progress: no change Pt has high pain ratings, a 10+ with walking, does go down to an 8-9 after narcotic but as soon as she gets up to walk it goes back up. Had her ice machine delivered here to the hospital to use. Nurse did get an order for Voltarin gel for her knee which she uses at home. Duran wrap off and teds on. Did have nausea this afternoon after the dose of Dilaudid, gave IV Zofran to treat. Both and daughter do not want her to go home with pain out of control. Will notify ortho PA. * Plan of Care - Danielle Ruiz PT - 09/04/2022 9:06 AM CDT Physical Therapy Discharge Summary Reason for therapy discharge: Discharged to home with outpatient therapy. Progress towards therapy goal(s). See goals on Care Plan in [facility] electronic health record for goal details. Goals met Therapy recommendation(s): Continued therapy is recommended. Rationale/Recommendations: OP PT to progress LE strength, ROM andgait. Continue home exercise program. Goal Outcome Evaluation: * Plan of Care - Flaco Parsons RN - 09/04/2022 7:59 AM CDT Patient vital signs are at baseline: Yes Patient able to ambulate as they were prior to admission or with assist devices provided by therapies during their stay: Yes assist x1 with GB and walker; sat in the chair Patient MUST void prior to discharge: Yes in the bathroom Patient able to tolerate oral intake: Yes on regular diet; takes PO meds ok Pain has adequate pain control using Oral analgesics: Yes PO PRN Dilaudid, scheduled PO Tylenol, PRN PO Atarax Does patient have an identified swimming coach or instructor: Yes daughter Has goal D/C date and time been discussed with patient: Yes from and to home on 09/04 Pt is A&O x4. VSS. On RA by the early AM. IV discontinued by early AM. Sleeps between cares. * Plan of Care - Lena Hammond RN - 09/03/2022 10:21 PM CDT Goal Outcome Evaluation: Patient vital signs are at baseline: Yes except BP soft patient states her BP runs in the 90's sometimes. Patient able to ambulate as they were prior to admission or with assist devices provided by therapies during their stay: Yes with walker and gait belt Patient MUST void prior to discharge: Yes Patient able to tolerate oral intake: Yes Pain has adequate pain control using Oral analgesics: Yes Does patient have an identified swimming coach or instructor: Yes Has goal D/C date and time been discussed with patient: Yes Patient arrived on the unit at approximately 1620 from PACU. Patient worked with therapy this afternoon. Walks with assist of one to the bathroom using a walker and gait belt. CMS intact, dressing and duran wrap to left knee CDI. Dilaudid used for pain management. Plan is to discharge home tomorrow. * Op Note - Darshan Young MD - 09/03/2022 9:48 AM CDT Procedure Date: 09/03/2022 PREOPERATIVE DIAGNOSES: 1. Osteoarthritis, left knee. 2. History of MRSA colonization. POSTOPERATIVE DIAGNOSES: 1. Osteoarthritis, left knee. 2. History of MRSA colonization. PROCEDURE PERFORMED: Left total knee arthroplasty. SURGEON: Darshan Young MD. PHOTOGRAPHY AND PRINTS CURATOR: Jeaneth Craft PA-C. ANESTHESIA: General with adductor block. ESTIMATED BLOOD LOSS: 50 mL. TOURNIQUET TIME: 35 minutes. COMPLICATIONS: None. DESCRIPTION OF PROCEDURE: The patient was taken to the operating room where after administration ofantibiotic prophylaxis, tranexamic acid and sterile prep and drape, the leg was exsanguinated and an anterior incision was made, followed by a medial arthrotomy with essentially no medial release dueto her false laxity medially. An intramedullary 5-degree guide was used with anterior referencing at 5 degrees of external rotation, which best matched the epicondylar axis and the PCL was retained. Retractors were carefully placed about the proximal tibia and a cut was made perpendicular to the mechanical axis of the tibia, removing 1 to 2 mm of bone, attempting to match her slope with PCL retention. The tibial rotation was matched to the junction of the medial and middle thirds of the tubercle and posterior osteophytes were removed under direct vision with the knee in hyperflexion carefullyprotecting the neurovascular structures. A capsular injection was performed. 6 mm was resected fromthe undersurface of a 19 mm patella and sized appropriately. Gaps were equal. After copious lavage and drying, Simplex cementing was performed for a Jacobo Persona size 7 narrowcruciate retaining femur, size D tibia, 11 mm medial pivot insert and a 32 mm patellar button. Again, the PCL was retained and a medial pivot construct was used. This provided excellent motion and nolaxity with excellent stability in all planes. Copious irrigation was performed with IrriSept due to the patient's Betadine allergy. One gram of vancomycin powder was placed in the capsule due to herMRSA history and both Ancef and vancomycin were used for antibiotic prophylaxis preoperatively. A layered anatomic closure was accomplished. There were no complications. Darshan Young MD MT: [facility] Name: NIDIA MTZ MRN: [id number] Account: [id number] : 1960 Procedure Date: 09/03/2022 Document: [id number] * Brief Op Note - Darshan Young MD - 09/03/2022 6:57 AM CDT TKR for Pre/Post OA knee Hector TT est 35 w EBL 100 (see dictation for full) Spec none No anticipated complications * Pharmacy-Admission Medication History - Lydia Nathan [facility] - 08/31/2022 12:40 PM CDT Pharmacy reviewed prior to admission med list from pre-admitting rn, Fidel Bennett. Prior to Admission medications Medication Sig Last Dose Taking? Auth Provider Usp End Date albuterol (PROAIR HFA/PROVENTIL HFA/VENTOLIN HFA) 108 (90 Base) MCG/ACT inhaler Inhale 1-2 puffs into the lungs every 4 hours as needed for shortness of breath / dyspnea Yes Elton Harmon PA-C Yes calcium carbonate (OS-ALISON 500 MG SAXMAN. CA) 500 MG tablet Take 500 mg by mouth 2 times daily. Yes Reported, Patient Yes EPINEPHrine (EPIPEN 2-JANICE) 0.3 MG/0.3ML injection 2-pack Inject 0.3 mLs (0.3 mg) into the muscle asneeded for anaphylaxis Yes Elton Harmon PA-C Magnesium Chloride (MAGNESIUM DR PO) Take 450 mg by mouth 2 times daily Yes Reported, Patient multivitamin w/minerals (THERA-VIT-M) tablet Take 1 tablet by mouth daily Yes Reported, Patient VITAMIN D, CHOLECALCIFEROL, PO Take 400 Units by mouth daily Yes Reported, Patient Yes clobetasol (TEMOVATE) 0.05 % external ointment Apply sparingly to affected area twice daily as needed x 2 weeks, then daily for 1 week. Do not apply to face. Giulia Awan DO * Provider Notification - Zoey Bennett RN - 08/08/2022 11:35 AM CST 08/08/22 113 Discharge Planning Patient/Family Anticipates Transition to home with family Concerns to be Addressed all concerns addressed in this encounter Living Arrangements People in Home spouse Type of Residence Private Residence Number of Stairs, Within Home, Primary none Stair Railings, Within Home, Primary none Once home, are you able to live on one level? Yes Bathroom Shower/Tub Walk-in shower Support System Do you have someone available to stay with you one or two nights once you are home? Yes Blood Known Bleeding Disorder or Coagulopathy No Education Patient attended total joint pre-op class/received pre-op teaching (Has Joint booklet and will read. Has done Joint class x 2 in past.) HEATER documented in this encounter Plan of Treatment Upcoming Encounters Date Type Department Care Team (Late st Contact Info) Description 2023 1:30 PM DOPE HEATER Office Visit [facility] [address] [place] [address] Anamaria Nevarez MD [address] [place] [address] documented as of this encounter Procedures Procedure Name Priority Date/Time Associated Diagnosis Comments HEMOGLOBIN Routine 09/05/2022 6:43 AM CDT GLUCOSE Routine 09/05/2022 6:43 AM CDT HEMOGLOBIN Routine 09/04/2022 6:20 AM CDT GLUCOSE Routine 09/04/2022 6:20 AM CDT XR KNEE PORT LEFT 1/2 VIEWS STAT 09/03/2022 10:41 AM CDT ARTHROPLASTY, KNEE, TOTAL 09/03/2022 8:22 AM CDT Osteoarthritis Special Needs MB-Yes Vanco 1500 mg documented in this encounter Results * (ABNORMAL) Glucose (09/05/2022 6:43 AM CDT) Glucose 106(H) 70 - 99 mg/dL 09/05/2022 7:40 AM CDT [facility] Patient Fasting > 8hrs? Unknown 09/05/2022 7:40 AM CDT [facility] Blood STRUCTURE OF RIGHT HAND / Unknown Venipuncture / Unknown 09/05/2022 6:43 AM CDT 09/05/2022 7:09 AM CDT Darshan Young MD LAB - BLOOD PRIETO LEAL [facility] [address] Lab (1st floor, no room number) [place] [address], [facility] [phone] * (ABNORMAL) Hemoglobin (09/05/2022 6:43 AM CDT) Hemoglobin 11.2(L) 11.7 - 15.7 g/dL 09/05/2022 7:13 AM CDT [facility] Blood STRUCTURE OF RIGHT HAND / Unknown Venipuncture / Unknown 09/05/2022 6:43 AM CDT 09/05/2022 7:09 AM CDT Jeaneth Craft PA-C LAB - BLOOD OR DERABLES [facility] [address] Lab (1st floor, no room number) [place] [address], [facility] [phone] * Glucose (09/04/2022 6:20 AM CDT) Glucose 87 70 - 99 mg/dL 09/04/2022 7:15 AM CDT [facility] Patient Fasting > 8hrs? Yes 09/04/2022 7:15 AM CDT [facility] Blood STRUCTURE OF RIGHT HAND / Unknown Venipuncture / Unknown 09/04/2022 6:20 AM CDT 09/04/2022 6:55 AM CDT Darshan Young MD LAB - BLOOD PRIETO LEAL [facility] [address] Lab (1st floor, no room number) [place] [address], [facility] [phone] * Hemoglobin (09/04/2022 6:20 AM CDT) Hemoglobin 12.1 11.7 - 15.7 g/dL 09/04/2022 6:58 AM CDT [facility] Blood STRUCTURE OF RIGHT HAND / Unknown Venipuncture / Unknown 09/04/2022 6:20 AM CDT 09/04/2022 6:55 AM CDT Jeaneth Craft PA-C LAB - BLOOD OR DERABLES [facility] [address] Lab (1st floor, no room number) [place] [address], [facility] [phone] * XR Knee Port Left 1/2 Views (09/03/2022 10:41 AM CDT) Anatomical Region Laterality Modality Knee, Left Knee Left Digital Radiogra phy Impressions 09/03/2022 10:45 AM CDT IMPRESSION: Postoperative change left total knee arthroplasty and patellar resurfacing. Components appear well seated. Post procedural air within the joint and surrounding soft tissues. JULIO CANTOR MD SYSTEM ID: ??[id number] Narrative 09/03/2022 10:45 AM CDT XR KNEE PORT LEFT 1/2 VIEWS 09/03/2022 10:41 AM HISTORY: Post-Op Total Knee COMPARISON: None. Procedure Note Julio Cantor MD - 09/03/2022 XR KNEE PORT LEFT 1/2 VIEWS 09/03/2022 10:41 AM HISTORY: Post-Op Total Knee COMPARISON: None. IMPRESSION: Postoperative change left total knee arthroplasty and patellar resurfacing. Components appear well seated. Post procedural air within the joint and surrounding soft tissues. JULIO CANTOR MD SYSTEM ID: [id number] Jeaneth Craft PA-C IMG DIAGNOSTIC IMAGING ORDERABLES documented in this encounter Visit Diagnoses Diagnosis S/P TKR (total knee replacement), left- Primary documented in this encounter Administered Medications Inactive Administered Medications - up to 3 most recent administrations Medication Order MAR Action Action Date Dose Rate Site acetaminophen (TYLENOL) tablet 975 mg 975 mg, Oral, ONCE, On Sat09/03/22 at 0730, For 1 dose, Maximum acetaminophen dose from all sources = 75 mg/kg/day not to exceed 4 grams/day., Pre-procedure $Given 09/03/2022 7:46 AM CDT 975 mg acetaminophen (TYLENOL) tablet 975 mg 975 mg, Oral, EVERY 8 HOURS, First dose on Sat09/03/22 at 1600, For 3 days, Administer for multimodal surgical pain management. Maximum acetaminophen dose from all sources = 75 mg/kg/day not to exceed 4 grams/day. $Given 09/05/2022 7:56 AM CDT 975 mg $Given 09/04/2022 11:39 PM CDT 975 mg $Given 09/04/2022 4:36 PM CDT 975 mg aspirin (ASA) EC tablet 325 mg 325 mg, Oral, DAILY, First dose on Sat09/03/22 at 1600, Indications: VTE Prophylaxis, DO NOT CRUSH. $Given 09/05/2022 7:56 AM CDT 325 mg $Given 09/04/2022 7:38 AM CDT 325 mg $Given 09/03/2022 4:10 PM CDT 325 mg calcium carbonate (TUMS) chewable tablet 500 mg 500 mg, Oral, 4 TIMES DAILY PRN, heartburn, Starting on Sat09/03/22 at 1555 $Given 09/05/2022 5:43 AM CDT 500 mg ceFAZolin (ANCEF) 2 g in 100 mL D5W intermittent infusion Routine, 2 g, Intravenous, EVERY 8 HOURS, First dose on Sat09/03/22 at 1600, For 2 doses, First post-op dose due 8 hours after intra-op dose, see eMAR. , Indications: Perioperative Pharmacoprophylaxis $New Bag 09/03/2022 11:51 PM CDT 2 g 200 mL/hr $New Bag 09/03/2022 4:12 PM CDT 2 g 200 mL/hr ceFAZolin Sodium (ANCEF) injection 2 g Routine, 2 g, Intravenous, SEE ADMIN INSTRUCTIONS, Starting on Sat09/03/22 at 0728, Intra-Op Dose.??Give every 4 hours while patient in surgery, starting 4 hours after pre-op dose.??DO NOT GIVE intra-op dose if CrCl less than 10 mL/min (on dialysis).??If CrCl less than 50 mL/min, double the time interval between doses., Indications: Perioperative Pharmacoprophylaxis, Pre-procedure $Given 09/03/2022 7:47 AM CDT 2 g chlorhexidine 0.05% in water for irrigation (IRRESEPT) PRN, Starting on Sat09/03/22 at 0904, Intra-procedure $Given 09/03/2022 9:04 AM CDT 500 mLs Operative Site/Surgi alison Site diclofenac (VOLTAREN) 1 % topical gel 2 g 2 g, Topical, 4 TIMES DAILY, First dose on Sat09/04/22 at 1200, Apply to affected area. Send dosing card with product. $Given 09/05/2022 7:52 AM CDT 2 g $Given 09/04/2022 9:55 PM CDT 2 g $Given 09/04/2022 5:47 PM CDT 2 g fentaNYL (PF) (SUBLIMAZE) injection 50 mcg 50 mcg, Intravenous, EVERY 5 MIN PRN, severe pain, Give fentaNYL (SUBLIMAZE) first if HYDROmorphone (DILAUDID) also ordered., Starting on Sat09/03/22 at 0738, Administer fentaNYL (SUBLIMAZE) for acute pain control. Move to HYDROmorphone (DILAUDID): - IF patient has received up to 200 mcg of fentaNYL (SUBLIMAZE), OR - IF patient has received 2 doses of fentaNYL (SUBLIMAZE) AND continues to have severe pain (pain score greater than or equal to seven (7) or is unable to participate in post op recovery due to pain. Wait 5 minutes AFTER last fentaNYL (SUBLIMAZE) dose before administering HYDROmorphone (DILADUDID). Postop Anesthesia Phase I only. Notify Provider to assess for uncontrolled pain or analgesic side effects. DO NOT revert back to fentanyl (SUBLIMAZE) after moving to HYDROmorphone (DILAUDID)., PACU $Given 09/03/2022 10:28 AM CDT 50 mcg $Given 09/03/2022 10:23 AM CDT 50 mcg HYDROmorphone (DILAUDID) injection 0.2 mg 0.2 mg, Intravenous, EVERY 2 HOURS PRN, moderate pain, Starting on Sat09/03/22 at 1555, IF patient unable to take oral pain medication or pain not controlled with oral analgesics. Hold IV PRN opioid dose for analgesic side effects. Notify provider to assess for uncontrolled pain or analgesic side effects. $Given 09/03/2022 6:00 PM CDT 0.2 mg HYDROmorphone (DILAUDID) injection 0.4 mg 0.4 mg, Intravenous, EVERY 2 HOURS PRN, severe pain, Starting on Sat09/03/22 at 1555, IF patient unable to take oral pain medication or pain not controlled with oral analgesics. Hold IV PRN opioid dose for analgesic side effects. Notify provider to assess for uncontrolled pain or analgesic side effects. HYDROmorphone (DILAUDID) injection 0.4 mg 0.4 mg, Intravenous, EVERY 5 MIN PRN, severe pain, Starting on Sat09/03/22 at 0738, Use FentaNYL (SUBLIMAZE) first if ordered. Administer HYDROmorphone (DILAUDID) up to a total of 2 mg for moderate or severe pain. Notify Provider to assess for uncontrolled pain or analgesic side effects., PACU $Given 09/03/2022 10:57 AM CDT 0.4 mg $Given 09/03/2022 10:46 AM CDT 0.4 mg HYDROmorphone (DILAUDID) tablet 2 mg 2 mg, Oral, EVERY 4 HOURS PRN, moderate pain, Starting on Sat09/03/22 at 1432, Hold oral PRN dose for analgesic side effects. Notify provider to assess for uncontrolled pain or analgesic side effects. Hold while on IV PERFORMANCE TESTER or with regular IV opioid dosing. $Given 09/04/2022 12:53 PM CDT 2 mg $Given 09/04/2022 5:25 AM CDT 2 mg $Given 09/03/2022 7:13 PM CDT 2 mg HYDROmorphone (DILAUDID) tablet 4 mg 4 mg, Oral, EVERY 4 HOURS PRN, severe pain, Starting on Sat09/03/22 at 1432, Hold oral PRN dose for analgesic side effects. Notify provider to assess for uncontrolled pain or analgesic side effects. Hold while on IV PERFORMANCE TESTER or with regular IV opioid dosing. $Given 09/05/2022 8:01 AM CDT 4 mg $Given 09/04/2022 9:54 PM CDT 4 mg $Given 09/04/2022 5:45 PM CDT 4 mg hydrOXYzine (ATARAX) tablet 25 mg 25 mg, Oral, EVERY 6 HOURS PRN, other, adjuvant pain, Starting on Sat09/03/22 at 1555 $Given 09/05/2022 5:43 AM CDT 25 mg $Given 09/04/2022 11:39 PM CDT 25 mg $Given 09/04/2022 12:53 PM CDT 25 mg lactated ringers infusion at 100 mL/hr, Intravenous, CONTINUOUS, Change to saline lock when PO well tolerated., Starting on Sat09/03/22 at 1600, Until Sat09/05/22 at 1240 Rate/Dose Verify 09/03/2022 11:52 PM CDT 100 mL/hr $New Bag 09/03/2022 5:25 PM CDT 100 mL/hr lactated ringers infusion at 100 mL/hr, Intravenous, CONTINUOUS, Continue until IV catheter is weaned, PACU, Starting on Sat09/03/22 at 0800, Until Sat09/03/22 at 1633 $New Bag 09/03/2022 3:47 PM CDT 100 m L/hr magnesium hydroxide (MILK OF MAGNESIA) suspension 30 mL 30 mL, Oral, DAILY PRN, constipation, Use if preventive measures (senna-docusate, docusate, and polyethylene glycol) are not effective., Starting on Sat09/03/22 at 1555, Shake well. Hold for loose stools. $Given 09/04/2022 11:39 PM CDT 30 mLs methocarbamol (ROBAXIN) tablet 500 mg 500 mg, Oral, 4 TIMES DAILY, First dose on Sat09/04/22 at 1730 $Given 09/05/2022 7:56 AM CDT 500 mg $Given 09/04/2022 9:54 PM CDT 500 mg $Given 09/04/2022 5:45 PM CDT 500 mg midazolam (VERSED) injection 2 mg 2 mg, Intravenous, Administer over 2 Minutes, ONCE, On Sat09/03/22 at 1030, For 1 dose, This drug may cause significant respiratory depression. Monitor respiratory status and vital signs carefully for 1 hour after each dose., PACU $Given 09/03/2022 10:07 AM CDT 2 mg naloxone (NARCAN) injection 0.2 mg 0.2 mg, Intravenous, EVERY 2 MIN PRN, opioid reversal, Starting on Sat09/03/22 at 0745, Administer intravenous route when available and notify [...] parameters have not improved after 4 naloxone doses. naloxone (NARCAN) injection 0.2 mg 0.2 mg, Intramuscular, EVERY 2 MIN PRN, opioid reversal, Starting on Sat09/03/22 at 0745, Administer intramuscular if an intravenous route is [...] parameters have not improved after 4 naloxone doses. naloxone (NARCAN) injection 0.4 mg 0.4 mg, Intravenous, EVERY 2 MIN PRN, opioid reversal, Starting on Sat09/03/22 at 0745, Administer intravenous route when available and notify [...] parameters have not improved after 4 naloxone doses. naloxone (NARCAN) injection 0.4 mg 0.4 mg, Intramuscular, EVERY 2 MIN PRN, opioid reversal, Starting on Sat09/03/22 at 0745, Administer intramuscular if an intravenous route is [...] parameters have not improved after 4 naloxone doses. ondansetron (ZOFRAN ODT) ODT tab 4 mg 4 mg, Oral, EVERY 6 HOURS PRN, nausea, vomiting, Starting on Sat09/03/22 at 1555, This is Step 1 of nausea and [...] then swallow with saliva. Liquid not required. $Given 09/04/2022 11:39 PM CDT 4 mg ondansetron (ZOFRAN) injection 4 mg 4 mg, Intravenous, EVERY 6 HOURS PRN, nausea, vomiting, Administer over 2-5 Minutes, Starting on Sat09/03/22 at 1555, This is Step 1 of nausea and vomiting management. If nausea not resolved in 15 minutes, go to Step 2 prochlorperazine (COMPAZINE). Irritant. $Given 09/04/2022 1:53 PM CDT 4 mg ondansetron (ZOFRAN) injection 4 mg 4 mg, Intravenous, EVERY 30 MIN PRN, nausea, Administer over 2-5 Minutes, Starting on Sat09/03/22 at 0738, For 2 doses, MAX total dose = 8 mg, including OR dosing. If not resolved in 15 minutes, then go to step 2 [prochlorperazine (COMPAZINE), if ordered]. Irritant., PACU $Given 09/03/2022 10:12 AM CDT 4 mg $Given 09/03/2022 8:13 AM CDT 4 mg polyethylene glycol (MIRALAX) Packet 17 g 17 g, Oral, DAILY, First dose on Sat09/04/22 at 0800, For 10 doses, To prevent constipation. Mixed prescribed dose in 8 ounces of water, juice or soda. Administer daily starting at 0900 on POD 1. Hold for loose stools. 1 Packet = 17 grams. Mix each gram with at least 1/2 ounce (15 mL) of water - 8 ounces for 17 g dose, 4 ounces for 8.5 g dose, 2 ounces for 4 g dose. Follow with the same volume of water. Hold for loose stools unless being administered as part of a bowel prep regimen or bowel clean out. $Given 09/05/2022 7:54 AM CDT 17 g $Given 09/04/2022 7:38 AM CDT 17 g prochlorperazine (COMPAZINE) injection 10 mg 10 mg, Intravenous, EVERY 6 HOURS PRN, nausea, vomiting, Administer over 1-2 Minutes, Starting on Sat09/03/22 at 1555, This is Step 2 of nausea and vomiting management. If nausea not resolved in 15-30 minutes, Notify provider. prochlorperazine (COMPAZINE) injection 5 mg 5 mg, Intravenous, EVERY 6 HOURS PRN, nausea, vomiting, Administer over 1-2 Minutes, Starting on Sat09/03/22 at 0738, PACU $Given 09/03/2022 10:50 AM CDT 5 mg prochlorperazine (COMPAZINE) tablet 10 mg 10 mg, Oral, EVERY 6 HOURS PRN, nausea, vomiting, Starting on Sat09/03/22 at 1555, This is Step 2 of nausea and vomiting management. If nausea not resolved in 15-30 minutes, Notify provider. senna-docusate (SENOKOT-S/PERICOLACE) 8.6-50 MG per tablet 1 tablet 1 tablet, Oral, 2 TIMES DAILY, First dose on Sat09/03/22 at 2000, To prevent constipation. Hold for loose stools Hold for loose stools. $Given 09/05/2022 7:56 AM CDT 2 tablets $Given 09/04/2022 8:46 PM CDT 1 tablet $Given 09/04/2022 7:38 AM CDT 1 tablet sodium chloride (PF) 0.9% PF flush 3 mL 3 mL, Intracatheter, EVERY 8 HOURS, First dose on Sat09/03/22 at 1600, to lock peripheral IV dormant line $Given 09/04/2022 11:39 PM CDT 3 mLs $Given 09/04/2022 4:38 PM CDT 3 mLs $Given 09/04/2022 1:54 PM CDT 3 mLs tranexamic acid (LYSTEDA) tablet 1,950 mg 1,950 mg, Oral, ONCE, On Sat09/03/22 at 0730, For 1 dose, Administer in PRE OP area, with sip of water, 2 hours PRIOR to incision., Pre-procedure $Given 09/03/2022 7:46 AM CDT 1,950 mg vancomycin (VANCOCIN) 1,500 mg in 0.9% NaCl 250 mL intermittent infusion Routine, 1,500 mg, Intravenous, PRE-OP/PRE-PROCEDURE, Starting on Sat09/03/22 at 0728, For 1 dose, Give first dose POST ADMINISTRATION OF 2 GRAMS OF ANCEF and within 90 minutes of incision (may occur intra-op). If patient has experienced Red Man's Syndrome with vancomycin (VANCOCIN) infusion, prolong the infusion to 120 minutes. Possible Vesicant. Infuse doses less than 1,250 mg over 1 hour. Infuse doses between 1,250 mg and less than 1,750 mg over 90 minutes. Infuse doses 1,750 mg and above over 2 hours. , Indications: Perioperative Pharmacoprophylaxis, Pre-procedure $New Bag 09/03/2022 7:57 AM CDT 1,500 mg documented in this encounter Active and Recently Administered Medications Times are shown in CDT. Scheduled Medication Order 09/03/2022 09/04/2022 09/05/2022 acetaminophen (TYLENOL) tablet 975 mg (COMPLETED) 975 mg, Oral, ONCE, On Sat09/03/22 at 0730, For 1 dose, Maximum acetaminophen dose from all sources = 75 mg/kg/day not to exceed 4 grams/day., Pre-procedure 0746 ($Given - Provider: Anne-Marie Hassan, ELIJAH) acetaminophen (TYLENOL) tablet 975 mg 975 mg, Oral, EVERY 8 HOURS, First dose on Sat09/03/22 at 1600, For 3 days, Administer for multimodal surgical pain management. Maximum acetaminophen dose from all sources = 75 mg/kg/day not to exceed 4 grams/day. 1610 ($Given - Provider: Opal Moore RN)2348 ($Given - Provider: Flaco Parsons RN) 0738 ($Given - Provider: Jessica Priest RN)1636 ($Given - Provider: Lena Hammond, RN)2339 ($Given - Provider: Bubba Villar, RN) 0756 ($Given - Provider: Jessica Priest RN) aspirin (ASA) EC tablet 325 mg 325 mg, Oral, DAILY, First dose on Sat09/03/22 at 1600, Indications: VTE Prophylaxis, DO NOT CRUSH. 1610 ($Given - Provider: Opal Moore RN) 0738 ($Given - Provider: Jessica Priest RN) 0756 ($Given - Provider: Jessica Priest RN) ceFAZolin (ANCEF) 2 g in 100 mL D5W intermittent infusion (COMPLETED) Routine, 2 g, Intravenous, EVERY 8 HOURS, First dose on Sat09/03/22 at 1600, For 2 doses, First post-op dose due 8 hours after intra-op dose, see eMAR. , Indications: Perioperative Pharmacoprophylaxis 1612 ($New Bag - Provider: Opal Moore RN)2351 ($New Bag - Provider: Flaco Parsons RN) 0030 (Stopped - Provider: Flaco Parsons RN) ceFAZolin Sodium (ANCEF) injection 2 g (CANCELED) Routine, 2 g, Intravenous, SEE ADMIN INSTRUCTIONS, Starting on Sat09/03/22 at 0728, Intra-Op Dose.??Give every 4 hours while patient in surgery, starting 4 hours after pre-op dose.??DO NOT GIVE intra-op dose if CrCl less than 10 mL/min (on dialysis).??If CrCl less than 50 mL/min, double the time interval between doses., Indications: Perioperative Pharmacoprophylaxis, Pre-procedure 0747 ($Given - Provider: Anne-Marie Hassan RN) diclofenac (VOLTAREN) 1 % topical gel 2 g 2 g, Topical, 4 TIMES DAILY, First dose on Sat09/04/22 at 1200, Apply to affected area. Send dosing card with product. 1200 (Not Given - Provider: Jessica Priest RN - Reason: Medication not available)1437 ($Given - Provider: Jessica Priest RN)1747 ($Given - Provider: Lena Hammond RN)2155 ($Given - Provider: Lena Hammond RN) 0752 ($Given - Provider: Jessica Priest RN)1200 (Canceled Entry - Provider: Orders Generic Provider - Comment: Automatically canceled at discontinue of medication order) methocarbamol (ROBAXIN) tablet 500 mg 500 mg, Oral, 4 TIMES DAILY, First dose on Sat09/04/22 at 1730 1745 ($Given - Provider: Lena Hammond RN)2154 ($Given - Provider: Lena Hammond RN) 0756 ($Given - Provider: Jessica Priest RN)1200 (Canceled Entry - Provider: Orders Generic Provider - Comment: Automatically canceled at discontinue of medication order) midazolam (VERSED) injection 2 mg (COMPLETED) 2 mg, Intravenous, Administer over 2 Minutes, ONCE, On Sat09/03/22 at 1030, For 1 dose, This drug may cause significant respiratory depression. Monitor respiratory status and vital signs carefully for 1 hour after each dose., PACU 1007 ($Given - Provider: Luciana Bustamante RN) polyethylene glycol (MIRALAX) Packet 17 g 17 g, Oral, DAILY, First dose on Sat09/04/22 at 0800, For 10 doses, To prevent constipation. Mixed prescribed dose in 8 ounces of water, juice or soda. Administer daily starting at 0900 on POD 1. Hold for loose stools. 1 Packet = 17 grams. Mix each gram with at least 1/2 ounce (15 mL) of water - 8 ounces for 17 g dose, 4 ounces for 8.5 g dose, 2 ounces for 4 g dose. Follow with the same volume of water. Hold for loose stools unless being administered as part of a bowel prep regimen or bowel clean out. 0738 ($Given - Provider: Jessica Priest RN) 0754 ($Given - Provider: Jessica Priest RN) ropivacaine (NAROPIN) 150 mg, ketorolac (TORADOL) 30 mg, EPINEPHrine (ADRENALIN) 0.6 mg in sodium chloride 0.9 % 50 mL (ORTHO AUDREY LOW DOSE) (COMPLETED) INTRA-ARTICULAR, CIGARETTE CATCHER TO O.R., Starting on Sat09/03/22 at 0728, For 1 dose, NOT FOR IV INJECTION. Used by provider at the end of surgery., Pre-procedure 0904 ($Given - Provider: Darshan Young MD) senna-docusate (SENOKOT-S/PERICOLACE) 8.6-50 MG per tablet 1 tablet 1 tablet, Oral, 2 TIMES DAILY, First dose on Sat09/03/22 at 2000, To prevent constipation. Hold for loose stools Hold for loose stools. 2055 ($Given - Provider: Lena Hammond RN) 0738 ($Given - Provider: Jessica Priest RN)2046 ($Given - Provider: Lena Hammond, ELIJAH) 0756 ($Given - Provider: Jessica Priest RN) sodium chloride (PF) 0.9% PF flush 3 mL 3 mL, Intracatheter, EVERY 8 HOURS, First dose on Sat09/03/22 at 1600, to lock peripheral IV dormant line 1722 (Not Given - Provider: Lena Hammond RN - Reason: IV Infusing)2348 (Not Given - Provider: Flaco Pasrons RN - Reason: IV Infusing) 0916 ($Given - Provider: Jessica Priest, ELIJAH)1354 ($Given - Provider: Jessica Priest RN)1638 ($Given - Provider: Lena Hammond RN)2339 ($Given - Provider: Bubba Villar RN) 0757 (Not Given - Provider: Jessica Priest RN - Reason: Loss of IV access) tranexamic acid (LYSTEDA) tablet 1,950 mg (COMPLETED) 1,950 mg, Oral, ONCE, On Sat09/03/22 at 0730, For 1 dose, Administer in PRE OP area, with sip of water, 2 hours PRIOR to incision., Pre-procedure 0746 ($Given - Provider: Anne-Marie Hassan RN) tranexamic acid 1 g in 100 mL NS IV bag (premix) (COMPLETED) 1 g, Intravenous, ONCE, On Sat09/03/22 at 0730, For 1 dose, Send to pre op area to be given intra-operatively just after tourniquet is released or at time of closing if no tourniquet is used., Pre-procedure 0939 ($Given - Provider: Carlyn Isidro APRN [employer] ARCHITECT) vancomycin (VANCOCIN) 1,500 mg in 0.9% NaCl 250 mL intermittent infusion (COMPLETED) Routine, 1,500 mg, Intravenous, PRE-OP/PRE-PROCEDURE, Starting on Sat09/03/22 at 0728, For 1 dose, Give first dose POST ADMINISTRATION OF 2 GRAMS OF ANCEF and within 90 minutes of incision (may occur intra-op). If patient has experienced Red Man's Syndrome with vancomycin (VANCOCIN) infusion, prolong the infusion to 120 minutes. Possible Vesicant. Infuse doses less than 1,250 mg over 1 hour. Infuse doses between 1,250 mg and less than 1,750 mg over 90 minutes. Infuse doses 1,750 mg and above over 2 hours. , Indications: Perioperative Pharmacoprophylaxis, Pre-procedure 0757 ($New Bag - Provider: Anne-Marie Hassan RN) Continuous Medication Order 09/03/2022 09/04/2022 09/05/2022 lactated ringers infusion at 100 mL/hr, Intravenous, CONTINUOUS, Change to saline lock when PO well tolerated., Starting on Sat09/03/22 at 1600, Until Sat09/05/22 at 1240 1725 ($New Bag - Provider: Lena Hammond RN)2352 (Rate/Dose Verify - Provider: Flaco Parsons RN) lactated ringers infusion (CANCELED) at 100 mL/hr, Intravenous, CONTINUOUS, Continue until IV catheter is weaned, PACU, Starting on Sat09/03/22 at 0800, Until Sat09/03/22 at 1633 1547 ($New Bag - Provider: Opal Moore, ELIJAH) PRN Medication Order 09/03/2022 09/04/2022 09/05/2022 albuterol (PROVENTIL HFA/VENTOLIN HFA) inhaler 1-2 puff, Inhalation, EVERY 4 HOURS PRN, shortness of breath, Starting on Sat09/03/22 at 1657, Check the dose counter on the inhaler to ensure there are doses remaining before administering. benzocaine-menthol (CHLORASEPTIC) 6-10 MG lozenge 1 lozenge 1 lozenge, Buccal, EVERY 1 HOUR PRN, sore throat, sore throat without fever, Starting on Sat09/03/22 at 1555 bisacodyl (DULCOLAX) suppository 10 mg 10 mg, Rectal, DAILY PRN, constipation, Use if Magnesium hydroxide (MILK of MAGNESIA) not effective after 24 hours. May discontinue if patient having bowel movement., Starting on Sat09/03/22 at 1555, Hold for loose stools. calcium carbonate (TUMS) chewable tablet 500 mg 500 mg, Oral, 4 TIMES DAILY PRN, heartburn, Starting on Sat09/03/22 at 1555 0543 ($Given - Provider: Bubba Villar, ELIJAH) chlorhexidine 0.05% in water for irrigation (IRRESEPT) PRN, Starting on Sat09/03/22 at 0904, Intra-procedure 0904 ($Given - Provider: Darshan Young MD) fentaNYL (PF) (SUBLIMAZE) injection 50 mcg (CANCELED) 50 mcg, Intravenous, EVERY 5 MIN PRN, severe pain, Give fentaNYL (SUBLIMAZE) first if HYDROmorphone (DILAUDID) also ordered., Starting on Sat09/03/22 at 0738, Administer fentaNYL (SUBLIMAZE) for acute pain control. Move to HYDROmorphone (DILAUDID): - IF patient has received up to 200 mcg of fentaNYL (SUBLIMAZE), OR - IF patient has received 2 doses of fentaNYL (SUBLIMAZE) AND continues to have severe pain (pain score greater than or equal to seven (7) or is unable to participate in post op recovery due to pain. Wait 5 minutes AFTER last fentaNYL (SUBLIMAZE) dose before administering HYDROmorphone (DILADUDID). Postop Anesthesia Phase I only. Notify Provider to assess for uncontrolled pain or analgesic side effects. DO NOT revert back to fentanyl (SUBLIMAZE) after moving to HYDROmorphone (DILAUDID)., PACU 1023 ($Given - Provider: Luciana Bustamante RN)1028 ($Given - Provider: Luciana Bustamante RN) HYDROmorphone (DILAUDID) injection 0.2 mg(Linked Group 1) 0.2 mg, Intravenous, EVERY 2 HOURS PRN, moderate pain, Starting on Sat09/03/22 at 1555, IF patient unable to take oral pain medication or pain not controlled with oral analgesics. Hold IV PRN opioid dose for analgesic side effects. Notify provider to assess for uncontrolled pain or analgesic side effects. 1800 ($Given - Provider: Lena Hammond RN) HYDROmorphone (DILAUDID) injection 0.4 mg(Linked Group 1) 0.4 mg, Intravenous, EVERY 2 HOURS PRN, severe pain, Starting on Sat09/03/22 at 1555, IF patient unable to take oral pain medication or pain not controlled with oral analgesics. Hold IV PRN opioid dose for analgesic side effects. Notify provider to assess for uncontrolled pain or analgesic side effects. 1800 (See Alternative - Provider: Lena Hammond RN) HYDROmorphone (DILAUDID) injection 0.4 mg (CANCELED) 0.4 mg, Intravenous, EVERY 5 MIN PRN, severe pain, Starting on Sat09/03/22 at 0738, Use FentaNYL (SUBLIMAZE) first if ordered. Administer HYDROmorphone (DILAUDID) up to a total of 2 mg for moderate or severe pain. Notify Provider to assess for uncontrolled pain or analgesic side effects., PACU 1046 ($Given - Provider: Luciana Bustamante RN)1057 ($Given - Provider: Luciana Bustamante RN) HYDROmorphone (DILAUDID) tablet 2 mg(Linked Group 2) 2 mg, Oral, EVERY 4 HOURS PRN, moderate pain, Starting on Sat09/03/22 at 1432, Hold oral PRN dose for analgesic side effects. Notify provider to assess for uncontrolled pain or analgesic side effects. Hold while on IV PERFORMANCE TESTER or with regular IV opioid dosing. 1437 (See Alternative - Provider: Alem Bee RN)1913 ($Given - Provider: Lena Hammond RN)2349 (See Alternative - Provider: Flaco Parsons RN) 0525 ($Given - Provider: Flaco Parsons RN)0911 (See Alternative - Provider: Jessica Priest, ELIJAH)1253 ($Given - Provider: Jessica Priest RN)1745 (See Alternative - Provider: Lena Hammond RN)2154 (See Alternative - Provider: Lena Hammond RN) 0801 (See Alternative - Provider: Jessica Priest RN) HYDROmorphone (DILAUDID) tablet 4 mg(Linked Group 2) 4 mg, Oral, EVERY 4 HOURS PRN, severe pain, Starting on Sat09/03/22 at 1432, Hold oral PRN dose for analgesic side effects. Notify provider to assess for uncontrolled pain or analgesic side effects. Hold while on IV PERFORMANCE TESTER or with regular IV opioid dosing. 1437 ($Given - Provider: Alem Bee RN)1913 (See Alternative - Provider: Lena Hammond RN)2349 ($Given - Provider: Flaco Parsons RN) 0525 (See Alternative - Provider: Flaco Parsons RN)0911 ($Given - Provider: Jessica Priest RN)1253 (See Alternative - Provider: Jessica Priest RN)1745 ($Given - Provider: Lena Hammond RN)2154 ($Given - Provider: Lena Hammond RN) 0801 ($Given - Provider: Jessica Priest RN) hydrOXYzine (ATARAX) tablet 25 mg 25 mg, Oral, EVERY 6 HOURS PRN, other, adjuvant pain, Starting on Sat09/03/22 at 1555 1618 ($Given - Provider: Opal Moore RN) 0222 ($Given - Provider: Luci Simon, ELIJAH)0738 ($Given - Provider: Jessica Priest, ELIJAH)1253 ($Given - Provider: Jessica Priest RN)2339 ($Given - Provider: Bubba Villar RN) 0543 ($Given - Provider: Bubba Villar RN) lidocaine (LMX4) cream Topical, EVERY 1 HOUR PRN, pain, with VAD insertion, Starting on Sat09/03/22 at 1555, Apply at least 30 minutes prior to VAD insertion in divided doses as needed for size of site for insertion. MAX Dose: 2.5 g (?? of 5 g tube) Do NOT give if patient has a history of allergy to any local anesthetic or any dennis product. Do NOT use both lidocaine intradermal/subcutaneous injection and the lidocaine cream on the same site. lidocaine 1 % 0.1-1 mL 0.1-1 mL, Other, EVERY 1 HOUR PRN, mild pain with VAD insertion, Starting on Sat09/03/22 at 1555, MAX dose 1 mL subcutaneous OR intradermal along the side of the vein in divided doses as needed for VAD insertion. Do NOT give if patient has a history of allergy to any local anesthetic or any dennis product. Do NOT use both lidocaine intradermal/subcutaneous injection and the lidocaine cream on the same site. magnesium hydroxide (MILK OF MAGNESIA) suspension 30 mL 30 mL, Oral, DAILY PRN, constipation, Use if preventive measures (senna-docusate, docusate, and polyethylene glycol) are not effective., Starting on Sat09/03/22 at 1555, Shake well. Hold for loose stools. 7666 ($Given - Provider: Bubba Villar RN) naloxone (NARCAN) injection 0.2 mg(Linked Group 3) 0.2 mg, Intravenous, EVERY 2 MIN PRN, opioid reversal, Starting on Sat09/03/22 at 0745, Administer intravenous route when available and notify [...] parameters have not improved after 4 naloxone doses. naloxone (NARCAN) injection 0.2 mg(Linked Group 3) 0.2 mg, Intramuscular, EVERY 2 MIN PRN, opioid reversal, Starting on Sat09/03/22 at 0745, Administer intramuscular if an intravenous route is [...] parameters have not improved after 4 naloxone doses. naloxone (NARCAN) injection 0.4 mg(Linked Group 3) 0.4 mg, Intravenous, EVERY 2 MIN PRN, opioid reversal, Starting on Sat09/03/22 at 0745, Administer intravenous route when available and notify [...] parameters have not improved after 4 naloxone doses. naloxone (NARCAN) injection 0.4 mg(Linked Group 3) 0.4 mg, Intramuscular, EVERY 2 MIN PRN, opioid reversal, Starting on Sat09/03/22 at 0745, Administer intramuscular if an intravenous route is [...] parameters have not improved after 4 naloxone doses. ondansetron (ZOFRAN ODT) ODT tab 4 mg(Linked Group 4) 4 mg, Oral, EVERY 6 HOURS PRN, nausea, vomiting, Starting on Sat09/03/22 at 1555, This is Step 1 of nausea and [...] then swallow with saliva. Liquid not required. 1353 (See Alternative - Provider: Jessica Priest RN)2339 ($Given - Provider: Bubba Villar RN) ondansetron (ZOFRAN) injection 4 mg(Linked Group 4) 4 mg, Intravenous, EVERY 6 HOURS PRN, nausea, vomiting, Administer over 2-5 Minutes, Starting on Sat09/03/22 at 1555, This is Step 1 of nausea and vomiting management. If nausea not resolved in 15 minutes, go to Step 2 prochlorperazine (COMPAZINE). Irritant. 1353 ($Given - Provider: Jessica Priest, RN)2339 (See Alternative - Provider: Bubba Villar RN) ondansetron (ZOFRAN) injection 4 mg (COMPLETED)(Linked Group 5) 4 mg, Intravenous, EVERY 30 MIN PRN, nausea, Administer over 2-5 Minutes, Starting on Sat09/03/22 at 0738, For 2 doses, MAX total dose = 8 mg, including OR dosing. If not resolved in 15 minutes, then go to step 2 [prochlorperazine (COMPAZINE), if ordered]. Irritant., PACU 0813 ($Given - Provider: Anne-Marie Hassan, ELIJAH)1012 ($Given - Provider: Luciana Bustamante, ELIJAH) prochlorperazine (COMPAZINE) injection 10 mg(Linked Group 6) 10 mg, Intravenous, EVERY 6 HOURS PRN, nausea, vomiting, Administer over 1-2 Minutes, Starting on Sat09/03/22 at 1555, This is Step 2 of nausea and vomiting management. If nausea not resolved in 15-30 minutes, Notify provider. prochlorperazine (COMPAZINE) injection 5 mg (CANCELED) 5 mg, Intravenous, EVERY 6 HOURS PRN, nausea, vomiting, Administer over 1-2 Minutes, Starting on Sat09/03/22 at 0738, PACU 1050 ($Given - Provider: Luciana Bustamante RN) prochlorperazine (COMPAZINE) tablet 10 mg(Linked Group 6) 10 mg, Oral, EVERY 6 HOURS PRN, nausea, vomiting, Starting on Sat09/03/22 at 1555, This is Step 2 of nausea and vomiting management. If nausea not resolved in 15-30 minutes, Notify provider. sodium chloride (PF) 0.9% PF flush 3 mL 3 mL, Intracatheter, EVERY 1 MIN PRN, line flush, other, to ensure patency or to lock dormant line, Starting on Sat09/03/22 at 1555 sodium chloride 0.9% (bag) irrigation (CANCELED) PRN, Starting on Sat09/03/22 at 0921, Intra-procedure 0921 ($Given - Provider: Darshan Young MD) vancomycin (VANCOCIN) topical powder (CANCELED) PRN, Starting on Sat09/03/22 at 0925, Intra-procedure 0925 ($Given - Provider: Darshan Young MD) Linked Groups Order Group 1: HYDROmorphone (DILAUDID) injection 0.2 mgJump to med 0.2 mg, Intravenous, EVERY 2 HOURS PRN, moderate pain, Starting on Sat09/03/22 at 1555, IF patient unable to take oral pain medication or pain not controlled with oral analgesics. Hold IV PRN opioid dose for analgesic side effects. Notify provider to assess for uncontrolled pain or analgesic side effects. Or HYDROmorphone (DILAUDID) injection 0.4 mgJump to med 0.4 mg, Intravenous, EVERY 2 HOURS PRN, severe pain, Starting on Sat09/03/22 at 1555, IF patient unable to take oral pain medication or pain not controlled with oral analgesics. Hold IV PRN opioid dose for analgesic side effects. Notify provider to assess for uncontrolled pain or analgesic side effects. Group 2: HYDROmorphone (DILAUDID) tablet 2 mgJump to med 2 mg, Oral, EVERY 4 HOURS PRN, moderate pain, Starting on Sat09/03/22 at 1432, Hold oral PRN dose for analgesic side effects. Notify provider to assess for uncontrolled pain or analgesic side effects. Hold while on IV PERFORMANCE TESTER or with regular IV opioid dosing. Or HYDROmorphone (DILAUDID) tablet 4 mgJump to med 4 mg, Oral, EVERY 4 HOURS PRN, severe pain, Starting on Sat09/03/22 at 1432, Hold oral PRN dose for analgesic side effects. Notify provider to assess for uncontrolled pain or analgesic side effects. Hold while on IV PERFORMANCE TESTER or with regular IV opioid dosing. Group 3: naloxone (NARCAN) injection 0.2 mgJump to med 0.2 mg, Intravenous, EVERY 2 MIN PRN, opioid reversal, Starting on Sat09/03/22 at 0745, Administer intravenous route when available and notify [...] parameters have not improved after 4 naloxone doses. Or naloxone (NARCAN) injection 0.4 mgJump to med 0.4 mg, Intravenous, EVERY 2 MIN PRN, opioid reversal, Starting on Sat09/03/22 at 0745, Administer intravenous route when available and notify [...] parameters have not improved after 4 naloxone doses. Or naloxone (NARCAN) injection 0.2 mgJump to med 0.2 mg, Intramuscular, EVERY 2 MIN PRN, opioid reversal, Starting on Sat09/03/22 at 0745, Administer intramuscular if an intravenous route is [...] parameters have not improved after 4 naloxone doses. Or naloxone (NARCAN) injection 0.4 mgJump to med 0.4 mg, Intramuscular, EVERY 2 MIN PRN, opioid reversal, Starting on Sat09/03/22 at 0745, Administer intramuscular if an intravenous route is [...] parameters have not improved after 4 naloxone doses. Group 4: ondansetron (ZOFRAN ODT) ODT tab 4 mgJump to med 4 mg, Oral, EVERY 6 HOURS PRN, nausea, vomiting, Starting on Sat09/03/22 at 1555, This is Step 1 of nausea and [...] vomiting, Administer over 2-5 Minutes, Starting on Sat09/03/22 at 1555, This is Step 1 of nausea and vomiting management. If nausea not resolved in 15 minutes, go to Step 2 prochlorperazine (COMPAZINE). Irritant. Group 5: ondansetron (ZOFRAN ODT) ODT tab 4 mg (COMPLETED) 4 mg, Oral, EVERY 30 MIN PRN, nausea, Starting on Sat09/03/22 at 0738, For 2 doses, MAX total dose = 8 mg, including OR dosing. If not resolved in 15 minutes, then go to step 2 [prochlorperazine (COMPAZINE), if ordered]. With dry hands, peel back foil backing and gently remove tablet. Do not push oral disintegrating tablet through foil backing. Administer immediately on tongue and oral disintegrating tablet dissolves in seconds, then swallow with saliva. Liquid not required., PACU Or ondansetron (ZOFRAN) injection 4 mg (COMPLETED)Jump to med 4 mg, Intravenous, EVERY 30 MIN PRN, nausea, Administer over 2-5 Minutes, Starting on Sat09/03/22 at 0738, For 2 doses, MAX total dose = 8 mg, including OR dosing. If not resolved in 15 minutes, then go to step 2 [prochlorperazine (COMPAZINE), if ordered]. Irritant., PACU Group 6: prochlorperazine (COMPAZINE) injection 10 mgJump to med 10 mg, Intravenous, EVERY 6 HOURS PRN, nausea, vomiting, Administer over 1-2 Minutes, Starting on Sat09/03/22 at 1555, This is Step 2 of nausea and vomiting management. If nausea not resolved in 15-30 minutes, Notify provider. Or prochlorperazine (COMPAZINE) tablet 10 mgJump to med 10 mg, Oral, EVERY 6 HOURS PRN, nausea, vomiting, Starting on Sat09/03/22 at 1555, This is Step 2 of nausea and vomiting management. If nausea not resolved in 15- 30 minutes, Notify provider. 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 Two negative nares PCRs on 09/05/2015 and 08/24/2022. MRSA banner removed. 04/29/2014 04/29/201408/16 9:07 AM CDT Assessment Noted Time PHQ-9 Depression Total Score: 4 12/04/19 19 3:50 PM CDT documented as of this encounter Care Teams [employer] Relationship Specialty Start Date End Date Kelly Medina PA-C [id number] [place] [address] PCP - General Family Medicine 08/07/22 Tevin Marshall PA-C [address] [id number] Assigned Musculoskeletal Provider 12/16/21 07/10/23 Kelly Medina PA-C [id number] [place] [address] Assigned PCP 06/30/22 documented as of this encounter
--- OUTSIDE RECORDS SUMMARY | 2023-07-22 17:05 | XMS_ITS | Encounter Summary ---
Author Name Unknown Organization [place] Address [address] [facility] [place] [address] Care Team Providers Care Shoe Shanker Name Role Phone Tevin Marshall PA-C Unavailable [phone] Kelly Medina PA-C Unavailable Kelly Medina PA-C Primary Care Pr ovider Reason for Referral * Diagnostic Imaging Ultrasound (Routine) - Pending Review Specialty Diagnoses / Procedures Referred By Mando johnson Referred To Contact Radiology. Diagnoses Aftercare following joint replacement Procedures US Lower Extremity Venous Duplex Left US Lower Extremity Venous Duplex Left Em Melton PA-C [facility] [address] [facility] [address] [place] [address] Referral ID Status Reason Start Date Expiration Date V isits Requested Visits Authorized [id number] Pending Review 09/28/2022 09/28/2023 1 1 Reason for Visit * Diagnostic Imaging Ultrasound (Routine) - Pending Review Specialty Diagnoses / Procedures Referred By Mando johnson Referred To Contact Radiology. Diagnoses Aftercare following joint replacement Procedures US Lower Extremity Venous Duplex Left US Lower Extremity Venous Duplex Left Em Melton PA-C [facility] [address] [place] [address] Referral ID Status Reason Start Date Expiration Date V isits Requested Visits Authorized [id number] Pending Review 09/28/2022 09/28/2023 1 1 Encounter Details Date Type Department Care Team (Latest Contact Info) Description 09/28/2022 1:14 PM CDT - 09/28/2022 11:59 PM CDT Hospital Encounter [facility] [address] [place] [place] [phone] Em Melton, XENIA [facility] [address] [place] [address] Aftercare following joint replacement Discharge Disposition: Home or Self Care Social [...] often do you attend chur ch or gnosticism services? More than 4 times per year 08/24/2022 Do you belong to any clubs o r organizations such as mandaen groups, unions, fraternal or athletic groups, or [...] Answer Date Recorded PHQ-2 Score 0 08/24/2022 [facility] Occupat ional Health - Occupational Stress [...] in a half-way (including now)? No 08/24/2022 Sex and Gender Information Value Date Recorded Sex Assigned at Not on file Gender Identity Not on file Sexual Orientation Not on file COVID-19 Exposure Response Date Recorded In the last 10 days, have yo u been in contact with someone who was confirmed or suspected to have Coronavirus/COVID-19? No / Unsure 09/28/2022 1:13 PM CDT documented as of this encounter Medications at Time of Discharge [...] 120 tablet 0 09/05/2022 10/05/2022 calcium carbonate (OS-DOT 500 MG [place]. CA) 500 MG tablet Take 500 mg [...] 09/03/2022 01/17/2023 documented as of this encounter Plan of Treatment Upcoming Encounters Date Type Department Care Team (Late st Contact Info) Description 2023 1:30 PM CALL OR CONTACT CENTRE OPERATOR Office Visit [facility] [address] [place] [address] Anamaria Nevarez MD [address], [address] [place], [place] [address] documented as of this encounter Procedures Procedure Name Priority Date/Time Associated Diagnosis Comments US LOWER EXTREMITY VENOUS DUPLEX LEFT Routine 09/28/2022 1:44 PM CDT Aftercare following joint replacement documented in this encounter Results * US Lower Extremity Venous Duplex Left (09/28/2022 1:44 PM CDT) Anatomical Region Laterality Modality Vascular, Thigh, Leg Ultrasound Impressions 09/28/2022 1:48 PM CDT IMPRESSION: No DVT demonstrated. SUKH PULIDO MD Narrative 09/28/2022 1:48 PM CDT ULTRASOUND VENOUS LOWER EXTREMITY UNILATERAL LEFT 09/28/2022 1:44 PM HISTORY: Calf swelling and pain after surgery ; Aftercare following joint replacement COMPARISON: None. TECHNIQUE: Ultrasound klein scale, Color Doppler flow, and spectral Doppler waveform analysis performed. FINDINGS: The left common femoral, superficial femoral, popliteal and segmentally visualized calf veins are patent and fully compressible and demonstrate normal venous Doppler flow. The visualized greater saphenous vein is negative for thrombus. Left Brumfield's cyst measuring 4.7 x 1.3 x 1.1 cm. The contralateral right common femoral vein is patent without deep venous thrombosis. Procedure Note Sukh Pulido MD - 09/28/2022 ULTRASOUND VENOUS LOWER EXTREMITY UNILATERAL LEFT 09/28/2022 1:44 PM HISTORY: Calf swelling and pain after surgery ; Aftercare following joint replacement COMPARISON: None. TECHNIQUE: Ultrasound klein scale, Color Doppler flow, and spectral Doppler waveform analysis performed. FINDINGS: The left common femoral, superficial femoral, popliteal and segmentally visualized calf veins are patent and fully compressible and demonstrate normal venous Doppler flow. The visualized greater saphenous vein is negative for thrombus. Left Brumfield's cyst measuring 4.7 x 1.3 x 1.1 cm. The contralateral right common femoral vein is patent without deep venous thrombosis. IMPRESSION: No DVT demonstrated. SUKH PULIDO MD Em Melton PA-C IMYen[facility] US ORDERABLES documented in this encounter Visit Diagnoses Diagnosis Aftercare following joint replacement documented in this encounter Additional Health Concerns Assessment Noted Time PHQ-9 Depression Total Score: 4 12/04/19 19 3:50 PM CDT documented as of this encounter Care Teams Shoe Shanker Relationship Specialty Start Date End Date Kelly Medina PA-C [address] [place] [address] PCP - General Family Medicine 08/07/22 Tevin Marshall PA-C [address] [address] Assigned Musculoskeletal Provider 12/16/21 07/10/23 Kelly Medina PA-C [address] [place] [address] Assigned PCP 06/30/22 documented as of this encounter
--- OUTSIDE RECORDS SUMMARY | 2023-07-22 17:05 | XMS_ITS | Encounter Summary ---
Author Name Unknown Organization [place] Address [facility] [place] [address] Care Team Providers Care Wax Bleacher Name Role Phone Tevin Marshall PA-C Unavailable [phone] Kelly Medina PA-C Unavailable Kelly Medina PA-C Primary Care Pr ovider Encounter Details Date Type Department Care Team (Latest Contact Info) Description 09/28/2022 Travel Social History Tobacco Use Types Packs/Day [...] often do you attend chur ch or roman catholic services? More than 4 times per year 08/24/2022 Do you belong to any clubs o r organizations such as orthodoxy groups, unions, fraternal or athletic groups, or [...] Answer Date Recorded PHQ-2 Score 0 08/24/2022 [facility] Occupat ional Health - Occupational [...] place to sleep or slept in a custodial (including now)? No 08/24/2022 Sex and Gender [...] st Contact Info) Description 2023 1:30 PM DRAUGHTSMAN Office Visit [facility] [address] [place] [phone] Anamaria Nevarez MD [address], [facility] [address] [place] [address] documented as of this encounter Visit Diagnoses Not on filedocumented in this encounter Additional Health Concerns Assessment Noted Time PHQ-9 Depression Total Score: 4 12/04/19 19 3:50 PM CDT documented as of this encounter Care Teams Wax Bleacher Relationship Specialty Start Date End Date Kelly Medina PA-C [address] [place] [address] PCP - General Family Medicine 08/07/22 Tevin Marshall PA-C [address] [facility] [address] [place] [address] Assigned Musculoskeletal Provider 12/16/21 07/10/23 Kelly Medina PA-C [address] [place] [address] Assigned PCP 06/30/22 documented as of this encounter
--- OUTSIDE RECORDS SUMMARY | 2023-07-22 17:05 | XMS_ITS | Encounter Summary ---
Author Name Unknown Organization [place] Address [facility] [place] [address] Care Team Providers Care Director Of Property Management Name Role Phone Tevin Marshall PA-C Unavailable [phone] Kelly Medina PA-C Unavailable Kelly Medina PA-C Primary Care Pr ovider Reason for Visit * Reason Onset Date Comments Same Day Appointment 01/15/2023 New symptom onset Encounter Details Date Type Department Care Team (Late st Contact Info) Description 01/15/2023 Telephone [facility] [address] [place] [address] Kelly Medina PA-C [address] [place] [address] Same Day Appointment (New symptom onset) Social History Tobacco Use Types Packs/Day Years [...] often do you attend chur ch or denominational services? More than 4 times per year 08/24/2022 Do you belong to any clubs o r organizations such as episcopalian groups, unions, fraternal or athletic groups, or [...] Answer Date Recorded PHQ-2 Score 0 01/17/2023 [facility] of Occupat ional Health - [...] place to sleep or slept in a chcf (including now)? No 08/24/2022 Sex and Gender Information Value Date Recorded Sex Assigned at Not on file Gender Identity Not on file Sexual Orientation Not on file documented as of this encounter Miscellaneous Notes * Telephone Encounter - Angi aSnto MA - 01/15/2023 3:30 PM CDT Left message to call back Angi Santo, Security System Analyst * Telephone Encounter - Katlin Magallon RN - 01/15/2023 1:54 PM CDT Routing to Security System Analyst to schedule. Katlin Magallon R.N. * Telephone Encounter - Kelly Medina PA-C - 01/15/2023 12:34 PM CDT She should be seen in clinic. Please set up appt. Can take same day * Telephone Encounter - Katlin Magallon RN - 01/15/2023 12:08 PM CDT Call to [place], says daughter says she might have gout, but this is just a guess. Says episode came on suddenly. Saturday (3 days ago) when woke up wrist and ankles were red, hot to touch, and swollen (all 4) Saturday says didn't feel general, joints were warm to touch and painful. Is unsure if had fever over weekend was achey but unsure if had fever. Feeling better now. Since then has been taking ibuprofen. Daughter told her to take prednisone she had left over and took 10 mg yesterday and 10 mg today and that helped her be able to work. Feels ankles are better, swelling improved and feels better. Wrists feel better also but still hurta bit. Redness and hot to touch went down yesterday. Not back to baseline but much improved. Has not ever had incident like this. Does have rheumatoid and osteoarthritis and possible Ankylosing spondylitis (?), but provider who told her that did not confirm and it was just a possibility. Had had knee replaced, hip replaced twice (left) and shoulder work. Kelly please advise if should be seen and how soon or other recommendation. Katlin Magallon R.N. * Telephone Encounter - Shasta Greer - 01/15/2023 11:17 AM CDT Reason for Call: Appointment Request Patient requesting this type of appt: Pain Requested provider: Kelly Medina Reason patient unable to be scheduled: Not within requested timeframe When does patient want to be seen/preferred time: 1-2 days Comments: Pt need an appt for swollen and painful joint, gout? Could we send this information to you in [facility] or would you prefer to receive a phone call?: Patient would prefer a phone call Okay to leave a detailed message?: Yes at Cell number on file: Telephone Information: Call taken on 01/15/2023 at 11:17 AM by Shasta Greer documented in this encounter Plan of Treatment Upcoming Encounters Date Type Department Care Team (Late st Contact Info) Description 2023 1:30 PM DAY SPA MANAGER Office Visit [facility] [place] [address] Anamaria Nevarez MD [address], [facility] [address] [place] [address] documented as of this encounter Visit Diagnoses Not on filedocumented in this encounter Additional Health Concerns Assessment Noted Time PHQ-9 Depression Total Score: 4 12/04/19 19 3:50 PM CDT documented as of this encounter Care Teams Director Of Property Management Relationship Specialty Start Date End Date Kelly Medina PA-C [address] [place] [address] PCP - General Family Medicine 08/07/22 Tevin Marshall PA-C [address] [address] Assigned Musculoskeletal Provider 12/16/21 07/10/23 Kelly Medina PA-C [address] [place] [address] Assigned PCP 06/30/22 documented as of this encounter
--- OUTSIDE RECORDS SUMMARY | 2023-07-22 17:05 | XMS_ITS | Encounter Summary ---
Author Name Unknown Organization [place] Address [facility] [place] [address] Care Team Providers Care Dba Developer Name Role Phone Tevin Marshall PA-C Unavailable [phone] Kelly Medina PA-C Unavailable Kelly Medina PA-C Primary Care Pr ovider Encounter Details Date Type Department Care Team (Late st Contact Info) Description 02/20/2023 MyC Medical Advice Jerilyn [facility] [address] [place] [address] Re Lu RN Social History Tobacco Use Types Packs/Day Years [...] often do you attend chur ch or temple services? More than 4 times per year 08/24/2022 Do you belong to any clubs o r organizations such as caodaism groups, unions, fraternal or athletic groups, or [...] Answer Date Recorded PHQ-2 Score 0 01/17/2023 [facility] of Occupat ional Health - [...] place to sleep or slept in a alf (including now)? No 08/24/2022 Sex and Gender [...] st Contact Info) Description 2023 1:30 PM FEDERAL APPELLATE LAW CLERK Office Visit [facility] [address] [place] [address] Anamaria Nevarez MD [address], [facility] [address] [place] [address] documented as of this encounter Visit Diagnoses Not on filedocumented in this encounter Additional Health Concerns Infection Onset Date Last Indicated Resolved Time Rule Out COVID-19 03/20/2023 03/20/2023 03/20/2023 8:43 PM CDT Assessment Noted Time PHQ-9 Depression Total Score: 4 12/04/19 19 3:50 PM CDT documented as of this encounter Care Teams Dba Developer Relationship Specialty Start Date End Date Kelly Medina PA-C [address] [place] [address] PCP - General Family Medicine 08/07/22 Tevin Marshall PA-C [address] [facility] [address] [place] [address] Assigned Musculoskeletal Provider 12/16/21 07/10/23 Kelly Medina PA-C [address] [place] [address] Assigned PCP 06/30/22 documented as of this encounter
--- OUTSIDE RECORDS SUMMARY | 2023-07-22 17:05 | XMS_ITS | Encounter Summary ---
Author Name Unknown Organization [place] Address [facility] [place] [address] Care Team Providers Care Civil Engineering Intern Name Role Phone Tevin Marshall PA-C Unavailable [phone] Kelly Medina PA-C Unavailable Kelly Medina PA-C Primary Care Pr ovider Reason for Visit * Diagnostic Imaging Mammo (Routine) - Pending Review Specialty Diagnoses / Procedures Referred By Mando johnson Referred To Contact Radiology. Diagnoses Visit for screening mammogram Procedures MA Screen Bilateral w/Tay MA SCREENING DIGITAL BILAT - Future (s+30) Kelly Medina PA-C [address] [place] [address] Referral ID Status Reason Start Date Expiration Date V isits Requested Visits Authorized [id number] Pending Review 01/17/2023 01/17/2024 1 1 Encounter Details Date Type Department Care Team (Latest Contact Info) Description 02/06/2023 2:27 PM CDT - 02/06/2023 11:59 PM CDT Hospital Encounter [facility] [address] [facility] [address] [place] [address] Kelly Medina PA-C [address] [place] [address] Discharge Disposition: Home or Self Care Social [...] file 08/24/2022 How often do you attend [facility] or episcopal services? More than 4 times per year 08/24/2022 Do you belong to any clubs o r organizations such as yarsanism groups, unions, fraternal or athletic groups, or [...] Answer Date Recorded PHQ-2 Score 0 01/17/2023 [facility] of Occupat ional Health - Occupational Stress [...] money to buy more. Never true 08/25/19 Within the past 12 months, t he [...] a senior care (including now)? No 08/24/2022 Sex and Gender [...] HFA/PROVENTIL HFA/VENTOLIN HFA) 108 (90 Base) MCG/ACT inhalerIndications:Inter mittent asthma, uncomplicated Inhale 1-2 puffs into the [...] Take 400 Units by mouth daily 0 calcium carbonate (OS-DOT 500 MG [place]. CA) 500 MG tablet Take 500 mg by mouth 2 times daily. 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 Do not apply to face. 60 g 11 07/13/2019 06/11/2023 documented as of this encounter Plan of Treatment Upcoming Encounters Date Type Department Care Team (Late st Contact Info) Description 2023 1:30 PM TITLE ONE KINDERGARTEN TEACHER Office [facility] [address] [place] [phone] Anamaria Nevarez MD [address] [place] [address] documented as of this encounter Procedures Procedure Name Priority Date/Time Associated Diagnosis Comments MA SCREENING BILATERAL W/ TAY Routine 02/06/2023 3:04 PM CDT Visit for screening mammogram documented in this encounter Results * MA [...] Kelly Medina PA-C IMG MAMM OGRAPHY ORDERABLES documented in this encounter Visit Diagnoses Not on filedocumented in this encounter Additional Health Concerns Assessment Noted Time PHQ-9 Depression Total Score: 4 12/04/19 19 3:50 PM CDT documented as of this encounter Care Teams Civil Engineering Intern Relationship Specialty Start Date End Date Kelly Medina PA-C [address] [place] [address] PCP - General Family Medicine 08/07/22 Tevin Marshall PA-C [address] [address] Assigned Musculoskeletal Provider 12/16/21 07/10/23 Kelly Medina PA-C [address] [place] [address] Assigned PCP 06/30/22 documented as of this encounter
--- OUTSIDE RECORDS SUMMARY | 2023-07-22 17:06 | XMS_ITS | Encounter Summary ---
Author Name Unknown Organization [place] Address [address] [facility] [place] [address] Care Team Providers Care Builder Operator Name Role Phone Tevin Marshall PA-C Unavailable [phone] Kelly Medina PA-C Unavailable Kelly Medina PA-C Primary Care Pr ovider Encounter Details Date Type Department Care Team (Late st Contact Info) Description 08/08/2022 Orders Only [facility] [address] [place] [address] Darshan Young MD [facility] [address] [place] [address] Social History Tobacco Use Types Packs/Day Years Used Date Smoking Tobacco: Never Smokeless Tobacco: Never Alcohol Use Standard Drinks/Week Comments Yes 0 (1 standard drink = 0.6 oz pur e alcohol) 4 weekends PHQ-2 Answer Date Recorded PHQ-2 Score 0 12/05/2021 Sex and Gender Information Value Date Recorded Sex Assigned at Not on file Gender Identity Not on file Sexual Orientation Not on file COVID-19 Exposure Response Date Recorded In the last 10 days, have yo u been in contact with someone who was confirmed or suspected to have Coronavirus/COVID-19? No / Unsure 08/08/2022 11:14 AM DIGITAL ASSET COORDINATOR documented as of this encounter Plan of Treatment Upcoming Encounters Date Type Department Care Team (Late st Contact Info) Description 2023 1:30 PM DIGITAL ASSET COORDINATOR Office Visit [facility] [address] [place] [address] Anamaria Nevarez MD [address] [place] [address] documented as of this encounter Visit Diagnoses Not on filedocumented in this encounter Additional Health Concerns Infection Onset Date Last Indicated Resolved Time MRSA-Contact Isolation Comment:Nares+, 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 Two negative nares PCRs on 09/05/2015 and 08/24/2022. MRSA banner removed. 04/29/2014 04/29/201408/16 9:07 AM CDT Rule Out COVID-19 03/20/2023 03/20/2023 03/20/2023 8:43 PM CDT Assessment Noted Time PHQ-9 Depression Total Score: 4 12/04/19 19 3:50 PM CDT documented as of this encounter Care Teams Builder Operator Relationship Specialty Start Date End Date Kelly Medina PA-C [address] [place] [address] PCP - General Family Medicine 08/07/22 Tevin Marshall PA-C [address] [facility] [address] [place] [address] Assigned Musculoskeletal Provider 12/16/21 07/10/23 Kelly Medina PA-C [address] [place] [address] Assigned PCP 06/30/22 documented as of this encounter
--- OUTSIDE RECORDS SUMMARY | 2023-07-22 17:06 | XMS_ITS | Encounter Summary ---
Author Name Unknown Organization [place] Address [facility] [place] [address] Care Team Providers Care Paratransit Driver Name Role Phone Elton Harmon PA-C Primary Care Provider Elton Harmon PA-C Unavailable [phone] Tevin Marshall PA-C Unavailable [phone] Kelly Medina PA-C Unavailable Kelly Medina PA-C Primary Care Pr ovider Encounter Details Date Type Department Care Team (Late Contact Info) Description 12/29/2021 MyC Medical Advice Initial Department [facility] Social History Tobacco Use Types Packs/Day [...] suspected to have Coronavirus/COVID-19? No / Unsure 01/01/2022 1:19 PM CDT documented as of this encounter Plan of Treatment Upcoming Encounters Date Type Department Care Team (Late Contact Info) Description 2023 1:30 PM PRESSER AUTOMATIC Office Visit [facility] [address] [place] [phone] Anamaria Nevarez MD [address] [place] [address] documented as of this encounter Visit Diagnoses [...] documented as of this encounter Care Teams Paratransit Driver Relationship Specialty Start Date End Date Elton Harmon PA-C PCP - General Physician Printer Helper - Medical 09/02/18 08/06/22 Kelly Medina PA-C [address] [place] [address] PCP - General Family Medicine 08/07/22 Elton Harmon PA-C [address] [place] [address] Assigned PCP 12/30/20 06/29/22 Tevni Marshall PA-C [address] [facility] [place] [place] [address] [place] [address] Assigned Musculoskeletal Provider 12/16/21 07/10/23 Kelly Medina PA-C [address] [place] [address] Assigned PCP 06/30/22 documented as of this encounter
--- OUTSIDE RECORDS SUMMARY | 2023-07-22 17:06 | XMS_ITS | Encounter Summary ---
Author Name Unknown Organization [facility] Address [address] [place] [address] Care Team Providers Care Information Assoc Name Role Phone Tevin Marshall PA-C Unavailable [phone] Kelly Medina PA-C Unavailable Kelly Medina PA-C Primary Care Pr ovider Reason for Visit * Auth/Cert (Routine) Specialty Diagnoses / Procedures Referred By Mando johnson Referred To Contact Surgery Diagnoses Osteoarthritis Osteoarthritis [M19.90] Procedures OH TOTAL KNEE ARTHROPLASTY Left total knee arthroplasty(Spinal with adductor canal block) Periop Services [address] [place] [address] Referral ID Status Reason Start Date Expiration Date Visits Re quested Visits Authorized [id number] 1 1 Encounter Details Date Type Department Care Team (Late st Contact Info) Description 09/03/2022 8:20 AM CDT - 09/03/2022 10:20 AM CDT Surgery [facility] PeriOp Services [address] [place] [address] Darshan Young MD [facility] ORTHOPED[facility] [address] [place] [address] Left total knee arthroplasty Surgery Details Date/Time Status Location OR Service Patient Class Case Class Case Type Trauma Case? 09/03/22 8:20 AM Posted RH OR OR 04 Orthopedics Same Day Surgery Panel 1 Procedure LRB Anes Op Region Wound Class Comments Left total knee arthroplasty Left General with Block Kn ee I-Clean Surgeon Surgeon Role Service Panel Darshan Young MD Primary Orthopedics 1 Jeaneth Craft PA-C Assisting Gas Main Fitter Aut horization 1 Special Needs MB-Yes Vanco 1500 mg documented in this encounter Social History Tobacco [...] often do you attend chur ch or advent services? More than 4 times per year 08/24/2022 Do you belong to any clubs o r organizations such as baptism groups, unions, fraternal or athletic groups, or [...] Answer Date Recorded PHQ-2 Score 0 08/24/2022 [facility] [place] [facility] - Occupational Stress [...] Sign Reading Time Taken Comments Blood Pressure 126/68 09/03/2022 10:10 AM CDT Pulse 65 09/03/2022 10:15 AM CDT Temperature 36.9 ??C (98.5 ??F) 09/03/2022 9:55 AM CD T Respiratory Rate 11 09/03/2022 10:15 AM CDT Oxygen Saturation 97% 09/03/2022 10:15 AM CDT Inhaled Oxygen Concentration - - [...] 09/05/2022 10/05/2022 calcium carbonate (OS-ALISON 500 MG LAC COURTE OREILLES. CA) 500 MG tablet Take 500 mg [...] Methocarbamol to discharge meds. Jeaneth Craft PA-C [phone] * Jeaneth Craft PA-C - 09/04/2022 5:02 PM CDT Ortho: Was Notified of pain control issues. Please remove duran and cast padding for more direct ability to Ice. Added Methocarbomal as option. I will see again in the am. Jeaneth Craft PA-C [phone] * Francesca Chauhan OTR - 09/04/2022 11:36 AM CDT 09/04/22 1000 Appointment Info Signing Clinician's Name / Credentials (OT) Francesca Chauhan OTR/L Living Environment People in Home spouse [...] (03/26) Bed Mobility Bed Mobility supine-sit;sit-supine Supine-Sit Kingfisher (Bed Mobility) supervision Sit-Supine Kingfisher (Bed Mobility) moderate assist (50% patient effort) Transfers Transfers toilet transfer;sit-stand transfer;bed-chair transfer Transfer Skill: Bed to Chair/Chair to Bed Bed-Chair Kingfisher (Transfers) minimum assist (75% patient effort) Sit-Stand Transfer Sit-Stand Kingfisher (Transfers) contact guard Toilet Transfer Kingfisher Level (Toilet Transfer) contact guard Activities of Daily Living BADL Assessment/Intervention toileting Toileting Kingfisher Level (Toileting) supervision Clinical Impression Criteria for [...] Evaluation Time OT Eval, Low Complexity Minutes (96858) 10 OT Goals Therapy Frequency (OT) Daily OT Predicted Duration/Target Date for Goal Attainment 09/05/22 OT Goals Upper Body Dressing;Lower Body Dressing;Hygiene/Grooming OT: Hygiene/Grooming supervision/stand-by assist OT: Upper Body Dressing Supervision/stand-by assist OT: Lower Body Dressing Supervision/stand-by assist Interventions Interventions Quick Adds Self-Care/Home Management Self-Care/Home Management Self-Care/Home Mgmt/ADL, Compensatory, Meal Prep Minutes (85327) 28 Treatment Detail/Skilled Intervention Upon arrival, pt is [...] (sum of timed and untimed services) 38 [facility] OUTPATIENT OCCUPATIONAL THERAPY EVALUATION PLAN OF TREATMENT FOR OUTPATIENT REHABILITATION (COMPLETE FOR INITIAL CLAIMS ONLY) Patient's Last Name, First Name, M.I. Date of : 1960 Nidia Mtz Provider's Name [facility] Onset Date: 09/03/22 Start of Care [...] attest to above note. Jeaneth Craft PA-C [phone] * Jeaneth Craft PA-C - 09/04/2022 6:27 [...] home. Will have office print referral to corn picker for insurance reimbursement. Noted taking PO dilaudid and rx written. Jeaneth Craft PA-C [phone] * Brigitte Fernández, PT - 09/03/2022 6:19 [...] condition Living Environment Comments Pt lives in [facility] home with 3 JC with and [...] (Transfers) SBAx1 STS with 2WW Gait/Stairs (Locomotion) Kingfisher Level (Gait) supervision Assistive Device (Gait) walker, [...] Evaluation Time PT Eval, Low Complexity Minutes (20825) 10 Plan of Care Review Plan of [...] dynamic activities to improve functional performance Minutes (62978) 15 Symptoms Noted During/After Treatment Increased pain [...] within reach. Gait Training Gait Training Minutes (17968) 20 Symptoms Noted During/After Treatment (Gait Training) increased pain Treatment Detail/Skilled Intervention Ambulated ~100' today with SBA and 2WW. Demoed step to gait patterning, but was able to slighly improve to step through with VC. VC for erect standing posture and slight shoulder relaxation. Pt able to navigate 4 steps with bilateral railings using step to patterning. VC for proper sequencing. Kingfisher Level (Gait Training) stand-by assist Physical Assistance Level (Gait Training) supervision Weight Bearing (Gait Training) weight-bearing as tolerated Assistive Device (Gait Training) rolling walker PT Discharge Planning PT Plan review exercies, stairs and increase ambulation distance PT Discharge Recommendation (DC Rec) (defer to ortho) PT Rationale for DC Rec Pt below functional mobility baseline. Lives in [facility] with 3 JC with and other [...] (sum of timed and untimed services) 45 [facility] OUTPATIENT PHYSICAL THERAPY EVALUATION PLAN OF TREATMENT FOR OUTPATIENT REHABILITATION (COMPLETE FOR INITIAL CLAIMS ONLY) Patient's Last Name, First Name, M.I. Date of : 1960 Nidia Mtz Provider's Name [facility] Onset Date: 09/03/22 Start of Care [...] attest to above note. Jeaneth Craft PA-C [phone] * Luciana Bustamante RN - 09/03/2022 12:51 PM CDT Pt's Bp's labile, SBP 80's-90's - otherwise patient meets criteria to transfer to her room. Patientstated her normal blood pressures are mid 90's/60's at her baseline. Discussed with KARINA mcclendon for patient to transfer to room. Luciana Bustamante RN on 09/03/2022 at 12:52 PM * Luciana Bustamante RN - 09/03/2022 12:47 PM CDT Patient came out of OR with an extravasated IV in her L wrist - vancomycin had been running. Followed protocol for extravasation, and nursing community health nurse supervisor came to take pictures. Edema/redness outlined.Within 2 hours, edema and redness had lessened (see flowsheet documentation). Will continue to monitor. Luciana Bustamante RN on 09/03/2022 at 12:49 PM * Aria Goodson, Infection Prevention - 09/03/2022 9:07 AM CDTSummary: MRSA status Patient had a positive MRSA in 2013, but has had 2 subsequent negatives on 09/05/2015 and 08/24/2022.Per [facility] policy, MRSA banner removed. .09/03/2022 .Aria Goodson, Infection Prevention * Anne-Marie Hassan RN - 09/03/2022 8:42 AM CDT [facility] did not print off strip prior to block starting. Anne-Marie Hassan RN on 09/03/2022 at 8:43 AM * Romeo Hutchins - 09/03/2022 8:01 AM CDT SPIRITUAL HEALTH SERVICES Progress Note RH Pre-Op Saw pt Nidia Mtz per her request for charge histotechnologist support before her procedure. Her spouse Sridhar was present. Nidia acknowledged feeling anxious about her surgery. She named Sridhar, her daughter, and her goddaughter as being core to her local support network. Nidia is affiliated with [facility] in [place] and asked me to contact her machinist. She welcomed prayer. Plan: Informed pt and her spouse how they can request further charge histotechnologist support once pt is admitted to the floor. This author and other chaplains remain available per pt/family request. Romeo Hutchins M.Div., [facility] Staff Nuclear Control Operator [facility] routine referrals *[id number] [facility] available 07/01 for emergent requests/referrals, either by paging the on-call charge histotechnologist or by entering an ANGEL/STAT consult in [facility] (this will also page the on-call charge histotechnologist). documented in this encounter Consult Notes * Gissel Garcia PA-C - 09/04/2022 11:58 AM CDT Patient discussed with nurse, did not charge. Medication reviewed. CONTROL TECHNICIAN Voltaren gel ordered for pain. Otherwise doing [...] Rivera LGSW Inpatient Care Coordination Ortho/Spine Unit [phone] Allyssa Cedeno LGSW documented in this encounter Miscellaneous Notes * Plan of Care - Francesca Chauhan OTR - 09/05/2022 10:40 AM CDT Occupational Therapy Discharge Summary Reason for therapy discharge: Discharged to home. Progress towards therapy goal(s). See goals on Care Plan in [facility] electronic health record for goal details. Goals [...] analgesics: Yes Does patient have an identified development coach: Yes Has goal D/C date and time [...] goal(s). See goals on Care Plan in [facility] electronic health record for goal details. Goals [...] PO Atarax Does patient have an identified development coach: Yes daughter Has goal D/C date and [...] analgesics: Yes Does patient have an identified development coach: Yes Has goal D/C date and time [...] total knee arthroplasty. SURGEON: Darshan Young MD. ENAMEL DIPPER: Jeaneth Craft PA-C. ANESTHESIA: General with adductor [...] were no complications. Darshan Young MD MT: [facility] Name: NIDIA MTZ Account: [id number] : 1960 Procedure Date: 09/03/2022 Document: [id number] * Brief Op Note - Darshan Young MD - 09/03/2022 6:57 AM CDT TKR for Pre/Post OA knee Hector TT est 35 w EBL 100 (see dictation for full) Spec none No anticipated complications * Pharmacy-Admission Medication History - Lydia Nathan [facility] - 08/31/2022 12:40 PM CDT Pharmacy reviewed prior to admission med list from pre-admitting rnFidel. Prior to Admission medications Medication Sig Last Dose Taking? Auth Provider Detention End Date albuterol (PROAIR HFA/PROVENTIL HFA/VENTOLIN HFA) 108 (90 Base) MCG/ACT inhaler Inhale 1-2 puffs into the lungs every 4 hours as needed for shortness of breath / dyspnea Yes Elton Harmon PA-C Yes calcium carbonate (OS-ALISON 500 MG LAC COURTE OREILLES. CA) 500 MG tablet Take 500 mg [...] week. Do not apply to face. Giulia Awan, * Provider Notification - Zoey Bennett RN - 08/08/2022 11:35 AM CST 08/08/22 1135 Discharge Planning Patient/Family Anticipates Transition to home [...] done Joint class x 2 in past.) TICAL SCIENCE INSTRUCTOR documented in this encounter Plan of Treatment Upcoming Encounters Date Type Department Care Team (Late st Contact Info) Description 2023 1:30 PM POLITICAL SCIENCE INSTRUCTOR Office Visit [facility]'[address] [place] [address] Anamaria Nevarez MD [address] [place] [address] documented as of this encounter Procedures Procedure [...] Young MD LAB - BLOOD PRIETO LEAL [facility] LABORATORY [facility] Lab [address] Lab (1st floor, no room number) [place] [address], [facility] [phone] * (ABNORMAL) Hemoglobin (09/05/2022 6:43 AM CDT) Hemoglobin 11.2(L) 11.7 - 15.7 g/dL 09/05/2022 7:13 AM CDT RH LABORATORY Blood STRUCTURE OF RIGHT HAND / Unknown Venipuncture / Unknown 09/05/2022 6:43 AM CDT 09/05/2022 7:09 AM CDT Jeaneth Craft PA-C LAB - BLOOD OR DERABLES LABORATORY [facility] [address] Lab (1st floor, no room number) [place] [address], [facility] [phone] * Glucose (09/04/2022 6:20 AM CDT) Glucose 87 70 - 99 mg/dL 09/04/2022 7:15 AM CDT RH LABORATORY Patient Fasting > 8hrs? Yes 09/04/2022 7:15 AM CDT RH LABORATORY Blood STRUCTURE OF RIGHT HAND / Unknown Venipuncture / Unknown 09/04/2022 6:20 AM CDT 09/04/2022 6:55 AM CDT Darshan Yuong MD LAB - BLOOD PRIETO LEAL Performing Organization Address City/[facility]/ZIP Co de Phone Number [facility] Lab [address] Lab (1st floor, no room number) [place] [address], [facility] [phone] * Hemoglobin (09/04/2022 6:20 AM CDT) Hemoglobin 12.1 11.7 - 15.7 g/dL 09/04/2022 6:58 AM CDT RH LABORATORY Blood STRUCTURE OF RIGHT HAND / Unknown Venipuncture / Unknown 09/04/2022 6:20 AM CDT 09/04/2022 6:55 AM CDT Jeaneth Craft PA-C LAB - BLOOD OR DERABLES [facility] Care Lab [address] Lab (1st floor, no room number) [place] [address] [phone] * XR Knee Port Left 1/2 Views (09/03/2022 10:41 AM CDT) Anatomical Region Laterality Modality Knee, Left Knee Left Digital Radiogra phy Impressions 09/03/2022 10:45 AM CDT IMPRESSION: Postoperative change left total knee arthroplasty and patellar resurfacing. Components appear well seated. Post procedural air within the joint and surrounding soft tissues. JULIO CANTOR MD SYSTEM ID: ??[id number] Narrative 09/03/2022 10:45 AM CDT XR KNEE [...] soft tissues. JULIO CANTOR MD SYSTEM ID: [id number] Jeaneth Craft PA-C [facility] DIAGNOSTIC IMAGING ORDERABLES documented in this encounter Visit Diagnoses Diagnosis S/P TKR (total knee replacement), left- Primary Osteoarthritis Osteoarthrosis, unspecified whether generalized or localized, unspecified site documented in this encounter Administered Medications Inactive [...] analgesic side effects. Hold while on IV AMBULATORY ANALYST or with regular IV opioid dosing. $Given [...] analgesic side effects. Hold while on IV AMBULATORY ANALYST or with regular IV opioid dosing. $Given [...] not resolved in 15-30 minutes, Notify provider. ropivacaine (NAROPIN) 150 mg, ketorolac (TORADOL) 30 mg, EPINEPHrine (ADRENALIN) 0.6 mg in sodium chloride 0.9 % 50 mL (ORTHO AUDREY LOW DOSE) INTRA-ARTICULAR, BAGGAGE CLERK TO O.R., Starting on Sat09/03/22 at 0728, For 1 dose, NOT FOR IV INJECTION. Used by provider at the end of surgery., Pre-procedure $Given 09/03/2022 9:04 AM CDT Operative Site/Surgi alison Site senna-docusate (SENOKOT-S/PERICOLACE) 8.6-50 MG per tablet 1 [...] $Given 09/04/2022 1:54 PM CDT 3 mLs sodium chloride 0.9% (bag) irrigation PRN, Starting on Sat09/03/22 at 0921, Intra-procedure $Given 09/03/2022 9:21 AM CDT 1,500 mLs Operative Site/Surgical Site tranexamic acid (LYSTEDA) tablet 1,950 mg 1,950 [...] Bag 09/03/2022 7:57 AM CDT 1,500 mg vancomycin (VANCOCIN) topical powder PRN, Starting on Sat09/03/22 at 0925, Intra-procedure $Given 09/03/2022 9:25 AM CDT 1 g Operative Site/Surgical Site documented in this encounter Active and Recently [...] 4 grams/day. 1610 ($Given - Provider: Opal Moore, ELIJAH)2348 ($Given - Provider: Flaco Parsons RN) 0738 ($Given - Provider: Jessica Priest, RN)1636 ($Given - Provider: Lena Hammond, RN)2339 ($Given - Provider: Bubba Villar, RN) 0756 ($Given - Provider: Jessica Priest, ELIJAH) aspirin (ASA) EC tablet 325 mg 325 [...] Moore RN)2351 ($New Bag - Provider: Flaco Parsosn, ELIJAH) 0030 (Stopped - Provider: Flaco Parsons RN) [...] Jessica Priest RN)1747 ($Given - Provider: Lena Hammond, ELIJAH)2155 ($Given - Provider: Lena Hammond, RN) 0752 ($Given - Provider: Jessica Priest, ELIJAH)1200 (Canceled Entry - Provider: Orders Generic Provider - Comment: Automatically canceled at discontinue of medication order) methocarbamol (ROBAXIN) tablet 500 mg 500 mg, Oral, 4 TIMES DAILY, First dose on Sat09/04/22 at 1730 1745 ($Given - Provider: Lena Hammond, RN)2154 ($Given - Provider: Lena Hammond, ELIJAH) 0756 ($Given - Provider: Jessica Priest, ELIJAH)1200 (Canceled Entry - Provider: Orders Generic Provider [...] Priest RN) 0754 ($Given - Provider: Jessica Priest, ELIJAH) ropivacaine (NAROPIN) 150 mg, ketorolac (TORADOL) 30 mg, EPINEPHrine (ADRENALIN) 0.6 mg in sodium chloride 0.9 % 50 mL (ORTHO AUDREY LOW DOSE) (COMPLETED) INTRA-ARTICULAR, BAGGAGE CLERK TO O.R., Starting on Sat09/03/22 at 0728, [...] Hammond RN) 0738 ($Given - Provider: Jessica Priest, ELIJAH)2046 ($Given - Provider: Lena Hammond, ELIJAH) 0756 ($Given - Provider: Jessica Priest RN) sodium chloride (PF) 0.9% PF flush 3 mL 3 mL, Intracatheter, EVERY 8 HOURS, First dose on Sat09/03/22 at 1600, to lock peripheral IV dormant line 1722 (Not Given - Provider: Lena Hammond RN - Reason: IV Infusing)2348 (Not Given - Provider: Flaco Parsons RN - Reason: IV Infusing) 0916 ($Given - Provider: Jessica Priest RN)1354 ($Given - Provider: Jessica Priest RN)1638 ($Given - Provider: Lena Hammond, ELIJAH)2339 ($Given - Provider: Bubba Villar, ELIJAH) 0757 (Not Given - Provider: Jessica Priest RN - Reason: Loss of IV access) tranexamic acid (LYSTEDA) tablet 1,950 mg (COMPLETED) 1,950 mg, Oral, ONCE, On Sat09/03/22 at 0730, For 1 dose, Administer in PRE OP area, with sip of water, 2 hours PRIOR to incision., Pre-procedure 0746 ($Given - Provider: Anne-Marie Hassan, ELIJAH) tranexamic acid 1 g in 100 mL NS IV bag (premix) (COMPLETED) 1 g, Intravenous, ONCE, On Sat09/03/22 at 0730, For 1 dose, Send to pre op area to be given intra-operatively just after tourniquet is released or at time of closing if no tourniquet is used., Pre-procedure 0939 ($Given - Provider: Carlyn Isidro, FINE ARTS CHAIR SCIENTIFIC INFORMATICS PROJECT LEADER) vancomycin (VANCOCIN) 1,500 mg in 0.9% NaCl [...] Pre-procedure 0757 ($New Bag - Provider: Anne-Marie Hassan, RN) Continuous Medication Order 09/03/2022 09/04/2022 09/05/2022 [...] 1547 ($New Bag - Provider: Opal Moore, RN) PRN Medication Order 09/03/2022 09/04/2022 09/05/2022 albuterol [...] at 1555 0543 ($Given - Provider: Bubba Villar RN) chlorhexidine 0.05% in water for irrigation (IRRESEPT) [...] analgesic side effects. Hold while on IV AMBULATORY ANALYST or with regular IV opioid dosing. 1437 [...] analgesic side effects. Hold while on IV AMBULATORY ANALYST or with regular IV opioid dosing. 1437 ($Given - Provider: Alem Bee RN)1913 (See Alternative - Provider: Lena Hammond, ELIJAH)2349 ($Given - Provider: Flaco Parsons RN) 0525 (See Alternative - Provider: Flaco aPrsons RN)0911 ($Given - Provider: Jessica Priest, ELIJAH)1253 (See Alternative - Provider: Jessica Priest, ELIJAH)1745 ($Given - Provider: Lena Hammond, ELIJAH)2154 ($Given - Provider: Lena Hammond RN) 0801 ($Given - Provider: Jessica Priest RN) hydrOXYzine (ATARAX) tablet 25 mg 25 mg, Oral, EVERY 6 HOURS PRN, other, adjuvant pain, Starting on Sat09/03/22 at 1555 1618 ($Given - Provider: Opal Moore RN) 0222 ($Given - Provider: Luci Simon, ELIJAH)0738 ($Given - Provider: Jessica Priest RN)1253 ($Given - Provider: Jessica Priest RN)2339 ($Given - Provider: Bubba Villar, ELIJAH) 0543 ($Given - Provider: Bubba Villar, ELIJAH) lidocaine (LMX4) cream Topical, EVERY 1 HOUR [...] 1555, Shake well. Hold for loose stools. 2339 ($Given - Provider: Bubba Villar RN) naloxone [...] (COMPAZINE). Irritant. 1353 ($Given - Provider: Jessica Priest RN)2339 (See Alternative - Provider: Bubba Villar [...] Irritant., PACU 0813 ($Given - Provider: Anne-Marie Hassan RN)1012 ($Given - Provider: Luciana Bustmaante RN) prochlorperazine (COMPAZINE) injection 10 mg(Linked Group 6) [...] analgesic side effects. Hold while on IV AMBULATORY ANALYST or with regular IV opioid dosing. Or HYDROmorphone (DILAUDID) tablet 4 mgJump to med 4 mg, Oral, EVERY 4 HOURS PRN, severe pain, Starting on Sat09/03/22 at 1432, Hold oral PRN dose for analgesic side effects. Notify provider to assess for uncontrolled pain or analgesic side effects. Hold while on IV AMBULATORY ANALYST or with regular IV opioid dosing. Group [...] documented as of this encounter Care Teams Information Assoc Relationship Specialty Start Date End Date Juliette-Kelly Rossi PA-C [address] [place] [address] PCP - General Family Medicine 08/07/22 Tevin Marshall PA-C [address] [address] Assigned Musculoskeletal Provider 12/16/21 07/10/23 Kelly Medina PA-C [address] [place] [address] Assigned PCP 06/30/22 documented as of this encounter
--- OUTSIDE RECORDS SUMMARY | 2023-07-22 17:06 | XMS_ITS | Encounter Summary ---
Author Name Unknown Organization [place] Address [facility] [place] [address] Care Team Providers Care Clinical Reviewer Name Role Phone Elton Harmon PA-C Primary Care Provider Giulia Awan DO Unavailable [phone] Elton Harmon PA-C Unavailable + [phone] Elton Harmon PA-C Unavailable + [phone] Tevin Marshall PA-C Unavailable [phone] Kelly Medina PA-C Unavailable Kelly Medina PA-C Primary Care Pr ovider Encounter Details Date Type Department Care Team (Late st Contact Info) Description 11/23/2020 MyC Medical Advice [facility] [id number] [place] [address] Tavo Martinez Social History Tobacco Use Types Packs/Day Years Used Date Smoking Tobacco: Never Smokeless Tobacco: Never Alcohol Use Standard Drinks/Week Comments Yes 0 (1 standard drink = 0.6 oz pur e alcohol) 4 weekends PHQ-2 Answer Date Recorded PHQ-2 Score 0 03/25/2019 Sex and Gender Information Value Date Recorded Sex Assigned at Not on file Gender Identity Not on file Sexual Orientation Not on file documented as of this encounter Plan of Treatment Upcoming Encounters Date Type Department Care Team (Late st Contact Info) Description 2023 1:30 PM PROTOZOOLOGY TEACHER Office Visit [facility] [address] [facility] [address] [place] [address] Anamaria Nevarez MD [address], [address] [address] documented as of this encounter Visit Diagnoses [...] documented as of this encounter Care Teams Clinical Reviewer Relationship Specialty Start Date End Date Elton Harmon PA-C PCP - General Physician Automatic Equipment Technician - Medical 09/02/18 08/06/22 Kelly Medina PA-C [address] [place] [address] PCP - General Family Medicine 08/07/22 Giulia Awan DO [address] [address] Assigned OBGYN Provider 04/08/20 Elton Harmon [facility]-C [address] [facility] [place] [address] Assigned PCP 09/25/20 12/29/20 Elton Harmon PA-C [address] [place] [address] Assigned PCP 12/30/20 06/29/22 Tevin Marshall PA-C [address] [place] [address] Assigned Musculoskeletal Provider 12/16/21 07/10/23 Kelly Medina PA-C [address] [place] [address] Assigned PCP 06/30/22 documented as of this encounter
--- OUTSIDE RECORDS SUMMARY | 2023-07-22 17:06 | XMS_ITS | Encounter Summary ---
Author Name Unknown Organization [place] Address [facility] [place] [address] Care Team Providers Care Blanket Inspector Name Role Phone Kelly Medina PA-C Primary Care Pr ovider Elton Harmon-C Unavailable [phone] Elton Harmon-C Unavailable [phone] Elton Harmon-C Primary Care Provider + Elton Harmon-C Unavailable + Giulia Awan DO Unavailable [phone] Elton Harmon-C Unavailable + Elton Harmon-C Unavailable + Tevin Marshall-C Unavailable [phone] Kelly Medina-C Unavailable Kelly MedinaC Primary Care Pr ovider Reason for Visit * Reason Onset Date Comments Orders 04/08/2017 Mammo Diagnostic Order/Kelly Encounter Details Date Type Department Care Team ([facility] st Contact Info) Description 04/08/2017 Telephone [facility] [address] [place] [address] Kelly Medina PA-C [address] [place] [address] Orders (Mammo Diagnostic Order/Kelly) Social History Tobacco Use Types Packs/Day Years Used Date Smoking Tobacco: Never Smokeless Tobacco: Never Alcohol Use Standard Drinks/Week Comments Yes 0 (1 standard drink = 0.6 oz pur e alcohol) 4 weekly Sex and Gender Information Value Date Recorded Sex Assigned at Not on file Gender Identity Not on file Sexual Orientation Not on file documented as of this encounter Miscellaneous Notes * Telephone Encounter - Kelly Medina PA-C - 04/08/2017 5:14 PM CDT Done * Telephone Encounter - Carmelina Bishop RN - 04/08/2017 2:44 PM CDT Per cancellation for screening mammo today: Cancel Reason: Patient (patient has itchiness around right nipple. she needs a diagnostic mammogramordered by her physician. Patient is called to schedule the mammogram at [facility] ) * Telephone Encounter - Krystyna Vega - 04/08/2017 2:33 PM CDT Please order Nidia a Mammo Diagnostic, genaro. She will call [facility] tomorrow to schedule. Nidia just saw Psychology Department Chair, he wants mammo done. documented in this encounter Plan of Treatment Upcoming Encounters Date Type Department Care Team (Late st Contact Info) Description 2023 1:30 PM ORDER FILLER Office Visit [facility]'s [address] [place] [address] Anamaria Nevarez MD [address] [facility], [address] [place] [address] documented as of this encounter Results * US Breast Right (04/15/2017 3:12 PM CDT) Anatomical Region Laterality Modality Breast Right Ultrasound Impressions 04/15/2017 3:13 PM CDT IMPRESSION: BI-RADS CATEGORY: 1 - ??NEGATIVE RECOMMENDED FOLLOW-UP: Annual Mammography SHONDA FORMAN MD Narrative 04/15/2017 3:13 PM CDT DIAGNOSTIC MAMMOGRAM BILATERAL DIGITAL w/CAD w/TOMOSYNTHESIS ULTRASOUND RIGHT ??BREAST ??04/15/2017 HISTORY: Itching in the right nipple/area liver region. The patient scratch is indeterminate and it starts to bleed. COMPARISON: ??Prior mammograms through 2010. BREAST DENSITY: Almost entirely fat FINDINGS: ??No suspicious findings on mammography. Ultrasound in the subareolar region of the right breast demonstrates a few prominent ducts but there is no evidence for intraductal debris or masses. Any further evaluation should be based on clinical findings and clinical suspicion. 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 Two negative nares PCRs on 09/05/2015 and 08/24/2022. MRSA banner removed. 04/29/2014 04/29/201408/16 9:07 AM CDT Rule Out COVID-19 03/20/2023 03/20/2023 03/20/2023 8:43 PM CDT documented as of this encounter Care Teams Blanket Inspector Relationship Specialty Start Date End Date Kelly Medina PA-C [address] [place] [address] PCP - General 2/15/02 3/18/19 Elton Harmon PA-C [address] [place], [place] [id number] PCP - Assigned PCP 10/13/17 08/19/18 Elton Harmon PA-C [address] [place], [place] [id number] PCP - General Physician [employer] - Medical 09/02/18 08/06/22 Kelly Medina PA-C [address] [place] [address] PCP - General Family Medicine 08/07/22 Elton Harmon PA-C [address] [place] [address] Assigned PCP 12/06/19 09/24/20 Elton Harmon [place] [address] [place] [address] Assigned PCP 10/13/17 12/05/19 Giulia Awan DO [address] [address] Assigned OBGYN Provider 04/08/20 Elton Harmon PA-C [address] [place] [address] Assigned PCP 09/25/20 12/29/20 Elton Harmon PA-C [address] [address] Assigned PCP 12/30/20 06/29/22 Tevin Marshall PA-C [address] [place] [address] [place] [address] Assigned Musculoskeletal Provider 12/16/21 07/10/23 Kelly Medina PA-C [address] [facility] [place] [place] [address] Assigned PCP 06/30/22 documented as of this encounter
--- OUTSIDE RECORDS SUMMARY | 2023-07-22 17:06 | XMS_ITS | Encounter Summary ---
Author Name Unknown Organization [place] Address [facility] [place] [address] Care Team Providers Care Coil Cleaner Name Role Phone Tevin Marshall PA-C Unavailable [phone] Kelly Medina PA-C Unavailable Kelly Medina PA-C Primary Care Pr ovider Encounter Details Date Type Department Care Team (Latest Contact Info) Description 08/24/2022 Travel Social History Tobacco Use Types Packs/Day [...] often do you attend chur ch or anabaptist services? More than 4 times per year 08/24/2022 Do you belong to any clubs o r organizations such as religion groups, unions, fraternal or athletic groups, or [...] Answer Date Recorded PHQ-2 Score 0 08/24/2022 [facility] - Occupational Stress [...] suspected to have Coronavirus/COVID-19? No / Unsure 08/24/2022 2:47 PM CAP INSPECTOR documented as of this encounter Plan of Treatment Upcoming Encounters Date Type Department Care Team (Late st Contact Info) Description 2023 1:30 PM CAP INSPECTOR Office Visit 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 Two negative nares PCRs on 09/05/2015 and 08/24/2022. MRSA banner removed. 04/29/2014 04/29/201408/16 9:07 AM CDT Assessment Noted Time PHQ-9 Depression Total Score: 4 12/04/19 19 3:50 PM CDT documented as of this encounter Care Teams Coil Cleaner Relationship Specialty Start Date End Date Kelly Medina PA-C [address] [place] [address] PCP - General Family Medicine 08/07/22 Tevin Marshall PA-C [address] [address] Assigned Musculoskeletal Provider 12/16/21 07/10/23 Kelly Medina PA-C [address] [place] [address] Assigned PCP 06/30/22 documented as of this encounter
--- OUTSIDE RECORDS SUMMARY | 2023-07-22 17:06 | XMS_ITS | Encounter Summary ---
Author Name Unknown Organization [place] Address [address] [facility] [place] [address] Care Team Providers Care Database Administration Manager Name Role Phone Tevin Marshall PA-C Unavailable [phone] Kelly Medina PA-C Unavailable Kelly Medina PA-C Primary Care Pr ovider Encounter Details Date Type Department Care Team (Late st Contact Info) Description 08/08/2022 Orders Only [facility] [address] [place] [address] Darshan Young MD [facility] [address] [place] [address] Pre-operative laboratory examination (Primary Dx) Social History Tobacco Use Types [...] Coronavirus/COVID-19? No / Unsure 08/08/2022 11:14 AM RESIZER OPERATOR documented as of this encounter Plan of Treatment Upcoming Encounters Date Type Department Care Team (Late st Contact Info) Description 2023 1:30 PM RESIZER OPERATOR Office Visit [facility] [address] [place] [address] Anamaria Nevarez MD [address] [place] [place], [place] [address] documented as of this encounter Results * MRSA MSSA PCR, Nasal Swab (08/24/2022 3:30 PM RESIZER OPERATOR) MRSA Target DNA Negative Negative 08/24/2022 8:31 PM RESIZER OPERATOR [facility] SA Target DNA Negative 08/24/2022 8:31 PM RESIZER OPERATOR [facility] Swab NASAL STRUCTURE / Unknown Non-blood Collection / Unknown 08/24/2022 3:30 PM RESIZER OPERATOR 08/24/2022 3:40 PM RESIZER OPERATOR Narrative [facility] - 08/24/2022 8:31 PM RESIZER OPERATOR The Cepheid?? Xpert SA Nasal Complete assay performed in the GeneProfindpert?? Dx System is a qualitative in vitro diagnostic test designed for rapid detection of Staphylococcus aureus (SA) and methicillin-resistant Staphylococcus aureus (MRSA) from nasal swabs in patients at risk for nasal colonization. The test utilizes automated real- time polymerase chain reaction (PCR) to detect MRSA/SA DNA. The Xpert SA Nasal Complete assay is intended to aid in the prevention and control of MRSA/SA infections in healthcare settings. The assay is not intended to diagnose, guide or monitor treatment for MRSA/SA infections, or provide results of susceptibility to methicillin. A negative result does not preclude MRSA/SA nasal colonization. Darshan Young MD LAB - MICRO GENE RAL ORDERABLES [facility] [address] 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 Two negative nares PCRs on 09/05/2015 and 08/24/2022. MRSA banner removed. 04/29/2014 04/29/201408/16 9:07 AM CDT Rule Out COVID-19 03/20/2023 03/20/2023 03/20/2023 8:43 PM CDT Assessment Noted Time PHQ-9 Depression Total Score: 4 12/04/19 19 3:50 PM CDT documented as of this encounter Care Teams Database Administration Manager Relationship Specialty Start Date End Date Kelly Medina PA-C [address] [place] [address] PCP - General Family Medicine 08/07/22 Tevin Marshall PA-C [address] [address] Assigned Musculoskeletal Provider 12/16/21 07/10/23 Kelly Medina PA-C [address] [place] [address] Assigned PCP 06/30/22 documented as of this encounter
--- OUTSIDE RECORDS SUMMARY | 2023-07-22 17:06 | XMS_ITS | Encounter Summary ---
Author Name Unknown Organization [facility] Address [facility] [place] [address] Care Team Providers Care Skinning Machine Feeder Name Role Phone Tevin Marshall PA-C Unavailable [phone] Néstor Medina PA-C Unavailable Néstor Medina PA-C Primary Care Pr ovider Reason for Visit * Reason Comments Pre-Op Exam Encounter Details Date Type Department Care Team (Late st Contact Info) Description 08/24/2022 3:30 PM FLIGHT READINESS TECHNICIAN Office Visit [facility] [id number] [place] [id number] Néstor Medina PA-C [id number] [place] [id number] Preop general physical exam (Primary Dx); Pre-operative laboratory examination; Arthritis of left knee Social History Tobacco Use Types Packs/Day Years [...] often do you attend chur ch or jewish services? More than 4 times per year [...] Answer Date Recorded PHQ-2 Score 0 08/24/2022 [facility] Occupat ional Health - Occupational Stress [...] No 08/24/2022 Housing Stability Vital Sign Answer Yonathna e Recorded In the last 12 months, [...] Coronavirus/COVID-19? No / Unsure 08/24/2022 2:47 PM FLIGHT READINESS TECHNICIAN documented as of this encounter Last Filed Vital Signs Vital Sign Reading Time Taken Comments Blood Pressure 119/81 08/24/2022 2:49 PM FLIGHT READINESS TECHNICIAN Pulse 80 08/24/2022 2:49 PM FLIGHT READINESS TECHNICIAN Temperature 37.2 ??C (98.9 ??F) 08/24/2022 2:49 PM CS T Respiratory Rate 18 08/24/2022 2:49 PM FLIGHT READINESS TECHNICIAN Oxygen Saturation 99% 08/24/2022 2:49 PM FLIGHT READINESS TECHNICIAN Inhaled Oxygen Concentration - - Weight 85.4 kg (188 lb 4.8 oz) 08/24/2022 2:49 P M FLIGHT READINESS TECHNICIAN Height 158.1 cm (5' 2.25) 08/24/2022 2:49 PM CS T Body Mass Index 34.16 08/24/2022 2:49 PM FLIGHT READINESS TECHNICIAN documented in this encounter Patient Instructions * Patient Instructions* Jasmin Armando MA - 08/24/2022 3:30 PM FLIGHT READINESS TECHNICIAN For informational purposes only. Not to replace the advice of your health care provider. Copyright ?? 2002, 2018 [facility]. All rights reserved. Clinically reviewed by Perla Silva MD. [employer] [id number] - REV 06/07. Preparing for Your Surgery Getting started A nurse will call you to review your health history and instructions. They will give you an arrivaltime based on your scheduled surgery time. Please be ready to share: ??? Your doctor's clinic name and phone number ??? Your medical, surgical, and anesthesia history ??? A list of allergies and sensitivities ??? A list of medicines, including herbal treatments and [id number] drugs ??? Whether the patient has a legal guardian (ask how to send us the papers in advance) Please tell us if you're --or if there's any chance you might be . Some surgeries may injure a fetus (unborn baby), so they require a test. Surgeries that are safe for a fetus don't always need a test, and you can choose whether to have one. If you have a child who's having surgery, please ask for a copy of Preparing for Your Child's Surgery. Preparing for surgery ? ? Within 10 to 30 days of surgery: Have a pre-op exam (sometimes called an H&P, or History and Physical). This can be done at a clinic or pre-operative center. ? If you're having a , you may not need this exam. Talk to your care team. ??? At your pre-op exam, talk to your care team about all medicines you take. If you need to stop any medicines before surgery, ask when to start taking them again. ? We do this for your safety. Many medicines can make you bleed too much during surgery. Some change how well surgery (anesthesia) drugs work. ??? Call your insurance company to let them know you're having surgery. (If you don't have insurance, call [phone].) ??? Call your clinic if there's any change in your health. This includes signs of a cold or flu (sore throat, runny nose, cough, rash, fever). It also includes a scrape or scratch near the surgery site. ??? If you have questions on the day of surgery, call your hospital or surgery center. Eating and drinking guidelines For your safety: Unless your surgeon tells you otherwise, follow the guidelines below. ??? Eat and drink as usual until 8 hours before you arrive for surgery. After that, no food or milk. ??? Drink clear liquids until 2 hours before you arrive. These are liquids you can see through, like water, Gatorade, and Propel Water. They also include plain black coffee and tea (no cream or milk), candy, and breath mints. You can spit out gum when you arrive. ??? If you drink alcohol: Stop drinking it the night before surgery. ??? If your care team tells you to take medicine on the morning of surgery, it's okay to take it with a sip of water. Preventing infection ??? Shower or bathe the night before and morning of your surgery. Follow the instructions your clinic gave you. (If no instructions, use regular soap.) ??? Don't shave or clip hair near your surgery site. We'll remove the hair if needed. ??? Don't smoke or vape the morning of surgery. You may chew nicotine gum up to 2 hours before surgery. A nicotine patch is okay. ? Note: Some surgeries require you to completely quit smoking and nicotine. Check with your surgeon. ??? Your care team will make every effort to keep you safe from infection. We will: ? Clean our hands often with soap and water (or an alcohol-based hand rub). ? Clean the skin at your surgery site with a special soap that kills germs. ? Give you a special gown to keep you warm. (Cold raises the risk of infection.) ? Wear special hair covers, masks, gowns and gloves during surgery. ? Give antibiotic medicine, if prescribed. Not all surgeries need antibiotics. What to bring on the day of surgery ??? Photo ID and insurance card ??? Copy of your health care directive, if you have one ??? Glasses and hearing aids (bring cases) ? You can't wear contacts during surgery ??? Inhaler and eye drops, if you use them (tell us about these when you arrive) ??? CPAP machine or breathing device, if you use them ??? A few personal items, if spending the night ??? If you have . . . ? A pacemaker, ICD (cardiac defibrillator) or other implant: Bring the ID card. ? An implanted stimulator: Bring the remote control. ? A legal guardian: Bring a copy of the certified (court-stamped) guardianship papers. Please remove any jewelry, including body piercings. Leave jewelry and other valuables at home. If you're going home the day of surgery ??? You must have a responsible adult drive you home. They should stay with you overnight as well. ??? If you don't have someone to stay with you, and you aren't safe to go home alone, we may keep you overnight. Insurance often won't pay for this. After surgery If it's hard to control your pain or you need more pain medicine, please call your surgeon's office. Questions? If you have any questions for your care team, list them here: HT READINESS TECHNICIAN documented in this encounter Progress Notes * Néstor Medina PA-C - 08/24/2022 3:30 PM CST [address] [address] Primary Provider: Néstor Medina Pre-op Performing Provider: NÉSTOR MEDINA PREOPERATIVE EVALUATION: Today's date: 08/24/2022 Nidia Mtz is a 62 year old female who presents for a preoperative evaluation. Surgical Information: Surgery/Procedure: ARTHROPLASTY, KNEE, TOTAL - Left (Spinal with Adductor Canal Block) Surgery Location:[facility] Surgeon: Dr. Young Surgery Date: 09/03/2022 Time of Surgery: 6:30am Where patient plans to recover: At home with family Fax number for surgical facility: Note does not need to be faxed, will be available electronically in F?rsat [facility] F?rsat. Type of Anesthesia Anticipated: General and Spinal Assessment & Plan The proposed surgical procedure is considered INTERMEDIATE risk. Preop general physical exam - EKG 12-lead complete w/read - Clinics - CBC with platelets - Basic metabolic panel Pre-operative laboratory examination - MRSA MSSA PCR, Nasal Swab Arthritis of left knee Risks and Recommendations: The patient has the following additional risks and recommendations for perioperative complications: - No identified additional risk factors other than previously addressed Medication Instructions: Patient is to take all scheduled medications on the day of surgery RECOMMENDATION: APPROVAL GIVEN to proceed with proposed procedure, without further diagnostic evaluation. Subjective HPI related to upcoming procedure: left knee pain and arthritis for years and shots not helpful. Preop Questions 08/24/2022 1. Have you ever had a heart attack or stroke? No 2. Have you ever had surgery on your heart or blood vessels, such as a stent placement, a coronary artery bypass, or surgery on an artery in your head, neck, heart, or legs? No 3. Do you have chest pain with activity? No 4. Do you have a history of heart failure? No 5. Do you currently have a cold, bronchitis or symptoms of other infection? No 6. Do you have a cough, shortness of breath, or wheezing? No 7. Do you or anyone in your family have previous history of blood clots? No 8. Do you or does anyone in your family have a serious bleeding problem such as prolonged bleeding following surgeries or cuts? No 9. Have you ever had problems with anemia or been told to take iron pills? No 10. Have you had any abnormal blood loss such as black, tarry or bloody stools, or abnormal vaginalbleeding? No 11. Have you ever had a blood transfusion? No 12. Are you willing to have a blood transfusion if it is medically needed before, during, or after your surgery? Yes 13. Have you or any of your relatives ever had problems with anesthesia? No 14. Do you have sleep apnea, excessive snoring or daytime drowsiness? No 15. Do you have any artifical heart valves or other implanted medical devices like a pacemaker, defibrillator, or continuous glucose monitor? No 16. Do you have artificial joints? YES - left hip total x 2 17. Are you allergic to latex? YES: 18. Is there any chance that you may be ? No Health Care Directive: Patient does not have a Health Care Directive or Living Will: Preoperative Review of STRANDING MACHINE OPERATOR HELPER: STRANDING MACHINE OPERATOR HELPER reviewed - no record of controlled substances prescribed. Status of Chronic Conditions: See problem list for active medical problems. Problems all longstanding and stable, except as noted/documented. See ROS for pertinent symptoms related to these conditions. Review of Systems CONSTITUTIONAL: NEGATIVE for fever, chills, change in weight INTEGUMENTARY/SKIN: NEGATIVE for worrisome rashes, moles or lesions EYES: NEGATIVE for vision changes or irritation ENT/MOUTH: NEGATIVE for ear, mouth and throat problems RESP: NEGATIVE for significant cough or SOB CV: NEGATIVE for chest pain, palpitations or peripheral edema GI: NEGATIVE for nausea, abdominal pain, heartburn, or change in bowel habits : NEGATIVE for frequency, dysuria, or hematuria MUSCULOSKELETAL: NEGATIVE for significant arthralgias or myalgia NEURO: NEGATIVE for weakness, dizziness or paresthesias ENDOCRINE: NEGATIVE for temperature intolerance, skin/hair changes HEME: NEGATIVE for bleeding problems PSYCHIATRIC: NEGATIVE for changes in mood or affect Patient Active Problem List Diagnosis Date Noted ??? Anxiety 09/27/2017 Priority: Medium ??? Autoimmune disease (H) 09/27/2017 Priority: Medium ??? Hip pain, left 09/13/2015 Priority: Medium ??? Degenerative arthritis of hip 05/18/2014 Priority: Medium ??? Abdominal pain, unspecified abdominal location 12/07/2010 Priority: Medium Problem list name updated by automated process. Provider to review ??? Pulmonary nodule, left 11/28/2010 Priority: Medium Needs repeat chest ct May 2011 ??? CARDIOVASCULAR SCREENING; LDL GOAL LESS THAN 160 04/16/2010 Priority: Medium ??? Intermittent asthma 03/07/2010 Priority: Medium ??? 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 Temporomandibular joint disorder Priority: Medium not had issues for a while now-02/03/07 Problem list name updated by automated process. Provider to review ??? Autoimmune disease, not elsewhere classified Priority: Medium sees dr mast at [facility] neurology Problem list name updated by automated process. Provider to review and confirm ??? Toxic effect of venom(989.5) 06/28/2005 Priority: Medium allergic reaction to bee stings Past Medical History: Diagnosis Date ??? Arthritis ??? Autoimmune disease NEC sees dr mast at [facility] neurology ??? Autoimmune disease, not elsewhere classified ??? Chronic infection MRSA ??? Complication of anesthesia Blood pressure and sats drop (ended up in ICU postop) ??? Fibromyalgia ??? Mild intermittent asthma ??? Numbness and tingling bilateral hands and feet ??? Temporomandibular joint disorders, unspecified not had issues for a while now-02/03/07 ??? 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 ABDOMEN SURGERY 12/2008 appendix removed ??? APPENDECTOMY ??? ARTHROPLASTY HIP ANTERIOR Left 05/18/2014 Procedure: ARTHROPLASTY HIP ANTERIOR; Surgeon: Bobby Tapia MD; Location: [facility] OR ??? ARTHROPLASTY REVISION HIP Left 09/13/2015 Procedure: ARTHROPLASTY REVISION HIP; Surgeon: Bobby Tapia MD; Location: [facility] OR ??? CARPAL TUNNEL RELEASE RT/LT Bilateral 2015 ??? COLONOSCOPY 11/14/[address] [facility] ??? COLONOSCOPY N/A 10/01/2017 Procedure: COMBINED COLONOSCOPY, SINGLE OR MULTIPLE BIOPSY/POLYPECTOMY BY BIOPSY; COLONOSCOPY with random rectum bxs; Surgeon: Danika Blum MD; Location: [facility] GI ??? EXTRACAPSULAR CATARACT EXTRATION WITH INTRAOCULAR LENS IMPLANT bilaterally ??? HRW VEIN STRIPPER Bilateral ??? HYSTERECTOMY, PAP NO LONGER INDICATED 2001 ??? HYSTERECTOMY, VAGINAL ??? left hip replaced x2 ??? ORTHOPEDIC SURGERY left shoulder surgery ??? VASCULAR SURGERY 2013 had some licensing registration examiner work done ??? XR FOOT SURGERY JOSE RIGHT ??? [facility] NONSPECIFIC PROCEDURE 12/07/1997 excision of neuroma 2nd toe (R) ??? [facility] NONSPECIFIC PROCEDURE neck injury ??? [facility] NONSPECIFIC PROCEDURE left knee surgery ??? [facility] NONSPECIFIC PROCEDURE tubal ligation Current Outpatient Medications Medication Sig Dispense Refill ??? albuterol (PROAIR HFA/PROVENTIL HFA/VENTOLIN HFA) 108 (90 Base) MCG/ACT inhaler Inhale 1-2 puffs into the lungs every 4 hours as needed for shortness of breath / dyspnea 16 g 1 ??? calcium carbonate (OS-DOT 500 MG NONDALTON. CA) 500 MG tablet Take 500 mg by mouth 2 times daily. ??? clobetasol (TEMOVATE) 0.05 % external ointment Apply sparingly to affected area twice daily as needed x 2 weeks, then daily for 1 week. Do not apply to face. 60 g 11 ??? EPINEPHrine (EPIPEN 2-JANICE) 0.3 MG/0.3ML injection 2-pack Inject 0.3 mLs (0.3 mg) into the muscle as needed for anaphylaxis 0.6 mL 3 ??? Magnesium Chloride (MAGNESIUM DR PO) Take 450 mg by mouth 2 times daily ??? multivitamin w/minerals (THERA-VIT-M) tablet Take 1 tablet by mouth daily ??? VITAMIN D, CHOLECALCIFEROL, PO Take 400 Units by mouth daily ??? gabapentin (NEURONTIN) 300 MG capsule Take 2 capsules (600 mg) by mouth 2 times daily as needed(pain) (Patient not taking: Reported on 08/24/2022) 360 capsule 1 ??? Prasterone (INTRAROSA) 6.[address] 1 tablet vaginally daily (Patient not taking: Reportedon 08/24/2022) 60 each 10 Allergies Allergen Reactions ??? Iodinated Contrast Media [Diagnostic X-Ray Materials] Anaphylaxis ??? Iodine Anaphylaxis anaphylaxis ??? Latex Anaphylaxis ??? Bees ??? Contrast Dye Coma. Pt is ok with isovue 370 (ct contrast dye) 08/08/13. ??? Malt Hives ??? Codeine Makes me hyper ??? Penicillins Rash rash ??? Yuvafem [Estradiol] Rash Social History Tobacco Use ??? Smoking status: Never ??? Smokeless tobacco: Never Substance Use Topics ??? Alcohol use: Yes Comment: 4 weekends Family History Problem Relation Age of Onset ??? Hypertension Father ??? Cancer Father ??? Breast Cancer Maternal Grandmother ??? Cancer - colorectal Maternal Grandfather ??? Cancer Paternal Grandmother ??? Cancer Paternal Grandfather ??? Family History Negative Mother ??? Breast Cancer Maternal Aunt ??? Family History Negative Brother 2 brothers healthy ??? Colon Cancer No family hx of History Drug Use No Objective BP 119/81 (BP Location: Right arm, Patient Position: Sitting, Cuff Size: Adult Regular) Pulse 80 Temp 98.9 ??F (37.2 ??C) (Oral) Resp 18 Ht 1.581 m (5' 2.25) Wt 85.4 kg (188 lb 4.8 oz) SpO2 99% BMI 34.16 kg/m?? Physical Exam GENERAL APPEARANCE: healthy, alert and no distress EYES: EOMI, PERRL HENT: ear canals and TM's normal and nose and mouth without ulcers or lesions NECK: no adenopathy, no asymmetry, masses, or scars and thyroid normal to palpation RESP: lungs clear to auscultation - no rales, rhonchi or wheezes CV: regular rates and rhythm, normal S1 S2, no S3 or S4 and no murmur, click or rub ABDOMEN: soft, nontender, no HSM or masses and bowel sounds normal MS: extremities normal- no gross deformities noted, no evidence of inflammation in joints, FROM in all extremities. SKIN: no suspicious lesions or rashes NEURO: Normal strength and tone, sensory exam grossly normal, mentation intact and speech normal PSYCH: mentation appears normal. and affect normal/bright LYMPHATICS: No cervical adenopathy No results for input(s): HGB, PLT, INR, NA, POTASSIUM, CR, A1C in the last 28096 hours. Diagnostics: Recent Results (from the past 240 hour(s)) MRSA MSSA PCR, Nasal Swab Collection Time: 08/24/22 3:30 PM Specimen: Nose; Swab Result Value Ref Range MRSA Target DNA Negative Negative SA Target DNA Negative CBC with platelets Collection Time: 08/24/22 3:38 PM Result Value Ref Range WBC Count 6.8 4.0 - 11.0 10e3/uL RBC Count 4.58 3.80 - 5.20 10e6/uL Hemoglobin 13.8 11.7 - 15.7 g/dL Hematocrit 42.1 35.0 - 47.0 % MCV 92 78 - 100 fL MCH 30.1 26.5 - 33.0 pg MCHC 32.8 31.5 - 36.5 g/dL RDW 13.8 10.0 - 15.0 % Platelet Count 269 150 - 450 10e3/uL Basic metabolic panel Collection Time: 08/24/22 3:38 PM Result Value Ref Range Sodium 141 136 - 145 mmol/L Potassium 4.1 3.4 - 5.3 mmol/L Chloride 102 98 - 107 mmol/L Carbon Dioxide (CO2) 28 22 - 29 mmol/L Anion Gap 11 7 - 15 mmol/L Urea Nitrogen 24.7 (H) 8.0 - 23.0 mg/dL Creatinine 0.67 0.51 - 0.95 mg/dL Calcium 9.3 8.8 - 10.2 mg/dL Glucose 98 70 - 99 mg/dL GFR Estimate >90 >60 mL/min/1.73m2 EKG: appears normal, NSR, normal axis, normal intervals, no acute ST/T changes c/w ischemia, no LVHby voltage criteria, unchanged from previous tracings Revised Cardiac Risk Index (RCRI): The patient has the following serious cardiovascular risks for perioperative complications: - No serious cardiac risks = 0 points RCRI Interpretation: Signed Electronically by: Néstor Medina PA-C Copy of this evaluation report is provided to requesting physician. documented in this encounter Plan of Treatment Upcoming Encounters Date Type Department Care Team (Late st Contact Info) Description 2023 1:30 PM FLIGHT READINESS TECHNICIAN Office Visit [facility] [address] [place] [address] Anamaria Nevarez MD [address] [place] [address] documented as of this encounter Procedures Procedure Name Priority Date/Time Associated Diagnosis Comments BASIC METABOLIC PANEL Routine 08/24/2022 3:38 PM FLIGHT READINESS TECHNICIAN Preop general physical exam CBC WITH PLATELETS Routine 08/24/2022 3: 38 PM FLIGHT READINESS TECHNICIAN Preop general physical exam MRSA MSSA PCR, NASAL SWAB Routine 08/24/2022 3:30 PM FLIGHT READINESS TECHNICIAN Pre-operative laboratory examination EKG 12-LEAD COMPLETE W/READ - CLINICS Routine 08/24/2022 Preop general physical exam documented in this encounter Results * (ABNORMAL) Basic metabolic panel (08/24/2022 3:38 PM FLIGHT READINESS TECHNICIAN) Sodium 141 136 - 145 mmol/L 08/24/2022 10:05 PM FLIGHT READINESS TECHNICIAN [facility] Potassium 4.1 3.4 - 5.3 mmol/L 08/24/2022 10:05 PM FLIGHT READINESS TECHNICIAN [facility] Chloride 102 98 - 107 mmol/L 08/24/2022 10:05 PM FLIGHT READINESS TECHNICIAN [facility] Carbon Dioxide (CO2) 28 22 - 29 mmol/L 08/24/2022 10:05 PM FLIGHT READINESS TECHNICIAN [facility] Anion Gap 11 7 - 15 mmol/L 08/24/2022 10:05 PM FLIGHT READINESS TECHNICIAN [facility] Urea Nitrogen 24.7(H) 8.0 - 23.0 mg/dL 08/24/2022 10:05 PM FLIGHT READINESS TECHNICIAN [facility] Creatinine 0.67 0.51 - 0.95 mg/dL 08/24/2022 10:05 PM FLIGHT READINESS TECHNICIAN [facility] Calcium 9.3 8.8 - 10.2 mg/dL 08/24/2022 10:05 PM FLIGHT READINESS TECHNICIAN [facility] Glucose 98 70 - 99 mg/dL 08/24/2022 10:05 PM FLIGHT READINESS TECHNICIAN [facility] GFR Estimate >90 >60 mL/min/1.7 3m2 08/24/2022 10:05 PM FLIGHT READINESS TECHNICIAN [facility] Comment:eGFR calculated us2020 CKD-EPI equation. Blood BLOOD SPECIMEN / Unknown Venipuncture / Unknown 08/24/2022 3:38 PM FLIGHT READINESS TECHNICIAN 08/24/2022 3:38 PM FLIGHT READINESS TECHNICIAN Néstor Medina PA-C LAB - BL OOD ORDERABLES [facility] [place] [facility] [address] [facility] [place] [address], [facility] [phone] * CBC with platelets (08/24/2022 3:38 PM FLIGHT READINESS TECHNICIAN) WBC Count 6.8 4.0 - 11.0 10e3/uL 08/24/2022 3:41 PM FLIGHT READINESS TECHNICIAN [facility] RBC Count 4.58 3.80 - 5.20 10e6/uL 08/24/2022 3:41 PM FLIGHT READINESS TECHNICIAN [facility] Hemoglobin 13.8 11.7 - 15.7 g/dL 08/24/2022 3:41 PM FLIGHT READINESS TECHNICIAN [facility] Hematocrit 42.1 35.0 - 47.0 % 08/24/2022 3:41 PM FLIGHT READINESS TECHNICIAN [facility] MCV 92 78 - 100 fL 08/24/2022 3:41 PM FLIGHT READINESS TECHNICIAN [facility] MCH 30.1 26.5 - 33.0 pg 08/24/2022 3:41 PM FLIGHT READINESS TECHNICIAN [facility] MCHC 32.8 31.5 - 36.5 g/dL 08/24/2022 3:41 PM FLIGHT READINESS TECHNICIAN [facility] RDW 13.8 10.0 - 15.0 % 08/24/2022 3:41 PM FLIGHT READINESS TECHNICIAN [facility] Platelet Count 269 150 - 450 10e3/uL 08/24/2022 3:41 PM FLIGHT READINESS TECHNICIAN [facility] Blood BLOOD SPECIMEN / Unknown Venipuncture / Unknown 08/24/2022 3:38 PM FLIGHT READINESS TECHNICIAN 08/24/2022 3:38 PM FLIGHT READINESS TECHNICIAN Néstor Medina PA-C LAB - BL OOD ORDERABLES [facility] [address] [facility] (no room number, 1st floor of clinic) [place] [address], [place] [phone] * MRSA MSSA PCR, Nasal Swab (08/24/2022 3:30 PM FLIGHT READINESS TECHNICIAN) MRSA Target DNA Negative Negative 08/24/2022 8:31 PM FLIGHT READINESS TECHNICIAN [facility] SA Target DNA Negative 08/24/2022 8:31 PM FLIGHT READINESS TECHNICIAN [facility] Swab NASAL STRUCTURE / Unknown Non-blood Collection / Unknown 08/24/2022 3:30 PM FLIGHT READINESS TECHNICIAN 08/24/2022 3:40 PM FLIGHT READINESS TECHNICIAN Narrative [facility] - 08/24/2022 8:31 PM FLIGHT READINESS TECHNICIAN The Cepheid?? Xpert SA Nasal Complete assay performed in the [employer]?? Dx System is a qualitative in vitro [...] MICRO GENE RAL ORDERABLES [facility] Inf. Diseases Di[facility]. Lab [address] [facility], [address] [place] [id number], [facility] [phone] * EKG 12-lead complete w/read - Clinics (08/24/2022) Néstor Medina PA-C ECG PRIETO LEAL documented in this encounter Visit Diagnoses Diagnosis Preop general physical exam- Primary Other specified pre-operative examination Pre-operative laboratory examination Pre-procedural laboratory examination Arthritis of left knee Unspecified arthropathy, lower leg documented in this encounter Additional Health Concerns Infection Onset Date Last Indicated Resolved Time MRSA-Contact Isolation Comment:Nares+, 04/27/2014. Two negative nares PCRs on 09/05/2015 and 08/24/2022. MRSA banner removed. 04/29/2014 04/29/201408/16 9:07 AM CDT Assessment Noted Time PHQ-9 Depression Total Score: 4 12/04/19 19 3:50 PM CDT documented as of this encounter Care Teams Skinning Machine Feeder Relationship Specialty Start Date End Date Néstor Medina PA-C [address] [place] [address] PCP - General Family Medicine 08/07/22 Tevin Marshall PA-C [address] [address] Assigned Musculoskeletal Provider 12/16/21 07/10/23 Néstor Medina PA-C [address] [place] [address] Assigned PCP 06/30/22 documented as of this encounter
--- OUTSIDE RECORDS SUMMARY | 2023-07-22 17:06 | XMS_ITS | Encounter Summary ---
Author Name Unknown Organization [facility] Address [address] [place] [id number] Care Team Providers Care Barbering Instructor Name Role Phone Kelly Medina PA-C Primary Care Pr ovider Elton Harmon-C Unavailable +1 Elton Harmon-C Unavailable +1 Elton HarmonC Primary Care Provider + Elton Harmon-C Unavailable + Giulia Awan DO Unavailable [phone] Elton Harmon-C Unavailable + Elton Harmon-C Unavailable + Tevin Marshall-C Unavailable [phone] Kelly Medina PA-C Unavailable Kelly Medina PA-C Primary Care Pr ovider Reason for Visit * Reason Onset Date Comments Erroneous encounter-disregard 12/27/2017 es citalopram (LEXAPRO) 20 MG tablet Encounter Details Date Type Department Care Team (Late st Contact Info) Description 12/27/[address] [place] [id number] Elton Harmon PA-C [address] [address] Erroneous encounter-disregard (escitalopram (LEXAPRO) 20 MG tablet) Social History Tobacco Use Types Packs/Day Years Used Date Smoking Tobacco: Never Smokeless Tobacco: Never Alcohol Use Standard Drinks/Week Comments Yes 0 (1 standard drink = 0.6 oz pur e alcohol) 4 weekends Sex and Gender Information Value Date Recorded Sex Assigned at Not on file Gender Identity Not on file Sexual Orientation Not on file documented as of this encounter Miscellaneous Notes * Telephone Encounter - Soraya Pereira - 12/27/2017 8:24 AM CDT 3 month Supply with 1 RF sent 12/05/17 sent to [facility], this request is from [facility]. Fax sent to pharm informing above. Please disregard request. 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 Two negative nares PCRs on 09/05/2015 and 08/24/2022. MRSA banner removed. 04/29/2014 04/29/2014 03/ 9:07 AM CDT Rule Out COVID-19 03/20/2023 03/20/202303/20/2023 8:43 PM CDT Assessment Noted Time PHQ-9 Depression Total Score: 5 12/07/19 18 7:25 AM CDT documented as of this encounter Care Teams Barbering Instructor Relationship Specialty Start Date End Date Kelly Medina PA-C [address] [place] [address] PCP - General 08/01/01 09/01/18 Elton Harmon [place]-C [address] [place] [address] PCP - Assigned PCP 10/13/17 08/19/18 Elton Harmon PA-C [address] [place] [address] PCP - General Physician Budget Assistant - Medical 09/02/18 08/06/22 Kelly Medina PA-C [address] [place] [address] PCP - General Family Medicine 08/07/22 Elton Harmon [place] [address] [place] [address] Assigned PCP 12/06/19 09/24/20 Elton Harmon [place]-C [address] [place] [address] Assigned PCP 10/13/17 12/05/19 Giulia Awan DO Mary E Abiola [address] [address] Assigned OBGYN Provider 04/08/20 Elton Harmon PA-C [address] [place] [address] Assigned PCP 09/25/20 12/29/20 Elton Harmon PA-C [address] [place] [address] Assigned PCP 12/30/20 06/29/22 Tevin Marshall PA-C [address] [place] [address] [place] [address] Assigned Musculoskeletal Provider 12/16/21 07/10/23 Kelly Medina PA-C [address] [place] [address] Assigned PCP 06/30/22 documented as of this encounter
--- OUTSIDE RECORDS SUMMARY | 2023-07-22 17:06 | XMS_ITS | Encounter Summary ---
Author Name Unknown Organization [place] Address [address] [facility] [place] [address] Care Team Providers Care Rug Cleaner Name Role Phone Tevin Marshall PA-C Unavailable [phone] Kelly Medina PA-C Unavailable Kelly Medina PA-C Primary Care Pr ovider Reason for Visit * Auth/Cert (Routine) Specialty Diagnoses / Procedures Referred By Mando johnson Referred To Contact Surgery Diagnoses Osteoarthritis Osteoarthritis [M19.90] Procedures [facility] TOTAL KNEE ARTHROPLASTY Left total knee arthroplasty(Spinal with adductor canal block) Periop Services [address] [place] [address] Referral ID Status Reason Start Date Expiration Date Visits Re quested Visits Authorized [id number] 1 1 Encounter Details Date Type Department Care Team (Late st Contact Info) Description 09/03/2022 8:27 AM CDT Anesthesia Event [facility] PeriOp Services [address] [place] [address] Bernardino Pulido MD [facility] [address] [place], [place] [address] Manoj Clark APRN [facility] [place] [address] [facility] [place] [address] Anesthesia Record Procedure Summary Procedure Name Responsible Anesthesiologist Anesthesia Start Time Anesthesia Stop Time Left total knee arthroplasty (Left: Knee) Bernardino Pulido MD 09/03/22 0827 09/03/22 1003 Events Date Time Event Comment 09/03/2022 0749 DIESEL ENGINE ASSEMBLER Ready for Procedure 0806 0827 An Start 0832 An Start Data 0836 AN REASSESS I attest that I have identified and re-evaluated the patient immediately before the induction of anesthesia and I am satisfied that the anesthetic plan is suitable for the patient's condition and procedure. The first vital signs recorded are pre- induction. Carlyn Isidro APRN DIESEL ENGINE ASSEMBLER 0836 An Induction 0836 MD Present 0836 An Intubation 0838 Anesthesia Ready for Procedu re 0911 Present 0952 AN Extubation All extubation criteria met prior to removal. 0954 an stop data 1003 An Stop Electronically signed by Carlyn Isidro APRN DIESEL ENGINE ASSEMBLER on September 03, 2022 10:03 AM 1003 MD Present Meds Name Total midazolam 1 mg/mL 3 mg fentaNYL 50 mcg/mL 200 mcg HYDROmorphone 1 mg/mL 1 mg lidocaine 2% 100 mg propofol 10 mg/mL 150 mg propofol drip mcg/kg/min 187 mg rocuronium 10 mg/mL 50 mg phenylephrine (CINDY-SYNEPHRINE) injection 200 mcg dexamethasone (DECADRON) 4 mg/mL 4 mg glycopyrrolate 0.2 mg/mL 0.6 mg neostigmine 1 mg/mL 2 mg tranexamic acid 1 g in 100 mL NS IV bag (premix) 1 g LR 200 mL * Agents Name NO HELIOX O2 N2O Air Exp Sevoflurane Exp Isoflurane Exp Desflurane Exp N2O Ins Sevoflurane Ins Isoflurane Ins Desflurane O2 Auxiliary * Blood No blood administrations on file. Lines, Drains, and Airways Type Details Placement Removal Burn Left; hip 09/14/15 1717 by Incision/Surgical Site 09/03/22; 1001; L eft; Knee; scottie, aquacel, cast pad, duong 09/03/22 1001 by Osman Bernstein RN Incision/Surgical Site 05/18/14; 1711; L eft; Hip; 09/05/22; 0856 05/18/14 1711 by Cristy Eng RN 09/05/22 0856 by Jessica Priest RN RETIRE: Peripheral IV 09/03/22; 0740; Distal, Left, Dorsal; Lower forearm; Chlorhexidine; None; Tolerated well 09/03/22 0740 by Anne-Marie Hassan RN 09/03/22 1001 by Luciana Bustamante RN ETT Placement Date: 09/03/22; Placement Time: 08 (created via procedure documentation); Mask Ventilation: 1; Induction Type: Intravenous; Ease of Intubation: Easy; Technique: Direct laryngoscopy; ETT Type: Single; Tube Size: 7 mm; DL Blade Size: MAC 3; Adjucts: Stylet; Placement Person: DIESEL ENGINE ASSEMBLER; Attempts: 1 09/03/22 0836 by Carlyn Isidro APRN DIESEL ENGINE ASSEMBLER 09/03/22 0952 by Carlyn Isidro APRN DIESEL ENGINE ASSEMBLER RETIRE: Peripheral IV 09/03/22; 1000; 22 G; Right; Hand; Chlorhexidine; None 09/03/22 1000 by Luciana Bustamante, RN 09/03/22 2257 by Lena Hammond RN documented in this encounter Social History Tobacco [...] often do you attend chur ch or yarsani services? More than 4 times per year [...] Answer Date Recorded PHQ-2 Score 0 08/24/2022 [facility] - Occupational Stress Questionnaire Answer Date Recorded [...] place to sleep or slept in a long term (including now)? No 08/24/2022 Sex and Gender Information Value Date Recorded Sex Assigned at Not on file Gender Identity Not on file Sexual Orientation Not on file COVID-19 Exposure Response Date Recorded In the last 10 days, have shirley rush been in contact with someone who was confirmed or suspected to have Coronavirus/COVID-19? No / Unsure 09/03/2022 6:14 AM CDT documented as of this encounter OR Notes * Anesthesia Postprocedure Evaluation - Bernardino Pulido MD - 09/03/2022 11:04 AM CDT Patient: Nidia Mtz Procedure: Procedure(s): Left total knee arthroplasty(Spinal with adductor canal block) Anesthesia Type: General Note: Disposition: Outpatient Postop Pain Control: Uneventful Sign Out: Well controlled pain PONV: No Neuro/Psych: Uneventful Sign Out: Acceptable/Baseline neuro status Airway/Respiratory: Uneventful Sign Out: Acceptable/Baseline resp. status CV/Hemodynamics: Uneventful Sign Out: Acceptable CV status; No obvious hypovolemia; No obvious fluid overload Other NRE: NONE DID A NON-ROUTINE EVENT OCCUR? No Last vitals: Vitals Value Taken Time BP 115/55 09/03/22 1100 Temp 98.5 ??F (36.9 ??C) 09/03/22 0955 Pulse 67 09/03/22 1102 Resp 8 09/03/22 1102 SpO2 93 % 09/03/22 1102 Vitals shown include unvalidated device data. Electronically Signed By: Bernardino Pulido MD September 03, 2022 11:04 AM * Anesthesia Procedure Notes - Carlyn Isidro APRN CRNA - 09/03/2022 8:54 AM CDTAssociated Order(s): Airway Airway Patient location during procedure: OR Procedure Start/Stop Times: 09/03/2022 8:36 AM Staff - DIESEL ENGINE ASSEMBLER: Carlyn Isidro APRN DIESEL ENGINE ASSEMBLER Performed By: DIESEL ENGINE ASSEMBLER Consent for Airway Urgency: elective Indications and Patient Condition Indications for airway management: tommy-procedural Induction type:intravenous Mask difficulty assessment: 1 - vent by mask Final Airway Details Final airway type: endotracheal airway Successful airway: ETT - single Endotracheal Airway Details ETT size (mm): 7.0 Cuffed: yes Successful intubation technique: direct laryngoscopy DL Blade Type: MAC 3 Adjucts: stylet Bite block used: Soft Post intubation assessment Placement verified by: capnometry Number of attempts at approach: 1 Secured with: plastic tape Ease of procedure: easy Dentition: Intact Medication(s) Administered Medication Administration Time: 09/03/2022 8:36 AM * Anesthesia Procedure Notes - Bernardino Pulido MD - 09/03/2022 8:23 AM CDT Associated Order(s): Peripheral/Paravertebral Block Femoral Procedure Note Pre-Procedure Staff - Anesthesiologist: Bernardino Pulido MD Performed By: anesthesiologist Location: pre-op Pre-Anesthestic Checklist: patient identified, IV checked, site marked, risks and benefits discussed, informed consent, monitors and equipment checked, pre-op evaluation, at physician/surgeon's request and post-op pain management Timeout: Correct Patient: Yes Correct Procedure: Yes Correct Site: Yes Correct Position: Yes Correct Laterality: Yes Site Marked: Yes Procedure Documentation Procedure: Femoral Laterality: left Patient Position: supine Patient Prep/Sterile Barriers: sterile gloves, mask Skin prep: Betadine Needle Type: insulated and short bevel Needle Gauge: 22. Ultrasound guided 1. Ultrasound was used to identify targeted nerve, plexus, vascular marker, or fascial plane and place a needle adjacent to it in real-time. 2. Ultrasound was used to visualize the spread of anesthetic in close proximity to the above referenced structure. Assessment/Narrative The placement was negative for: blood aspirated, painful injection and site bleeding Paresthesias: No. Bolus given via needle. no blood aspirated via catheter. Secured via. Insertion/Infusion Method: Single Shot Complications: none Comments: 22ml of 0.5% Bupivicaine w/ 1:200,000 epi + 10ml of 2% Lidocaine injected The surgeon has given a verbal order transferring care of this patient to me for the performance ofa regional analgesia block for post-op pain control. It is requested of me because I am uniquely trained and qualified to perform this block and the surgeon is neither trained nor qualified to perform this procedure. FOR [facility] ([facility]) ONLY: Pain Team Contact information: please page the Pain Team Via [employer].Search Pain. During daytime hours, please page the attending first. At night please page the resident first. * Anesthesia Preprocedure Evaluation - Bernardino Pulido MD - 09/03/2022 7:39 AM CDT Anesthesia Pre-Procedure Evaluation Patient: Nidia Mtz : 1960 Procedure : Procedure(s): Left total knee arthroplasty(Spinal with adductor canal block) Past Medical History: Diagnosis Date ??? Arthritis ??? Autoimmune disease NEC [facility] ??? Autoimmune disease, not elsewhere classified [...] Bilateral 2015 ??? COLONOSCOPY 11/14/[address] Naif MARY ??? COLONOSCOPY N/A 10/01/2017 Procedure: COMBINED COLONOSCOPY, [...] surgery ??? VASCULAR SURGERY [address] test examiner work done ??? XR FOOT SURGERY JOSE RIGHT ??? [facility] NONSPECIFIC PROCEDURE 12/07/1997 excision of neuroma 2nd toe (R) ??? [facility] NONSPECIFIC PROCEDURE neck injury ??? [facility] NONSPECIFIC PROCEDURE left knee surgery ??? [facility] NONSPECIFIC PROCEDURE tubal ligation Allergies Allergen Reactions ??? Iodinated Contrast Media [...] ??? Alcohol use: Yes Comment: 4 weekends Wt Readings from Last 1 Encounters: 09/03/22 85 kg (187 lb 4.8 oz) Anesthesia Evaluation ROS/MED HX ENT/Pulmonary: (+) Intermittent, asthma Treatment: Inhaler prn, Neurologic: Comment: Stiff person syndrome Cardiovascular: METS/Exercise Tolerance: >4 METS Hematologic: Comments: Lab Test 08/24/22 03/25/19 09/27/17 11/04/15 09/16/15 09/15/15 1538 1545 1547 1503 0708 0658 WBC 6.8 7.6 10.9 < > -- -- HGB 13.8 13.9 13.7 < > -- 10.3* MCV 92 93 93 < > -- -- PLT 269 306 278 < > -- -- INR -- 0.96 -- -- 0.99 0.97 < > = values in this interval not displayed. Lab Test 08/24/22 09/27/17 09/19/16 1538 1547 0756 NA 141 140 142 POTASSIUM 4.1 4.0 4.0 CHLORIDE 102 104 104 CO2 28 30 30 BUN 24.7* 19 14 CR 0.67 0.58 0.56 ANIONGAP 11 6 8 DOT 9.3 9.1 9.2 GLC 98 93 80 Musculoskeletal: Comment: Osteoarthritis knee (+) arthritis, GI/Hepatic: - neg GI/hepatic ROS Renal/Genitourinary: - neg Renal ROS Endo: (+) Obesity, Psychiatric/Substance Use: (+) psychiatric history anxiety Infectious Disease: - neg infectious disease ROS Malignancy: - neg malignancy ROS Other: Comment: Temporomandibular joint disorder Physical Exam Airway Mallampati: III TM distance: < 3 FB Neck ROM: full Mouth opening: < 3 cm Respiratory Devices and Support Dental (+) Minor Abnormalities - some fillings, tiny chips Cardiovascular cardiovascular exam normal Pulmonary pulmonary exam normal OUTSIDE LABS: CBC: Lab Results Component Value Date WBC 6.8 08/24/2022 WBC 7.6 03/25/2019 HGB 13.8 08/24/2022 HGB 13.9 03/25/2019 HCT 42.1 08/24/2022 HCT 42.2 03/25/2019 PLT 269 08/24/2022 PLT 306 03/25/2019 BMP: Lab Results Component Value Date NA 141 08/24/2022 NA 140 09/27/2017 POTASSIUM 4.1 08/24/2022 POTASSIUM 4.0 09/27/2017 CHLORIDE 102 08/24/2022 CHLORIDE 104 09/27/2017 CO2 28 08/24/2022 CO2 30 09/27/2017 BUN 24.7 (H) 08/24/2022 BUN 19 09/27/2017 CR 0.67 08/24/2022 CR 0.58 09/27/2017 GLC 98 08/24/2022 GLC 93 09/27/2017 COAGS: Lab Results Component Value Date PTT 33 03/25/2019 INR 0.96 03/25/2019 POC: Lab Results Component Value Date BGM 86 05/18/2014 HCG Negative 07/10/2004 HCGS Negative 11/30/2007 HEPATIC: Lab Results Component Value Date ALBUMIN 3.9 09/27/2017 PROTTOTAL 7.3 09/27/2017 ALT 22 09/27/2017 AST 12 09/27/2017 GGT 17 05/02/2006 ALKPHOS 54 09/27/2017 BILITOTAL 0.4 09/27/2017 OTHER: Lab Results Component Value Date LACT 0.8 05/02/2006 A1C 5.4 06/07/2006 DOT 9.3 08/24/2022 PHOS 4.4 06/22/2008 MAG 2.1 03/25/2019 LIPASE 83 08/08/2013 AMYLASE 48 11/12/2007 TSH 3.03 09/27/2017 CRP <2.9 08/29/2015 SED 8 08/29/2015 Anesthesia Plan ASA Status: 3 Anesthesia Type: General. - Airway: ETT Induction: Propofol. Maintenance: Balanced. Consents Anesthesia Plan(s) and associated risks, benefits, and realistic alternatives discussed. Questions answered and patient/ocean import representative(s) expressed understanding. - Discussed: - Discussed with: Patient - Extended Intubation/Ventilatory Support Discussed: No. - Patient is DNR/DNI Status: No Use of blood products discussed: Yes. - Discussed with: Patient. - Consented: consented to blood products Reason for refusal: other. Postoperative Care Pain management: IV analgesics. PONV prophylaxis: Ondansetron (or other 5HT-3), Dexamethasone or Solumedrol Comments: Bernardino Pulido MD documented in this encounter Miscellaneous Notes * Anesthesia Care Transfer Note - Carlyn Isidro APRN CRNA - 09/03/2022 10:02 AM CDT Patient: Nidia Mtz Procedure: Procedure(s): Left total knee arthroplasty(Spinal with adductor canal block) Diagnosis: Osteoarthritis [M19.90] Diagnosis Additional Information: No value filed. Anesthesia Type: General Note: Oropharynx: oropharynx clear of all foreign objects and spontaneously breathing Level of Consciousness: awake Oxygen Supplementation: face mask Independent Airway: airway patency satisfactory and stable Dentition: dentition unchanged Vital Signs Stable: post-procedure vital signs reviewed and stable Report to RN Given: handoff report given Patient transferred to: PACU Comments: IV appears to be infilitrated. Was red before case and slightly puffy, but worse right atend of case, upon arrival to PACU. MDA paged. Handoff Report: Identifed the Patient, Identified the Reponsible Provider, Reviewed the pertinent medical history, Discussed the surgical course, Reviewed Intra-OP anesthesia mangement and issues during anesthesia, Set expectations for post-procedure period and Allowed opportunity for questions andacknowledgement of understanding Vitals: Vitals Value Taken Time BP 145/117 09/03/22 0955 Temp Pulse 108 09/03/22 0955 Resp 14 09/03/22 1000 SpO2 100 % 09/03/22 1000 Vitals shown include unvalidated device data. Electronically Signed By: Carlyn Isidro APRN CRNA September 03, 2022 10:02 AM documented in this encounter Plan of Treatment Upcoming Encounters Date Type Department Care Team (Late st Contact Info) Description 2023 1:30 PM HEAD SULFIDE OPERATOR Office Visit [facility] [address] [place] [id number] Anamaria Nevarez MD [address] [place] [address] documented as of this encounter Procedures Procedure Name Priority Date/Time Associated Diagnosis Comments ANE AIRWAY ETT PERFORMABLE Routine 09/03/2022 8:36 AM CDT ANE PERIPHERAL/PARAVETEB RAL BLOCK Routine 09/03/2022 8:23 AM CDT documented in this encounter Results * ANE AIRWAY ETT PERFORMABLE (09/03/2022 8:36 AM CDT) Narrative Carlyn Isidro APRN CRNA - 09/03/2022 8:36 AM CDT Carlyn Isidro APRN CRNA ? 09/03/2022 ??8:54 AM Airway ? Patient location during procedure: OR ? Procedure Start/Stop Times: 09/03/2022 8:36 AM Staff - ? DIESEL ENGINE ASSEMBLER: Carlyn Isidro APRN CRNA ? Performed By: DIESEL ENGINE ASSEMBLER Consent for Airway ? Urgency: elective Indications and Patient Condition ? Indications for airway management: tommy-procedural ? Induction type:intravenous ? Mask difficulty assessment: 1 - vent by mask Final Airway Details ? Final airway type: endotracheal airway ? Successful airway: ETT - single Endotracheal Airway Details ? ETT size (mm): 7.0 ? Cuffed: yes ? Successful intubation technique: direct laryngoscopy ? DL Blade Type: MAC 3 ? Adjucts: stylet ? Bite block used: Soft Post intubation assessment ? Placement verified by: capnometry ? Number of attempts at approach: 1 ? Secured with: plastic tape ? Ease of procedure: easy ? Dentition: Intact Medication(s) Administered Medication Administration Time: 09/03/2022 8:36 AM Bernardino Pulido MD [facility] * Peripheral/Paravertebral Block (09/03/2022 8:23 AM CDT) Narrative Bernardino Pulido MD - 09/03/2022 8:23 AM CDT Bernardino Pulido MD ? 09/03/2022 ??8:24 AM Femoral Procedure Note Pre-Procedure Staff - ? Anesthesiologist: ??Bernardino Pulido MD ? Performed By: anesthesiologist ? Location: pre-op ? Pre-Anesthestic Checklist: patient identified, IV checked, site marked, risks and benefits discussed, informed consent, monitors and equipment checked, pre-op evaluation, at physician/surgeon's request and post-op pain management Timeout: ? Correct Patient: Yes ? Correct Procedure: Yes ? Correct Site: Yes ? Correct Position: Yes ? Correct Laterality: Yes ? Site Marked: Yes Procedure Documentation Procedure: Femoral ? Laterality: left ? Patient Position: supine ? Patient Prep/Sterile Barriers: sterile gloves, mask ? Skin prep: Betadine ? Needle Type: insulated and short bevel ? Needle Gauge: 22. ? Ultrasound guided ? 1. Ultrasound was used to identify targeted nerve, plexus, vascular marker, or fascial plane and place a needle adjacent to it in real-time. ? 2. Ultrasound was used to visualize the spread of anesthetic in close proximity to the above referenced structure. Assessment/Narrative ? The placement was negative for: blood aspirated, painful injection and site bleeding ? Paresthesias: No. ? Bolus given via needle. no blood aspirated via catheter. ? Secured via. ? Insertion/Infusion Method: Single Shot ? Complications: none Comments: ??22ml of 0.5% Bupivicaine w/ 1:200,000 epi + 10ml of 2% Lidocaine injected The surgeon has given a verbal order transferring care of this patient to me for the performance of a regional analgesia block for post-op pain control. It is requested of me because I am uniquely trained and qualified to perform this block and the surgeon is neither trained nor qualified to perform this procedure. FOR [facility] ([facility]) ONLY: ?? Pain Team Contact information: please page the Pain Team Via [employer]. Search Pain. During daytime hours, please page the attending first. At night please page the resident first. Bernardino Pulido MD [facility] documented in this encounter Visit Diagnoses Not on filedocumented in this encounter Administered Medications Inactive Administered Medications - up to 3 most recent administrations Medication Order MAR Action Action Date Dose Rate Site dexamethasone (DECADRON) injection Intravenous, PRN, Administer over 1 Minutes, Starting on Sat09/03/22 at 0836, Anesthesia Intra-op $Given 09/03/2022 8:36 AM CDT 4 mg fentaNYL (PF) (SUBLIMAZE) injection Intravenous, PRN, Administer over 3-5 Minutes, Starting on Sat09/03/22 at 0836, Anesthesia Intra-op $Given 09/03/2022 10:02 AM CDT 50 mcg $Given 09/03/2022 9:26 AM CDT 50 mcg $Given 09/03/2022 8:36 AM CDT 100 mcg glycopyrrolate (ROBINUL) injection Intravenous, PRN, Administer over 1-2 Minutes, Starting on Sat09/03/22 at 0836, Anesthesia Intra-op $Given 09/03/2022 9:43 AM CDT 0.4 mg $Given 09/03/2022 8:36 AM CDT 0.2 mg HYDROmorphone (DILAUDID) injection Intravenous, PRN, Starting on Sat09/03/22 at 0849, Anesthesia Intra-op $Given 09/03/2022 8:49 AM CDT 1 mg lactated ringers infusion Intravenous, CONTINUOUS PRN, Anesthesia Intra-op, Starting on Sat09/03/22 at 0827, Until Sat09/03/22 at 1003 $New Bag 09/03/2022 8:27 AM CDT lidocaine 2% injection (MDV) Intravenous, PRN, Starting on Sat09/03/22 at 0836, Anesthesia Intra-op $Given 09/03/2022 8:36 AM CDT 100 mg midazolam (VERSED) injection Intravenous, Administer over 2 Minutes, PRN, Starting on Sat09/03/22 at 0829, Anesthesia Intra-op $Given 09/03/2022 8:29 AM CDT 1 mg $Given 09/03/2022 8:12 AM CDT 2 mg neostigmine (PROSTIGMINE) injection Intravenous, PRN, Starting on Sat09/03/22 at 0943, Anesthesia Intra-op $Given 09/03/2022 9:43 AM CDT 2 mg phenylephrine (CINDY-SYNEPHRINE) injection Intravenous, CONTINUOUS PRN, Starting on Sat09/03/22 at 0844, Anesthesia Intra-op $Bolus 09/03/2022 9:29 AM CDT 100 mcg $New Bag 09/03/2022 8:44 AM CDT 100 mcg propofol (DIPRIVAN) infusion Intravenous, CONTINUOUS PRN, Starting on Sat09/03/22 at 0852, Anesthesia Intra-op $New Bag 09/03/2022 8:52 AM CDT 50 mcg/kg/min 25.5 mL/hr propofol (DIPRIVAN) injection 10 mg/mL vial Intravenous, PRN, Starting on Sat09/03/22 at 0836, Anesthesia Intra-op $Given 09/03/2022 8:36 AM CDT 150 mg rocuronium injection Intravenous, PRN, Starting on Sat09/03/22 at 0836, Anesthesia Intra-op $Given 09/03/2022 8:36 AM CDT 50 mg tranexamic acid 1 g in 100 mL NS IV bag (premix) 1 g, Intravenous, ONCE, On Sat09/03/22 at 0730, For 1 dose, Send to pre op area to be given intra-operatively just after tourniquet is released or at time of closing if no tourniquet is used., Pre-procedure $Given 09/03/2022 9:39 AM CDT 1 g documented in this encounter Additional Health Concerns Infection Onset Date Last Indicated Resolved Time MRSA-Contact Isolation Comment:Nares+, 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 Two negative nares PCRs on 09/05/2015 and 08/24/2022. MRSA banner removed. 04/29/2014 04/29/201408/16 9:07 AM CDT Assessment Noted Time PHQ-9 Depression Total Score: 4 12/04/19 19 3:50 PM CDT documented as of this encounter Care Teams Rug Cleaner Relationship Specialty Start Date End Date Kelly Medina PA-C [address] [place] [address] PCP - General Family Medicine 08/07/22 Tevin Marshall PA-C [address] [address] Assigned Musculoskeletal Provider 12/16/21 07/10/23 Kelly Medina PA-C [address] [place] [address] Assigned PCP 06/30/22 documented as of this encounter
--- OUTSIDE RECORDS SUMMARY | 2023-07-22 17:06 | XMS_ITS | Encounter Summary ---
Author Name Unknown Organization [place] Address [facility] [place] [address] Care Team Providers Care Tyre Retreader Name Role Phone Elton Harmon PA-C Primary Care Provider Elton Harmon PA-C Unavailable [phone] Tevin Marshall PA-C Unavailable [phone] Kelly Medina PA-C Unavailable Kelly Medina PA-C Primary Care Pr ovider Encounter Details Date Type Department Care Team (Late st Contact Info) Description 02/05/2022 MyC Medical Advice [address] [address] Melissa Quintana Social History Tobacco Use Types Packs/Day Years [...] st Contact Info) Description 2023 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 Office Visit [facility] [address] [place] [address] Anamaria Nevarez MD [address], [facility] [address] [place] [address] documented as of this encounter Visit Diagnoses [...] documented as of this encounter Care Teams Tyre Retreader Relationship Specialty Start Date End Date Elton Harmon PA-C PCP - General Physician Bombsight Specialist - Medical 09/02/18 08/06/22 Klely Medina PA-C [address] [place] [address] PCP - General Family Medicine 08/07/22 Elton Harmon PA-C [address] [facility] [place] [address] Assigned PCP 12/30/20 06/29/22 Tevin Marshall PA-C [address] [address] Assigned Musculoskeletal Provider 12/16/21 07/10/23 Kelly Medina PA-C [address] [place] [address] Assigned PCP 06/30/22 documented as of this encounter
--- OUTSIDE RECORDS SUMMARY | 2023-07-22 17:06 | XMS_ITS | Encounter Summary ---
Author Name Unknown Organization [place] Address [facility] [place] [address] Care Team Providers Care Pneumatic Riveter Name Role Phone Kelly Medina PA-C Primary Care Pr ovider Elton Harmon-C Unavailable +1 Elton Harmon-C Unavailable +1 Elton Harmon-C Primary Care Provider + Elton Harmon-C Unavailable + Giulia Awan DO Unavailable [phone] Elton Harmon-C Unavailable +1 Elton Harmon-C Unavailable + Tevin Marshall-C Unavailable [phone] Kelly Medina-C Unavailable Kelly MedinaC Primary Care Pr ovider Encounter Details Date Type Department Care Team (Late st Contact Info) Description 09/05/2015 [facility] Only [facility] [address] [place] [address] Bobby Tapia MD [facility] [address] [place] [address] Pre-operative laboratory examination (Primary Dx) Social History [...] st Contact Info) Description 2023 1:30 PM EMPLOYMENT ASSISTANT Office Visit [facility] [address] [place] [phone] Anamaria Nevarez MD [address], [facility] 100 [place] [address] documented as of this encounter Results * Methicillin Resistant Staph Aureus PCR (09/05/2015 2:10 PM CDT) Specimen Description [facility] Methicillin Resist/Sens S. aureus PCR Negative MRSA Negative: SA Negative ??MRSA and Staphylococcus aureus target DNA not detected, presumed negative for MRSA and SA colonization or the number of bacteria present may be below the limit of detection for the assay. FDA approved assay performed using [employer]ient GeneXpert(R) real-time PCR. NEG [facility] 09/05/2015 2:10 PM CDT 09/05/2015 3:47 PM CDT Bobby Tapia MD LAB - MICRO GENERAL ORDERABLES [facility] [address] [place] [address], [facility] [address] [place], [place] [address] [place] [address] documented in this encounter Visit Diagnoses Diagnosis [...] documented as of this encounter Care Teams Pneumatic Riveter Relationship Specialty Start Date End Date Kelly Medina PA-C [address] [place] [address] PCP - General 08/01/01 09/01/18 Elton Harmon PA-C [address] [address] PCP - Assigned PCP 10/13/17 08/19/18 Elton Harmon PA-C [address] [address] PCP - General Physician High Tension Tester - Medical 09/02/18 08/06/22 Kelly Medina PA-C [address] [place] [address] PCP - General Family Medicine 08/07/22 Elton Harmon PA-C [address] [address] Assigned PCP 12/06/19 09/24/20 Elton Harmon PA-C [address]0315 [address] [address] Assigned PCP 10/13/17 12/05/19 Giulia Awan DO [address] [facility] 100 [place] [address] Assigned OBGYN Provider 04/08/20 Elton Harmon [place]-C [address] [place] [address] Assigned PCP 09/25/20 12/29/20 Elton Harmon [place]-C [address] [place] [address] Assigned PCP 12/30/20 06/29/22 Tevin Marshall PA-C 6545 [facility] [address] [place] [address] Assigned Musculoskeletal Provider 12/16/21 07/10/23 Kelly Medina PA-C [address] [place] [address] Assigned PCP 06/30/22 documented as of this encounter
--- OUTSIDE RECORDS SUMMARY | 2023-07-22 17:06 | XMS_ITS | Encounter Summary ---
Author Name Unknown Organization [place] Address [facility] [place] [address] Care Team Providers Care Oil Bay Technician Name Role Phone Kelly Medina PA-C Primary Care Pr ovider Elton Harmon-C Unavailable +1 Elton Harmon-C Unavailable +1 Elton Harmon PA-C Primary Care Provider Elton Harmon PA-C Unavailable + Giulia Awan DO Unavailable [phone] Elton Harmon-C Unavailable + Elton Harmon-C Unavailable + Tevin Marshall-C Unavailable [phone] Kelly Medina-C Unavailable Kelly Medina PA-C Primary Care Pr ovider Reason for Visit * Reason Comments Medication Refill Encounter Details Date Type Department Care Team (Late st Contact Info) Description 03/15/2018 Refill [facility] [address] [place] [address] Giulia Awan DO [address] [place] [address] Medication Refill Social History Tobacco Use Types Packs/Day Years [...] encounter Miscellaneous Notes * Telephone Encounter - Luci Mason RN - 03/17/2018 10:00 AM CDT Routed to md as pt has an appt today. Roman Mason RN documented in this encounter Plan of Treatment Upcoming Encounters Date Type Department Care Team (Late st Contact Info) Description 2023 1:30 PM FIELD REPORTER Office Visit [facility] [address] [place] [address] Anamaria Nevarez MD [address], [facility] 100 [place] [address] documented as of this encounter Visit Diagnoses Diagnosis Vaginal atrophy Postmenopausal atrophic vaginitis documented in this encounter Additional Health Concerns Infection Onset Date Last Indicated Resolved Time MRSA-Contact Isolation Comment:Nares+, 04/27/2014. Two negative nares PCRs on 09/05/2015 and 08/24/2022. MRSA banner removed. 04/29/2014 04/29/2014/ 9:07 AM CDT Rule Out COVID-19 03/20/2023 03/20/2023 03/20/2023 8:43 PM CDT Assessment Noted Time PHQ-9 Depression Total Score: 3 01/04/20 18 7:10 AM CDT documented as of this encounter Care Teams Oil Bay Technician Relationship Specialty Start Date End Date Kelly Medina PA-C [address] [place] [address] PCP - General 08/01/01 09/01/18 Elton Harmon PA-C [address] [place] [address] PCP - Assigned PCP 10/13/17 08/19/18 Elton Harmon PA-C [address] [place] [address] PCP - General Physician Ux Information Architect - Medical 09/02/18 08/06/22 Kelly Medina PA-C [address] [place] [address] PCP - General Family Medicine 08/07/22 Elton Harmon PA-C [address] [place] [address] Assigned PCP 12/06/19 09/24/20 Elton Harmon PA-C [address] [place] [address] Assigned PCP 10/13/17 12/05/19 Giulia Awan DO [address] [address] Assigned OBGYN Provider 04/08/20 Elton Harmon PA-C [address] [place] [address] Assigned PCP 09/25/20 12/29/20 Elton Harmon [place]-C [address] [place] [address] Assigned PCP 12/30/20 06/29/22 Tevin Marshall PA-C [address] [place] [address] Assigned Musculoskeletal Provider 12/16/21 07/10/23 Kelly Medina PA-C [address] [place] [address] Assigned PCP 06/30/22 documented as of this encounter
--- OUTSIDE RECORDS SUMMARY | 2023-07-22 17:06 | XMS_ITS | Encounter Summary ---
Author Name Unknown Organization [place] Address [address] [facility] [place] [address] Care Team Providers Care Wheelman Name Role Phone Tevin Marshall PA-C Unavailable [phone] Kelly Medina PA-C Unavailable Kelly Medina PA-C Primary Care Pr ovider Encounter Details Date Type Department Care Team (Latest Contact Info) Description 08/08/2022 Travel Social History Tobacco Use Types Packs/Day [...] Coronavirus/COVID-19? No / Unsure 08/08/2022 11:14 AM PRODUCTION EXPERT documented as of this encounter Plan of Treatment Upcoming Encounters Date Type Department Care Team (Late st Contact Info) Description 2023 1:30 PM PRODUCTION EXPERT Office Visit [facility] [address] [place] [address] Anamaria Nevarez MD [address], [facility] 100 [place] [address] documented as of this encounter Visit Diagnoses Not on filedocumented in this encounter Additional Health Concerns Infection Onset Date Last Indicated Resolved Time MRSA-Contact Isolation Comment:Nares+, 04/27/2014. Two negative nares PCRs on 09/05/2015 and 08/24/2022. MRSA banner removed. 04/29/2014 04/29/201408/16 9:07 AM CDT Assessment Noted Time PHQ-9 Depression Total Score: 4 12/04/19 19 3:50 PM CDT documented as of this encounter Care Teams Wheelman Relationship Specialty Start Date End Date Kelly Medina PA-C [address] [place] [address] PCP - General Family Medicine 08/07/22 Tevin Marshall PA-C 6545 [facility] 450 [place] [address] Assigned Musculoskeletal Provider 12/16/21 07/10/23 Kelly Medina PA-C [address] [place] [address] Assigned PCP 06/30/22 documented as of this encounter
--- OUTSIDE RECORDS SUMMARY | 2023-07-22 17:07 | XMS_ITS | Encounter Summary ---
Author Name Unknown Organization [place] Address [address] [place] [address] Care Team Providers Care Radiologic Technology Program Director Name Role Phone Kelly Medina PA-C Primary Care Pr ovider Elton Harmon-C Unavailable +1 Elton Harmon-C Unavailable +1 Elton Harmon-C Primary Care Provider + Elton Harmon-C Unavailable + Giulia Awan DO Unavailable [phone] Elton Harmon-C Unavailable + Elton Harmon-C Unavailable + Tevin Marshall-C Unavailable [phone] Kelly Medina-C Unavailable Kelly MedinaC Primary Care Pr ovider Encounter Details Date Type Department Care Team (Late st Contact Info) Description 03/18/2010 [facility] [address] [place] [address] Zeyad Peoples MD [facility]5 [place] [address] Social History Tobacco Use Types Packs/Day Years Used Date Smoking Tobacco: Never Alcohol Use Standard Drinks/Week Comments Yes 0 (1 standard drink = 0.6 oz pur e alcohol) rare Sex and Gender Information Value Date Recorded Sex Assigned at Not on file Gender Identity Not on file Sexual Orientation Not on file documented as of this encounter Plan of Treatment Upcoming Encounters Date Type Department Care Team (Late st Contact Info) Description 2023 1:30 PM DIRECTOR OF EXHIBIT DEVELOPMENT Office [facility] [address] [place] [address] Anamaria Nevarez MD [address] [place] [address] documented as of this encounter Visit Diagnoses Not on filedocumented in this encounter Additional Health Concerns Infection Onset Date Last Indicated Resolved Time MRSA-Contact Isolation Comment:Nares+, 04/27/2014. Two negative nares PCRs on 09/05/2015 and 08/24/2022. MRSA banner removed. 04/29/2014 04/29/201408/16 9:07 AM CDT Rule Out COVID-19 03/20/2023 03/20/2023 03/20/2023 8:43 PM CDT documented as of this encounter Care Teams Radiologic Technology Program Director Relationship Specialty Start Date End Date Kelly Medina PA-C [address] [place] [address] PCP - General 08/01/01 09/01/18 Elton Harmon PA-C [address]1996 [facility] [place] [address] PCP - Assigned PCP 10/13/17 08/19/18 Elton Harmon PA-C [address] [place] [address] PCP - General Physician Terrazzo Tile Setter - Medical 09/02/18 08/06/22 Kelly Medina PA-C [address] [place] [address] PCP - General Family Medicine 08/07/22 Elton Harmon PA-C [address] [place] [address] Assigned PCP 12/06/19 09/24/20 Elton Harmon PA-C [address] [place] [address] Assigned PCP 10/13/17 12/05/19 Giulia Awan DO [address] [address] Assigned OBGYN Provider 04/08/20 Elton Harmon PA-C [address] [address] [place] [address] Assigned PCP 09/25/20 12/29/20 Elton Harmon PA-C [address] [place], [place] [address] Assigned PCP 12/30/20 06/29/22 Tevin Marshall PA-C [address] [address] Assigned Musculoskeletal Provider 12/16/21 07/10/23 Kelly Medina PA-C [address] [address] Assigned PCP 06/30/22 documented as of this encounter
--- OUTSIDE RECORDS SUMMARY | 2023-07-22 17:07 | XMS_ITS | Encounter Summary ---
Author Name Unknown Organization [place] Address [facility]0 [place] [address] Care Team Providers Care Auto Machinist Name Role Phone Kelly Medina PA-C Primary Care Pr ovider Elton Harmon-C Unavailable +1 Elton Harmon-C Unavailable +1 Elton Harmon-C Primary Care Provider + Elton Harmon-C Unavailable + Giulia Awan DO Unavailable [phone] Elton Harmon-C Unavailable +1 Elton Harmon-C Unavailable + Tevin Marshall-C Unavailable [phone] Kelly Medina-C Unavailable Kelly MedinaC Primary Care Pr ovider Encounter Details Date Type Department Care Team (Late st Contact Info) Description 04/23/2014 [facility] Only [facility] [address] [place] [address] Bobby Tapia MD [facility] [address] [place] [address] Preoperative examination, unspecified (Primary Dx) Social History Tobacco Use Types Packs/Day Years Used Date Smoking Tobacco: Never Smokeless Tobacco: Never Alcohol Use Standard Drinks/Week Comments Yes 0 (1 standard drink = 0.6 oz pur e alcohol) 8-10 weekly Sex and Gender Information Value Date Recorded Sex Assigned at Not on file Gender Identity Not on file Sexual Orientation Not on file documented as of this encounter Plan of Treatment Upcoming Encounters Date Type Department Care Team (Late st Contact Info) Description 2023 1:30 PM PRINCIPAL DEVELOPER Office Visit [facility] [address] [place] [address] Anamaria Nevarez MD [address] [place], [place] [address] documented as of this encounter Results * (ABNORMAL) Methicillin Resistant Staph Aureus PCR (04/27/2014 3:30 PM PRINCIPAL DEVELOPER) Specimen Description Nares [facility] Methicillin Resist/Sens S. aureus PCR Positive MRSA Positive: SA Positive ??MRSA and Staphylococcus aureus target DNA detected, presumed positive for MRSA and SA colonization. A positive test does not necessarily indicate the presence of viable organisms. It is,however, presumptive for the presence of MRSA or SA. FDA approved assay performed using [employer]pper GeneXpert(R) real-time PCR. (A) NEG [facility] 04/27/2014 3:30 PM PRINCIPAL DEVELOPER 04/27/2014 3:38 PM PRINCIPAL DEVELOPER Bobby Tapia MD LAB - MICRO GENERAL ORDERABLES [facility] MICROBIOLOGY [facility] documented in this encounter Visit Diagnoses Diagnosis Preoperative examination, unspecified- Primary documented in this encounter Additional Health Concerns Infection Onset Date Last Indicated Resolved Time MRSA-Contact Isolation Comment:Nares+, 04/27/2014. Two negative nares PCRs on 09/05/2015 and 08/24/2022. MRSA removed. 04/29/2014 04/29/2014 03/ 9:07 AM CDT Rule Out COVID-19 03/20/2023 03/20/2023 03/20/2023 8:43 PM CDT documented as of this encounter Care Teams Auto Machinist Relationship Specialty Start Date End Date Kelly Medina PA-C [address] [place] [address] PCP - General 08/01/01 09/01/18 Elton Harmon [place]-C [address] [place] [address] PCP - Assigned PCP 10/13/17 08/19/18 Elton Harmon PA-C [address] [place] [address] PCP - General Physician Oil Heaterman - Medical 09/02/18 08/06/22 Kelly Med[place] [address] [place] [address] PCP - General Family Medicine 08/07/22 Elton Harmon [place]-C [address] [place] [address] Assigned PCP 12/06/19 09/24/20 Elton Harmon [place]-C [address] [place] [address] Assigned PCP 10/13/17 12/05/19 Giulia Awan DO [address] [facility] 100 [place] [address] Assigned OBGYN Provider 04/08/20 Elton Harmon [place]-C [address] [place] [address] Assigned PCP 09/25/20 12/29/20 Elton Harmon [place]-C [address] [place] [address] Assigned PCP 12/30/20 06/29/22 Tevin Marshall PA-C [address] [facility] [address] [place] [address] Assigned Musculoskeletal Provider 12/16/21 07/10/23 Kelly Medina PA-C [address] [place] [address] Assigned PCP 06/30/22 documented as of this encounter
--- OUTSIDE RECORDS SUMMARY | 2023-07-22 17:07 | XMS_ITS | Encounter Summary ---
Author Name Unknown Organization [place] Address [facility] [place] [address] Care Team Providers Care Clinic Charge Nurse Name Role Phone Kelly Medina PA-C Primary Care Pr ovider Elton Harmon-C Unavailable +1 Elton Harmon-C Unavailable +1 Elton Harmon-C Primary Care Provider + Elton Harmon-C Unavailable + Giulia Awan DO Unavailable [phone] Elton Harmon-C Unavailable + Elton Harmon-C Unavailable + Tevin Marshall-C Unavailable [phone] Kelly Medina-C Unavailable Kelly MedinaC Primary Care Pr ovider Encounter Details Date Type Department Care Team (Late st Contact Info) Description 08/17/2013 [facility] Medical Advice M [facility] [address] [place] [address] Bishop, Carmelina E, NECK SKEWER COAL PASSER Social History Tobacco Use Types Packs/Day Years Used Date Smoking Tobacco: Never Smokeless Tobacco: Never Alcohol Use Standard Drinks/Week Comments No 0 (1 standard drink = 0.6 oz pur e alcohol) Sex and Gender Information Value Date Recorded Sex Assigned at Not on file Gender Identity Not on file Sexual Orientation Not on file documented as of this encounter Plan of Treatment Upcoming Encounters Date Type Department Care Team (Late st Contact Info) Description 2023 1:30 PM LITHOGRAPH PRESS OPERATOR Office Visit [facility] [address] [place] [address] Anamaria Nevarez MD [address] [place] [address] documented as of this encounter Visit Diagnoses Not on filedocumented in this encounter Additional Health Concerns Infection Onset Date Last Indicated Resolved Time MRSA-Contact Isolation Comment:Nares+, 04/27/2014. Two negative nares PCRs on 09/05/2015 and 08/24/2022. MRSA banner removed. 04/29/2014 04/29/201408/16 9:07 AM CDT Rule Out COVID-19 03/20/2023 03/20/2023 03/20/2023 8:43 PM CDT documented as of this encounter Care Teams Clinic Charge Nurse Relationship Specialty Start Date End Date Kelly Medina PA-C [address] [place] [address] PCP - General 08/01/01 09/01/18 Elton Harmon PA-C [address] [address] [id number] PCP - Assigned PCP 10/13/17 08/19/18 Elton Harmon PA-C [address] [address] [facility] [place] [id number] PCP - General Physician Brick Pitcher - Medical 09/02/18 08/06/22 Kelly Medina PA-C [address] [place] [address] PCP - General Family Medicine 08/07/22 Elton Harmon PA-C [address] [place] [address] Assigned PCP 12/06/19 09/24/20 Elton Harmno PA-C [address] [place] [address] Assigned PCP 10/13/17 12/05/19 Giulia Awan DO [address] [facility] 100 [place] [address] Assigned OBGYN Provider 04/08/20 Elton Harmon PA-C [address] [place] [address] Assigned PCP 09/25/20 12/29/20 Elton Harmon PA-C [address]62 [place] [address] Assigned PCP 12/30/20 06/29/22 Tevin Marshall PA-C 6545 [facility] 450 [place] [address] Assigned Musculoskeletal Provider 12/16/21 07/10/23 Kelly Medina PA-C [address] [place] [address] Assigned PCP 06/30/22 documented as of this encounter
--- OUTSIDE RECORDS SUMMARY | 2023-07-22 17:07 | XMS_ITS | Data Portability ---
Author Name Unknown Address [address] [place] [address] Phone [phone] Organization [facility], [facility] - OP Address [address] [place] [address] Care Team Providers Care City Bailiff Name Role Phone QUE RYAN Manager Cash [phone] Assessment Encounter Date Assessment Date Assessment LastModified by Organization Details LastModified Time 03/15/2020 03/15/2020 Status p ost fall and lower back pain and left lower extremity radiculopathy , left sacroiliac pain habbasi Not available 03/15/2020 16:34:25 05/27/2020 05/27/2020 Status post fall and lower back pain and left lower extremity radiculopathy , left sacroiliac pain 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 Lab None record ed. Referral None record ed. Procedures None record ed. Surgeries None record ed. Imaging None record ed. Medication Orders None record ed. Patient TargetsNo targets recorded. Patient Instructions Encounter Date Encounter Id Patient Instructions Last Modified By Organization Details Last Modified Time 05/27/2020 [id number] Discussion: I discussed time I recommend more diagnostic with MRI of the lumbar spine to rule out spinal canal stenosis in more detail I recommend as well a full course of physical therapy to be continued and lumbar epidural steroid injection and then followup. Today my immediate clinical staff and I spent 46 minutes preparing to see the patient, performing a physical exam, going over test results and educating and counseling patients, updating their history, placing orders, and documenting this visit in [place]. COVID-19 screening completed with patient upon arrival to facility. Patient negative for any cough, fever, or SOB. Risks associated with COVID and possible infection during care in our facility or partner facilities are explained to the patient in detail. We specifically explained need for social dispensing. If proceeding with the surgery, need for self-quarantine after Covid test explained. COVID Test is done, based on facility preference, self-quarantine continues from the cast time until the time of surgery. All questions are answered. Thank you for this referral. I appreciate your trust in the referring this patient to me and I will stay in contact with you regarding the progress of this patient. Synopsis: 05/27/20, GIRON, CIARA, lumbar CT? [facility]: Pain is the same CT shows L2-S1 DDD HNP worse in L3/4/5: MRI of the lumbar spine, PT, JENI, when necessary, followup habbasi Not available 05/27/2020 16:44:00 03/15/2020 [id number] Discussion: Dear colleagues: Thank you very much for the referral of above mentioned patient to my office. I do appreciate your trust and referral. Following is my consultation report. Please do not hesitate to call me directly if you have any questions regarding this patient or need assistance to manage the patient. My office can give you my direct cell phone number for further communication. I discussed with the patient the clinical findings and reviewed the findings together. After the fall with previous history as above. Investigation is needed to rule out bony fracture or compression of the neural element and sacroiliac investigation with CT of the pelvis myelogram and post myelo CT of the lumbar spine with x-ray flexion extension to rule out instability, as well as presacral injection, I recommend serial left sacroiliac injection for therapeutic and diagnostic reason, physical therapy is recommended. I will followup after more information available to discussed options. COVID-19 screening completed with patient upon arrival to facility. Patient negative for any cough, fever, or SOB. Risks associated with COVID and possible infection during care in our facility or partner facilities are explained to the patient in detail. We specifically explained need for social dispensing. If proceeding with the surgery, need for self-quarantine after Covid test explained. COVID Test is done, based on facility preference, self-quarantine continues from the cast time until the time of surgery. All questions are answered. Thank you for this referral. I appreciate your trust in the referring this patient to me and I will stay in contact with you regarding the progress of this patient. Synopsis: 03/15/20, GIRON, CIARA, no films: Status post fall but no investigation is done, patient has radiculopathy, L4/5 left and left SI joint pain: PT, serial SI joint injection, left, pelvis CT, lumbar x-ray flex ex myelogram CT habbasi Not available 03/15/2020 16:34:23 Reason for Referral None Reported. Results Created Date Observation Date Name Description Value Unit Range Abnormal Flag LastModifiedBy Organization Detail LastModifiedTime 05/24/20 20 05/23/2020 CT, lumba r spine , w/ contr ast No observ ation record ed. [email or web address] [facility] [address], [place], [address], 05/24/2020 12:37:29 Result Notes None recorded. Problems Name Status Onset Date Resolution Date Notes Provider Name and Address Organization Details Recorded Time Rheumatoid arthritis Active 03/15/20 20 Mitra Bolivar null, [place] - [facility] 03/15/2020 16:06:37 Autoimmune disease Active 03/15/20 20 Mitra Bolivar null, [place] - [facility] 03/15/2020 16:06:56 Problem Notes None recorded. Procedures Surgical History Date Name Laterality Status Provider Name and Address Organization Details Recorded Time 06/17/19 18 Joint Replacement completed Mitra mak, [place] - [facility] 03/15/2020 16:05:59 Imaging Results Imaging Date Name Status LastModified by Organiz ation Details LastModified Time 05/23/2020 CT, lumbar spine, w/ contrast [email or web address] [address], [place], [address], 05/24/2020 12:37:29 Procedure Notes None recorded. Medical Equipment None Reported. Allergies Allergen ID Allergen Name Allergen Category Reaction Reaction Severity Criticality Documentation Date Start Date Code Code System Note Provider Name and Address Organization Details Recorded Time 3735 latex environme nt,medica tion anaphylax is severe Not available 03/15/2020 09999 91 RxNorm Mitra mak, [place] - [facility] 0 16:05:44 3736 Medicinal product containin g penicilli n and acting as antibacte rial agent (product) medicatio n rash mild Not available 03/15/2020 63536 05 SNOMED Mitra mak, [place] - [facility] 0 16:05:45 3758 Iodinated contrast media (substanc e) medicatio n anaphylax is Not available Not available 03/23/2020 07584 2004 SNOMED Gracie mak, [place] - [facility] 0 12:09:42 Medications Name Sig Start Date Stop Date Status Note LastModified by Organization Details LastModified Time compound drug APPLY TO PERIANAL AREA 2 TO 3 TIMES QD FOR 6 TO 8 WEEKS active Not Available Not Available No t Available gabapentin 300 mg capsule TAKE ONE CAPSULE BY MOUTH THREE TIMES A DAY active Not Available Not Available No t Available clobetasol 0.05 % topical ointment APPLY TO AFFECTED AREA(S) SPARINGLY TWICE A DAY NEEDED FOR 2 WEEKS THEN DAILY FOR 1 WEEK -DO NOT APPLY TO FACE active Not Available Not Available No t Available epinephrine 0.3 mg/0.3 mL injection, auto-inject or 05/27 completed Not Available Not Available Not Available ondansetron 4 mg disintegrat ing tablet 05/27 completed Not Available Not Available Not Available phentermine 37.5 mg capsule TAKE 1 CAPSULE BY MOUTH ONCE DAILY IN THE MORNING 05/27 completed Not Available Not Available Not Available escitalopra m 20 mg tablet TAKE ONE TABLET BY MOUTH EVERY DAY active Not Available Not Available No t Available ProAir HFA 90 mcg/actuati on aerosol inhaler INHALE 1-2 PUFFS INTO THE LUNGS EVERY 4 HOURS NEEDED FOR SHORTNESS OF BREATH / DYSPNEA active Not Available Not Available No t Available Intrarosa 6.5 mg vaginal insert INSERT ONE VAGINAL INSERT VAGINALLY EVERY DAY active Not Available Not Available No t Available Vitals Date Recorded Body height Heart rate Respiratory rate Body temperature Body mass index (BMI) Body weight Oxygen saturation Oxygen saturation in Arterial blood by Pulse oximetry Systolic blood pressure Diastolic blood pressure Provider Name and Address Organization Details Last Updated DateTime 0 160.02 cm 82 /min 16 /min 97.94 [degF] 30.7 kg/m2 11819.2 g 97 % 97 % 135 mm[Hg] 94 mm[Hg] Mitra mak, [place] - [facility] 0 16:05:36 Date Recorded Body height Heart rate Respiratory rate Body temperature Body mass index (BMI) Body weight Oxygen saturation Oxygen saturation in Arterial blood by Pulse oximetry Systolic blood pressure Diastolic blood pressure Provider Name and Address Organization Details Last Updated DateTime 0 160.02 cm 80 /min 16 /min 96.8 [degF] 30.1 kg/m2 39089.7 g 95 % 95 % 115 mm[Hg] 71 mm[Hg] Mitra mak, [place] - [facility] 0 15:44:58 Social History Question Answer Notes LastModified by Organizat ion Details LastModified Time Tobacco Smoking Status Never Smoker Mitra mak, [place] - [facility] 03/15/2020 16:05:54 What Is Your Level Of Alcohol Consumption? Occasional [email or web address] Information not available 03/15/2020 Auto Related Injury? No [email or web address] Information not available 03/15/2020 What Is Your Level Of Caffeine Consumption? Occasional [email or web address] Information not available 03/15/2020 Are You Currently Employed? Yes [email or web address] Information not available 03/15/2020 What Type Of Diet Are You Following? GLUTENFREE [email or web address] Information not available 03/15/2020 Who Is Your Employer? 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 With Others [email or web address] Information not available 03/15/2020 If Injured, Is Litigation Ongoing? Yes [email or web address] Information not available 03/15/2020 What Is Your Relationship Status? [email or web address] Information not available 03/15/2020 Work Related Injury? Yes [email or web address] Information not available 03/15/2020 Sex: Female Functional Status Question Answer Note LastModified by Organization D etails LastModified Time What is your exercise level? Moderate [email or web address] Information not available 03/15/2020 Mental Status Question Answer Note LastModified by Organization D etails LastModified Time Do you have difficulty concentrating, remembering or making decisions? Yes [email or web address] Information no t available 03/15/2020 Family History Relationship Description Onset Age of this Age Resolved Age Notes Father Family history of cancer Medical History Condition Response Muscle, Joint, or Bone Problems Y Cancer/Tumors N Blood Clot N High Cholesterol N Fibromyalgia Y Stroke N Hypertension N Gynecological HistoryNo gynecological history recorded. Obstetrics History GPAL:G 0 P 0 0 0 0 Past Encounters Encounter ID Performer Location Encounter Start Date Encounter Closed Date Diagnosis/Indication [id number] Davi Howard MD [facility] [address] [address] 03/15/2020 15:06:05 03/16/2020 08:10:46 [id number] Davi Howard MD [facility] [address] [address] 05/27/2020 15:32:47 05/30/2020 12:48:47 Health Concerns Section Related Observation LastModified by Organization Detai ls LastModified Time None Recorded Concern Status LastModified by Organization Details LastModified Time None Recorded Advance Directives Directive None Recorded Payers Encounter Date Sequence Insurance Name Policy Number Policy Davis Covered Member ID Davis Member ID Guarantor Name 05/27/2020 [employer] [id number] [facility] Nidia Mtz 03/15/2020 1 [place] [id number] Nidia Jean-Baptiste Bibi [id number] Nidia Bibi Notes Date Note Type Note Provider Name and Address Organization Details Recorded Time 03/15/2020 text/html HPI Notes: Back Pain Reported by patient. Location: lumbar; pain radiating to the legs Quality: sharp; tingling Severity: pain level 8/10; severe (8-10) Prior Imaging: MRI for cervical spine in [place]. No imaging for lumbar spine. Nidia MTZ 59yo F 1960 #[id number] Chief Complaint: Status post fall, lower back pain, left sacroiliac pain, left lower extremity radiculopathy History of Present Illness: Patient is reporting that she fell very carefully with the object falling on her just few weeks back and since then patient is having pain as described above, up to 7-, 8 of 10. Pain is radiculopathic. Patient has done some physical therapy and chiropractic treatment and the pain is persisting. It seems that patient has not been investigated for fracture or other injuries. Patient is here to be evaluated and for my neurosurgical opinion. Davi Howard MD [address], [place], [address], [facility] [facility] 03/15/2020 16:34:29 05/27/2020 text/html HPI Notes: Back Pain Reported by patient. Location: lumbar; pain radiating to the foot Quality: sharp Severity: pain level 8/10; Pain 10/10 @ worst Prior Imaging: CT scan Today nursing spent 20 minutes preparing to see the patient, obtaining and reviewing patients history, obtaining vital signs, entering medications, tests & procedures, educating the patient, coordinating care, and documenting this visit in [place]. Nidia BIBI ? ? 59yo F ? ? 1960 ? ? #[id number] ? ? History: Patient is reporting that the symptoms are more less the same with pain 8 of 10 in the lower back and left lower extremity. Patient is here with this CT of the lumbar spine. Conservative therapy as been started but not finished. Davi Howard MD [address], [place], [address], [facility] Ku6 05/27/2020 16:44:06 OBGyn Episode No OBEpisode recorded.
--- OUTSIDE RECORDS SUMMARY | 2023-07-22 17:07 | XMS_ITS | Encounter Summary ---
Author Name Unknown Organization [facility] Address [facility] [place] [address] Care Team Providers Care Stonemason Helper Name Role Phone Kelly Medina PA-C Primary Care Pr ovider Elton Harmon-C Unavailable +1 Elton Harmon-C Unavailable +1 Elton Harmon-C Primary Care Provider + Elton Harmon-C Unavailable + Giulia Awan DO Unavailable [phone] Elton Harmon-C Unavailable + Elton Harmon-C Unavailable + Tevin Marshall-C Unavailable [phone] Kelly Medina-C Unavailable Kelly MedinaC Primary Care Pr ovider Encounter Details Date Type Department Care Team (Late st Contact Info) Description 09/20/2002 [facility] [address] [place] [address] Raghu Sexton MD XXX RETIRED XXX [address] [place] [address] ER (Primary Dx) Social History Tobacco Use Types Packs/Day Years Used Date Smoking Tobacco: Never Smokeless Tobacco: Never Alcohol Use Standard Drinks/Week Comments Yes 0 (1 standard drink = 0.6 oz pur e alcohol) 4 weekends Sex and Gender Information Value Date Recorded Sex Assigned at Not on file Gender Identity Not on file Sexual Orientation Not on file documented as of this encounter Progress Notes * 09/20/2002 11:59 PM [id number] 00:00 Emergency Department Encounter-[facility] DOTTIE MIRAMONTES () [Entered: 00:00 Orthopedic Physician ([facility])] : 64 CHIEF COMPLAINT: Flank pain. HISTORY OF PRESENT ILLNES S: The patient is a 42-year-old female who says at midnight she had the sudden onset of burning pain in her pelvic area that radiated to her back along with some left and right flank pain. The right p ain has resolved, but the left pain has persisted and has been 5/10 on the pain scale. It is spasm l hayley and is worse at times. She has been mildly nauseated with it. She has not vomited. She has not had any fevers, aches or chills. She did note some blood in her urine and urgency in voiding. She has been going frequently as well. She has not had any abnormal stools. She had been eating normally and was at work when her symptoms started. She was well in her usual state of health prior to the s ymptoms. She says she had a bladder infection in June which was similar but without the severe pa in. MEDICATIONS: None chronically. ALLERGIES: PENICILLIN AND IODINE. PAST MEDICAL HISTORY: Hyst erectomy. Urinary tract infections. FAMILY HISTORY: Noncontributory. SOCIAL HISTORY: The patient is here with her boyfriend. She doesn't smoke or use alcohol. She works nights. REVIEW OF SYSTEMS : All other systems are negative. PHYSICAL EXAMINATION: Shows an alert female. Temperature is 96. 9, pulse 89 and regular, respirations 20, blood pressure 108/68, pulse oximetry 98% on room air. JOHNATHAN NT exam shows her conjunctivae are clear. Mouth and pharynx are normal. NECK is supple and symmetri c. LYMPHATICS are negative. CHEST shows clear, equal breath sounds without wheezing or rales. CARDI OVASCULAR exam reveals regular S1, S2 without murmur. ABDOMEN reveals bowel sounds are present. It i s soft, mildly obese. She has some suprapubic tenderness in the flank area. There is no guarding or rebound. PELVIC and RECTAL deferred. BACK shows some tenderness in the lumbar area on both the righ t and left sides. The EXTREMITIES are normal. SKIN is clear. NEUROLOGICALLY, she is alert, appropri ate. Cranial nerves are symmetric. Motor examination is intact. Reflexes are symmetric. LABORATOR Y DATA: Urinalysis shows greater than 100 white cells, greater than 100 red cells and bacteria prese nt in her urine. The other studies could not be done because she has been taking some over-the- coun ter medication. A spiral CT for a left sided kidney stone is pending. SUBSEQUENT EVENTS: The dinorah ent was reassured pending the results of her tests. She initially thought she has a bladder infectio n, but this seems like it could be something more such as a kidney stone with an obstructive urine in fection. IV of normal saline was established at 100 cc an hour. One gram of Rocephin was given intr avenously. Morphine 5 mg was given intravenously, that was repeated once. Zofran 4 mg intravenously for nausea. Toradol 30 mg intravenously and that was repeated once with the patient's symptoms impro ving. At this point, the patient appears to have a left sided kidney stone with a urine infection wh ich may be a coincidence or may be due to obstruction. The patient had a CT scan ordered but the pending sale to [facility] was unable to perform the test so another tech has to be called in from home and the test has been delayed. The patient was advised of that and at this point, the patient will be managed by Dr. Albert mojica in terms of the CT scan and possible disposition. Otherwise, if the patient's scan is acceptable a nd her symptoms have improved, she will be able to be discharged to home with Vicodin for pain and Ce fzil for the infection. INTERIM DIAGNOSES: 1. Left renal colic. 2. Urinary tract infection. EM1 00_ DOTTIE MIRAMONTES MD [place]: Document: [id number] [place], [place] Name: NIDIA MOSELEY EMERGENCY ROOM ENCOUNTER Page 2 of 2 LCN: ERA DSC: 09/20/2002 [place], [place] Name: MR#: : Ad romelia Date: NIDIA MOSELEY [id number] 1960 09/20/2002 Doctor: DOTTIE MIRAMONTES MD EMERGENCY ROOM ENCOUNTER Page 1 of 2 00:00 Emergency Department Encounter-LIVAN DUKES () [Entered: 00:00 Orthopedic Physician ([facility])] : 64 CHIEF COMPLAINT: Bilater al flank pain. ADDENDUM: This patient's CT scan review was signed out at the change of shift by Dr. Miramontes for me to review. The CT scan is negative for any evidence of renal or ureterolithiasis and no evidence of hydroureter or perinephric stranding suggesting no current etiology for this patient' s bilateral abdominal pain. The findings are more consistent with the diagnosis of urinary tract inf ection or possible early kidney infection, however the patient's subsequent course from the emergency department with a negative CT scan has been determined by Dr. Miramontes and the instructions have alre srinivasan been pre-written and discussed. A prescription for Cefzil, Vicodin and Compazine have been writt en by Dr. Miramontes for the patient. The patient will be discharged home with recommendations to rest, to increase oral fluid intake. To return to the emergency department if symptoms should worsen. Ot herwise, the other instructions are determined by Dr. Miramontes. At any time if the patient should abr uptly worse, she is encouraged to return promptly to the emergency department for reassessment. EM10 0 _ LIVAN EDOUARD MD [place]: Document: [id number] [place], [place] Name: NIDIA MOSELEY EMERGENCY ROOM ENCOUNTER Page 2 of 1 LCN: ERA DSC: 09/20/2002 [place], [place] Name: MR#: : Admit Date: NIDIA MOSELEY [id number] 1960 09/20/2002 Doctor: LIVAN EDOUARD MD EMERGEN CY ROOM ENCOUNTER Page 1 of 1 documented in this encounter Plan of Treatment Upcoming Encounters Date Type Department Care Team (Late st Contact Info) Description 2023 1:30 PM MANAGER COSMETICS Office Visit [facility] [address] [place] [phone] Anamaria Nevarez MD [address] [place] [address] documented as of this encounter Visit Diagnoses Diagnosis ER- Primary documented in this encounter Additional Health Concerns Infection Onset Date Last Indicated Resolved Time MRSA-Contact Isolation Comment:Nares+, 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 Two negative nares PCRs on 09/05/2015 and 08/24/2022. MRSA banner removed. 04/29/2014 04/29/201408/16 9:07 AM CDT Rule Out COVID-19 03/20/2023 03/20/2023 03/20/2023 8:43 PM CDT documented as of this encounter Care Teams Stonemason Helper Relationship Specialty Start Date End Date Kelly Medina PA-C [address] [place] [address] PCP - General 08/01/01 09/01/18 Elton Harmon PA-C [address] [place] [address] PCP - Assigned PCP 10/13/17 08/19/18 Elton Harmon PA-C [address] [place] [address] PCP - General Physician Civil Engineer Helper - Medical 09/02/18 08/06/22 Klely Medina PA-C [address] [place] [address] PCP - General Family Medicine 08/07/22 Elton Harmon PA-C [address] [place] [address] Assigned PCP 12/06/19 09/24/20 Elton Harmon PA-C [address] [place] [address] Assigned PCP 10/13/17 12/05/19 Giulia Awan DO [address] [facility] [address] [place] [address] Assigned OBGYN Provider 04/08/20 Elton Harmon PA-C [address] [place] [address] Assigned PCP 09/25/20 12/29/20 Elton Harmon PA-C [address] [facility] [place] [address] Assigned PCP 12/30/20 06/29/22 Tevin Marshall PA-C [address] [facility] [place] [address] [address] Assigned Musculoskeletal Provider 12/16/21 07/10/23 Kelly Medina PA-C [address] [place] [address] Assigned PCP 06/30/22 documented as of this encounter
--- OUTSIDE RECORDS SUMMARY | 2023-07-22 17:07 | XMS_ITS | Encounter Summary ---
Author Name Unknown Organization [facility] Address [address] [place] [id number] Care Team Providers Care Nuclear Fuels Reclamation Engineer Name Role Phone Kelly Medina PA-C Primary Care Pr ovider Elton Harmon-C Unavailable [phone] Elton Harmon-C Unavailable [phone] Elton Harmon-C Primary Care Provider + Elton Harmon-C Unavailable + Giulia Awan DO Unavailable [phone] Elton Harmon-C Unavailable + Elton Harmon-C Unavailable + Tevin Marshall-C Unavailable [phone] Kelly Medina-C Unavailable Kelly MedinaC Primary Care Pr ovider Encounter Details Date Type Department Care Team (Late st Contact Info) Description 04/30/2012 [facility] Medical Advice [facility] [id number] [place] [id number] [facility] Social History Tobacco Use Types Packs/Day Years [...] st Contact Info) Description 2023 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 Two negative nares PCRs on 09/05/2015 and 08/24/2022. MRSA banner removed. 04/29/2014 04/29/201408/16 9:07 AM CDT Rule Out COVID-19 03/20/2023 03/20/2023 03/20/2023 8:43 PM CDT documented as of this encounter Care Teams Nuclear Fuels Reclamation Engineer Relationship Specialty Start Date End Date Kelly Medina PA-C [address] [place] [address] PCP - General 08/01/01 09/01/18 Elton Harmon PA-C [address] [place], [place] [id number] PCP - Assigned PCP 10/13/17 08/19/18 Elton Harmon PA-C [address] [place], [place] [id number] PCP - General Physician Coal Deliverer - Medical 09/02/18 08/06/22 Kelly Medina PA-C [address] [place] [address] PCP - General Family Medicine 08/07/22 Elton Harmon PA-C [address] [place] [address] Assigned PCP 12/06/19 09/24/20 Elton Harmon [place]-C [address] [place] [address] Assigned PCP 10/13/17 12/05/19 Giulia Awan DO [address] [address] Assigned OBGYN Provider 04/08/20 Elton Harmon PA-C [address] [place] [address] Assigned PCP 09/25/20 12/29/20 Elton Harmon [place]-C [address] [place] [address] Assigned PCP 12/30/20 06/29/22 Tevin Marshall PA-C [address] [address] Assigned Musculoskeletal Provider 12/16/21 07/10/23 Kelly Medina PA-C [address] [place] [address] Assigned PCP 06/30/22 documented as of this encounter
--- OUTSIDE RECORDS SUMMARY | 2023-07-22 17:07 | XMS_ITS | Clinical Summary ---
Author Name Unknown Organization [facility] Address [place], [place] [address] Care Team Providers Care Process Lead Name Role Phone Kelly Callahan PA-C Primary Care Provid er Allergies Active Allergy Reactions Criticality Noted Date Comments Iodine *Unknown 11/13/2021 Medications Medication Sig Dispensed Refills Start Date End Date Status cyclobenzaprine (FLEXERIL) 10 mg tabletIndications:Str ain of lumbar region, initial encounter Take 1 Tablet (10 mg) by mouth 3 times daily. 30 Tablet 0 11/13/2021 Active Social History Tobacco Use Types Packs/Day Years Used Date Smoking Tobacco: Never Assessed Sex and Gender Information Value Date Recorded Sex Assigned at Not on file Gender Identity Not on file Sexual Orientation Not on file Last Filed Vital Signs Vital Sign Reading Time Taken Comments Blood Pressure 134/79 11/13/2021 8:31 PM CDT Pulse 100 11/13/2021 8:31 PM CDT Temperature 36.8 ??C (98.2 ??F) 11/13/2021 8:31 PM CD T Respiratory Rate 16 11/13/2021 8:31 PM CDT Oxygen Saturation 96% 11/13/2021 8:31 PM CDT Inhaled Oxygen Concentration - - Weight 79.4 kg (175 lb 0.7 oz) 11/13/2021 8:31 P M CDT Height 160 cm (5' 3) 11/13/2021 8:31 PM CDT Body Mass Index 31.01 11/13/2021 8:31 PM CDT Plan of Treatment Not on file Care Teams Process Lead Relationship Specialty Start Date End Date Kelly Callahan PA-C [address] [place] [address] PCP - General Family Practice 11/13/21
== END 2023-07-22 18:29 | disposition home or self-care (01) ==
PROVIDERS: Emergency Provider Emergency Medicine
DX: L03.116 Cellulitis of left lower limb (principal); R60.0 Localized edema
CPT/HCPCS: 93971; 99283

== ENCOUNTER 2025-03-26 16:56 | Outpatient (CLI) | payer BC, SELFPAY | END 2025-03-26 16:57 | disposition home or self-care (01) | LOC: NFLDREF 03-29 18:42 | PROVIDERS: Visit Provider Family Medicine | DX: R10.11 Right upper quadrant pain (principal); N39.0 Urinary tract infection, site not specified | CPT/HCPCS: 87086 ==

== ENCOUNTER 2025-03-26 17:26 | Emergency (ER) | payer BC, SELFPAY ==
--- OUTSIDE RECORDS SUMMARY | 2025-03-26 17:28 | XMS_ITS | Clinical Summary ---
Author Organization [facility] Address [address] [place] [address] Care Team Providers Care Junk Removal Specialist Name Role Phone Néstor Medina PA-C Unavailable Néstor Medina PA-C Primary Care Pr ovider Anamaria Nevarez MD Unavailable Anamaria Nevarez MD Unavailable Allergies Active Allergy Reactions Criticality Noted Date Comments Bees 06/28/2005 Codeine Low 08/08/2022 Makes me hyper Contrast Dye 09/03/2002 Coma. Pt is ok with isovue 370 (ct contrast dye) 08/08/13. Iodinated Contrast Media Anaphylaxis High 08/08/2022 Allergy to dye from 1979, has had scans with contrast dye within the past several years without incident. Information verified with patient 12/25/2023 Iodine Anaphylaxis High 09/03/2002 anaphylaxis Latex Anaphylaxis High 09/23/2002 Malt Hives 04/23/2014 Penicillins Rash Low 09/03/2002 rash Estradiol Rash Low 04/16/2018 Medications VITAMIN D, CHOLECALCIFEROL, PO Take 400 Units by mouth daily Active Magnesium Chloride (MAGNESIUM DR PO) Take 450 mg by mouth 2 times daily Active albuterol (PROAIR HFA/PROVENTIL HFA/VENTOLIN HFA) 108 (90 Base) MCG/ACT inhalerIndication s:Intermittent asthma, uncomplicated Inhale 1-2 puffs into the lungs every 4 hours as needed for shortness of breath / dyspnea 16 g 1 12/22/19 21 Active multivitamin w/minerals (THERA-VIT-M) tablet Take 1 tablet by mouth daily Active aspirin (ASA) 325 MG EC tabletIndications :S/P TKR (total knee replacement), left Take 1 tablet (325 mg) by mouth daily 30 tablet 09/04/19 23 Active PREDNISONE, JANICE, PO Take 10 mg by mouth daily Prednisone dose pack Active loratadine-pseudo ePHEDrine (CLARITIN-D 12-HOUR) 5-120 MG 12 hr tabletIndications :Congestion of paranasal sinus Take 1 tablet by mouth 2 times daily 30 tablet 10/21/19 24 Active etanercept (ENBREL) 50 MG/ML injection Inject 50 mg Subcutaneous once a week Active clobetasol (TEMOVATE) 0.05 % external ointmentIndicatio ns:Lichen sclerosus Apply topically. Use daily during a flare, apply twice weekly between flares for prevention. 45 g 3 01/21/20 25 Active estradiol (ESTRACE) 0.1 MG/GM vaginal creamIndications: Genitourinary syndrome of menopause Place 1 g vaginally twice a week. Please schedule yearly visit for future refills 42.5 g 1 01/22/20 25 Active Active Problems Patient Care Coordination No te Formatting of this note migh t be different from the original. [email or web address] Problem Noted Date Diagnosed Date Lichen sclerosus 12/31/2023 Anxiety 09/27/2017 Autoimmune disease 09/27/2017 Hip pain, left 09/13/2015 Degenerative arthritis of hip 05/18/2014 Abdominal pain, unspecified abdominal location 0 12/07/2010 Overview (03/18/2015): Problem list name updated by automated process. 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 Provider to review Autoimmune disease, not elsewhere classified Overview (01/07/2013): sees dr [facility] Problem list name updated [...] Encounters Date Type Department Care Team Description 01/20/2025 10:40 AM CDT Ancillary Procedure [address] [phone] Owen Price MD Pelvic pain in female 01/20/2025 9:00 AM CDT Office Visit [facility] [address] [place] [address] [phone] Owen Price MD Urinary frequency (Primary Dx); Lichen sclerosus; Genitourinary syndrome of menopause; Pelvic pain in female 01/20/2025 Results Follow-Up [facility] [address] [place] [address] [phone] Owen Price MD Subj: Message about your results 01/20/2025 Travel 01/19/2025 Travel from Last 3 Months Immunizations Immunization Administration Dates Next Due COVID-19 MONOVALENT 12+ (Pfizer) 07/13/2021,10/16,10/18/2020 DTaP, Unspecified 03/20/2012 Influenza (H1N1) 05/20/2009 Influenza (IIV3) PF 04/17/2013, 3,03/20/2012,2010,03/30/2010 Influenza Vaccine, 6+MO IM (QUADRIVALENT W/PRESERVATIVES) 03/21/2021 TD,PF 7+ (Tenivac) 02/16/2004 TDAP (Adacel,Boostrix) 04/17/2013,03/20/2012 TDAP Vaccine (Adacel) 04/16/2018 Zoster recombinant adjuvante d (Shingrix) 03/25/2019,12/03/2018 Family History Medical History Relation Comments [...] Never Smokeless Tobacco: Never Tobacco Cessation:Counseling Given: No Alcohol Use Standard Drinks/Week Comments Yes 0 [...] any clubs o r organizations such as mandaeism groups, unions, fraternal or athletic groups, or [...] PHQ-2 Answer Date Recorded PHQ-2 Score 0 01/20/2025 [facility] - Occupational [...] in a fci (including now)? 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 Not on file Not on file Not on file Last Filed Vital Signs Vital Sign Reading Time Taken Comments Blood Pressure 118/72 01/20/2025 8:57 AM CDT Pulse 59 01/24/2024 1:00 PM CDT Temperature 36.7 C (98.1 F) 01/24/2024 1:00 PM CDT Respiratory Rate 16 10/21/2023 3:18 PM CDT Oxygen Saturation 97% 01/24/2024 1:00 PM CDT Inhaled Oxygen Concentration - - Weight 93.9 kg (207 lb) 01/20/2025 8:57 AM CDT Height 158.8 cm (5' 2.5) 02/25/2024 2:28 PM CDT Body Mass Index 37.26 02/25/2024 2:28 PM CDT Plan of Treatment Health Maintenance Due Date Last Done Comments CT COLONOGRAPHY 1960 FIT 1960 FLEX SIG 1960 sDNA (Cologuard) 1960 PNEUMOCOCCAL VACCINE 50+ YEARS (1 of 2 - PCV) 1981 ASTHMA ACTION PLAN 07/10/2014 07/10/2013, 0 09/15/2012, 03/13/2012, Additional history exists YEARLY PREVENTIVE VISIT 07/13/2020 07/13/19 20, 03/17/2018, 09/17/2016, Additional history exists RSV VACCINE (1 - Risk 60-74 years 1-dose series) 2022 ADVANCE CARE PLANNING 12/05/2022 12/05/2017 ASTHMA CONTROL TEST 02/24/2023 08/24/2022, 12/05/2021, 12/21/2020, Additional history exists ANNUAL REVIEW OF HM ORDERS 01/18/202401/17, 12/05/2021, 12/21/2020 MAMMO SCREENING 02/07/2024 02/06/2023, 01/2022, 07/23/2019, Additional history exists COVID-19 VACCINE ( season) 2025 07/13/2021, 11/08/2020, 10/18/2020 INFLUENZA VACCINE (#1) 2025 , 03/17/2018 (Declined), 04/17/2013, Additional history exists DIABETES SCREENING 01/17/2026 01/17/2023, 0 09/05/2022, 09/04/2022, Additional history exists LIPID 01/18/2028 01/17/2023, 04/0 10/2016, 09/15/2012, Additional history exists DTAP/TDAP/TD VACCINE (5 - Td or Tdap) 04/16/2028 04/16/2018, 04/17/2013, 03/20/2012, Additional history exists COLONOSCOPY 06/18/2028 06/18/2023, 07/2023, 10/01/2017, Additional history exists COLORECTAL CANCER SCREENING 06/18/2028 PAP Discontinued 09/15/2012, 11/16, 02/03/2007, Additional history exists ZOSTER VACCINE Completed 03/25/2019, 12/03/2018 HEPATITIS C SCREENING Completed 07/10/2023, 023 PHQ-2 (once per calendar year) Completed 01/20/2025, 01/24/2024, 01/17/2023, Additional history exists HIV SCREENING Discontinued HPV VACCINE (No Doses Required) Completed MENINGITIS VACCINE Aged Out No longer eligible based on patient's age to complete this topic Medical Devices Implanted Type Area Police Communications Dispatcher Device Identifier Shelf Expiration Date Model / Serial / Lot Bone Cement Simplex Full Dose 6191-1-001 - [id number] Implanted:Qty: 1 on 09/03/2022 by Darshan Young MD at [facility] Cement, Bone Left: Knee [employer] 11/14/2024 6191-1-001 / / [id number] Imp Patella Zim Knee All Sabina 32mm [id number] - [id number] Implanted:Qty: 1 on 09/03/2022 by Darshan Young MD at [facility] Total Joint Componen t/Insert Left: Knee [employer] [id number] 07/08/2027 [id number] 2 / / [id number] Imp Tibial Zim Psn Automation And Controls Manager Stm 5deg Sz Dl 79-2701-606-01 - [id number] Implanted:Qty: 1 on 09/03/2022 by Darshan Young MD at [facility] Total Joint Componen t/Insert Left: Knee [employer] [id number] 04/30/2032 39-5329-005-0 1 [id number] Knee Femur Cr Cement Ccr Aguilar Sz 7 L - [id number] Implanted:Qty: 1 on 09/03/2022 by Darshan Young MD at [facility] Total Joint Componen t/Insert Left: Knee [employer] [id number] 11/26/2031 [id number] / / [id number] Insert Tibial Asf Cr 11mm Ve L 6-7 - [id number] Implanted:Qty: 1 on 09/03/2022 by Darshan Young MD at [facility] Total Joint Componen t/Insert Left: Knee [employer] [id number] 11/17/2025 [id number] / / [id number] Accolade Ii 132deg Neck Angle Hip Stem Implanted:Qty: 1 on 05/18/2014 by Bobby Tapia MD at [facility] Left: Hip [employer] 09/14/2017 [id number] / / [id number] Imp Liner Strk Trident X3 Poly 36mm 0deg Sz E 623-00-36e Implanted:Qty: 1 on 09/13/2015 by Bobby Tapia MD at [facility] Left: Hip [employer] 08/30/2020 623-00-36E / / [id number] Imp Head Femoral Strk Biolox Delta Ceramic 36mm +2.5mm Implanted:Qty: 1 on 09/13/2015 by Bobby Tapia MD at [facility] Left: Hip [employer] 07/10/2020 6570-0-536 / / [id number] Imp Scr Hip Howm 6.5x20mm Gap Implanted:Qty: 1 on 09/13/2015 by Bobby Tapia MD at [facility] Left: Hip [employer] 05/22/2020 / / [id number] Trident Tritanium Hemispherical Shell 56mm Implanted:Qty: 1 on 09/13/2015 by Bobby Tapia MD at [facility] Left: Hip [employer] 01/15/2020 509-02-56E / / [id number] Imp Scr Hip Howm 6.5x30mm Gap Implanted:Qty: 1 on 09/13/2015 by Bobby Tapia MD at [facility] Left: Hip [employer] 08/31/2020 / / [id number] Explanted Type Area Police Communications Dispatcher Device Identifier Shelf Expiration Date Model / Serial / Lot Imp Head Femoral Strk Biolox Delta Ceramic 36mm -5mm Implanted:Qty: 1 on 05/18/2014 by Bobby Tapia MD at [facility] Explanted:Qty: 1 on 09/13/2015 at [facility] Left: Hip [employer] 03/16/2019 6570-0-036 / / [id number] Imp Scr Bone Strk Torx 6.5x30mm Can [id number] Implanted:Qty: 1 on 05/18/2014 by Bobby Tapia MD at [facility] Explanted:Qty: 1 on 09/13/2015 at [facility] Left: Hip [employer] 12/14/20182405-2296- / / [id number] Imp Liner Strk Trident X3 Poly 36mm 0deg Sz E 623-00-36e Implanted:Qty: 1 on 05/18/2014 by Bobby Tapia MD at [facility] Explanted:Qty: 1 on 09/13/2015 at [facility] Left: Hip [employer] 02/14/2019 623-00-36E / / [id number] Hemispherical Cluster Hole Shell 36mm Implanted:Qty: 1 on 05/18/2014 by Bobby Tapia MD at [facility] Explanted:Qty: 1 on 09/13/2015 at [facility] Left: Hip [employer] 01/14/2019 502-03-54E / / [id number] Imp Scr Bone Strk Torx 6.5x20mm Can [id number] Implanted:Qty: 1 on 05/18/2014 by Bobby Tapia MD at [facility] Explanted:Qty: 1 on 09/13/2015 at [facility] Left: Hip [employer] 02/14/20190155-7385- 1 / / [id number] Procedures Procedure Name Priority Date/Time Associated Diagnosis Comments US PELVIC TRANSABDOMINAL AND TRANSVAGINAL Routine 01/20/2025 10:53 AM CDT Pelvic pain in female UA MICROSCOPIC WITH REFLEX TO CULTURE Routine 01/20/2025 9:04 AM CDT Urinary frequency UA MACROSCOPIC WITH REFLEX TO MICRO AND CULTURE Routine 01/20/2025 9:04 AM CDT Urinary frequency HEPATITIS C (HIM EXTERNAL RESULT) Routine 07/10/2023 9:56 AM CLINICAL TRAINING SPECIALIST COLONOSCOPY Routine 06/18/2023 11:20 AM CLINICAL TRAINING SPECIALIST MA SCREENING BILATERAL W/ TAY Routine 02/06/2023 3:04 PM CDT Visit for screening mammogram COMPREHENSIVE METABOLIC PANEL Routine 01/17/2023 2:01 PM CDT Multiple joint pain LIPID REFLEX TO DIRECT LDL PANEL Routine 01/17/2023 2:01 PM CDT Multiple joint pain ASTHMA ACTION PLAN Routine 07/10/2013 11 :29 AM CLINICAL TRAINING SPECIALIST PAP IMAGED THIN LAYER SCREEN Routine 09/15/2012 12:00 AM CDT Screening for malignant neoplasm of the cervix from Last 3 Months or Most Recently Relevant to Health Maintenance Results * US Pelvic Complete with Transvaginal (01/20/2025 10:53 AM CDT) Anatomical Region Laterality Modality Abdomen/Pelvis Ultrasound Narrative 01/20/2025 1:53 PM CDT [facility] ULTRASOUND - PELVIC [place]ARK INTERPRETER- Transabdominal and Transvaginal Referring MD: Owen Price MD CLINICAL INFORMATION Indications for ultrasound: Pain - Pelvic pain LMP: Hysterectomy Hormones: none Measurements: Uterus: surgically Right ovary: NV Left ovary: NV Cul de sac: no free fluid Technique: Transvaginal Imaging performed Transabdominal Imaging performed Complete pelvic ultrasound using realtime transabdominal and transvaginal scanning Bladder appears normal Uterus surgically absent Bilateral ovaries/adnexa non-visualized Normal pelvic ultrasound study. If concerns remain for pathology, consider Pelvic CT or MRI as clinically indicated. Note: federal law requires the release of results to patients even prior to the ordering provider viewing the result. Your provider will notify you, generally within 24 hours, of any critical results. If follow up is necessary, you will be notified at that time. Normal results, and abnormal but non-urgent results, will generally be addressed within 48-[address] Giulia Awan, DO Obstetrics and Gynecology [facility] us Owen Price MD [facility] US ORDERABLES Final Re sult * (ABNORMAL) UA Microscopic with Reflex to Culture (01/20/2025 9:04 AM CDT) Bacteria Urine Few(A) None Seen /HPF [facility] 01/20/2025 9:43 AM CDT [facility] RBC Urine 0-2 0-2 /HPF /HPF [facility] 01/20/2025 9:43 AM CDT [facility] WBC Urine 0-5 0-5 /HPF /HPF [facility] 01/20/2025 9:43 AM CDT [facility] Squamous Epithelials Urine Moderate( A) None Seen /LPF [facility] 01/20/2025 9:43 AM CDT [facility] Urine MID-STREAM URINE SPECIMEN / Unknown Non-blood Collection / Unknown 01/20/2025 9:04 AM CDT 01/20/2025 9:23 AM CDT Narrative [facility] - 01/20/2025 9:43 AM CDT Urine Culture not indicated Owen Price MD LAB - URINE ORDERABLES Fin al Result [facility] [place] [facility] [address], [address] [place] [phone] * (ABNORMAL) UA Macroscopic with reflex to Microscopic and Culture - Clinic Collect (01/20/2025 9:04 AM CDT) Color Urine Yellow Colorless, Straw, Light Yellow, Yellow 01/20/2025 9:40 AM CDT [facility] Appearance Urine Clear Clear 01/21/20 25 9:40 AM CDT [facility] Glucose Urine Negative Negative mg/dL 01/20/2025 9:40 AM CDT [facility] Bilirubin Urine Negative Negative 9:40 AM CDT [facility] Ketones Urine Negative Negative mg/dL 01/20/2025 9:40 AM CDT [facility] Specific [place] Urine 1.010 1.003 - 1.035 01/20/2025 9:40 AM CDT [facility] Blood Urine Negative Negative 01/20/2025 9:40 AM CDT [facility] pH Urine 7.0 5.0 - 7.0 01/20/2025 9:40 AM CDT [facility] Protein Albumin Urine Negative Negative mg/dL 01/20/2025 9:40 AM CDT [facility] Urobilinogen Urine 0.2 0.2, 1.0 E.U./dL 01/20/2025 9:40 AM CDT [facility] Nitrite Urine Negative Negative 01/20/2025 9:40 AM CDT [facility] Leukocyte Esterase Urine Trace(A) Negative 01/20/2025 9:40 AM CDT [facility] Urine MID-STREAM URINE SPECIMEN / Unknown Non-blood Collection / Unknown 01/20/2025 9:04 AM CDT 01/20/2025 9:23 AM CDT Owen Price MD LAB - URINE ORDERABLES Fin al Result [facility] [place] [facility] [address] [place] [address], [facility] * Hepatitis C (HIM External Result) (07/10/2023 9:56 AM CLINICAL TRAINING SPECIALIST) Hep C HIM See Scanned Document [facility] 07/10/2023 9:56 AM CLINICAL TRAINING SPECIALIST Narrative [facility] - 07/10/2023 9:56 AM CLINICAL TRAINING SPECIALIST [facility]External Lab Results us Provider Outside LAB - HIM EXTERNAL RESULT Final Result Performing Organization Address City/[facility]/ZIP Co de Phone Number [facility] [address] [place] [phone] * COLONOSCOPY (06/18/2023 11:20 AM CLINICAL TRAINING SPECIALIST) COLONOSCOPY [facility] Patient Name: Nidia Mtz Procedure Date: 06/18/2023 11:20 AM Date of : 1960 Admit Type: Outpatient Age: 62 Gender: Female Attending MD: MELBA HOUSER MD, Total Sedation Time: 21_minutes continuous bedside 1:1 Instrument Name: 225 - Adult Colonoscope Procedure: Colonoscopy Indications: High risk colon cancer surveillance: Personal history of colonic polyps Providers: MELBA HOUSER MD (Doctor) Referring MD: RON LOPEZ (Referring MD) Medicines: Midazolam 3 mg IV, Fentanyl 150 micrograms IV Complications: No immediate complications. Procedure: Pre-Anesthesia Assessment: - Prior to the procedure, a History and Physical was performed, and patient medications and allergies were reviewed. The patient is competent. The risks and benefits of the procedure and the sedation options and risks were discussed with the patient. All questions were answered and informed consent was obtained. Patient identification and proposed procedure were verified by the physician in the procedure room. Mental Status Examination: alert and oriented. Airway Examination: normal oropharyngeal airway and neck mobility. Respiratory Examination: clear to auscultation. CV Examination: normal. Prophylactic Antibiotics: The patient does not require prophylactic antibiotics. Prior Anticoagulants: The patient has taken no anticoagulant or antiplatelet agents. ASA Grade Assessment: II - A patient with mild systemic disease. After reviewing the risks and benefits, the patient was deemed in satisfactory condition to undergo the procedure. The anesthesia plan was to use moderate sedation / analgesia (conscious sedation). Immediately prior to administration of medications, the patient was re-assessed for adequacy to receive sedatives. The heart rate, respiratory rate, oxygen saturations, blood pressure, adequacy of pulmonary ventilation, and response to care were monitored throughout the procedure. The physical status of the patient was re-assessed after the procedure. After obtaining informed consent, the colonoscope was passed under direct vision. Throughout the procedure, the patient's blood pressure, pulse, and oxygen saturations were monitored continuously. The Olympus Adult Colonoscope, Model # CF-GX141N, Censitrac # [id number] was introduced through the anus and advanced to the cecum, identified by appendiceal orifice and ileocecal valve. The colonoscopy was performed without difficulty. The patient tolerated the procedure well. The quality of the bowel preparation was good. The ileocecal valve, appendiceal orifice, and rectum were photographed. Findings: Hemorrhoids were found on perianal exam. The exam was otherwise without abnormality on direct and retroflexion views. Impression: - Hemorrhoids found on perianal exam. - The examination was otherwise normal on direct and retroflexion views. - No specimens collected. Recommendation: - Repeat colonoscopy in 5 years for surveillance. - Refer to a colo-rectal surgeon at the next available appointment. Procedure Code(s): --- Professional --- G0105, Colorectal cancer screening; colonoscopy on individual at high risk CPT copyright 2021 [employer]. All rights reserved. The codes documented in this report are preliminary and upon lead network engineer review may be revised to meet current compliance requirements. Electronically signed by Melba Houser MD __ MELBA HOUSER MD 06/18/2023 12:22:47 PM I was physically present for the entire viewing portion of the exam. MELBA HOUSER MD Number of Addenda: 0 Note Initiated On: 06/18/2023 11:20 AM Procedure Date: 06/18/2023 11:20:59 AM Scope Withdrawal Time: 0 hours 6 minutes 21 seconds Total Procedure Duration: 0 hours 20 minutes 29 seconds Estimated Blood Loss: Scope In: 11:56:07 AM Scope Out: 12:16:36 PM RADIOLOGY RESULTS 06/18/2023 11:2 0 AM CLINICAL TRAINING SPECIALIST Néstor Medina PA-C PROCEDURES Final Result RADIOLOGY RESULTS * MA Screen Bilateral w/Tay (02/06/2023 3:04 [...] Compared to: 12/22/2021, 07/23/2019, and 07/11/2018 Technique: This study was evaluated with the assistance of Computer-Aided Detection. Breast Tomosynthesis was used in interpretation. Findings: The breasts have scattered areas of fibroglandular density. There is no radiographic evidence of malignancy. Néstor Medina PA-C IM MAMMOGRAPHY ORDERABLES Final Result * (ABNORMAL) Lipid panel reflex to direct [...] - 01/17/2023 5:56 PM CDT Cholesterol Desirable: <200 mg/dL Triglycerides Normal: Less than 150 mg/dL Borderline High: 150-199 mg/dL High: 200-499 mg/dL Very High: Greater than or equal to 500 mg/dL Direct Measure HDL Female: Greater than or equal to 50 mg/dL Male: Greater than or equal to 40 mg/dL LDL Cholesterol Desirable: <100mg/dL Above Desirable: 100-129 mg/dL Borderline High: 130-159 mg/dL High: 160-189 mg/dL Very High: >= 190 mg/dL Non HDL Cholesterol Desirable: 130 mg/dL Above Desirable: 130-159 mg/dL Borderline High: 160-189 mg/dL High: 190-219 mg/dL Very High: Greater than or equal to 220 mg/dL us Néstor Medina PA-C LAB - BLOOD PRIETO LEAL Final Result [facility] [place] [facility] [address] [facility], [address] [phone], [facility] [phone] * (ABNORMAL) Comprehensive metabolic panel (01/17/2023 2:01 PM CDT) Pathologist [facility] Sodium 139 136 - 145 mmol/L 01/17/2023 [...] 2:01 PM CDT 01/17/2023 2:01 PM CDT Néstor Medina PA-C LAB - BLOOD PRIETO LEAL Final Result [facility] [place] [facility] [address] [facility] [facility], [address] [place] [phone], [facility] [phone] * PAP imaged thin layer, screen (09/15/2012 12:00 AM CDT) PAP NIL COPATH Copath Report Patient Name: NIDIA MTZ MR#: [id number] Specimen #: [id number] Collected: 09/15/2012 Received: 09/16/2012 Reported: 09/17/2012 14:09 Ordering Phy(s): NÉSTOR MEDINA SPECIMEN/STAIN PROCESS: Pap imaged thin layer prep screening (Surepath, FocalPoint with guided screening) Pap-Cyto x 1, Reflex HPV x 1 SOURCE: Vaginal Pap imaged thin layer prep screening (Surepath, FocalPoint with guided screening) SPECIMEN ADEQUACY: Satisfactory for evaluation. -Transformation zone component absent. CYTOLOGIC INTERPRETATION: Negative for Intraepithelial Lesion or Malignancy Electronically signed out by: NATALIYA Recinos (ASCP) Processed and screened at [facility] CLINICAL HISTORY: Previous normal pap Date of Last Pap: 12/05/10, Papanicolaou Test Limitations: Cervical cytology is a screening test with limited sensitivity; regular screening is critical for cancer prevention; Pap tests are primarily effective for the diagnosis/preventi on of squamous cell carcinoma, not adenocarcinomas or other cancers. TESTING LAB LOCATION: [address] [address] COLLECTION SITE: Client: [facility] Location: [facility] (R) COPATH Cytologic material (specimen) 09/15/2012 09/16/2012 2:55 PM CDT us Néstor Medina PA-C LAB - OPTIME CLI NICAL SPECIMEN Final Result COPATH from Last 3 Months or Most Recently Relevant to Health Maintenance Insurance [employer] OF [employer] [facility] [employer] [facility] [place] [place] [id number] [facility] [employer] Advance Directives For more information, please contact: [phone] * Full Code (Latest Code Status on File) Date Activated Date Inactivated Comments 09/03/2022 3:55 PM 09/05/2022 12:40 PM All basic a nd advanced life-sustaining interventions are performed as appropriate Question Answer Comments Code status determined by: Unable to dis cuss and no AD/POLST on file; continue PREVIOUSLY ORDERED code status * Full Code Date Activated Date Inactivated Comments 09/13/2015 7:04 PM 09/16/2015 2:43 PM * Full Code Date Activated Date Inactivated Comments 05/18/2014 8:48 PM 05/21/2014 5:50 PM Care Teams Junk Removal Specialist Relationship Specialty Start Date End Date Néstor Medina PA-C [address] [place] [address] PCP - General Family Medicine 08/07/22 Néstor Medina PA-C [address] [place] [address] Assigned PCP 06/30/22 Anamaria Nevarez MD [address], [address] [address] asphalt patcher 07/31/23 Anamaria Nevarez MD [address], [address] [address] Assigned OBGYN Provider 11/07/23
--- OUTSIDE RECORDS SUMMARY | 2025-03-26 17:28 | XMS_ITS | Encounter Summary ---
Author Organization [place] Address [facility] [place] [address] Care Team Providers Care Labor Relations Director Name Role Phone Kelly MedinaC Primary Care Pr ovider Elton Harmon PA-C Unavailable + Elton Harmon PA-C Unavailable + Elton Harmon PA-C Primary Care Provider +1--00 Erik Harmonis PA-C Unavailable +88 Giulia Awan DO Unavailable [phone] Elton Harmon PA-C Unavailable +88 Faustino Elton PA-C Unavailable +88 Tevin Marshall PA-C Unavailable +[phone] Kelly Medina-C Unavailable Kelly MedinaC Primary Care Pr ovider Anamaria Nevarez MD Unavailable [phone] Anamaria Nevarez MD Unavailable Encounter Details Date Type Department Care Team (Late st Contact Info) Description 03/18/2010 MyC Medical Advice [facility] [address] [place] [phone] Zeyad Peoples MD [address] [place] [phone] Social History Tobacco Use Types Packs/Day Years Used Date Smoking Tobacco: Never Alcohol Use Standard Drinks/Week Comments Yes 0 (1 standard drink = 0.6 oz pur e alcohol) rare Comments No Sex and Gender Information Value Date Recorded Sex Assigned at Not on file 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 Two negative nares PCRs on 09/05/2015 and 08/24/2022. MRSA banner removed. 04/29/2014 04/29/201408/16 9:07 AM CDT Rule Out COVID-19 03/20/2023 03/20/2023 03/20/2023 8:43 PM CDT documented as of this encounter Care Teams Labor Relations Director Relationship Specialty Start Date End Date Kelly Medina PA-C [address] [place] [address] PCP - General 08/01/01 09/01/18 Elton Harmon PA-C [address] [address] PCP - Assigned PCP 10/13/17 08/19/18 Elton Harmon PA-C [address] [place] [address] PCP - General Physician Piano Teacher - Medical 09/02/18 08/06/22 Kelly Medina PA-C [address] [place] [address] PCP - General Family Medicine 08/07/22 Elton Harmon PA-C [address] [place] [address] Assigned PCP 12/06/19 09/24/20 Elton Harmon PA-C [address] [place] [address] Assigned PCP 10/13/17 12/05/19 Giulia Awan DO [address] [address] Assigned OBGYN Provider 04/08/20 Elton Harmon PA-C [address] [place] [address] Assigned PCP 09/25/20 12/29/20 Elton Harmon PA-C [address] [place] [address] Assigned PCP 12/30/20 06/29/22 Tevin Marshall PA-C [address] [facility] [address] [place] [address] Assigned Musculoskeletal Provider 12/16/21 07/10/23 Kelly Medina PA-C [address] [place] [address] Assigned PCP 06/30/22 Anamaria Nevarez MD [address] [address] health coach 07/31/23 Anamaria Nevarez MD [address] [address] Assigned OBGYN Provider 11/07/23 documented as of this encounter
--- OUTSIDE RECORDS SUMMARY | 2025-03-26 17:28 | XMS_ITS | Encounter Summary ---
Author Organization [place] Address [facility] [place] [address] Care Team Providers Care Stain Applicator Name Role Phone Kelly MedinaC Primary Care Pr ovider Elton Harmon PA-C Unavailable + Elton Harmon PA-C Unavailable + Elton Harmon PA-C Primary Care Provider +1--00 Erik Harmonis PA-C Unavailable +88 Giulia Awan DO Unavailable [phone] Elton Harmon PA-C Unavailable +88 Faustino Elton PA-C Unavailable +88 Tevin Marshall PA-C Unavailable [phone] Kelly Medina-C Unavailable Kelly MedinaC Primary Care Pr ovider Anamaria Nevarez MD Unavailable [phone] Anamaria Nevarez MD Unavailable Encounter Details Date Type Department Care Team (Late st Contact Info) Description 09/20/2002 [facility] [address] [place] [phone] Raghu Sexton MD XXX RETIRED XXX [address] [place] [address] ER (Primary Dx) Social History Tobacco Use Types Packs/Day Years Used Date Smoking Tobacco: Never Smokeless Tobacco: Never Alcohol Use Standard Drinks/Week Comments Yes 0 (1 standard drink = 0.6 oz pur e alcohol) 4 weekends Comments No Sex and Gender Information Value Date Recorded Sex Assigned at Not on file Legal Sex Female 3:42 AM SLURRY CONTROL 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 HISTORY [...] had a CT scan ordered but the [facility] was unable to perform the test so [...] EM1 00_ DOTTIE MIRAMONTES MD MT: Document: [id number] [place], [place] Name: NIDIA MOSELEY EMERGENCY ROOM ENCOUNTER Page 2 of 2 LCN: BARBY DSC: 09/20/2002 [place], [place] Name: MR#: : Ad romelia Date: NIDIA MOSELEY [id number] 1960 09/20/2002 Doctor: DOTTIE MIRAMONTES MD EMERGENCY ROOM ENCOUNTER Page 1 of 2 00:00 Emergency Department Encounter-[facility] DUKES () [Entered: 00:00 [employer] ([facility])] : 64 CHIEF COMPLAINT: Bilater al flank [...] 0 _ LIVAN EDOUARD MD MT: Document: [id number] [place], [place] Name: NIDIA MOSELEY EMERGENCY ROOM ENCOUNTER Page 2 of 1 LCN: ERA DSC: 09/20/2002 [place], [place] Name: MR#: : Admit Date: NIDIA MOSELEY [id number] 1960 09/20/2002 Doctor: LIVAN EDOUARD MD EMERGEN CY ROOM ENCOUNTER Page 1 of 1 documented in this encounter Plan of Treatment Not on [...] documented as of this encounter Care Teams Stain Applicator Relationship Specialty Start Date End Date Kelly Medina PA-C [address] [place] [address] PCP - General 08/01/01 09/01/18 Elton Harmon PA-C [address] [place] [address] PCP - Assigned PCP 10/13/17 08/19/18 Elton Harmon PA-C [address] [place] [address] PCP - General Physician Senior Manager [employer] - Medical 09/02/18 08/06/22 Kelly Medina PA-C [address] [place] [address] PCP - General Family Medicine 08/07/22 Elton Harmon PA-C [address] [place] [address] Assigned PCP 12/06/19 09/24/20 Elton Harmon PA-C [address] [place] [address] Assigned PCP 10/13/17 12/05/19 Giulia Awan DO [address] [address] Assigned OBGYN Provider 04/08/20 Elton Harmon PA-C [address] [place] [address] Assigned PCP 09/25/20 12/29/20 Elton Harmon PA-C [address] [place] [address] Assigned PCP 12/30/20 06/29/22 Tevin Marshall PA-C [address] [address] Assigned Musculoskeletal Provider 12/16/21 07/10/23 Kelly Medina PA-C [address] [place] [address] Assigned PCP 06/30/22 Anamaria Nevarez MD [address] [address] MD kinesiology professor 07/31/23 Anamaria Nevarez MD [address] [address] Assigned OBGYN Provider 11/07/23 documented as of this encounter
--- OUTSIDE RECORDS SUMMARY | 2025-03-26 17:28 | XMS_ITS | Encounter Summary ---
Author Organization [place] Address [address] [place] [address] Care Team Providers Care Rn Charge Name Role Phone Kelly Medina PA-C Unavailable Kelly Medina PA-C Primary Care Pr ovider Anamaria Nevarez MD Unavailable [phone] Anamaria Nevarez MD Unavailable [phone] Encounter Details Date Type Department Care Team (Late st Contact Info) Description 01/20/2025 Results Follow-Up [facility] [address] [place] [address] Owen Price MD [address] [place], [place] [address] Subj: Message about your results Social History Tobacco Use Types Packs/Day Years [...] often do you attend chur ch or shinto services? More than 4 times per year 08/24/2022 Do you belong to any clubs o r organizations such as orthodox groups, unions, fraternal or athletic groups, [...] Answer Date Recorded PHQ-2 Score 0 01/20/2025 [facility] Occupat ional Health - Occupational [...] place to sleep or slept in a correction (including now)? 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 Not on file Not on file documented as of this encounter Plan of Treatment Not on file documented as of this encounter Visit Diagnoses Not on filedocumented in this encounter Additional Health Concerns Assessment Noted Time PHQ-9 Depression Total Score: 4 12/04/19 19 3:50 PM CDT documented as of this encounter Care Teams Rn Charge Relationship Specialty Start Date End Date Kelly Medina PA-C [address] [place] [address] PCP - General Family Medicine 08/07/22 Kelly Medina PA-C [address] [place] [address] Assigned PCP 06/30/22 Anamaria Nevarez MD [address], [address] [address] director of social services 07/31/23 Anamaria Nevarez MD [address], [address] [place] [address] Assigned OBGYN Provider 11/07/23 documented as of this encounter
--- OUTSIDE RECORDS SUMMARY | 2025-03-26 17:28 | XMS_ITS | Encounter Summary ---
Author Organization [place] Address [facility] [place] [address] Care Team Providers Care Cutter First Name Role Phone Kelly MedinaC Primary Care Pr ovider Elton Harmon PA-C Unavailable + Elton Harmon PA-C Unavailable + Elton Harmon PA-C Primary Care Provider +1--00 Erik Harmonis PA-C Unavailable +88 Giulia Awan DO Unavailable [phone] Elton Harmon PA-C Unavailable +88 Faustino Elton PA-C Unavailable +88 Tevin Marshall PA-C Unavailable [phone] Kelly Medina-C Unavailable Kelly MedinaC Primary Care Pr ovider Anamaria Nevarez MD Unavailable [phone] Anamaria Nevarez MD Unavailable Reason for Visit * Reason Comments Medication Refill Encounter Details Date Type Department Care Team (Late st Contact Info) Description 03/15/2018 Refill [facility] [address] [place] [phone] Giulia Awan, DO [address] [place] [address] Medication Refill Social History Tobacco Use Types Packs/Day Years Used Date Smoking Tobacco: Never Smokeless Tobacco: Never Alcohol Use Standard Drinks/Week Comments Yes 0 (1 standard drink = 0.6 oz pur e alcohol) 4 weekends Comments No Sex and Gender Information Value Date Recorded Sex Assigned at Not on file Legal Sex Female 3:42 AM SENIOR STAFF PSYCHOLOGIST Gender Identity Not on file Sexual Orientation Not on file 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 Not on file Not [...] documented as of this encounter Care Teams Cutter First Relationship Specialty Start Date End Date Kelly Medina PAQuintinC [address] [place] [address] PCP - General 08/01/01 09/01/18 Elton Harmon PA-C [address] [place] [address] PCP - Assigned PCP 10/13/17 08/19/18 Elton Harmon PA-C [address] [place] [address] PCP - General Physician Sifter Operator - Medical 09/02/18 08/06/22 Kelly Medina PA-C [address] [place] [address] PCP - General Family Medicine 08/07/22 Elton Harmon PA-C [address] [place], [place] [address] Assigned PCP 12/06/19 09/24/20 Elton Harmon PA-C [address] [place] [address] Assigned PCP 10/13/17 12/05/19 Giulia Awan DO [address] [address] Assigned OBGYN Provider 04/08/20 Elton Harmon PA-C [address] [place] [address] Assigned PCP 09/25/20 12/29/20 Elton Harmon PA-C [address] [place] [address] Assigned PCP 12/30/20 06/29/22 Tevin Marshall PA-C [address] [facility] [address] [place] [address] Assigned Musculoskeletal Provider 12/16/21 07/10/23 Kelly Mdeina PA-C [address] [place] [address] Assigned PCP 06/30/22 Anamaria Nevarez MD [address], [address] [address] cashier or checker stock clerk 07/31/23 Anamaria Nevarez MD [address], [address] [address] Assigned OBGYN Provider 11/07/23 documented as of this encounter
--- OUTSIDE RECORDS SUMMARY | 2025-03-26 17:28 | XMS_ITS | Encounter Summary ---
Author Organization [place] Address [facility] [place] [address] Care Team Providers Care Bus System Operator Name Role Phone Kelly MedinaC Primary Care Pr ovider Elton Harmon PA-C Unavailable + Elton Harmon PA-C Unavailable + Elton Harmon PA-C Primary Care Provider +1--00 Erik Harmonis PA-C Unavailable +88 Giulia Awan DO Unavailable [phone] Elton Harmon PA-C Unavailable +88 Faustino Elton PA-C Unavailable +88 Tevin Marshall PA-C Unavailable [phone] Kelly Medina-C Unavailable Kelly MedinaC Primary Care Pr ovider Anamaria Nevarez MD Unavailable [phone] Anamaria Nevarez MD Unavailable Reason for Visit * Reason Onset Date Comments Erroneous encounter-disregard 12/27/2017 es citalopram (LEXAPRO) 20 MG tablet Encounter Details Date Type Department Care Team (Late st Contact Info) Description 12/27/[address], [address] [place] [address] Elton Harmon PA-C [address] [place] [address] Erroneous encounter-disregard (escitalopram (LEXAPRO) 20 MG tablet) Social History Tobacco Use Types Packs/Day Years Used Date Smoking Tobacco: Never Smokeless Tobacco: Never Alcohol Use Standard Drinks/Week Comments Yes 0 (1 standard drink = 0.6 oz pur e alcohol) 4 weekends Comments No Sex and Gender Information Value Date Recorded Sex Assigned at Not on file Legal Sex Female 3:42 AM CUSTODY ASSISTANT Gender Identity Not on file Sexual Orientation Not on file 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 Fax sent to pharm informing above. Please [...] documented as of this encounter Care Teams Bus System Operator Relationship Specialty Start Date End Date Kelly Medina PA-C [address] [place] [address] PCP - General 08/01/01 09/01/18 Elton Harmon PA-C [address] [address] [address] PCP - Assigned PCP 10/13/17 08/19/18 Elton Harmon [place] [address] [place] [address] PCP - General Physician Live In Companion - Medical 09/02/18 08/06/22 Kelly Medina PA-C [address] [place] [address] PCP - General Family Medicine 08/07/22 Elton Harmon PA-C [address] [address] [address] Assigned PCP 12/06/19 09/24/20 Elton Harmon PA-C [address] [address] [address] Assigned PCP 10/13/17 12/05/19 Giulia Awan DO [address] [address] Assigned OBGYN Provider 04/08/20 Elton Harmon PA-C [address] [place] [address] Assigned PCP 09/25/20 12/29/20 Elton Harmon PA-C [address] [place] [address] Assigned PCP 12/30/20 06/29/22 Tevin Marshall PA-C [address] [address] Assigned Musculoskeletal Provider 12/16/21 07/10/23 Kelly Medina PA-C [address] [place] [address] Assigned PCP 06/30/22 Anamaria Nevarez MD [address], [address] [address] well drill operator helper cable tool 07/31/23 Anamaria Nevarez MD [address], [address] [address] Assigned OBGYN Provider 11/07/23 documented as of this encounter
--- OUTSIDE RECORDS SUMMARY | 2025-03-26 17:29 | XMS_ITS | Clinical Summary ---
Author Organization [employer] [facility] Address [facility]5 [place] [address] Care Team Providers Care Associate Product Manager Name Role Phone Kelly [place] PA-C Primary Care Provid er Allergies Active Allergy Reactions Criticality Noted Date Comments Iodine *Unknown 11/13/2021 Medications cyclobenzaprine (FLEXERIL) 10 mg tabletIndication s:Strain of lumbar region, initial encounter Take 1 Tablet (10 mg) by mouth 3 times daily. 30 Tablet 11/13/2021 Active Social History Tobacco Use Types Packs/Day Years Used Date Smoking Tobacco: Never Assessed Comments Unknown Sex and Gender Information Value Date Recorded Sex Assigned at Not on file Legal Sex Female 8:25 PM CDT Gender Identity Not on file Sexual Orientation Not on file Last Filed Vital Signs Vital Sign Reading Time Taken Comments Blood Pressure 134/79 11/13/2021 8:31 PM CDT Pulse 100 11/13/2021 8:31 PM CDT Temperature 36.8 C (98.2 F) 11/13/2021 8:31 PM CDT Respiratory Rate 16 11/13/2021 8:31 PM CDT Oxygen Saturation 96% 11/13/2021 8:31 PM CDT Inhaled Oxygen Concentration - - Weight 79.4 kg (175 lb 0.7 oz) 11/13/2021 8:31 P M CDT Height 160 cm (5' 3) 11/13/2021 8:31 PM CDT Body Mass Index 31.01 11/13/2021 8:31 PM CDT Plan of Treatment Not on file Insurance Care Teams Associate Product Manager Relationship Specialty Start Date End Date Kelly [place] PA-C PCP - General Family Practice 11/13/21
--- OUTSIDE RECORDS SUMMARY | 2025-03-26 17:29 | XMS_ITS | Encounter Summary ---
Author Organization [place] Address [facility] [place] [address] Care Team Providers Care Cement Finisher Name Role Phone Kelly MedinaC Primary Care Pr ovider Elton Harmon PA-C Unavailable + Elton Harmon PA-C Unavailable + Elton Harmon PA-C Primary Care Provider +1--00 Erik Harmonis PA-C Unavailable +88 Giulia Awan DO Unavailable [phone] Elton Harmon PA-C Unavailable +88 Faustino Elton PA-C Unavailable +88 Tevin Marshall PA-C Unavailable [phone] Kelly Medina-C Unavailable Kelly MedinaC Primary Care Pr ovider Anamaria Nevarez MD Unavailable [phone] Anamaria Nevarez MD Unavailable Encounter Details Date Type Department Care Team (Late st Contact Info) Description 09/05/2015 Orders Only [facility] [address] [place] [address] Bobby Tapia MD [facility] [address] [place] [phone] Pre-operative laboratory examination (Primary Dx) Social History Tobacco Use Types Packs/Day Years Used Date Smoking Tobacco: Never Smokeless Tobacco: Never Alcohol Use Standard Drinks/Week Comments Yes 0 (1 standard drink = 0.6 oz pur e alcohol) 4 weekly Comments No Sex and Gender Information Value Date Recorded Sex Assigned at Not on file Legal Sex Female 3:42 AM NETBACKUP ADMIN Gender Identity Not on file Sexual Orientation Not on file 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 aureus PCR Negative MRSA Negative: SA Negative MRSA and Staphylococcus aureus target DNA not detected, presumed negative for MRSA and SA colonization or the number of bacteria present may be below the limit of detection for the assay. FDA approved assay performed using [employer] GeneXpert(R) real-time PCR. [facility]G [facility] 09/05/2015 2:10 PM CDT 09/05/2015 3:47 PM CDT us Bobby Tapia MD LAB - MICRO GENERAL ORDERABLES Final Result [facility] [address] [place] [address], [facility] [address] [place], [place] [address] [phone] documented in this encounter Visit Diagnoses Diagnosis [...] documented as of this encounter Care Teams Cement Finisher Relationship Specialty Start Date End Date Kelly Medina PA-C [address] [address] PCP - General 08/01/01 09/01/18 Elton Harmon PA-C [address] [address] [address] PCP - Assigned PCP 10/13/17 08/19/18 Elton Harmon PA-C [address] [address] [address] PCP - General Physician Charhouse Worker - Medical 09/02/18 08/06/22 Kelly Medina PA-C [address] [address] PCP - General Family Medicine 08/07/22 Elton Harmon PA-C [address] [address] [address] Assigned PCP 12/06/19 09/24/20 Elton Harmon PA-C [address] [place] [place] [address] Assigned PCP 10/13/17 12/05/19 Giulia Awan DO [address] [facility] [address] [place] [address] Assigned OBGYN Provider 04/08/20 Elton Harmon PA-C [address] [place] [address] Assigned PCP 09/25/20 12/29/20 Elton Harmon PA-C [address] [address] [place] [address] Assigned PCP 12/30/20 06/29/22 Tevin Marshall PA-C [address] [address] Assigned Musculoskeletal Provider 12/16/21 07/10/23 Kelly Medina PA-C [address] [address] Assigned PCP 06/30/22 Anamaria Nevarez MD [address] [place] [address] commodities requirements analyst 07/31/23 Anamaria Nevarez MD [address] [place] [address] Assigned OBGYN Provider 11/07/23 documented as of this encounter
--- OUTSIDE RECORDS SUMMARY | 2025-03-26 17:29 | XMS_ITS | Encounter Summary ---
Author Organization [place] Address [address] [place] [address] Care Team Providers Care Dry Box Tender Name Role Phone Kelly Medina PA-C Unavailable Kelly Medina PA-C Primary Care Pr ovider Anamaria Nevarez MD Unavailable Anamaria Nevarez MD Unavailable Encounter Details Date Type Department Care Team (Late st Contact Info) Description 02/26/2024 [facility] [address] [place] [phone] [facility] Social History Tobacco Use Types Packs/Day [...] often do you attend chur ch or druze services? 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 Not on file documented as of this encounter Plan of Treatment Not on file documented as of this encounter Visit Diagnoses Not on filedocumented in this encounter Additional Health Concerns Assessment Noted Time PHQ-9 Depression Total Score: 4 12/04/19 19 3:50 PM CDT documented as of this encounter Care Teams Dry Box Tender Relationship Specialty Start Date End Date Kelly Medina PA-C [address] [place] [address] PCP - General Family Medicine 08/07/22 Kelly Medina PA-C [address] [place] [address] Assigned PCP 06/30/22 Anamaria Nevarez MD [address] [address] gun synchronizer 07/31/23 Anamaria Nevarez MD [address], [facility] [address] [place] [address] Assigned OBGYN Provider 11/07/23 documented as of this encounter
--- OUTSIDE RECORDS SUMMARY | 2025-03-26 17:29 | XMS_ITS | Encounter Summary ---
Author Organization [place] Address [facility] [place] [address] Care Team Providers Care Crystalizer Name Role Phone Elton Harmon PA-C Primary Care Provider Elton Harmon PA-C Unavailable [phone] Tevin Marshall PA-C Unavailable [phone] Kelly Medina PA-C Unavailable Kelly Medina PA-C Primary Care Pr ovider Anamaria Nevarez MD Unavailable Anamaria Nevarez MD Unavailable [phone] Encounter Details Date Type Department Care Team (Late st Contact Info) Description 02/05/2022 [facility] [id number] [place] [phone] Melissa Quintana Social History Tobacco Use Types Packs/Day Years Used Date Smoking Tobacco: Never Smokeless Tobacco: Never Alcohol Use Standard Drinks/Week Comments Yes 0 (1 standard drink = 0.6 oz pur e alcohol) 4 weekends PHQ-2 Answer Date Recorded PHQ-2 Score 0 12/05/2021 Comments No Sex and Gender Information Value Date Recorded Sex Assigned at Not on file Legal Sex Female 3:42 AM CNC MANUFACTURING ENGINEER Gender Identity Not on file Sexual Orientation Not on file 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 [...] documented as of this encounter Care Teams Crystalizer Relationship Specialty Start Date End Date Elton Harmon PA-C PCP - General Physician Program Advisor - Medical 09/02/18 08/06/22 Kelly Medina PA-C [address] [place] [address] PCP - General Family Medicine 08/07/22 Elton Harmon PA-C [address] [facility] [place] [address] Assigned PCP 12/30/20 06/29/22 Tevin Marshall PA-C [address] [place] [address] Assigned Musculoskeletal Provider 12/16/21 07/10/23 Kelly Medina PA-C [address] [place] [address] Assigned PCP 06/30/22 Anamaria Nevarez MD [address] [address] airport screener 07/31/23 Anamaria Nevarez MD [address] [address] Assigned OBGYN Provider 11/07/23 documented as of this encounter
--- OUTSIDE RECORDS SUMMARY | 2025-03-26 17:29 | XMS_ITS | Encounter Summary ---
Author Organization [place] Address [facility] [place] [address] Care Team Providers Care Youtuber Name Role Phone Kelly MedinaC Primary Care Pr ovider Elton Harmon PA-C Unavailable + Elton Harmon PA-C Unavailable + Elton Harmon PA-C Primary Care Provider [phone] Erik Harmonis PA-C Unavailable +[phone] Giulia Awan DO Unavailable [phone] Elton Harmon PA-C Unavailable +[phone] Faustino Elton PA-C Unavailable +[phone] Tevin Marshall PA-C Unavailable [phone] Kelly Medina-C Unavailable Kelly MedinaC Primary Care Pr ovider Anamaria Nevarez MD Unavailable [phone] Anamaria Nevarez MD Unavailable Encounter Details Date Type Department Care Team (Late st Contact Info) Description 04/30/2012 My[facility] Medical Advice [address] [phone] [place] Social History Tobacco Use Types Packs/Day Years Used Date Smoking Tobacco: Never Smokeless Tobacco: Never Alcohol Use Standard Drinks/Week Comments Yes 0 (1 standard drink = 0.6 oz pur e alcohol) rare Comments No Sex and Gender Information Value Date Recorded Sex Assigned at Not on file Legal Sex Female 3:42 AM PASTRY COOK Gender Identity Not on file Sexual Orientation Not on file 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 Not on file Not [...] documented as of this encounter Care Teams Youtuber Relationship Specialty Start Date End Date Kelly Medina PA-C [address] [place] [address] PCP - General 08/01/01 09/01/18 Elton Harmon PA-C [address] [place], [place] [id number] PCP - Assigned PCP 10/13/17 08/19/18 Elton Harmon PA-C [address] [place], [place] [id number] PCP - General Physician Housing Quality Standard Inspector - Medical 09/02/18 08/06/22 Kelly Medina PA-C [address] [place] [address] PCP - General Family Medicine 08/07/22 Elton Harmon PA-C [address] [place] [address] Assigned PCP 12/06/19 09/24/20 Elton Harmon PA-C [address] [place] [address] Assigned PCP 10/13/17 12/05/19 Giulia Awan DO [address] [facility] 100 [place] [address] Assigned OBGYN Provider 04/08/20 Elton Harmon PA-C [address] [place] [address] Assigned PCP 09/25/20 12/29/20 Elton Harmon PA-C [address] [place] [address] Assigned PCP 12/30/20 06/29/22 Tevin Marshall PA-C [address] [address] Assigned Musculoskeletal Provider 12/16/21 07/10/23 Kelly Medina PA-C [address] [place] [address] Assigned PCP 06/30/22 Anamaria Nevarez MD [address] [address] MD wort extractor 07/31/23 Anamaria Nevarez MD [address], [address] [address] Assigned OBGYN Provider 11/07/23 documented as of this encounter
--- OUTSIDE RECORDS SUMMARY | 2025-03-26 17:29 | XMS_ITS | Encounter Summary ---
Author Organization [place] Address [facility] [place] [address] Care Team Providers Care Special Services Agent Name Role Phone Elton Harmon PA-C Primary Care Provider Elton Harmon PA-C Unavailable [phone] Tevin Marshall PA-C Unavailable [phone] Kelly Medina PA-C Unavailable Kelly Medina PA-C Primary Care Pr ovider Anamaria Nevarez MD Unavailable [phone] Anamaria Nevarez MD Unavailable [phone] Encounter Details Date Type Department Care Team (Late st Contact Info) Description 12/29/2021 My[facility] Medical Advice Initial Department [facility] Social History Tobacco Use Types Packs/Day Years Used Date Smoking Tobacco: Never Smokeless Tobacco: Never Alcohol Use Standard Drinks/Week Comments Yes 0 (1 standard drink = 0.6 oz pur e alcohol) 4 weekends PHQ-2 Answer Date Recorded PHQ-2 Score 0 12/05/2021 Comments No Sex and Gender Information Value Date Recorded Sex Assigned at Not on file Legal Sex Female 3:42 AM DIALER Gender Identity Not on file Sexual Orientation Not on file 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 Not on file Not on file COVID-19 Exposure Response Date [...] documented as of this encounter Care Teams Special Services Agent Relationship Specialty Start Date End Date Elton Harmon PA-C PCP - General Physician Director Oracle - Medical 09/02/18 08/06/22 Kelly Medina PA-C [address] [place] [address] PCP - General Family Medicine 08/07/22 Elton Harmon [place] [address] [place] [address] Assigned PCP 12/30/20 06/29/22 Tevin Marshall PA-C [address] [address] Assigned Musculoskeletal Provider 12/16/21 07/10/23 Kelly Medina PA-C [address] [place] [address] Assigned PCP 06/30/22 Anamaria Nevarez MD [address] [address] payroll administrator 07/31/23 Anamaria Nevarez MD [address] [address] Assigned OBGYN Provider 11/07/23 documented as of this encounter
--- OUTSIDE RECORDS SUMMARY | 2025-03-26 17:29 | XMS_ITS | Encounter Summary ---
Author Organization [place] Address [facility] [place] [address] Care Team Providers Care Solar Panel Technician Name Role Phone Kelly MedinaC Primary Care Pr ovider Elton Harmon PA-C Unavailable + Elton Harmon PA-C Unavailable + Elton Harmon PA-C Primary Care Provider [phone] Erik Harmonis PA-C Unavailable +[phone] Giulia Awan DO Unavailable [phone] Elton Harmon PA-C Unavailable +[phone] Faustino Elton PA-C Unavailable +[phone] Tevin Marshall PA-C Unavailable [phone] Kelly Medina-C Unavailable Kelly MedinaC Primary Care Pr ovider Anamaria Nevarez MD Unavailable [phone] Anamaria Nevarez MD Unavailable Encounter Details Date Type Department Care Team (Late st Contact Info) Description 04/23/2014 Orders Only [facility] [address] [place] [address] Bobby Tapia MD [facility] [address] [place] [phone] Preoperative examination, unspecified (Primary Dx) Social History Tobacco Use Types Packs/Day Years Used Date Smoking Tobacco: Never Smokeless Tobacco: Never Alcohol Use Standard Drinks/Week Comments Yes 0 (1 standard drink = 0.6 oz pur e alcohol) 8-10 weekly Comments No Sex and Gender Information Value Date Recorded Sex Assigned at Not on file Legal Sex Female 3:42 AM RETENTION SPECIALIST Gender Identity Not on file Sexual Orientation Not on file 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 aureus PCR Positive MRSA Positive: SA Positive MRSA and Staphylococcus aureus target DNA detected, presumed positive for MRSA and SA colonization. A positive test does not necessarily indicate the presence of viable organisms. It is,however, presumptive for the presence of MRSA or SA. FDA approved assay performed using [employer] GeneXpert(R) real-time PCR. (A) NEG [facility] 04/27/2014 3:30 PM RETENTION SPECIALIST 04/27/2014 3:38 PM RETENTION SPECIALIST us Bobby Tapia MD LAB - MICRO GENERAL ORDERABLES Final Result [facility] [address] [place] [address], [facility] [address] [place], [place] [address] [phone] documented in this encounter Visit Diagnoses Diagnosis Preoperative examination, unspecified- Primary documented in this encounter Additional Health Concerns Infection Onset Date Last Indicated Resolved Time MRSA-Contact Isolation Comment:Nares+, 04/27/2014. Two negative nares PCRs on 09/05/2015 and 08/24/2022. MRSA banner removed. 04/29/2014 04/29/201408/16 9:07 AM CDT Rule Out COVID-19 03/20/2023 03/20/2023 03/20/2023 8:43 PM CDT documented as of this encounter Care Teams Solar Panel Technician Relationship Specialty Start Date End Date Kelly Medina PA-C [address] [place] [address] PCP - General 08/01/01 09/01/18 Elton Harmon [place] [address] [place] [address] PCP - Assigned PCP 10/13/17 08/19/18 Elton Harmon PA-C [address] [address] PCP - General Physician Planner Internship - Medical 09/02/18 08/06/22 Kelly Medina PA-C [address] [place] [address] PCP - General Family Medicine 08/07/22 Elton Harmon PA-C [address] [address] Assigned PCP 12/06/19 09/24/20 Elton Harmon PA-C [address] [place] [address] Assigned PCP 10/13/17 12/05/19 Giulia Awan DO [address] [facility] [address] [place] [address] Assigned OBGYN Provider 04/08/20 Elton Harmon PA-C [address] [place] [address] Assigned PCP 09/25/20 12/29/20 Elton Harmon PA-C [address] [place] [address] Assigned PCP 12/30/20 06/29/22 Tevin Marshall PA-C [address] [address] Assigned Musculoskeletal Provider 12/16/21 07/10/23 Kelly Medina PA-C [address] [place] [address] Assigned PCP 06/30/22 Anamaria Nevarez MD [address], [facility] 100 [place] [address] laborer pie bakery 07/31/23 Anamaria Nevarez MD [address], [facility] [address] [place] [address] Assigned OBGYN Provider 11/07/23 documented as of this encounter
--- OUTSIDE RECORDS SUMMARY | 2025-03-26 17:29 | XMS_ITS | Encounter Summary ---
Author Organization [place] Address [address] [place] [address] Care Team Providers Care Truck Driver Heavy Name Role Phone Tevin Marshall PA-C Unavailable [phone] Kelly Medina PA-C Unavailable Kelly Medina PA-C Primary Care Pr ovider Anamaria Nevarez MD Unavailable Anamaria Nevarez MD Unavailable [phone] Encounter Details Date Type Department Care Team (Late st Contact Info) Description 08/08/2022 [facility] [address] [place] [phone] Darshan Young MD [facility] [address] [place] [address] Pre-operative laboratory examination (Primary Dx) [...] on file Legal Sex Female 3:42 AM GORE SEAMER Gender Identity Not on file Sexual Orientation Not on file 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 No / Unsure 08/08/2022 11:14 AM GORE SEAMER documented as of this encounter Plan of Treatment Not on file documented as of this encounter Results * MRSA MSSA PCR, Nasal Swab (08/24/2022 3:30 PM GORE SEAMER) MRSA Target DNA Negative Negative 08/24/2022 8:31 PM GORE SEAMER [facility] SA Target DNA Negative 08/24/2022 8:31 PM GORE SEAMER [facility] Swab NASAL STRUCTURE / Unknown Non-blood Collection / Unknown 08/24/2022 3:30 PM GORE SEAMER 08/24/2022 3:40 PM GORE SEAMER Narrative [facility] - 08/24/2022 8:31 PM GORE SEAMER The Cepheid Xpert SA Nasal Complete assay performed in the GeneXpert Dx System is a qualitative in vitro diagnostic test designed for rapid detection of Staphylococcus aureus (SA) and methicillin-resistant Staphylococcus aureus (MRSA) from nasal swabs in patients at risk for nasal colonization. The test utilizes automated real-time polymerase chain reaction (PCR) to detect MRSA/SA [...] colonization. Darshan Young MD LAB - MICRO GENERAL ORDE MEL Final Result [facility] [address] [facility] [place] [address] [phone] documented in this encounter Visit Diagnoses Diagnosis [...] documented as of this encounter Care Teams Truck Driver Heavy Relationship Specialty Start Date End Date Kelly Medina PA-C [address] [place] [address] PCP - General Family Medicine 08/07/22 Tevin Marshall PA-C [address] [address] Assigned Musculoskeletal Provider 12/16/21 07/10/23 Kelly Medina PA-C [address] [place] [address] Assigned PCP 06/30/22 Anamaria Nevarez MD [address] [address] shipmaster 07/31/23 Anamaria Nevarez MD [address] [address] Assigned OBGYN Provider 11/07/23 documented as of this encounter
--- OUTSIDE RECORDS SUMMARY | 2025-03-26 17:29 | XMS_ITS | Encounter Summary ---
Author Organization [place] Address [address] [place] [address] Care Team Providers Care Belt And Link Shop Supervisor Name Role Phone Tevin Marshall PA-C Unavailable [phone] Kelly Medina PA-C Unavailable Kelly Medina PA-C Primary Care Pr ovider Anamaria Nevarez MD Unavailable Anamaria Nevarez MD Unavailable [phone] Encounter Details Date Type Department Care Team (Late st Contact Info) Description 08/08/2022 [facility] [address] [place] [phone] Darshan Young MD [facility] [address] [place] [address] Social History Tobacco Use Types Packs/Day Years Used Date Smoking Tobacco: Never Smokeless Tobacco: Never Alcohol Use Standard Drinks/Week Comments Yes 0 (1 standard drink = 0.6 oz pur e alcohol) 4 weekends PHQ-2 Answer Date Recorded PHQ-2 Score 0 12/05/2021 Comments No Sex and Gender Information Value Date Recorded Sex Assigned at Not on file Legal Sex Female 3:42 AM CAR RUNNER Gender Identity Not on file Sexual Orientation Not on file 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 No / Unsure 08/08/2022 11:14 AM CAR RUNNER documented as of this encounter Plan of [...] documented as of this encounter Care Teams Belt And Link Shop Supervisor Relationship Specialty Start Date End Date Kelly Medina PA-C [address] [place] [address] PCP - General Family Medicine 08/07/22 Tevin Marshall PA-C [address] [address] Assigned Musculoskeletal Provider 12/16/21 07/10/23 Kelly Medina PA-C [address] [place] [address] Assigned PCP 06/30/22 Anamaria Nevarez MD [address], [address] [address] senior data integration developer 07/31/23 Anamaria Nevarez MD [address], [address] [address] Assigned OBGYN Provider 11/07/23 documented as of this encounter
--- OUTSIDE RECORDS SUMMARY | 2025-03-26 17:29 | XMS_ITS | Encounter Summary ---
Author Organization [place] Address [address] [place] [address] Care Team Providers Care C Consultant Name Role Phone Tevin Marshall PA-C Unavailable [phone] Kelly Medina PA-C Unavailable Kelly Medina PA-C Primary Care Pr ovider Anamaria Nevarez MD Unavailable Anamaria Nevarez MD Unavailable Encounter Details Date Type Department Care Team (Late st Contact Info) Description 04/22/2023 [facility] [address] [place] [phone] [facility] Social History Tobacco Use Types [...] often do you attend chur ch or rastafarian services? More than 4 times per year 08/24/2022 Do you belong to any clubs o r organizations such as yazidi groups, unions, fraternal or athletic groups, or [...] Answer Date Recorded PHQ-2 Score 0 01/17/2023 [facility] [place] of Occupat ional Health - Occupational Stress [...] place to sleep or slept in a snf (including now)? 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 Not on file Not on file documented as of this encounter Plan of Treatment Not on file documented as of this encounter Visit Diagnoses Not on filedocumented in this encounter Additional Health Concerns Assessment Noted Time PHQ-9 Depression Total Score: 4 12/04/19 19 3:50 PM CDT documented as of this encounter Care Teams C Consultant Relationship Specialty Start Date End Date Kelly Medina PA-C [address] [place] [address] PCP - General Family Medicine 08/07/22 Tevin Marshall PA-C [address] [address] Assigned Musculoskeletal Provider 12/16/21 07/10/23 Kelly Medina PA-C [address] [place] [address] Assigned PCP 06/30/22 Anamaria Nevarez MD [address], [address] [address] section leader screen printing 07/31/23 Anamaria Nevarez MD [address], [address] [address] Assigned OBGYN Provider 11/07/23 documented as of this encounter
--- OUTSIDE RECORDS SUMMARY | 2025-03-26 17:29 | XMS_ITS | Data Portability ---
Author Organization [employer] [facility], [facility] - OP Address [address] [place] [address] Care Team Providers Care Pathology Lab Technician Name Role Phone QUE RYAN Furnace Brazer Assessment Encounter Date Assessment Date Assessment LastModified [...] Modified By Organization Details Last Modified Time 03/15/2020 [id number] Discussion: Dear colleagues: Thank you very much [...] myelogram CT [email or web address] Not available 03/15/2020 16:34:23 05/27/2020 [id number] Discussion: I discussed time I recommend more [...] placing orders, and documenting this visit in [place]. COVID-19 screening completed with patient upon arrival [...] this patient. Synopsis: 05/27/20, GIRON, CIARA, lumbar CT s [facility]: Pain is the same CT shows L2-S1 DDD HNP worse in L3/4/5: MRI of the lumbar spine, PT, JENI, when necessary, followup habbasi Not available 05/27/2020 16:44:00 Reason for Referral None Reported. Results Created Date Observation Date Name Description Value Unit Range Abnormal Flag Note LastModifiedBy Organization Detail LastModifiedTime 05/24/20 20 05/23/2020 CT, lumba r spine , w/ contr ast No observ ation record ed. [email or web address] [facility] [address], [place], [address], 05/24/2020 12:37:29 Result Notes None recorded. Problems Name Problem SNOMED Code Status Onset Date Resolution Date Notes Provider Name and Address Organization Details Recorded Time Rheumatoid arthritis 55059606 Active 020 [facility] 0 16:06:37 Autoimmune disease 66640660 Active 020 [facility] 0 16:06:56 Problem Notes None recorded. Procedures Surgical History Date Name Laterality Status Provider Name and Address Organization Details Recorded Time 06/17/19 18 Joint Replacement completed [facility] 03/15/2020 16:05:59 Imaging Results None recorded. Procedure Notes None recorded. Medical Equipment None Reported. Allergies Allergen ID Allergen Name Allergen Category Reaction Reaction Severity Criticality Documentation Date Start Date Code Code System Note Provider Name and Address Organization Details Recorded Time 3735 latex environme nt,medica tion anaphylax is severe Not available 03/15/2020 44766 91 RxNorm [facility] 0 16:05:44 3736 Product containin g penicilli n (product) medicatio n rash mild Not available 03/15/2020 11852 8001 SNOMED [facility] 0 16:05:45 3758 Iodinated contrast media (substanc e) medicatio n anaphylax is Not available Not available 03/23/2020 01698 2003 SNOMED Gracie Eugene [place] - [facility] 0 12:09:42 Medications Name Sig Start [...] in Arterial blood by Pulse oximetry Systolic And Diastolic Provider Name and Address Organization Details Last Updated DateTime 0 160.02 cm 82 /min 16 /min 97.94 [degF] 30.7 kg/m2 35520.2 g 97 % 97 % 135/94 mm[Hg] Mitra [place] - [facility] 0 16:05:36 Date Recorded Body height Heart rate Respiratory rate Body temperature Body mass index (BMI) Body weight Oxygen saturation Oxygen saturation in Arterial blood by Pulse oximetry Systolic And Diastolic Provider Name and Address Organization Details Last Updated DateTime 0 160.02 cm 80 /min 16 /min 96.8 [degF] 30.1 kg/m2 82145.7 g 95 % 95 % 115/71 mm[Hg] Mitra [place] - [facility] 0 15:44:58 Social History Question Answer Notes LastModified by Organizat ion Details LastModified Time Tobacco Smoking Status Never Smoker Mitra [place] null, [place] - [facility] 03/15/2020 16:05:54 Auto Related Injury? No [email or web address] Information not available 03/15/2020 What Is Your Level Of Caffeine Consumption? Occasional [email or web address] Information not available 03/15/2020 What Type Of Diet Are You Following? GLUTENFREE Information not available 03/15/2020 Who Is Your Employer? [employer] [address] Information not available 03/15/2020 HIV Risk Factors No [email or web address] Informa tion not available 03/15/2020 Live Alone Or With Others? With Others [email or web address] Information not available 03/15/2020 If Injured, Is Litigation Ongoing? Yes [email or web address] Information not available 03/15/2020 What Is Your Relationship Status? [email or web address] Information not available 03/15/2020 Work Related Injury? Yes [email or web address] Information not available 03/15/2020 Sex: Unknown Functional Status Question Answer Note LastModified by Organizat ion Details LastModified Time What is your level of alcohol consumption? Occasional [email or web address] Information not available 03/15/2020 Are you currently employed? 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 Moderate [email or web address] Information not available 03/15/2020 Mental Status Question Answer Note LastModified by Organization D etails LastModified Time Do you have difficulty concentrating, remembering or making decisions? Yes [email or web address] Information no t available 03/15/2020 Family History Relationship Description Onset Age of this Age Resolved Age Notes LastModified by Organization Details LastModified Time Father Family history of malignant neoplasm [email or web address] Not available 02/16 16:07:24 Medical History Condition Response Muscle, Joint, or Bone Problems Y Blood Clot N Stroke N High Cholesterol N Fibromyalgia Y Cancer/Tumors N Hypertension N Gynecological HistoryNo gynecological history recorded. Obstetrics History GPAL:G 0 P 0 0 0 0 Past Encounters Encounter ID Performer Location Encounter Start Date Encounter Closed Date Diagnosis/Indication Diagnosis SNOMED-CT Code Diagnosis ICD10 Code Diagnosis IMO Codes Diagnosis Note [id number] Davi Howard MD [facility] [place] [facility] [address] [place] [address],[facility] [address] [place] [address] 03/15/2020 15:06:05 03/16/2020 08:10:46 [id number] Davi Howard MD [facility] [address] [place] [address],[facility] [address] [place] [address] 05/27/2020 15:32:47 05/30/2020 12:48:47 Health Concerns Section Related Observation LastModified by Organization Detai ls LastModified Time None Recorded Concern Status LastModified by Organization Details LastModified Time None Recorded Advance Directives Directive None Recorded Payers Insurance Date Sequence Insurance Name Policy Number Policy Davis Covered Member ID Davis Member ID Guarantor Name 07/29/2020 1 [place] [id number] Nidia Jean-Baptiste Dettmer [id number] Nidia Dettmer 03/15/2020 1 [place] [id number] Nidia Jean-Baptiste Dettmer [id number] Nidia Dettmer 03/16/2020 STATE [employer] [id number] [facility] Nidia Mtz Notes Date Note Type Note Provider Name and Address Organization Details Recorded Time 03/15/2020 text/html Back PainReporte d by PatientHPIFor location, patient reportspain radiating to the legsbut reportslumbar. For quality, patient reportssharpandtingl ing. For severity, patient reportspain level 8/10andsevere (8-10). For prior imaging, (mri for cervical spine in n-drive. no imaging for lumbar spine.). Nidia MTZ 59yo F 1960 #[id number] Chief Complaint: Status post fall, lower back [...] my neurosurgical opinion. Davi Howard MD [address], [place], [address], [facility] 03/15/2020 16:34:29 05/27/2020 text/html Back PainReporte d by PatientHPIFor location, patient reportspain radiating to the footbut reportslumbar. For quality, patient reportssharp. For severity, patient reportspain level 8/10(pain 10/10 @ worst). For prior imaging, patient reportsct scan. Today nursing spent 20 minutes preparing to see the patient, obtaining and reviewing patients history, obtaining vital signs, entering medications, tests & procedures, educating the patient, coordinating care, and documenting this visit in [place]. Nidia MTZ 59yo F 1960 #[id number] History: Patient is reporting that the symptoms are more less the same with pain 8 of 10 in the lower back and left lower extremity. Patient is here with this CT of the lumbar spine. Conservative therapy as been started but not finished. Davi Howard MD [address], [place], [address], [facility] 05/27/2020 16:44:06 OBGyn Episode No OBEpisode recorded.
--- OUTSIDE RECORDS SUMMARY | 2025-03-26 17:29 | XMS_ITS | Encounter Summary ---
Author Organization [place] Address [facility] [place] [address] Care Team Providers Care Senior Corporate Accountant Name Role Phone Elton Harmon PA-C Primary Care Provider [phone] Giulia Awan DO Unavailable [phone] Elton Harmon PA-C Unavailable [phone] Elton Harmon PA-C Unavailable [phone] Tevin Marshall PA-C Unavailable [phone] Kelly Medina PA-C Unavailable Kelly Medina PA-C Primary Care Pr ovider Anamaria Nevarez MD Unavailable [phone] Anamaria Nevarez MD Unavailable [phone] Encounter Details Date Type Department Care Team (Late st Contact Info) Description 11/23/2020 [facility] Sylvia Jean-Baptiste [address] [address] Tavo Martinez Social History Tobacco Use Types Packs/Day Years Used Date Smoking Tobacco: Never Smokeless Tobacco: Never Alcohol Use Standard Drinks/Week Comments Yes 0 (1 standard drink = 0.6 oz pur e alcohol) 4 weekends PHQ-2 Answer Date Recorded PHQ-2 Score 0 03/25/2019 Comments No Sex and Gender Information Value Date Recorded Sex Assigned at Not on file 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 Gender Identity Not on file Sexual Orientation Not on file 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 Not on file Not [...] documented as of this encounter Care Teams Senior Corporate Accountant Relationship Specialty Start Date End Date Elton Harmon PA-C PCP - General Physician Mathematician Research - Medical 09/02/18 08/06/22 Kelly Medina PA-C [address] [place] [address] PCP - General Family Medicine 08/07/22 Giulia Awan DO [address] [address] Assigned OBGYN Provider 04/08/20 Elton Harmon PA-C [address] [place] [address] Assigned PCP 09/25/20 12/29/20 Elton Harmon PA-C [address] [place] [address] Assigned PCP 12/30/20 06/29/22 Tevin Marshall PA-C [address] [facility] [address] [place] [address] Assigned Musculoskeletal Provider 12/16/21 07/10/23 Kelly Medina PA-C [address] [place] [address] Assigned PCP 06/30/22 Anamaria Nevarez MD [address], [address] [address] rocket motor mechanic 07/31/23 Anamaria Nevarez MD [address], [address] [address] Assigned OBGYN Provider 11/07/23 documented as of this encounter
--- OUTSIDE RECORDS SUMMARY | 2025-03-26 17:29 | XMS_ITS | Encounter Summary ---
Author Organization [place] Address [address] [place] [address] Care Team Providers Care Meteorology Faculty Member Name Role Phone Tevin Marshall PA-C Unavailable [phone] Kelly Medina PA-C Unavailable Kelly Medina PA-C Primary Care Pr ovider Anamaria Nevarez MD Unavailable Anamaria Nevarez MD Unavailable Encounter Details Date Type Department Care Team (Late st Contact Info) Description 02/20/2023 [facility] Medical Advice [facility] [place] [address] [facility] [address] [place] [address] Re Lu, ELIJAH Social History Tobacco Use Types Packs/Day Years [...] often do you attend chur ch or congregational services? More than 4 times per year [...] Answer Date Recorded PHQ-2 Score 0 01/17/2023 [facility] - [...] place to sleep or slept in a nursing home (including now)? 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 Not on file [...] documented as of this encounter Care Teams Meteorology Faculty Member Relationship Specialty Start Date End Date Kelly Medina PA-C [address] [address] PCP - General Family Medicine 08/07/22 Tevin Marshall PA-C [address] [place] [address] [address] [address] Assigned Musculoskeletal Provider 12/16/21 07/10/23 Kelly Medina PA-C [address] [place] [address] Assigned PCP 06/30/22 Anamaria Nevarez MD [address] [address] rv repairer 07/31/23 Anamaria Nevarez MD [address] [address] Assigned OBGYN Provider 11/07/23 documented as of this encounter
--- OUTSIDE RECORDS SUMMARY | 2025-03-26 17:29 | XMS_ITS | Encounter Summary ---
Author Organization [place] Address [facility] [place] [address] Care Team Providers Care Gi Physician Name Role Phone Kelly MedinaC Primary Care Pr ovider Elton Harmon PA-C Unavailable + Elton Harmon PA-C Unavailable + Elton Harmon PA-C Primary Care Provider [phone] Erik Harmonis PA-C Unavailable [phone] Giulia Awan DO Unavailable [phone] Elton Harmon PA-C Unavailable [phone] Faustino Elton PA-C Unavailable [phone] Tevin Marshall PA-C Unavailable [phone] Kelly Medina-C Unavailable Kelly MedinaC Primary Care Pr ovider Anamaria Nevarez MD Unavailable [phone] Anamaria Nevarez MD Unavailable Encounter Details Date Type Department Care Team (Late st Contact Info) Description 08/17/2013 [facility] Medical Advice [facility] [address] [place] [phone] Carmelina Bishop APRN BIKE MECHANIC [address] [place] [address] Social History Tobacco Use Types Packs/Day Years Used Date Smoking Tobacco: Never Smokeless Tobacco: Never Alcohol Use Standard Drinks/Week Comments No 0 (1 standard drink = 0.6 oz pur e alcohol) Comments No Sex and Gender Information Value Date Recorded Sex Assigned at Not on file 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 Gender Identity Not on file Sexual Orientation Not on file 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 Not on file Not [...] documented as of this encounter Care Teams Gi Physician Relationship Specialty Start Date End Date Kelly Medina PA-C [address] [place] [address] PCP - General 08/01/01 09/01/18 Elton Harmon PA-C [address] [place] [address] PCP - Assigned PCP 10/13/17 08/19/18 Elton Harmon PA-C [address] [place] [address] PCP - General Physician Delphi Programmer - Medical 09/02/18 08/06/22 Kelly Medina PA-C [address] [place] [address] PCP - General Family Medicine 08/07/22 Elton Harmon PA-C [address] [place] [address] Assigned PCP 12/06/19 09/24/20 Elton Harmon PA-C [address] [place] [address] Assigned PCP 10/13/17 12/05/19 Giulia Awan DO [address] [address] Assigned OBGYN Provider 04/08/20 Elton Harmon PA-C [address] [place] [address] Assigned PCP 09/25/20 12/29/20 Elton Harmon PA-C [address] [place] [address] Assigned PCP 12/30/20 06/29/22 Tevin Marshall PA-C [address] [place] [address] [place] [address] Assigned Musculoskeletal Provider 12/16/21 07/10/23 Kelly Medina PA-C [address] [place] [address] Assigned PCP 06/30/22 Anamaria Nevarez MD [address] [address] commercial collections specialist 07/31/23 Anamaria Nevarez MD [address] [address] Assigned OBGYN Provider 11/07/23 documented as of this encounter
[2025-03-26 17:32] VITALS: BP 134/86; PULSE 83; RESP 18; TEMP 37.4; O2SAT 98; BMI 33.7
--- NOTE | 2025-03-26 17:51 | ED.GENADULT ---
HPI - General Adult General Chief complaint: Abdominal Pain Stated complaint: has kidney stones/ sent from [facility] Time Seen by Provider: 03/26/25 17:36 History of Present Illness HPI narrative: Patient presents to the emergency department complaining of right rib/upper quadrant pain. Patient states she was experiencing upper back pain and had experienced some blood in her urine. Patient has a history of kidney stones. Was sent from urgent care for further evaluation. 64-year-old woman presenting to the emergency department after being seen in urgent care with concern of possible kidney stone or urinary tract infection. Over the last approximately 2 weeks has had some right flank and upper right abdominal pain. Did intensify markedly though today. Did also noticed hematuria today and some yesterday. Does have a history of nephrolithiasis. Has not had dysuria. No cough cold symptoms. She is not short of breath. She has also developed some pain in her back on the right. Pain is particularly bad when she just goes to move. Hurts a little when she takes a really deep breath as well. Does not recall any trauma. No food intolerances. Still has a gallbladder. No fever. Does have a history of some low back pain but this isn't it. No leg swelling or pain. She does feel like when this pain escalates that it can spasm across her abdomen. She does not think she is constipated; having twice daily bowel movements. Does clarify near the end of the visit that has been experiencing intermittent hematuria in the mornings for quite some time. Concerning today was just longer duration of this and that had escalation in the right upper abdominal/flank pain. Related Data Home Medications ?Medication ?Instructions ?Recorded ?Confirmed ibuprofen .Route 07/22/23 03/26/25 etanercept 50 mg/mL (1 mL) mg subcut 11/25/24 03/26/25 subcutaneous pen injector (Enbrel SureClick) loratadine-pseudoephedrine ER 10 1 tab PO QDAY 11/25/24 03/26/25 mg-240 mg tablet,extended [id number] (Claritin-D 24 Hour) Previous Rx's ?Medication ?Instructions ?Recorded prednisone 20 mg tablet See Rx Instructions PO QDAY Cough 11/25/24 #10 tabs Allergies Allergy/AdvReac Type Severity Reaction Status Date / Time bee pollen Allergy Severe Anaphylaxis Verified 03/26/25 17:37 Latex, Natural Rubber Allergy Severe Anaphylaxis Verified 03/26/25 17:37 Penicillins Allergy Mild Rash Verified 03/26/25 17:37 Review of Systems Status of ROS: Reports: 6 or more systems reviewed and unremarkable except as noted in History and below [facility] Social History Smoking Status: Never smoker Do you use any of these nicotine containing products: None Second hand tobacco smoke exposure: No How often do you have a drink containing alcohol: 4 or more times a week How many standard drinks containing alcohol do you have on a typical day: 1 or 2 AUDIT-C Alcohol total score: 4 Non-prescribed substance use: marijuana (any form) Exam Narrative: Exam Narrative: Pleasant. Very positive affect. Easily conversant. No scleral icterus. Clearly uncomfortable. Skin is warm and dry. Do not appreciate any rashes. Lungs are clear. Breath sounds throughout. She does not have supraclavicular crepitus. Does have pain to palpation of the right flank and into the Mar spinal musculature mid back. Abdomen is exquisitely tender in the right upper quadrant. She does guard somewhat. Not exactly rib edge pain but little tender here as well. Heart in regular rate and rhythm without murmur rub or gallop but a little distant. Abdomen otherwise is overweight soft. As I palpate further though she is quite tender in the suprapubic area as well. Extremities are well perfused without edema. Without pain to palpation. Strong equal radial pulses. Const: Vital Signs, click to edit/add: Vital Signs - 24 hr 03/26/25 17:32 03/26/25 18:51 Temperature 99.3 F Pulse Rate [Right Pulse Oximeter] 83 88 Respiratory Rate 18 20 Blood Pressure [Ri ght Upper Arm] 134/86 142/88 H Pulse Oximetry 98 96 Oxygen Delivery Me thod Room Air Room Air Documenting provider has reviewed patient's vital signs: yes Course Vital Signs Vital signs: Initial Vital Signs Temperature 99.3 F 03/26/25 17:32 Temperature Source Temporal Artery Scan 03/26/25 17:32 Pulse Rate 83 03/26/25 17:32 Pulse Rhythm Regular 03/26/25 17:32 Pulse Strength 3+ Normal 03/26/25 17:32 Respiratory Rate 18 03/26/25 17:32 Blood Pressure 134/86 03/26/25 17:32 Blood Pressure Mean 102 03/26/25 17:32 Blood Pressure Position Sitting 03/26/25 17:32 Pulse Oximetry 98 03/26/25 17:32 Oxygen Delivery Method Room Air 03/26/25 17:32 Vital Signs Temperature 99.3 F 03/26/25 17:32 Pulse Rate 83 03/26/25 17:32 Respiratory Rate 18 03/26/25 17:32 Blood Pressure 134/86 03/26/25 17:32 Pulse Oximetry 98 03/26/25 17:32 Oxygen Delivery Method Room Air 03/26/25 17:32 Temperature 99.3 F 03/26/25 17:32 Pulse Rate 88 03/26/25 18:51 Respiratory Rate 20 03/26/25 18:51 Blood Pressure 142/88 H 03/26/25 18:51 Pulse Oximetry 96 03/26/25 18:51 Oxygen Delivery Method Room Air 03/26/25 18:51 Medications Administered Medications: Discontinued Medications Generic Name Dose Route Start Last Admin Trade Name Freq PRN Reason Stop Dose Admin Diphenhydramine HCl 25 mg 03/26/25 18:38 03/26/25 18:46 Diphenhydramine 50 Mg/Ml Inj IVP 03/26/25 18:39 25 mg ONCE ONE Administration Hydromorphone HCl 0.5 mg 03/26/25 18:01 03/26/25 19:05 Hydromorphone 0.5 Mg/0.5 Ml Inj IVP 03/26/25 18:02 0.25 mg ONCE ONE Administration Hydromorphone HCl 0.5 mg 03/26/25 19:44 03/26/25 20:10 Hydromorphone 0.5 Mg/0.5 Ml Inj IVP 03/26/25 19:45 0.5 mg ONCE ONE Administration Sodium Chloride 1,000 mls @ 1,000 mls/hr 03/26/25 18:01 03/26/25 20:05 0.9 % Sodium Chloride 1000 Ml IV 03/26/25 19:00 Infused .Q1H ONE Infusion Ketorolac Tromethamine 30 mg 03/26/25 18:01 03/26/25 18:29 Ketorolac 30 Mg/Ml Inj IVP 03/26/25 18:02 30 mg ONCE ONE Administration Lorazepam 0.5 mg 03/26/25 18:39 03/26/25 18:48 Lorazepam 2 Mg/Ml Inj IVP 03/26/25 18:40 0.5 mg ONCE ONE Administration Ondansetron HCl 4 mg 03/26/25 18:52 03/26/25 18:55 Ondansetron 2 Mg/Ml Inj IVP 03/26/25 18:53 4 mg ONCE ONE Administration Medical Decision Making MDM Narrative Medical decision making narrative: Certainly is making a reasonable case for ureteral stone and colic. IV has been placed. Will be receiving normal saline. She did say she does not want ?pain medication? referring to opiates in particular but does not like the way morphine makes her feel. She has been tolerant apparently of hydromorphone before though she says and would welcome some pain relief. I would check labs for infection in the urine; collect urinalysis. Differential also includes pyelonephritis and possible gallbladder disease/cholecystitis/biliary colic. Low-lying pneumonia possibility. Pneumothorax or pulmonary embolus? Chest wall pain? I do not think this is radicular pain from her back. Aseptic cystitis? Shingles prodrome? Had arranged for abdomen and pelvis CT with concerns of nephrolithiasis/ureteral stone. IV was placed. Had received also ketorolac and was just being initiated on dosing of Dilaudid when had sudden and severe right-sided periorbital and forehead headache. Was speaking strangely kind of slurring and a little distracted in apparent pain. Heart rate became tachycardic but remained in regular rhythm. She received a fraction of the dose of this Dilaudid. At this time also pupils are equal. She is demonstrating some light sensitivity. She was able to follow commands. Was demonstrating no lack of strength or discoordination other than with how she was speaking. Strange reaction to medication or appeared to have a panic attack. Certainly could be sudden head bleed. Given diphenhydramine and then Ativan continue to monitor. Symptoms settled somewhat but still with intense headache. Arranged also for head CT same time imaging given severity of headache. With subsequent nausea given Zofran. Head CT independently reviewed by me looks to be without acute abnormality/bleed. Radiology over-read below concurs INDICATION: Periorbital headaches. TECHNIQUE: CT of the head without contrast. Coronal and sagittal reformats are included. COMPARISON: None. FINDINGS: No CT evidence of acute cortical infarct. No loss of ruiz white matter differentiation. No hyperdense vessels to suggest intracranial thrombus. No acute intracranial hemorrhage. No mass effect or midline shift. No hydrocephalus or extra-axial collections. White matter is within normal limits for age. No acute osseous abnormalities. Mastoid air cells and paranasal sinuses are clear. Normal soft tissues. IMPRESSION: IMPRESSION:1. No CT evidence of acute cortical infarct. No acute intracranial hemorrhage. No other acute intracranial findings. Please note that all CT scans at this facility use dose modulation, iterative reconstruction, and/or weight-based dosing when appropriate to reduce radiation dose to as low as reasonably achievable. Dictated by Alfredo Nunes MD @ 03/26/2025 7:30:[address] abdomen pelvis by my independent review appears to be without perinephric stranding or evidence of ureteral stone or hydronephrosis. Diverticulosis is noted though I do not see diverticulitis. Radiology over-read below - without aneurysm noted Indication: Right flank pain and suprapubic pain Technique: Volumetric multidetector CT images of the abdomen and pelvis were without the administration of intravenous contrast. Comparison: None available. Findings: The lung bases are clear. The liver is normal in attenuation without intrahepatic biliary ductal dilatation. The gallbladder is unremarkable without evidence of radiopaque calculus. There is no significant common biliary ductal dilatation or abrupt cut off. The spleen is normal in attenuation and size. The stomach and duodenum are grossly unremarkable. The pancreas is normal in attenuation without significant atrophy. The adrenal glands are unremarkable. There is no evidence of radiopaque calculus or hydronephrosis. There is moderate stool seen throughout the colon with minimal colonic diverticulosis. No evidence of diverticulitis. The appendix is surgically absent. There is no significant mesenteric, retroperitoneal, or pelvic sidewall lymph nodes. The aorta is nonaneurysmal. There is no significant atherosclerotic disease appreciated. Evaluation of the central pelvis is mildly limited due to beam hardening artifact from left hip arthroplasty. There is prior hysterectomy. Otherwise the pelvic viscera are grossly within normal limits. There is no free fluid or free air. There is mild diastasis of the rectus muscles with a small fat containing umbilical hernia. The lumbar vertebral body heights are grossly maintained with [id number] degenerative disc disease. Impression: 1. No evidence of hydronephrosis or hydroureter. No evidence of obstructive radiopaque calculus. Grossly unremarkable urinary bladder, mildly limited in evaluation due to beam hardening artifact from left hip arthroplasty. No definite acute intra-abdominal abnormalities are appreciated. Please note that all CT scans at this facility use dose modulation, iterative reconstruction, and/or weight-based dosing when appropriate to reduce radiation dose to as low as reasonably achievable. Dictated by Charan Novak MD @ 03/26/2025 7:44:46 PM Finally with urinalysis showing 1+ leukocyte esterase and 5-10 white cells. Symptoms overall have improved for Nidia. Still with exquisitely tender right upper quadrant. She would like more pain medication. I did request re-dosing of Dilaudid quite slowly. She tolerated this quite well. I requested limited abdominal ultrasound. Labs overall reassuring although I did screen with a D-dimer considering vaguely pleuritic nature to her chest discomfort. No evidence admittedly of noncontrast imaging of vascular disruption. D-dimer was rather elevated at 2.2. Pending ultrasound did send for IV contrasted CT scan of the chest. Numerous symptoms as presented demonstrated here today without clear correlation. IV contrasted CT scan of the chest PE protocol as below Indication: Right upper quadrant and pleuritic pain Technique: Postcontrast CTA of the chest following 95 mL Isovue 370 IV contrast. Axial MIP images obtained. Comparison: None Findings: Pulmonary arteries: Respiratory motion degradation. No large or central pulmonary embolism. Lungs: No consolidation. No effusion. No pneumothorax. Mild atelectasis and/or scarring. Mediastinum: No acute abnormality appreciated. Lymph nodes: No gross lymphadenopathy. Upper abdomen: No acute abnormality appreciated. Soft tissues: No acute abnormality appreciated. Bones: No acute abnormality appreciated. Mild spondylosis. Impression: Respiratory motion degradation. No large or central pulmonary embolism or other acute abnormality is appreciated. Please note that all CT scans at this facility use dose modulation, iterative reconstruction, and/or weight-based dosing when appropriate to reduce radiation dose to as low as reasonably achievable. Dictated by Romeo Delgado MD @ 03/26/2025 9:49:56 PM Limited abdominal ultrasound Indication: Severe right upper quadrant pain Technique: Limited abdominal ultrasound. Evaluation of the liver, gallbladder, common bile duct, pancreas, right kidney, and aorta/IVC. Grayscale and color Doppler imaging utilized. Comparison: Same day CT Findings: Liver: Unremarkable size and echotexture. Gallbladder: No stones or sludge. Borderline gallbladder wall thickening. Patient was pre-medicated for pain. Common bile duct: 4 mm. Pancreas: Partially obscured. Visualized portions are unremarkable. Right kidney: Unremarkable. Aorta/IVC: Unremarkable. Impression: Borderline gallbladder wall thickening, no other significant sonographic abnormality appreciated, though premedication for pain precludes reliable assessment for a sonographic Dickson`s sign. Dictated by Romeo Delgado MD @ 03/26/2025 10:18:01 PM Medical Records Medical records reviewed: Yes I reviewed the patient's medical records Lab Data Lab results reviewed: Yes I reviewed the patient's lab results Labs: Lab Results 03/26/25 03/26/25 03/26/25 Range/Units 18:20 20:04 20:33 WBC 7.98 (4.50-11.00) K/uL RBC 4.69 (4.00-5.20) m/uL Hgb 14.2 (12.0-16.0) gm/dL Hct 44.2 (33.0-51.0) % MCV 94 (80-100) fL MCH 30 (26-34) pg MCHC 32 (32-36) gm/dL RDW Coeff of Lashay 13.1 (11.5-15.5) % Plt Count 247 (140-440) K/uL Neut % (Auto) 59.6 (42.0-72.0) % Lymph % (Auto) 28.9 (20-44) % Parke % (Auto) 7.9 (0.0-11.0) % Eos % (Auto) 3.0 (0.0-7.0) % Baso % (Auto) 0.3 (0.0-3.0) % Neut # (Auto) 4.76 (1.7-7.0) K/uL Lymph # (Auto) 2.31 (0.90-2.90) K/uL Parke # (Auto) 0.60 (0.00-0.90) K/UL Eos # (Auto) 0.24 (0.00-0.50) K/uL Baso # (Auto) 0.02 (0.00-0.30) K/uL Abs Immat Gran (auto) 0.02 (0.00-0.30) K/uL Imm/Tot Granulo (auto) 0.3 % D-Dimer Quant (PE/DVT) 2.20 H (0.00-0.50) ug/ml Sodium 136 (135-149) mmol/L Potassium 4.0 (3.6-5.1) mmol/L Chloride 99 (96-114) mmol/L Carbon Dioxide 28 (20-32) mmol/L Anion Gap 9 (7-15) mEq/L BUN 18 (7-30) mg/dL Creatinine 0.6 (0.5-1.5) mg/dL Estimated Creat Clear 48.25 Estimated GFR 101 ml/min Glucose 98 (60-115) mg/dL Calcium 9.6 (8.4-10.6) mg/dL Total Bilirubin 0.2 (0.1-1.5) mg/dL Direct Bilirubin 0.2 (0.0-0.5) mg/dL AST 33 (12-35) U/L ALT 24 (4-35) U/L Alkaline Phosphatase 62 (40-150) U/L C-Reactive Protein < 0.5 L (0.5-1.0) mg/dL Total Protein 7.8 (6.0-8.3) g/dL Albumin 4.5 (3.3-5.0) g/dL Urine Color Yellow (Yellow) Urine Appearance Clear (Clear) Urine pH 6.0 (5.0-8.5) Ur Specific Johnston 1.010 (1.000-1.030) Urine Protein Negative (Negative) Urine Glucose (UA) Negative (Negative) Urine Ketones Negative (Negative) Urine Blood Negative (Negative) Urine Nitrite Negative (Negative) Urine Bilirubin Negative (Negative) Urine Urobilinogen 0.2 (0.2-1.0) Ur Leukocyte Esterase 1+ A (Negative) Urine RBC 0-2 (0-2) Urine WBC 5-10 A (0-5) Ur Squamous Epith Cells Few (None-Few) Urine Bacteria None (None) Lab Acknowledgement Test Added Discharge Plan Discharge Clinical Impression: Right upper quadrant abdominal pain, Intermittent gross hematuria Patient Disposition: Home w/ Parent or Adult Condition: Improved Additional Instructions: I am happy you are feeling better. Findings or absence of findings have been a little puzzling here today. You have some borderline gallbladder wall thickening but no evidence of irritation or inflammation there otherwise. You might be moderately constipated as well and the spasms of pain you are feeling could be related to intestinal colic. It sounds as though you have been experiencing intermittent hematuria in the mornings for some time. Did not at least see any blood in your urine today and your renal function looks good. Yes this might be related to your history of inflammatory/immune mediated disease. You might pursue further workup as an outpatient starting with your primary care provider. We do not see significant evidence of infection today but will be culturing your urine and call you if appears to need treatment. You might want to make an appointment to see General surgery for a consult regarding this right upper quadrant pain and possible changes to your gallbladder. Consider starting daily MiraLax equivalent diluting each dose in at least 8 oz of liquid; 1-3 doses daily adjusting to stool consistency. If you do need opiate pain medication, on days you might be taking that medication take 1-2 tabs of a senna-containing product; I believe you actually mentioned senna tea? Prescribing small quantity of Percocet from [facility] as discussed. Remember that each tablet contains 5 mg of oxycodone and 325 mg of acetaminophen. Otherwise can take up to 800 mg of ibuprofen or up to 1000 mg of acetaminophen per dose. Return for marked increase in persistent pain, uncontrolled pain, associated fever, worsening bleeding. Prescriptions: No Action Claritin-D 24 Hour 10-240 mg tablet extended release 24 hr 1 tab PO QDAY Enbrel SureClick 50 mg/mL (1 mL) pen injector subcut prednisone 20 mg tablet See Rx Instructions PO QDAY Qty: 10 0RF Rx Instructions: 2 p.o. as single dose x5 days, then discontinue. ibuprofen [Advil Liqui-Gel] .Route Follow Up/Referrals: Provider,Not a Local [Primary Care Provider, Family Practice] Stand Alone Forms: [employer] Info Instructions
--- NOTE | 2025-03-26 18:01 | CRLHL7_ITS ---
For Patients: As a result of the Century Cures Act, medical imaging exams and procedure reports are released immediately into your electronic medical record. You may view this report before your referring provider. If you have questions, please contact your health care provider. Indication: Right flank pain and suprapubic pain Technique: Volumetric multidetector CT images of the abdomen and pelvis were without the administration of intravenous contrast. Comparison: None available. Findings: The lung bases are clear. The liver is normal in attenuation without intrahepatic biliary ductal dilatation. The gallbladder is unremarkable without evidence of radiopaque calculus. There is no significant common biliary ductal dilatation or abrupt cut off. The spleen is normal in attenuation and size. The stomach and duodenum are grossly unremarkable. The pancreas is normal in attenuation without significant atrophy. The adrenal glands are unremarkable. There is no evidence of radiopaque calculus or hydronephrosis. There is moderate stool seen throughout the colon with minimal colonic diverticulosis. No evidence of diverticulitis. The appendix is surgically absent. There is no significant mesenteric, retroperitoneal, or pelvic sidewall lymph nodes. The aorta is nonaneurysmal. There is no significant atherosclerotic disease appreciated. Evaluation of the central pelvis is mildly limited due to beam hardening artifact from left hip arthroplasty. There is prior hysterectomy. Otherwise the pelvic viscera are grossly within normal limits. There is no free fluid or free air. There is mild diastasis of the rectus muscles with a small fat containing umbilical hernia. The lumbar vertebral body heights are grossly maintained with [id number] degenerative disc disease. Impression: 1. No evidence of hydronephrosis or hydroureter. No evidence of obstructive radiopaque calculus. Grossly unremarkable urinary bladder, mildly limited in evaluation due to beam hardening artifact from left hip arthroplasty. No definite acute intra-abdominal abnormalities are appreciated. Please note that all CT scans at this facility use dose modulation, iterative reconstruction, and/or weight-based dosing when appropriate to reduce radiation dose to as low as reasonably achievable. Dictated by Charan Novak MD @ 03/26/2025 7:44:46 PM (Electronically Signed)
[2025-03-26 18:40] LABS: Hematocrit* 44.2 % (33.0-51.0); Hemoglobin* 14.2 gm/dL (12.0-16.0); Immature Granulocytes Abs Auto 0.02 K/uL (0.00-0.30); Immature Granulocytes Pct Auto 0.3 %; Lymphocytes Absolute Auto 2.31 K/uL (0.90-2.90); Mean Corpuscular HGB Conc 32 gm/dL (32-36); Mean Corpuscular Hemoglobin 30 pg (26-34); Mean Corpuscular Volume 94 fL (80-100); RDW Coefficient of Variation % 13.1 % (11.5-15.5); Red Blood Count* 4.69 m/uL (4.00-5.20); White Blood Count* 7.98 K/uL (4.50-11.00)
[2025-03-26 18:42] LABS: Albumin* 4.5 g/dL (3.3-5.0); Chloride* 99 mmol/L (96-114)
[2025-03-26 18:43] LABS: Potassium* 4.0 mmol/L (3.6-5.1); Sodium* 136 mmol/L (135-149)
[2025-03-26 18:45] LABS: Blood Urea Nitrogen* 18 mg/dL (7-30); Creatinine* 0.6 mg/dL (0.5-1.5); Est. Creatinine Clearance* 48.25; Estimated Glomerular Filt Rate 101 ml/min
[2025-03-26 18:46] LABS: Alanine Aminotransferase* 24 U/L (4-35); Alkaline Phosphatase* 62 U/L (40-150); Anion Gap 9 mEq/L (7-15); Aspartate Amino Transferase* 33 U/L (12-35); Bilirubin Direct* 0.2 mg/dL (0.0-0.5); Bilirubin Total* 0.2 mg/dL (0.1-1.5); Calcium* 9.6 mg/dL (8.4-10.6); Carbon Dioxide* 28 mmol/L (20-32); Glucose* 98 mg/dL (60-115); Total Protein* 7.8 g/dL (6.0-8.3)
[2025-03-26 18:47] LABS: Slide Review Reflex No
[2025-03-26 18:51] VITALS: BP 142/88; PULSE 88; RESP 20; O2SAT 96
--- NOTE | 2025-03-26 18:52 | CRLHL7_ITS ---
For Patients: As a result of the Century Cures Act, medical imaging exams and procedure reports are released immediately into your electronic medical record. You may view this report before your referring provider. If you have questions, please contact your health care provider. INDICATION: Periorbital headaches. TECHNIQUE: CT of the head without contrast. Coronal and sagittal reformats are included. COMPARISON: None. FINDINGS: No CT evidence of acute cortical infarct. No loss of ruiz white matter differentiation. No hyperdense vessels to suggest intracranial thrombus. No acute intracranial hemorrhage. No mass effect or midline shift. No hydrocephalus or extra-axial collections. White matter is within normal limits for age. No acute osseous abnormalities. Mastoid air cells and paranasal sinuses are clear. Normal soft tissues. IMPRESSION: IMPRESSION:1. No CT evidence of acute cortical infarct. No acute intracranial hemorrhage. No other acute intracranial findings. Please note that all CT scans at this facility use dose modulation, iterative reconstruction, and/or weight-based dosing when appropriate to reduce radiation dose to as low as reasonably achievable. Dictated by Alfredo Nunes MD @ 03/26/2025 7:30:08 PM (Electronically Signed)
[2025-03-26] MEDS: ONDANSETRON 2 MG/ML inj 4 MG IVP (18:55)
[2025-03-26 20:09] LABS: Appearance Urine Clear (Clear)
--- NOTE | 2025-03-26 20:34 | CRLHL7_ITS ---
For Patients: As a result of the Century Cures Act, medical imaging exams and procedure reports are released immediately into your electronic medical record. You may view this report before your referring provider. If you have questions, please contact your health care provider. Indication: Severe right upper quadrant pain Technique: Limited abdominal ultrasound. Evaluation of the liver, gallbladder, common bile duct, pancreas, right kidney, and aorta/IVC. Grayscale and color Doppler imaging utilized. Comparison: Same day CT Findings: Liver: Unremarkable size and echotexture. Gallbladder: No stones or sludge. Borderline gallbladder wall thickening. Patient was pre-medicated for pain. Common bile duct: 4 mm. Pancreas: Partially obscured. Visualized portions are unremarkable. Right kidney: Unremarkable. Aorta/IVC: Unremarkable. Impression: Borderline gallbladder wall thickening, no other significant sonographic abnormality appreciated, though premedication for pain precludes reliable assessment for a sonographic Dickson`s sign. Dictated by Romeo Delgado MD @ 03/26/2025 10:18:01 PM (Electronically Signed)
[2025-03-26 20:46] LABS: D Dimer Quantitative* 2.20 ug/ml (0.00-0.50)
--- NOTE | 2025-03-26 20:59 | CRLHL7_ITS ---
For Patients: As a result of the Century Cures Act, medical imaging exams and procedure reports are released immediately into your electronic medical record. You may view this report before your referring provider. If you have questions, please contact your health care provider. Indication: Right upper quadrant and pleuritic pain Technique: Postcontrast CTA of the chest following 95 mL Isovue 370 IV contrast. Axial MIP images obtained. Comparison: None Findings: Pulmonary arteries: Respiratory motion degradation. No large or central pulmonary embolism. Lungs: No consolidation. No effusion. No pneumothorax. Mild atelectasis and/or scarring. Mediastinum: No acute abnormality appreciated. Lymph nodes: No gross lymphadenopathy. Upper abdomen: No acute abnormality appreciated. Soft tissues: No acute abnormality appreciated. Bones: No acute abnormality appreciated. Mild spondylosis. Impression: Respiratory motion degradation. No large or central pulmonary embolism or other acute abnormality is appreciated. Please note that all CT scans at this facility use dose modulation, iterative reconstruction, and/or weight-based dosing when appropriate to reduce radiation dose to as low as reasonably achievable. Dictated by Romeo Delgado MD @ 03/26/2025 9:49:56 PM (Electronically Signed)
[2025-03-26 23:12] VITALS: BP 105/74; PULSE 69; RESP 18; TEMP 36.7; O2SAT 96
== END 2025-03-26 23:15 | disposition home or self-care (01) ==
PROVIDERS: Emergency Provider Family Medicine
DX: R10.11 Right upper quadrant pain (principal); R31.0 Gross hematuria; R51.9 Headache, unspecified; R00.0 Tachycardia, unspecified
CPT/HCPCS: 36415; 70450; 71275; 74176; 76705; 80048; 80076; 81001; 85025; 85379; 86140; 87040; 87086; 96361; 96374; 96375; 96376; 99284; 99285; J1171; J1200; J1885; J2060; J2405; J7030; Q9967